=== PATIENT | male | born 1940 | race Asian ===

== ENCOUNTER 2023-08-04 10:46 | Outpatient (RCR) | payer MEDICARE, SELFPAY | END 2023-08-04 23:59 | disposition home or self-care (01) | LOC: CRHB 10:46 | PROVIDERS: ATTENDING PHYSICIAN Internal Medicine Interventional Cardiology | DX: I25.10 Atherosclerotic heart disease of native coronary artery without angina pectoris (principal); Z95.1 Presence of aortocoronary bypass graft | CPT/HCPCS: G0422 ==

== ENCOUNTER 2023-09-12 23:06 | Inpatient (IN) | payer MEDICARE, SELFPAY ==
[2023-09-12] VITALS (12 sets, daily range): BP systolic 77–158; BP diastolic 37–126; BMI 27.8
[2023-09-12 20:33] LABS: % Basophils 0.1 % (0-2); % Immature Granulocytes 0.5 % (0-0.5); % Lymphocytes 7.9 % (20.5-51.1); % Monocytes 7.9 % (1.7-9.3); % Neutrophils 83.6 % (42.2-75.2); Absolute Immature Granulocytes 0.1 10^3/uL (0-0.05); Absolute Neutrophils 10.4 10^3/uL (1.4-6.5); Hematocrit 21.3 % (39.0-52.0); Hemoglobin 7.3 g/dL (13.0-18.0); Mean Corp Hgb Conc. 34.3 g/dL (33.0-37.0); Mean Corpuscular Hgb 28.6 pg (27.0-31.0); Mean Corpuscular Volume 83.5 fL (80.0-94.0); Nucleated Red Blood Cells % 0.2 % (-); Platelet Count 244 10^3/uL (130-400); Red Blood Cell Count 2.55 10^6/uL (4.70-6.10); White Blood Cell Count 12.4 10^3/uL (4.8-10.8)
[2023-09-12 20:47] LABS: APTT 38.9 Sec (23.4-35.0)
[2023-09-12 20:50] LABS: ALT (SGPT) 27 U/L (0-50); AST (SGOT) 36 U/L (17-59); Alkaline Phosphatase 85 U/L (38-126); Blood Urea Nitrogen 29 mg/dl (9-20); Calcium 8.4 mg/dl (8.4-10.2); Carbon Dioxide 23 mmol/L (22-30); Chloride 95 mmol/L (98-107); Estimated Creatinine Clearance 15 ml/min; Glucose 251 mg/dl (70-99); Potassium 3.8 mmol/L (3.5-5.1); Sodium 127 mmol/L (135-145); Total Bilirubin 0.7 mg/dl (0.2-1.3); Total Protein 5.6 g/dl (6.3-8.2); eGFR 17.09
[2023-09-12 21:00] LABS: NT-proBNP > 27000 pg/ml
--- NOTE | 2023-09-12 21:06 | ED.GENMED ---
History of Present Illness
General
Chief Complaint: Breathing Problem
Source: patient and records (From [facility] also been requested from [facility])
Exam Limitations: altered mental status
Time Seen by Provider: 09/12/23 20:28
Nursing documentation reviewed up to this point in time: agreed with
Travel History
Have you had any contact with someone who has COVID-19?: No
Do you have any symptoms of coronavirus? Fever > 100 degrees, chills, cough, shortness of breath, sore throat, loss of taste or smell, muscle aches, or headache?: No
History of Present Illness
History of Present Illness:
83-year-old male complex past medical history CAD apparently multivessel disease diabetic not thought to be a bypass candidate ESRD Tuesday, recurrent bladder tumors, was admitted to [facility] last week apparently had an W[place] when he
was there, he tells me he had a cardiac cath but told he could not have any stents because he is on a blood thinner? His program technician are at [facility], sees other physicians outside of [facility], went to dialysis today as scheduled, was feeling
okay no symptoms during dialysis, afterward developed shortness of breath and chest pressure, at this point he tells me he has no chest pain or shortness of breath pulse ox is okay he is hypotensive, his lower extremity edema, apparently he had no
drop in his hemoglobin during his admission to [facility] details of which are unclear at this time
No blood in his stool by report apparently has been losing blood in his tract, being followed at [facility], patient tells me he did not receive a blood transfusion at [facility] but they were talking about it
Past History
Past History
ED Past Medical History: CAD, Cancer, HTN, Hypercholesterolemia, NIDDM, Renal failure and Other (Bladder CA)
ED Past Surgical History: Urological (Bladder tumor removed with anticarcinogenic agent instillation)
Social History
Tobacco: Non-smoker
Alcohol: None
Drug: None
Personal:
Living: with family
Review of Systems
Review of Systems
All Other Systems: Not applicable
Constitutional: Reports fatigue; Denies fever
Respiratory: Reports trouble breathing
Cardiac: Reports chest pain
ABD/GI: Reports no symptoms
: Reports no symptoms
Musculoskeletal: Reports edema
Neurological: Reports weakness
Hematologic/Lymphatic: Reports no symptoms
Psychiatric: Reports no symptoms
Phy Exam
Physical Exam
Physical Exam:
Physical Exam
General: Chronically ill-appearing male looks uncomfortable but nontoxic hypotensive
Neck: Neck veins slightly just
Heart: Irregular
Lungs: Bibasilar
Abdomen: Nontender
Neuro: Globally weak
Skin: no rash
Psychiatric: Cooperative
Extremities: Edema is present
Scores
Heart Failure Risk
Heart Failure Risk Score: Yes
History of Stroke or TIA: No
History of intubation for respiratory distress: Yes
Heart rate on ED arrival >/= 110: No
SaO2 <90% on arrival on room air: No
HR >/=110 during 3min walk test (or too ill to perform test): Yes
ECG has acute ischemic changes: No
Urea >/=12mmol/L (BUN 33.6mg/dL): No
Serum CO2>/=35mmol/L: No
Troponin I or T elevated to [place] Level (0.4mg/dL): Yes
NT-proBNP >/=5,000ng/L (5,000pg/ml): Yes
HF Risk Score: 7
Admission Status: VERY HIGH RISK 69.8% Consider admission to hospital
Course
Orders/Labs/Results
Orders:
Orders
09/12/23 20:12
Electrocardiogram (*1) Urgent
Reason for Study: Shortness of Breath
09/12/23 20:14
EKG- Treatment ONCE
09/12/23 20:27
Type+Screen Urgent
Complete Blood Count/With Diff Urgent
Comprehensive Metabolic Panel Urgent
NT-proBNP Urgent
PTT Urgent
Troponin I Urgent
09/12/23 20:41
CR Chest Portable - 1 View Urgent
Comment:
Reason For Exam: sob low bp
Reason Study Needs to be Portable: Patient Unstable
09/12/23 21:01
0.9% Sodium Chloride 500 ml [Nss] 500 ml IV BOLUS
09/12/23 21:40
Blood Bank Products [* Blood Bank Products] Urgent
's Orders: raul
Blood Bank Products: *Packed RBC Leuko(PRBC's)
Quantity: 1
Transfuse Today: Yes
Reason: Anemia
Abnormal Lab Results
09/12/23
20:27
WBC 12.4 H 10^3/uL
(4.8-10.8)
RBC 2.55 L 10^6/uL
(4.70-6.10)
Hgb 7.3 L g/dL
(13.0-18.0)
Hct 21.3 L %
(39.0-52.0)
RDW 15.0 H %
(11.5-14.5)
Abs Immat Gran (auto) 0.1 H 10^3/uL
(0-0.05)
Absolute Neuts (auto) 10.4 H 10^3/uL
(1.4-6.5)
Absolute Lymphs (auto) 1.0 L 10^3/uL
(1.2-3.4)
Absolute Monos (auto) 1.0 H 10^3/uL
(0.1-0.6)
Neutrophils % 83.6 H %
(42.2-75.2)
Lymphocytes % 7.9 L %
(20.5-51.1)
APTT 38.9 H Sec
(23.4-35.0)
Sodium 127 L mmol/L
(135-145)
Chloride 95 L mmol/L
(98-107)
BUN 29 H mg/dl
(9-20)
Creatinine 3.4 H mg/dL
(0.7-1.3)
Glucose 251 H mg/dl
(70-99)
Troponin I 2.800 H* ng/ml
Total Protein 5.6 L g/dl
(6.3-8.2)
Albumin 3.0 L g/dl
(3.5-5.0)
09/12/23 20:27
09/12/23 20:27
Vital Signs
Initial and Last Documented VS:
Initial Vital Signs
Temp Pulse Resp BP Pulse Ox
98.6 F 78 22 158/126 99
09/12/23 20:08 09/12/23 20:08 09/12/23 20:08 09/12/23 20:08 09/12/23 20:08
Last Documented Vital Signs
Temp Pulse Resp BP Pulse Ox
98.6 F 73 26 78/38 98
09/12/23 20:08 09/12/23 21:30 09/12/23 21:30 09/12/23 21:00 09/12/23 21:30
MDM/Problems Addressed
Differential Diagnosis Includes:
Post [place] cardiomyopathy heart failure pericardial effusion sepsis tamponade PE less likely as he is anticoagulated
MDM/Problems Addressed:
Shortness of breath fatigue chest pain low blood pressure anemia
Chronic conditions affecting care: DM, HTN, CAD, Cardiomyopathy and Cancer
Acute Exacerbation and/or Progression of Chronic Illness: DM, HTN, CAD, Cardiomyopathy and Cancer
*EKG
Interpreted by ED Provider?: NA
Interpretation: abnormal
Heart Rate: 78
Rate: normal
Rhythm: sinus
Ischemia: ST depression
*Extension Agent Interpretation
Rate: normal
Interpretation: normal
Heart Rate: 78
Rhythm: sinus
*Critical Care Note
Total Time (30-74mins, 75-104mins- exclusive of procedures): 30
Data Reviewed
Review of Other/Old Records Reveals: Labs and Records
Source: patient
Prescriptions/Medications Considered But Not Given:
Unfractionated
Further Testing Considered But Not Given:
CT of the chest
Patient Management
Social determinants of health affecting care: Living situation
Update Note
Update Note:
Update, medically complex male presents with fatigue shortness of breath chest pain is hypotensive troponin is elevated history of malignancy recently at [facility] with an W[place] underwent a cath unclear if he was stented or not looks like he is volume
overloaded he is hypotensive try to get some records from [facility] in the meantime started on volume resuscitation sideration for pressors consideration for transfusion of packed cells
Overall prognosis appears guarded
940, H&H noted patient gave verbal consent for blood, apparently there is a family members here as well in the healthcare field harassing about a transfusion will give just 1 unit slowly at this point and have ordered records from [facility] to see
where he was at his prior visit Tom is hypotensive now he is just getting 500 cc bolus of saline as I do not want to push him into congestive heart failure
Currently medical records is closed this evening at [facility] medical records until the morning
ED Attending Note
-
Portions of this chart may have been created with voice recognition software.� Occasional wrong word or��sound alike� substitutions may have occurred due to the inherent limitations of voice recognition software.
Discharge Plan
Departure
Patient Disposition: Admit
Date of Disposition: 09/12/23
Time of Disposition: 21:39
Admit to: IMU
Presentation/result/management discussed w/ accepting MD/DO: Hospitalist
Patient with high blood pressure during this ER visit?: No
Condition: Serious
Covid-19: Not Applicable
Discharge Problem:
Myocardial infarction type 2, History of bladder cancer, Pulmonary edema, Chronic kidney disease, stage 5, Anemia
Prescriptions:
No Action
latanoprost [Xalatan] 2.5 ML drops
1 drp BOTH EYES HS
tamsulosin 0.4 MG capsule
0.4 mg PO QPM
Hold Instructions: Resume on 10/20/22. Discuss with your outpatient physician, urologist before resuming
ezetimibe 10 MG tablet
10 mg PO DAILY
aspirin 81 mg Tablet,Delayed Release (Dr/Ec)
81 mg PO DAILY Qty: 30 1RF
glipizide 5 mg tablet extended release 24hr
5 mg PO SUTUTHSA
pantoprazole 40 mg Tablet,Delayed Release (Dr/Ec)
40 mg PO DAILY
carvedilol [Coreg] 6.25 mg Tablet
3.125 mg PO BID
isosorbide mononitrate 30 mg Tablet Extended Release 24 Hr
90 mg PO DAILY
rosuvastatin 10 MG tablet
10 mg PO QPM
saxagliptin [Onglyza] 5 mg tablet
5 mg PO DAILY
Interventions
Interventions:
*Risk Screen - Suicide Last Done: 09/12/23 20:08
*General Assessment Last Done: 09/12/23 20:08
ED- Cardiac Assessment Last Done: 09/12/23 20:41
ED- Pulmonary Assessment Last Done: 09/12/23 20:41
[2023-09-12] MEDS: NSS 500 IV (21:22)
--- NOTE | 2023-09-12 21:42 | HPS.HSE ---
Addendum entered and electronically signed by Royce Trujillo MD 09/12/23 23:23:
Patient seen and examined independently with [facility] [employer] [facility].� 83-year-old male past medical history of CAD status post CABG, postoperative A-fib previously on Eliquis, ischemic cardiomyopathy normal ejection fraction, ESRD on hemodialysis Tuesday, tuesday
through right upper chest wall catheter although he has mature left upper extremity fistula, malignant neoplasm of urinary bladder status post frequent elective surgeries complicated by gross hematuria, diabetes, anemia of chronic disease,
hypertension, presenting for chest pressure and fatigue after dialysis today.� History obtained from patient's nephew who is cardiac PA at [facility].�
Patient recently had a long hospitalization at [facility] for bladder cancer status post resection of 50 lesions on 09/01.� He then developed gross hematuria and temporary placement of renal stent followed by [facility].� On 09/05 he developed chest pain with
hypertensive urgency with flash pulm edema and had diagnostic catheterization at [facility].� Stent was decided to not be placed due to history of significant bleeding in the past aspirin and Plavix.� Aspirin and Plavix was nevertheless
attempted during which time hemoglobin dropped from 11 to 7.7 and he did not receive blood transfusion.� There was plan to resume Eliquis however this was held off by nephew due to concern for recurrent bleeding.� He is only on aspirin at this time.
Today patient was noted to be hypotensive with hemoglobin of 70s over 30s in the emergency room.� Patient does make a little bit of urine however no bleeding at this time.� Labs show leukocytosis.� Hemoglobin 7.3.� Troponin 2.8 which appears at
baseline.� Chest x-ray shows mild pulmonary edema.� Patient given 1 L IV fluids in emergency room.� Clinical presentation is consistent with hypovolemic shock secondary to significant recent hematuria and blood loss anemia.� 1 unit of blood
ordered.� Hold isosorbide mononitrate, and Coreg. Goal hemoglobin greater than 8.� Maintain fluid restriction of 40 ounces.� Cardiology consulted.� Nephrology consulted.
Original Note:
Family Physician
-
Family Physician:
Chief Complaint
-
cp, sob fatigue post dialysis
History of Present Illness
83-year-old male who developed shortness of breath, chest pressure and fatigue after dialysis today that has been persistent. He is also complaining of some constipation .He has history of end-stage renal disease is on dialysis Dx 1.5 years ago
which she had this a.m. He had dialysis through his right upper chest wall cath as they have not used his left upper AC graft ,which is currently ready per his nephew. He has had bladder cancer for over 20 years but put off bladder tumor removal
greater than 1-1/2 years. He was on prior Eliquis due to postop A-fib during CABG November 2022 which was held before surgery.
He had a recent admission to [facility] for bladder cancer with removal of over 50 lesions. He then developed gross hematuria had renal stents placed for 2 days then removed along with three-way Echeverria catheter on 09/01/2023. On
09/05/2023 postdialysis he developed crushing chest pain with hypertensive urgency systolics in the 200s with troponin elevation of 10. He had a diagnostic cardiac cath at [facility] that was essentially normal except for a 70% OM lesion in
the distal aspect. He was deemed he had a type II and STEMI with lateral lead ST depression. No stent was placed as he had bleeding in the Plast on aspirin and Plavix. His nephew states while in the hospital his hemoglobin dropped from 11 to 8
and was 7.7 on discharge 2 days ago 09/10/23 and never had a blood transfusion. During his admission he had normal echo with an EF of 65%. His nephew states due to his hypertensive urgency his Coreg and Imdur were increased. The patient currently
complains of fatigue. He denies current chest pain, fever, chills, headache, dizziness, abdominal pain, nausea, vomiting, diarrhea, urinary symptoms. He still does make some urine per nephew he denies any recent hematuria.
He was noted to be hypotensive 70s/ 30s in the ER with lower extremity edema and a hemoglobin of 7.3 which has dropped from 11.9 in July.
PMH CAD/MT, type II NSTEMI September 05, 2023, CABG November 2022 with postop A-fib placed on Eliquis, HTN, HLD, CHF, GERD, ESRD on dialysis, bladder CA, BPH, DM2, glaucoma, anemia, LIME, vertigo
Medical History
Past Medical History
Past Medical History: Reports Other
Additional Past Medical History:
CAD/MT, type II NSTEMI September 05, 2023, CABG November 2022 with postop A-fib placed on Eliquis, HTN, HLD, CHF, GERD, ESRD on dialysis, bladder CA, BPH, DM2, glaucoma, anemia, LIME, vertigo
Past Surgical History: Reports Other
Additional Past Surgical History:
Diagnostic cardiac cath [facility] September 05, 2023 no intervention
Bladder tumor removal 2002 yearly bladder tumor removals recent greater than 5215 2023
Lateral cataract extraction
Dialysis catheter
CABG x 3 vessel November 2022
Left arm fistula 05/06/2023
Right chest wall HD cath
Social History
Tobacco: Non-smoker
Alcohol: None
Drug: None
Living: With Family
Employment: Retired
Family History
Family History: CAD (Siblings late 70s) and Diabetes (Siblings in their 70s)
Allergies / Home Medications
Allergies reflects when Allergies were last updated in [employer].
Home Medications with original date entered in [employer]
Allergy/Medication List:
Allergies
Allergy/AdvReac Type Severity Reaction Status Date / Time
ephedrine Allergy Unknown - Verified 09/12/23 20:08
years ago
Home Medications
latanoprost 0.005 % eye drops (Xalatan) 1 drp BOTH EYES HS Eye condition 12/07/13
tamsulosin 0.4 mg capsule 0.4 mg PO QPM Urinary issue 12/07/13
ezetimibe 10 mg tablet 10 mg PO DAILY High cholesterol 03/13/21
aspirin 81 mg tablet,delayed release 81 mg PO DAILY #30 tabs 10/13/22
glipizide 5 mg tablet, extended release 24 hr 5 mg PO SUTUTHSA Diabetes 04/29/23
pantoprazole 40 mg tablet,delayed release 40 mg PO DAILY 04/29/23
carvedilol 6.25 mg tablet (Coreg) 3.125 mg PO BID 07/20/23
isosorbide mononitrate 30 mg tablet,extended release 24 hr 90 mg PO DAILY 07/20/23
rosuvastatin 10 mg tablet 10 mg PO QPM High cholesterol 07/20/23
saxagliptin 5 mg tablet (Onglyza) 5 mg PO DAILY Diabetes 09/12/23
Review of Systems
-
History Source: Patient and Family (Nephew cardiac PA at bedside)
A 12 point ROS was completed and negative except as noted: Yes
Constitutional: Reports Fatigue; Denies Fever or Chills
EENT: Denies Sore Throat or Mouth Swelling
Respiratory: Reports Trouble Breathing; Denies Cough
Cardiac: Reports Chest Pain; Denies Diaphoresis, Palpitations or Syncope
Abdomen/GI: Denies Abdominal Pain, Nausea, Vomiting, Diarrhea, Constipated, Bloody Stools or Black Stools
: Denies Dysuria, Frequency, Flank Pain, Incontinence, Difficulty Voiding, Urgency or Bleeding
Musculoskeletal: Reports Edema (+1); Denies Joint Pain
Skin: Denies Itching or Rash
Neurological: Denies Dizzy, Headache or Weakness
Endocrine: Reports No Symptoms
Hematologic/Lymphatic: Reports No Symptoms
Psych: Reports Calm
Physical Exam
Vital Signs
Vital Signs
Temp Pulse Resp BP Pulse Ox
98.6 F 74 25 79/37 96
09/12/23 20:08 09/12/23 20:45 09/12/23 20:45 09/12/23 20:36 09/12/23 20:45
Physical Exam
General: Other (Pale in color)
HEENT: NormoCephalic, Anicteric, Moist mucous membranes, PERRLA and No Ptosis
Respiratory: Clear; No Wheezes, Rales or Rhonchi
Cardiac: S1/S2, Regular Rhythm and Peripheral Edema (Trace); No Murmur, Rub or Gallop
Breast: Deferred by me
GI: Soft, Non Tender, Non Distended, Normal Bowel Sounds and No Hepatosplenomegaly
Rectal: Deferred by Provider
Genito-urinary: Deferred by me
Musculoskeletal: No Clubbing, No Cyanosis, Edema, Left Lower Extremity (Trace) and Edema, Right Lower Extremity (Trace); No Edema, Right Upper Extremity
Skin: Warm, Dry and IV/Catheter Site (Left upper extremity AV graft positive thrill, right upper chest wall dialysis catheter); No Rash
Neuro: AO x 3, No Motor Deficits, Nonfocal/grossly intact and No Sensory Deficits; No Slurred Speech, Facial Droop, Tremors or Sedated
Psych: Calm
Laboratory Results
-
09/12/23 20:27
09/12/23 20:27
Laboratory Results
APTT 38.9 Sec (23.4-35.0) H 09/12/23 20:27
Total Bilirubin 0.7 mg/dl (0.2-1.3) 09/12/23 20:27
AST 36 U/L (17-59) 09/12/23 20:27
ALT 27 U/L (0-50) 09/12/23 20:27
Alkaline Phosphatase 85 U/L (38-126) 09/12/23 20:27
Troponin I 2.800 ng/ml H* 09/12/23 20:27
Data Reviewed
-
Lab Data: Labs Reviewed by me
Impression/Plan
-
Impression/plan:
Admit to IMU
# Hypovolemic shock 2/2 blood loss anemia from recent hematuria/bladder tumor resection 09/01/23
79/37, HR 74
WBC 12.4
Hgb 7.3 <11.9 on 07/26/2023
-Check lactic acid, blood cultures x 2
-Hold Imdur 90 mg daily, Coreg 3.125 mg twice daily
--Type and screen obtain blood consent
-Transfuse 1 unit PRBC
-Heme check stools
-Check iron panel, B12, folate
#Recent type II September 05, 2023
#Non-MT troponin elevation
#CAD/MT/CABG November 2022
Was treated at [facility] deemed not candidate for CABG or stent due to history of bleeding on aspirin and Plavix
Had diagnostic cath on 09/05/2023 at that time troponin of 10
Troponin 2.8 will trend was 2-3 in September 2022
-Hold Imdur and Coreg
-Continue aspirin 81 mg daily, Crestor 10 mg every afternoon, Zetia 10 mg daily
--Obtain records from [facility]
-Consult [facility] cardiology
EKG: NSR 76 bpm, QTc 468 MS
#ESRD on dialysis Tuesday
#Right upper chest wall cath uses for dialysis
#Left upper arm AV fistula graft patent but not currently using yet was deemed okay to use by vascular surgery per nephew
-Consult nephrology
#Bladder cancer x 20 years
#BPH
-Recent 50 tumors removed 09/01/2023 with postop gross hematuria 2 renal stents placed then removed
- HOLD flomax
#Constipation reported
-Will add MiraLAX
-Monitor bowel movements
#DM 2
Accu-Cheks with SSI
-Continue glipizide, Onglyza
#Glaucoma
-Continue Xalatan
#Vertigo hx
#LIME
DVT prophylaxis
SCDs
Full code
[2023-09-12 23:13] LABS: Iron 44 ug/dl (49-181)
[2023-09-12 23:22] LABS: Percent Saturation 26 % (20-50); Total Iron Binding Capacity 164 ug/dl (261-462)
[2023-09-13] VITALS (19 sets, daily range): BP systolic 86–116; BP diastolic 42–58; BMI 27.0; BMI 27.2
[2023-09-13 00:32] LABS: Folate 6.9 ng/ml (2.76-20); Vitamin B12 248 pg/ml (239-931)
--- NOTE | 2023-09-13 01:13 | PTCARENOTE ---
Pt admitted to floor. aaox3, pleasant. Denies pain/SOB. Remains on RA, crackles R base, SUÁREZ. NSR. BLE edema. C/o constipation for the past 3/4 days since leaving [facility]. R femoral cath site intact, dressing removed. LAVF +thrill & bruit. R chest
HD cath. Blood was running when pt arrived to floor, blood was completed. Slight drop is BP. will continue bolus the ED had started but had to be cut short d/t blood administration. Will monitor VS. Pt currently sleeping comfortably. Bed alarm on,
call brown in reach. Will monitor.
[2023-09-13 05:41] LABS: % Basophils 0.1 % (0-2); % Eosinophils 0.3 % (0-6); % Immature Granulocytes 0.7 % (0-0.5); % Lymphocytes 11.4 % (20.5-51.1); % Monocytes 11.5 % (1.7-9.3); Absolute Immature Granulocytes 0.1 10^3/uL (0-0.05); Absolute Lymphocytes 1.2 10^3/uL (1.2-3.4); Absolute Monocytes 1.2 10^3/uL (0.1-0.6); Hematocrit 25.3 % (39.0-52.0); Hemoglobin 8.6 g/dL (13.0-18.0); Mean Corpuscular Hgb 28.6 pg (27.0-31.0); Mean Corpuscular Volume 84.1 fL (80.0-94.0); Mean Platelet Volume 10.5 fL (7.4-10.4); Nucleated Red Blood Cells % 0 % (-); Platelet Count 241 10^3/uL (130-400); Red Blood Cell Count 3.01 10^6/uL (4.70-6.10); White Blood Cell Count 10.6 10^3/uL (4.8-10.8)
[2023-09-13 06:15] LABS: Blood Urea Nitrogen 37 mg/dl (9-20); Calcium 8.8 mg/dl (8.4-10.2); Carbon Dioxide 25 mmol/L (22-30); Chloride 94 mmol/L (98-107); Estimated Creatinine Clearance 13 ml/min; Glucose 125 mg/dl (70-99); HDL Cholesterol 22 mg/dl; LDL Cholesterol, Calculated 56 mg/dl; Potassium 3.8 mmol/L (3.5-5.1); Sodium 131 mmol/L (135-145); Total Cholesterol 97 mg/dl (50-199); Triglyceride 97 mg/dl (10-149); Very Low Density Lipoprotein 19 mg/dl (0-30); eGFR 14.49
[2023-09-13] MEDS: NOVOLOG FLEXPEN-LOW RESISTANCE SC ×3 (07:57→17:47)
[2023-09-13 07:58] LABS: Glucose - Point of Care 109 mg/dl (70-99)
[2023-09-13 08:24] LABS: Glycohemoglobin (HgbA1c) 6.8 % (4.0-5.6)
[2023-09-13] MEDS: MIRALAX 17 GRAMS PO (08:48)
[2023-09-13] MEDS: ZETIA 10 MG PO (08:50)
[2023-09-13] MEDS: ASPIR LOW (ENTERIC COATED) 81 MG PO (08:50)
[2023-09-13] MEDS: PROTONIX 40 MG PO (08:51)
[2023-09-13] MEDS: GLUCOTROL XL (EXTENDED RELEASE) 5 MG PO (08:54)
--- NOTE | 2023-09-13 10:17 | CON.CAR ---
Addendum entered and electronically signed by Danny Moore MD 09/13/23 12:43:
I saw and examined the patient.
The Hvac Service Technician's note was reviewed and I agree with the note.
Comment: 83-year-old male past medical history of multivessel CAD with prior CABG at [facility] in 2022, post-op AFib, end-stage renal disease on dialysis and recurrent bladder CA
Recent admission to [facility] for resection of bladder CA with resultant hematuria. Subsequently required CBI.
During this he developed chest pain in the setting of HTN urgency and underwent LHC which revealed patent bypass grafts
Due to hematuria he was discharged on [id number] only
Currently chest pain free
Would continue ASA and statin/Zetia
Coreg and Imdur on hold for hypotension
Volume overloaded on exam, appreciate neprhology input regarding management
He will follow up with his primary radiology physician Dr. Almanza regarding resumption of additional anti-platelet or OAC
Original Note:
Consultation
Consultation Request
Date/Time Consultation Performed: 09/13/23
Requesting Provider: Dr. Trujillo
Performing Provider: Elizabeth Devlin PA-C for Dr. Moore
Reason for Consultation: elevated troponin, hypotension
Medical History
-
Chief Complaint: SOB/CP post HD
History of Present Illness:
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
type 2 diabetes, chronic anemia. He underwent TURBT with reportedly 50 tumors removed 09/01/2023 at [facility]. During this admission he had hypertensive urgency and ruled in for FL with troponin reportedly of 10. He had been having
hematuria postprocedure, and his outpatient Eliquis remained on hold however he was continued on aspirin. Plavix was then added for trial of DAPT (he had previously had hematuria on plavix). He was transferred to [facility] to have diagnostic
cardiac catheterization which reportedly showed patent bypass grafts and a 70% OM stenosis. This was medically managed. Plavix was stopped as he continued with hematuria and downtrending hemoglobin. Reportedly hemoglobin was 7.7 on day of
discharge 09/10/2023, and he did not receive transfusion during his admission. He had dialysis yesterday and afterwards developed shortness of breath and chest discomfort and was brought to [facility]. On arrival he was noted to be
hypotensive with blood pressure in the 70s over 30s. Hemoglobin was 7.3. He was given a unit of blood in ER 09/12/23. Troponin 2.8. Initial EKG with ST segment more depressed in leads I and aVL, improved by repeat EKG today. proBNP also elevated
at greater than 27,000. During prior admission there was discussion about changing medication doses however decided against, remained on coreg 3.125mg BID and imdur 90mg daily. He was told to continue asa alone for one week then could resume eliquis
2.5mg BID.
PMH:
Transitional cell carcinoma of the bladder treated with multiple transurethral resection of bladder tumor, most recently 50 tumors removed 09/01/2023 at [facility]
Acute on chronic blood loss anemia secondary to hematuria from above procedure
CAD
s/p CABG - CABRAL to LAD, SVG to OM, SVG to PDA 12/09/22 at [facility]
s/p diagnostic cath 08/[address] [facility] with patent bypass grafts, 70% OM stenosis, medically managed
ESRD on HD MWF
mild
Hypertension
Hyperlipidemia
Type 2 diabetes
Glaucoma
Past Medical History
Past Medical History: Other (in HPI)
Social History
Tobacco: Non-Smoker
Alcohol: None
Employment: Retired
Family History
Family History: CAD
Allergies / Home Medications
Allergy/AdvReac Type Severity Reaction Status Date / Time
ephedrine Allergy Unknown - Verified 09/12/23 20:08
years ago
Medication Instructions Recorded Confirmed Type
latanoprost 0.005 % eye drops 1 drp BOTH EYES HS Eye condition 12/07/13 09/12/23 History
(Xalatan)
tamsulosin 0.4 mg capsule 0.4 mg PO QPM Urinary issue 12/07/13 09/12/23 History
ezetimibe 10 mg tablet 10 mg PO DAILY High cholesterol 03/13/21 09/12/23 History
aspirin 81 mg tablet,delayed 81 mg PO DAILY #30 tabs 10/13/22 09/12/23 Rx
release
glipizide 5 mg tablet, extended 5 mg PO SUTUTHSA Diabetes 04/29/23 09/12/23 History
release 24 hr
pantoprazole 40 mg tablet,delayed 40 mg PO DAILY 04/29/23 09/12/23 History
release
carvedilol 6.25 mg tablet (Coreg) 3.125 mg PO BID 07/20/23 09/12/23 History
isosorbide mononitrate 30 mg 90 mg PO DAILY 07/20/23 09/12/23 History
tablet,extended release 24 hr
rosuvastatin 10 mg tablet 10 mg PO QPM High cholesterol 07/20/23 09/12/23 History
saxagliptin 5 mg tablet (Onglyza) 5 mg PO DAILY Diabetes 09/12/23 09/12/23 History
Review of Systems
-
History Source: Patient
All other systems: Negative unless noted
Physical Exam
Vital Signs
Temp Pulse Resp BP Pulse Ox
98 F 72 18 104/49 97
09/13/23 08:00 09/13/23 10:00 09/13/23 10:00 09/13/23 10:00 09/13/23 10:00
Lab Results
09/13/23 05:22
09/13/23 05:22
Troponin I 5.050 ng/ml H* 09/13/23 09:37
Yqx-K-Ltmsssmndly Pept > 56467 pg/ml 09/12/23 20:27
Physical Exam
General: No Apparent Distress, Comfortable and Other (sitting in chair. appears to have some conversational dyspnea)
HEENT: Normocephalic, Anicteric and Moist Mucous Membranes
Respiratory: Crackles (few crackles B/L bases) and Non Labored Respirations
Cardiac: S1/S2 and Regular Rhythm
GI: Soft, Non Tender, Non Distended and Normal Bowel Sounds
Musculoskeletal: No Clubbing, No Cyanosis and Edema (trace of B/L LE)
Skin: Warm, Dry and Other (sternotomy scar)
Neuro: AO x 3
Impression / Plan
-
Primary Rug Dyer Helper: Dr. Almanza
Assessment:
Hypotension
CP/SOB post OP HD 09/12/23
Elevated troponin, likely downtrending from type 2 FL last week at [facility]
Transitional cell carcinoma of the bladder treated with multiple transurethral resection of bladder tumor, most recently 50 tumors removed 09/01/2023 at [facility]
Acute on chronic blood loss anemia secondary to hematuria from above procedure
CAD
s/p CABG - CABRAL to LAD, SVG to OM, SVG to PDA 12/09/22 at [facility]
Type 2 NSTEMI s/p diagnostic cath 08/[address] [facility] with patent bypass grafts, 70% OM stenosis, medically managed
Post CABG afib on eliquis
ESRD on HD MWF
mild
Hypertension
Hyperlipidemia
Type 2 diabetes
Glaucoma
Hyponatremia
ECHO 08/2023 at [facility]: EF reportedly preserved
Plan:
-Patient presents to [facility] after recent admission to [facility] and [facility] 09/01 - 09/10/2023. He had undergone transurethral resection of bladder tumors 09/01. Postprocedure was noted to have hematuria and acute
on chronic anemia as well as hypertensive urgency with troponin up to 10, felt to be type II NSTEMI status post diagnostic cath at [facility] with patent bypass grafts and 70% OM1 stenosis which was medically managed. He was discharged on aspirin only.
He presents to [facility] as post HD yesterday he developed chest pain and shortness of breath. He was noted to be hypotensive with hemoglobin of 7.3, discharge hemoglobin on 09/10 was reportedly 7.7.
-difficult situation
-Patient currently without chest pain. troponins uptrending, trend to peak, suspect type 2 event related to hypotension/worsening anemia. Initial EKG with worsened ST depression in 1, aVL, however improved by 09/13 EKG, follow.
-Continue aspirin. Patient was unable to tolerate DAPT due to hematuria postprocedure. Plan is for medical management of known OM stenosis at this time
-Patient reports hematuria improving. Hemoglobin improved to 8.6 status post 1 unit packed red blood cells 09/12.
-Recent echo reportedly with EF preserved. Await records for review. reviewed CABG report from [facility] 12/09/22
-Blood pressures overall improving, however remain on the low side. Currently outpatient Coreg and Imdur on hold, resume as able
-For dialysis in a.m. Patient noted to have some degree of conversational dyspnea today. proBNP greater than 27,000 and chest x-ray with evidence of mild pulmonary edema. Fluid removal as able in setting of hypotension
-Once hematuria is improved/resolved, could be considered for return to the lab for OM intervention. Patient to be seen in office as scheduled 09/30/23 and can be discussed at that time
-OP eliquis remains on hold. in SR on tele. continue to hold for now. follow hematuria. was told by [facility] to hold until 09/17/23 (1 week post DC) per patient
-d/w nursing. d/w nephrology
-primary radiology physician notified of patient admission
Data Reviewed
-
EKG: Tracing Personally Visualized and interpreted
Radiology: Report Reviewed by me
Medical Tests (Nuc Med, Echo etc): Report Reviewed by me
Labs: Labs Reviewed by me
Old Records: Reviewed
--- NOTE | 2023-09-13 12:08 | W.CON.NEPH ---
Consultation
-
Date/Time Consultation Requested: September 13, 2023 9 AM
Date/Time Consultation Performed: September 13, 2023 12 PM
Requesting Provider: Dr. Trujillo
Performing Provider: Dr. Trivedi
Reason for Consultation: ESRD
Medical History
-
Chief Complaint: ESRD
History of Present Illness:
Patient is an 83-year-old male withtransitional cell carcinoma of the bladder treated with multiple TURBTs, CAD status post CABG x 3 11/2022 at [place], end-stage renal disease on hemodialysis MWF at [facility], hypertension, hyperlipidemia,
type 2 diabetes, chronic anemia.� He underwent TURBT with reportedly 50 tumors removed 09/01/2023 at [facility].� During this admission he had hypertensive urgency and ruled in for MT with troponin reportedly of 10.� He had been having
hematuria postprocedure, and his outpatient Eliquis remained on hold however he was continued on aspirin.� Plavix was then added for trial of DAPT (he had previously had hematuria on plavix).� He was transferred to [facility] to have diagnostic
cardiac catheterization which reportedly showed patent bypass grafts and a 70% OM stenosis.� This was medically managed.� Plavix was stopped as he continued with hematuria and downtrending hemoglobin.� Reportedly hemoglobin was 7.7 on day of
discharge 09/10/2023, and he did not receive transfusion during his admission.� He had dialysis yesterday and afterwards developed shortness of breath and chest discomfort and was brought to [facility].� On arrival he was noted to be
hypotensive with blood pressure in the 70/30s.� Hemoglobin was 7.3.� He was given a unit of blood in ER 09/12/23.� Troponin 2.8.� Initial EKG with ST segment more depressed in leads I and aVL, improved by repeat EKG today.� proBNP also elevated at
greater than 27,000. During prior admission there was discussion about changing medication doses however decided against, remained on coreg 3.125mg BID and imdur 90mg daily. He was told to continue ASA alone for one week then could resume eliquis
2.5mg BID.
Past Medical History
ESRD, transitional cell carcinoma bladder, coronary artery disease with bypass grafting, mild aortic stenosis, hypertension, hyperlipidemia, diabetes mellitus type 2, glaucoma, AV fistula creation left upper arm
Social History
Tobacco: Non-Smoker
Alcohol: None
Family History
Coronary artery disease
Allergies / Home Medications
Allergy/AdvReac Type Severity Reaction Status Date / Time
ephedrine Allergy Unknown - Verified 09/12/23 20:08
years ago
Medication Instructions Recorded Confirmed Type
latanoprost 0.005 % eye drops 1 drp BOTH EYES HS Eye condition 12/07/13 09/12/23 History
(Xalatan)
tamsulosin 0.4 mg capsule 0.4 mg PO QPM Urinary issue 12/07/13 09/12/23 History
ezetimibe 10 mg tablet 10 mg PO DAILY High cholesterol 03/13/21 09/12/23 History
aspirin 81 mg tablet,delayed 81 mg PO DAILY #30 tabs 10/13/22 09/12/23 Rx
release
glipizide 5 mg tablet, extended 5 mg PO SUTUTHSA Diabetes 04/29/23 09/12/23 History
release 24 hr
pantoprazole 40 mg tablet,delayed 40 mg PO DAILY 04/29/23 09/12/23 History
release
carvedilol 6.25 mg tablet (Coreg) 3.125 mg PO BID 07/20/23 09/12/23 History
isosorbide mononitrate 30 mg 90 mg PO DAILY 07/20/23 09/12/23 History
tablet,extended release 24 hr
rosuvastatin 10 mg tablet 10 mg PO QPM High cholesterol 07/20/23 09/12/23 History
saxagliptin 5 mg tablet (Onglyza) 5 mg PO DAILY Diabetes 09/12/23 09/12/23 History
Review of Systems
-
Currently no chest pain or shortness of breath. No fevers chills or sweats. The remainder of the complete review of systems was negative.
Physical Exam
Vital Signs
Vital Signs
Temp Pulse Resp BP Pulse Ox
98 F 72 18 104/49 96
09/13/23 08:00 09/13/23 10:00 09/13/23 10:00 09/13/23 10:00 09/13/23 10:22
Lab Results
WBC 10.6 10^3/uL (4.8-10.8) 09/13/23 05:22
RBC 3.01 10^6/uL (4.70-6.10) L 09/13/23 05:22
Hgb 8.6 g/dL (13.0-18.0) L 09/13/23 05:22
Hct 25.3 % (39.0-52.0) L 09/13/23 05:22
Plt Count 241 10^3/uL (130-400) 09/13/23 05:22
Sodium 131 mmol/L (135-145) L 09/13/23 05:22
Potassium 3.8 mmol/L (3.5-5.1) 09/13/23 05:22
Chloride 94 mmol/L (98-107) L 09/13/23 05:22
Carbon Dioxide 25 mmol/L (22-30) 09/13/23 05:22
BUN 37 mg/dl (9-20) H 09/13/23 05:22
Creatinine 3.9 mg/dL (0.7-1.3) H 09/13/23 05:22
eGFR 14.49 09/13/23 05:22
Glucose 125 mg/dl (70-99) H 09/13/23 05:22
Calcium 8.8 mg/dl (8.4-10.2) 09/13/23 05:22
Axh-P-Ezavtdzwwzg Pept > 64791 pg/ml 09/12/23 20:27
Albumin 3.0 g/dl (3.5-5.0) L 09/12/23 20:27
Physical Exam
General: AOx3
HEENT: PERRL, EOMI, Oropharynx Clear/Moist, Neck Supple, Trachea Midline and No Thyromegaly
Respiratory: Clear and Normal Excursion
Cardiac: Regular Rate/Rhythm and No Edema
Abdomen: Soft, Nontender and No Hepatosplenomegaly
Skin: No Rash and Normal Turgor
Psych: Mood/afflect pleasant and Insight/judgement good
Assessment/Plan
-
Assessment:
Hypotension
CP/SOB
Elevated troponin
Transitional cell carcinoma of the bladder
s/p CABG - CABRAL to LAD, SVG to OM, SVG to PDA 12/09/22 at [place]
Type 2 NSTEMI s/p diagnostic cath 08/[address] [facility] with patent bypass grafts, 70% OM stenosis, medically managed
Post CABG afib on eliquis
ESRD on HD MWF
mild
Hypertension
Hyperlipidemia
Type 2 diabetes
Glaucoma
Hyponatremia
Plan
-HD tomorrow
-follow troponin trend
-using tunnelled CVC for now, pt says they plan to access AVF upon return to OP unit
Data Reviewed
-
Radiology: Image Personally Visualized and interpreted (CXR with vascular prominence 09/12/23)
Medical Tests (Nuc Med, Echo etc): Image Personally Visualized and interpreted (ECG 09/13/23 with normal sinus rhythm, right bundle branch block, left anterior fascicular block, left ventricular hypertrophy)
[2023-09-13 12:19] LABS: Glucose - Point of Care 171 mg/dl (70-99)
--- NOTE | 2023-09-13 13:09 | PTCARENOTE ---
Pt presents as assessed. Aox3. NSR on tele monitor. OOB to chair with PT. Sating high 90's on RA. Pt able to make needs known. Call brown within reach.
--- NOTE | 2023-09-13 14:06 | W.PN.HOSP.TC ---
Today's Communication/Plan
-
Monitor hemoglobin
Transfuse to keep above 8
Hold Coreg and Imdur as well as Flomax for hypotension reintroduce if blood pressure allows
HD in a.m.
Assessment / Plan
Assessment / Plan
Impression:
Shortness of breath and chest pressure upon presentation
Hypertension likely multifactorial see below.
Acute on chronic anemia.
Non-PR/chronic troponin elevation
Conditions prior to admission
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
Recent episode of gross hematuria with worsening anemia. At that time patient was admitted to [facility].
Type II non-STEMI status post diagnostic cath 09/10 at [facility] with patent bypass grafts, 70% OM stenosis medically managed
Post CABG A-fib on Eliquis previously discontinued due to gross hematuria.
End-stage renal disease on hemodialysis Tuesday
Mild AAS.
Hypertension
Type 2 diabetes.
Dyslipidemia
Hypervolemic hyponatremia.
Plan:
Presentation for shortness of breath, chest pain, hypotension all due to symptomatic anemia.
Noted chronic troponin elevation likely in non-PR range in patient with end-stage renal disease.
Improved with blood transfusion status post 1 unit of PRBC with hemoglobin up from 7.3-8.6
CAD, status post CABG
Recent diagnostic cath as above.
Treat volume status and anemia.
Continue aspirin.
If blood pressure allows, reintroduce preadmission regimen including Coreg and Imdur.
Continue statin
Paroxysmal/postop A-fib
Monitor rate and rhythm.
Continue Coreg if blood pressure allows.
Currently off anticoagulation/Eliquis given gross hematuria and severe anemia.
Acute on chronic anemia and blood loss secondary to hematuria.
Monitor hemoglobin and keep above 8.
End-stage renal disease on hemodialysis Tuesday.
Right chest HD catheter.
AV fistula in place
Diabetes type 2
Continue carbohydrate low diet
Continue glipizide and Onglyza
Physical therapy assessment
Anticipated Discharge: 24 - 48 hours
Subjective/Interval History
-
Date of Service: September 13, 2023
Objective Data
-
Labs:
Laboratory Results
09/13/23
05:22
WBC 10.6
Hgb 8.6 L
Hct 25.3 L
Plt Count 241
Sodium 131 L
Potassium 3.8
Chloride 94 L
Carbon Dioxide 25
BUN 37 H
Creatinine 3.9 H
Glucose 125 H
Calcium 8.8
Vital Signs:
Vital Signs
Temp Pulse Resp BP Pulse Ox
97.9 F 72 18 104/49 96
09/13/23 12:00 09/13/23 10:00 09/13/23 10:00 09/13/23 10:00 09/13/23 10:22
I&O
09/12/23 09/13/23 09/14/23
06:59 06:59 06:59
Intake Total 250 / 250 120 / 120
Balance 250 / 250 120 / 120
Physical Exam
-
General: Well Developed and No Apparent Distress
HEENT: Normocephalic, Atraumatic and Moist Mucous Membranes
Respiratory: Clear to Auscultation
Cardiac: Regular Rhythm and S1/S2; Negative Murmur, Rub or Gallop
GI: Soft, Nontender, Nondistended and Normal Bowel Sounds; Negative Organomegaly
Rectal: Deferred by Provider
Musculoskeletal: No Clubbing, No Cyanosis and No Edema
Skin: Negative Rash
Neuro: Awake, Alert, Oriented, AO x 3 and Nonfocal/Grossly Intact
[2023-09-13 16:51] LABS: Glucose - Point of Care 168 mg/dl (70-99)
--- NOTE | 2023-09-13 17:04 | CM ---
Patient with Hx bladder CA, ESRD on HD with Dx symptomatic anemia. Room air. PT & OT recommend HH.
Met with patient who resides alone in a 2 story house with 2 PARMJIT and 6 +7 steps to bedroom/bath.
The patient was Independent in ADLs/ambulation. Occasionally uses RW when out. Uses treadmill at home.
DME - [facility], [facility]
VN - prior [facility]
SNF - [facility]
Recent cardiac rehab.
PCP - Charlie Marley
Pharmacy - [facility]
The patient has a son Devante in [place], and nephew Jhonny in [place].
The patient goes to [facility] MWF 10am and drives himself.
Patient interested in VN with [facility].
He is interested in hiring a caregiver to assist with personal care needs.
Plan provide Caregiver list and make referral to [facility].
Plan home with [facility] VN and Caregiver list.
[2023-09-13] MEDS: CRESTOR PO (18:47)
[2023-09-13] MEDS: XALATAN OPHTHALMIC SOLUTION 1 DROP BOTH EYES (19:59)
[2023-09-13 21:41] LABS: Glucose - Point of Care 162 mg/dl (70-99)
[2023-09-14] VITALS (26 sets, daily range): BP systolic 96–122; BP diastolic 40–58; BMI 27.5
[2023-09-14] MEDS: DULCOLAX 10 MG PO ×2 (00:36→21:39)
--- NOTE | 2023-09-14 00:48 | PTCARENOTE ---
pt c/o constipation. states he is going to the [facility] but its only small amount of liquid and he feels pressure & it wont come out. states the miralax does not work for him and he needs dulcolax. contacted [facility], Dulcolax was orderd and given. Pt awake in
chair.
--- NOTE | 2023-09-14 03:59 | PTCARENOTE ---
Cared for pt overnight. aaox3, denies pain. NSR, remains on RA. BP's stable, starting to rise. Still tachypneic & SUÁREZ. No BM yet. Pt OOB to chair a couple times tonight. No other issues at this time. Bed & chair alarm on. Call brown in reach.
[2023-09-14 08:11] LABS: Glucose - Point of Care 72 mg/dl (70-99)
[2023-09-14] MEDS: HEPARIN 500 UNITS IV ×2 (08:25→09:25)
--- NOTE | 2023-09-14 08:26 | W.PN.CARDCBS ---
Today's Communication / Plan
-
Remains difficult situation
Troponin still rising slowly to 6.290. He is without chest pain. Cont to trend troponin until they peak. Monitor EKG. He had recent cath with stable coronary anatomy including patent grafts and 70% OM1 treated medically. Possible type II in setting
of severe anemia and hypotension.
Patient to be seen in office as scheduled 09/30/23 and can reeval at that time
Recent echo at [facility] with preserved EF. Consider limited echo to reeval EF.
Cont HD for volume control. pBNP >27,000 with mild HF on chest xray. He has had no chest pain on HD.
Remains in sinus rhythm off Eliquis. If Eliquis was only post op in 2022 and no recurrence may consider outpt monitor before considering resuming anticoagulation which is currently on hold. Apparently at [facility] was told to hold anticoagulation until
at least September 17 2023 (1 week post D/C)
Cont ASA.
HR and bp stable.
[facility] records requested.
Primary capacitor inspector notified of patient admission at patient request
Impression / Plan
-
Primary Book Illustrator: Dr. Almanza
Assessment:
Hypotension
CP/SOB post OP HD 09/12/23
Elevated troponin, likely downtrending from type 2 IN last week at [facility]
Transitional cell carcinoma of the bladder treated with multiple transurethral resection of bladder tumor, most recently 50 tumors removed 09/01/2023 at [facility]
Acute on chronic blood loss anemia secondary to hematuria from above procedure
CAD
s/p CABG - CABRAL to LAD, SVG to OM, SVG to PDA 12/09/22 at [place]
Type 2 NSTEMI s/p diagnostic cath 08/2023 at [facility] with patent bypass grafts, 70% OM stenosis, medically managed
Post CABG afib on eliquis
ESRD on HD MWF
mild
Hypertension
Hyperlipidemia
Type 2 diabetes
Glaucoma
Hyponatremia
ECHO 08/2023 at [facility]: EF reportedly preserved
Plan:
HPI: Patient presents to [facility] after recent admission to [facility] 09/01 - 09/10/2023. He had undergone transurethral resection of bladder tumors 09/01. Postprocedure was noted to have hematuria and
acute on chronic anemia as well as hypertensive urgency with troponin up to 10, felt to be type II NSTEMI status post diagnostic cath at [facility] with patent bypass grafts and 70% OM1 stenosis which was medically managed. He was discharged on aspirin
only. He presents to [facility] as post HD yesterday he developed chest pain and shortness of breath. He was noted to be hypotensive with hemoglobin of 7.3, discharge hemoglobin on 09/10 was reportedly 7.7.
Remains difficult situation
Troponin still rising slowly to 6.290. He is without chest pain. Cont to trend troponin until they peak. Monitor EKG. He had recent cath with stable coronary anatomy including patent grafts and 70% OM1 treated medically. Possible type II in setting
of severe anemia and hypotension.
Patient to be seen in office as scheduled 09/30/23 and can re-eval and review cath findings at that time
Recent echo at [facility] with preserved EF. Consider limited echo to reeval EF.
Cont HD for volume control. pBNP >27,000 with mild HF on chest xray. He has had no chest pain on HD.
Remains in sinus rhythm off ASA and Eliquis. If Eliquis was only post op in 2022 and no recurrence may consider outpt monitor before considering resuming anticoagulation which is currently on hold. Apparently at [facility] was told to hold anticoagulation
until at least September 17 2023 (1 week post D/C)
HR and bp stable.
[facility] records requested.
Primary capacitor inspector notified of patient admission at patient request
Progress Note - Book Illustrator
Subjective
Date of Service: September 14, 2023
Pt seen and examined. No cp or dyspnea. Complains of constipation.
Objective
Labs:
Labs
Hgb 8.6 g/dL (13.0-18.0) L 09/13/23 05:22
Hct 25.3 % (39.0-52.0) L 09/13/23 05:22
Plt Count 241 10^3/uL (130-400) 09/13/23 05:22
APTT 38.9 Sec (23.4-35.0) H 09/12/23 20:27
Sodium 131 mmol/L (135-145) L 09/13/23 05:22
Potassium 3.8 mmol/L (3.5-5.1) 09/13/23 05:22
BUN 37 mg/dl (9-20) H 09/13/23 05:22
Creatinine 3.9 mg/dL (0.7-1.3) H 09/13/23 05:22
Glucose 125 mg/dl (70-99) H 09/13/23 05:22
Troponins
09/12/23 09/13/23 09/13/23
20:27 09:37 16:05
Troponin I 2.800 H* 5.050 H* 5.970 H*
Vital Signs and I&O:
Vital Signs
Temp Pulse Resp BP Pulse Ox
98.1 F 70 28 117/52 92
09/14/23 03:00 09/14/23 06:00 09/14/23 06:00 09/14/23 06:00 09/13/23 20:30
Vital Signs
Temp Pulse Resp BP Pulse Ox
98.1 F 70 28 117/52 92
09/14/23 03:00 09/14/23 06:00 09/14/23 06:00 09/14/23 06:00 09/13/23 20:30
Intake & Output
09/12/23 09/13/23 09/14/23 09/15/23
06:59 06:59 06:59 06:59
Intake Total 250 / 250 120 / 120
Balance 250 / 250 120 / 120
Physical Exam
Physical Exam
General: No acute distress, AAOX3
Neck: Negative JVD
Heart: Regular, Negative S3 positive S1/S2, Negative S4, No murmur
Lungs: CTA b/l, negative wheezes/rales/rhonchi
Abd: Positive BS, NT/ND, neg rebound/rigidity/guarding
Ext: Negative cyanosis/clubbing/edema
Neuro: nonfocal
[2023-09-14 08:33] LABS: % Basophils 0.2 % (0-2); % Eosinophils 0.3 % (0-6); % Immature Granulocytes 0.7 % (0-0.5); % Lymphocytes 11.7 % (20.5-51.1); % Monocytes 9.2 % (1.7-9.3); % Neutrophils 77.9 % (42.2-75.2); Absolute Immature Granulocytes 0.1 10^3/uL (0-0.05); Absolute Lymphocytes 1.4 10^3/uL (1.2-3.4); Absolute Monocytes 1.1 10^3/uL (0.1-0.6); Absolute Neutrophils 9.3 10^3/uL (1.4-6.5); Hematocrit 25.3 % (39.0-52.0); Hemoglobin 8.5 g/dL (13.0-18.0); Mean Corp Hgb Conc. 33.6 g/dL (33.0-37.0); Mean Corpuscular Hgb 28.1 pg (27.0-31.0); Mean Corpuscular Volume 83.8 fL (80.0-94.0); Mean Platelet Volume 10.3 fL (7.4-10.4); Nucleated Red Blood Cells % 0.2 % (-); Platelet Count 258 10^3/uL (130-400); Red Blood Cell Count 3.02 10^6/uL (4.70-6.10); Red Cell Dist. Width 15.2 % (11.5-14.5); White Blood Cell Count 11.9 10^3/uL (4.8-10.8)
[2023-09-14] MEDS: MANNITOL 12.5 GRAMS IV ×2 (08:40→10:27)
[2023-09-14] MEDS: NOVOLOG FLEXPEN-LOW RESISTANCE SC ×3 (08:51→17:44)
[2023-09-14] MEDS: RETACRIT 4000 UNITS IV ×2 (09:13→09:33)
[2023-09-14 09:47] LABS: Blood Urea Nitrogen 51 mg/dl (9-20); Calcium 9.1 mg/dl (8.4-10.2); Carbon Dioxide 26 mmol/L (22-30); Chloride 93 mmol/L (98-107); Estimated Creatinine Clearance 9 ml/min; Glucose 61 mg/dl (70-99); Potassium 3.8 mmol/L (3.5-5.1); Sodium 129 mmol/L (135-145); eGFR 10.03
--- NOTE | 2023-09-14 10:47 | PTCARENOTE ---
Pt presents as assessed. Aox3. NSR on tele monitor. AM medications held while pt is on HD. Sating high 90's on RA. Pt able to make needs known. Call brown within reach.
--- NOTE | 2023-09-14 10:58 | PTCARENOTE ---
Pt's troponins trending up- M Claus SINGER notified via TT.
--- NOTE | 2023-09-14 11:36 | W.PN.NEPH.HD ---
Assessment
-
pt seen during HD
vitals stable
UF as possible
pt aware of renal diet and FR
CVC functions well
d/w pt
Progress Note - Hemodialysis
-
Date of Service: September 14, 2023
Duration: 30 minutes and 3 hours
Potassium Bath: 3
Calcium Bath: 2.5
Opti-Dialyzer: 160
Ultrafiltration: Other (1-1.5kg)
Blood Flow: 400
Dialysate Flow: 600
Heparin: yesx2
EPO: 8000
[2023-09-14] MEDS: HEPARIN 3700 UNITS INTRACATH (11:46)
[2023-09-14] MEDS: ZETIA 10 MG PO (12:06)
[2023-09-14] MEDS: MIRALAX 17 GRAMS PO (12:06)
[2023-09-14] MEDS: ASPIR LOW (ENTERIC COATED) 81 MG PO (12:06)
[2023-09-14] MEDS: PROTONIX 40 MG PO (12:06)
[2023-09-14 12:47] LABS: Glucose - Point of Care 103 mg/dl (70-99)
--- NOTE | 2023-09-14 15:27 | W.PN.HOSP.TC ---
Today's Communication/Plan
-
Chest pain-free.
Noted trending up troponin.
Recent cath as well as echocardiogram with no evidence of ischemia and preserved biventricular function.
Remains in sinus rhythm
Has been off anticoagulation due to recent gross hematuria.
HD today.
Troponin in AM.
Assessment / Plan
Assessment / Plan
Impression:
Shortness of breath and chest pressure upon presentation
Hypertension likely multifactorial see below.
Acute on chronic anemia.
Non-DE/chronic troponin elevation
Conditions prior to admission
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
Recent episode of gross hematuria with worsening anemia. At that time patient was admitted to [facility].
Type II non-STEMI status post diagnostic cath 09/10 at [facility] with patent bypass grafts, 70% OM stenosis medically managed
Post CABG A-fib on Eliquis previously discontinued due to gross hematuria.
End-stage renal disease on hemodialysis Tuesday
Mild AAS.
Hypertension
Type 2 diabetes.
Dyslipidemia
Hypervolemic hyponatremia.
Plan:
Presentation for shortness of breath, chest pain, hypotension all due to symptomatic anemia.
Noted chronic troponin elevation likely in non-DE range in patient with end-stage renal disease.
Improved with blood transfusion status post 1 unit of PRBC with hemoglobin up from 7.3-8.6
CAD, status post CABG
Noted uptrending troponin 2.8�6.2.
Remains chest pain-free
Recent diagnostic cath as above.
Treat volume status and anemia.
Continue aspirin.
If blood pressure allows, reintroduce preadmission regimen including Coreg and Imdur.
Continue statin
Paroxysmal/postop A-fib
Monitor rate and rhythm.
Continue Coreg if blood pressure allows.
Currently off anticoagulation/Eliquis given gross hematuria and severe anemia.
Acute on chronic anemia and blood loss secondary to hematuria.
Monitor hemoglobin and keep above 8.
End-stage renal disease on hemodialysis Tuesday.
Right chest HD catheter.
AV fistula in place
Diabetes type 2
Continue carbohydrate low diet
Continue glipizide and Onglyza
Physical therapy assessment
Anticipated Discharge: 24 - 48 hours
Subjective/Interval History
-
Date of Service: September 14, 2023
Objective Data
-
Labs:
Laboratory Results
09/14/23
08:05
WBC 11.9 H
Hgb 8.5 L
Hct 25.3 L
Plt Count 258
Sodium 129 L
Potassium 3.8
Chloride 93 L
Carbon Dioxide 26
BUN 51 H
Creatinine 5.3 H*
Glucose 61 L
Calcium 9.1
Vital Signs:
Vital Signs
Temp Pulse Resp BP Pulse Ox
97.5 F 89 30 109/53 96
09/14/23 11:40 09/14/23 14:00 09/14/23 14:00 09/14/23 14:00 09/14/23 09:19
I&O
09/13/23 09/14/23 09/15/23
06:59 06:59 06:59
Intake Total 250 / 250 120 / 120
Balance 250 / 250 120 / 120
Physical Exam
-
General: Well Developed and No Apparent Distress
HEENT: Normocephalic, Atraumatic and Moist Mucous Membranes
Respiratory: Clear to Auscultation
Cardiac: Regular Rhythm and S1/S2; Negative Murmur, Rub or Gallop
GI: Soft, Nontender, Nondistended and Normal Bowel Sounds; Negative Organomegaly
Rectal: Deferred by Provider
Musculoskeletal: No Clubbing, No Cyanosis and No Edema
Skin: Negative Rash
Neuro: Nonfocal/Grossly Intact
--- NOTE | 2023-09-14 16:24 | CM ---
Patient with Hx bladder CA, ESRD on HD with Dx symptomatic anemia. Room air. PT & OT recommend HH.
Spoke with Faye Santana; patient is accepted. Discussed that patient may need SW for skilled nursing planning.
Met with patient and provided Caregiver list. Patient seemed a bit overwhelmed with the prospect of hiring a caregiver- repeated the information and patient still seems daunted as to how to arrange. Patient agreed for to contact his nephew
for d/c planning. Informed patient he was accepted by [facility]- he had difficulty understanding the difference between skilled VN services and caregiver services and the coverage/cost for each.
Plan contact patient;'s nephew re; caregiver and d/c plans.
Plan home with [facility] and Caregiver list.
--- NOTE | 2023-09-14 17:16 | PTCARENOTE ---
Pt with critical troponin of 3.860. Dr. Stevens notified via TT.
[2023-09-14] MEDS: CRESTOR PO (17:45)
[2023-09-14 18:40] LABS: Glucose - Point of Care 134 mg/dl (70-99)
[2023-09-14] MEDS: XALATAN OPHTHALMIC SOLUTION 1 DROP BOTH EYES (21:39)
[2023-09-14 22:20] LABS: Glucose - Point of Care 288 mg/dl (70-99)
[2023-09-15] VITALS (8 sets, daily range): BP systolic 97–131; BP diastolic 49–72; BMI 26.7; BMI 26.4
[2023-09-15 04:18] LABS: % Basophils 0.1 % (0-2); % Eosinophils 0.4 % (0-6); % Immature Granulocytes 0.8 % (0-0.5); % Lymphocytes 12.1 % (20.5-51.1); % Monocytes 11.2 % (1.7-9.3); % Neutrophils 75.4 % (42.2-75.2); Absolute Immature Granulocytes 0.1 10^3/uL (0-0.05); Absolute Lymphocytes 1.2 10^3/uL (1.2-3.4); Absolute Monocytes 1.1 10^3/uL (0.1-0.6); Absolute Neutrophils 7.5 10^3/uL (1.4-6.5); Hematocrit 26.2 % (39.0-52.0); Mean Corp Hgb Conc. 34.4 g/dL (33.0-37.0); Mean Corpuscular Hgb 29.1 pg (27.0-31.0); Mean Corpuscular Volume 84.8 fL (80.0-94.0); Mean Platelet Volume 10.3 fL (7.4-10.4); Nucleated Red Blood Cells % 0.2 % (-); Platelet Count 259 10^3/uL (130-400); Red Blood Cell Count 3.09 10^6/uL (4.70-6.10); Red Cell Dist. Width 15.5 % (11.5-14.5)
--- NOTE | 2023-09-15 04:36 | PTCARENOTE ---
Addendum entered by Mellissa Zazueta RN 09/15/23 04:40:
*manager architecture provider made aware and ordered one time dose*
Original Note:
No acute events overnight. Patient complained of constipation and requested 'two dulcolax.' manager architecture provider made aware and ordered one time dose ordered.
[2023-09-15 04:38] LABS: Blood Urea Nitrogen 31 mg/dl (9-20); Calcium 8.6 mg/dl (8.4-10.2); Carbon Dioxide 27 mmol/L (22-30); Chloride 95 mmol/L (98-107); Estimated Creatinine Clearance 14 ml/min; Glucose 243 mg/dl (70-99); Sodium 131 mmol/L (135-145); eGFR 15.96
[2023-09-15] MEDS: MIRALAX PO (07:39)
[2023-09-15] MEDS: ZETIA 10 MG PO (07:39)
[2023-09-15] MEDS: SENOKOT-S PO ×2 (07:40→19:54)
[2023-09-15] MEDS: PROTONIX 40 MG PO (07:40)
[2023-09-15] MEDS: ASPIR LOW (ENTERIC COATED) 81 MG PO (07:41)
[2023-09-15] MEDS: GLUCOTROL XL (EXTENDED RELEASE) 5 MG PO (07:44)
[2023-09-15] MEDS: DULCOLAX 10 MG PO ×2 (07:45→20:07)
[2023-09-15 08:01] LABS: Glucose - Point of Care 179 mg/dl (70-99)
[2023-09-15] MEDS: NOVOLOG FLEXPEN-LOW RESISTANCE 1 UNITS SC (08:02)
--- NOTE | 2023-09-15 10:55 | W.PN.NEPH.PH ---
Today's Communication / Plan
-
HD tomorrow
Assessment/Plan
-
Assessment:
Hypotension
CP/SOB
Elevated troponin
Transitional cell carcinoma of the bladder
s/p CABG - CABRAL to LAD, SVG to OM, SVG to PDA 12/09/22 at [place]
Type 2 NSTEMI s/p diagnostic cath 08/2023 at [facility] with patent bypass grafts, 70% OM stenosis, medically managed
Post CABG afib on eliquis
ESRD on HD MWF
mild
Hypertension
Hyperlipidemia
Type 2 diabetes
Glaucoma
Hyponatremia
Plan
trop trending down , cards follows
reports mild CP post HD, no active CP
-HD tomorrow if still here
-using tunnelled CVC for now, pt says they plan to access AVF upon return to OP unit
-
-
Date of Service: September 15, 2023
CC / HPI / ROS
-
Chief Complaint:
ESRD
History of Present Illness:
tolerated HD yesterday
BP stable
wt decreased
Review of Systems:
no active CP, had post HD for 45min
no sob
constipation improving
minimal hematuria once in a while
Labs
-
Labs:
WBC 10.0 10^3/uL (4.8-10.8) 09/15/23 03:45
RBC 3.09 10^6/uL (4.70-6.10) L 09/15/23 03:45
Hgb 9.0 g/dL (13.0-18.0) L 09/15/23 03:45
Hct 26.2 % (39.0-52.0) L 09/15/23 03:45
Plt Count 259 10^3/uL (130-400) 09/15/23 03:45
Sodium 131 mmol/L (135-145) L 09/15/23 03:45
Potassium 4.0 mmol/L (3.5-5.1) 09/15/23 03:45
Chloride 95 mmol/L (98-107) L 09/15/23 03:45
Carbon Dioxide 27 mmol/L (22-30) 09/15/23 03:45
BUN 31 mg/dl (9-20) H 09/15/23 03:45
Creatinine 3.6 mg/dL (0.7-1.3) H 09/15/23 03:45
eGFR 15.96 09/15/23 03:45
Glucose 243 mg/dl (70-99) H 09/15/23 03:45
Calcium 8.6 mg/dl (8.4-10.2) 09/15/23 03:45
Gzf-U-Wklflrqpnau Pept > 60781 pg/ml 09/12/23 20:27
Albumin 3.0 g/dl (3.5-5.0) L 09/12/23 20:27
Physical Exam
-
Vital Signs:
Vital Signs
Temp Pulse Resp BP Pulse Ox
99.2 F 72 17 103/49 96
09/15/23 07:40 09/15/23 06:11 09/15/23 06:11 09/15/23 06:11 09/15/23 08:00
Cardiovascular:: Regular rate and rhythm
Respiratory:: Bilateral: CTA (decreased)
Lung Excursion:: Normal
Abdomen:: Nontender and Soft
Extremity Edema:: None: Bilateral:
Echeverria Catheter: No
--- NOTE | 2023-09-15 11:22 | PTCARENOTE ---
Pt for tx to 2125. Re[port called
--- NOTE | 2023-09-15 11:50 | CM ---
Patient with Hx bladder CA, ESRD on HD with Dx symptomatic anemia, elevated troponin. Room air. PT & OT recommend HH.
Phone call to patient's nephew Jhonny; left message requesting callback for d/c planning. May be helpful to engage the nephew to assist patient setting up a caregiver.
Plan home with [facility] and Caregiver list.
[2023-09-15 12:42] LABS: Glucose - Point of Care 192 mg/dl (70-99)
[2023-09-15] MEDS: NOVOLOG FLEXPEN-LOW RESISTANCE SC ×2 (12:46→17:35)
--- NOTE | 2023-09-15 15:43 | W.PN.CARDCBS ---
Today's Communication / Plan
-
1. Per nephrology had some chest discomfort while at dialysis yesterday however continues to remain chest pain-free since then. Troponin peaked at 6.29 and is now downtrending. No significant findings on telemetry.
2. He had recent cath at [facility] with stable coronary anatomy including patent grafts and 70% OM1 treated medically. Given this in the setting of hypertension and acute on chronic anemia secondary to gross hematuria, thought was that this is
likely type II NSTEMI.
3. Reportedly recent echo at [place] with preserved LVEF. Plan is to repeat a limited echo today to reassess LVEF.
4. Defer hemodialysis to nephrology.
5. Given borderline blood pressures, all of his antianginal medications are currently on hold. Continue close monitoring with hopes to resume at least some beta-blockade before discharge. Ambulate and assess recurrence of any symptoms. PT/OT
evaluation for potential short-term rehab
6. Also with his recent hematuria and acute blood loss anemia, his Eliquis is currently on hold. Given postop atrial fibrillation was noted just after CABG with exacerbation of bleeding post TURBT, plan for now is to discharge home on 2-week
monitor to assess recurrence for A-fib and potential long-term monitoring while he stays off of Eliquis given underlying [id number] score is high.
7. [facility] records requested.
Discussed with nursing, patient and primary team
Casi Almanza MD, [facility]
Impression / Plan
-
Primary Furnace Stock Inspector: Dr. Almanza
Assessment:
Hypotension
CP/SOB post OP HD 09/12/23
Elevated troponin, likely downtrending from type 2 OK last week at [facility]/[place]
Transitional cell carcinoma of the bladder treated with multiple transurethral resection of bladder tumor, most recently 50 tumors removed 09/01/2023 at [facility]
Acute on chronic blood loss anemia secondary to hematuria from above procedure
CAD
s/p CABG - CABRAL to LAD, SVG to OM, SVG to PDA 12/09/22 at [place]
Type 2 NSTEMI s/p diagnostic cath 08/2023 at [facility] with patent bypass grafts, 70% OM stenosis, medically managed
Post CABG afib on eliquis
ESRD on HD MWF
mild
Hypertension
Hyperlipidemia
Type 2 diabetes
Glaucoma
Hyponatremia
ECHO 08/2023 at [facility]: EF reportedly preserved
Plan:
HPI: Patient presents to [facility] after recent admission to [facility] and [facility] 09/01 - 09/10/2023. He had undergone transurethral resection of bladder tumors 09/01. Postprocedure was noted to have hematuria and
acute on chronic anemia as well as hypertensive urgency with troponin up to 10, felt to be type II NSTEMI status post diagnostic cath at [facility] with patent bypass grafts and 70% OM1 stenosis which was medically managed. He was discharged on aspirin
only. He presents to [facility] as post HD yesterday he developed chest pain and shortness of breath. He was noted to be hypotensive with hemoglobin of 7.3, discharge hemoglobin on 09/10 was reportedly 7.7.
1. Per nephrology had some chest discomfort while at dialysis yesterday however continues to remain chest pain-free since then. Troponin peaked at 6.29 and is now downtrending. No significant findings on telemetry.
2. He had recent cath at [facility] with stable coronary anatomy including patent grafts and 70% OM1 treated medically. Given this in the setting of hypertension and acute on chronic anemia secondary to gross hematuria, thought was that this is
likely type II NSTEMI.
3. Reportedly recent echo at [place] with preserved LVEF. Plan is to repeat a limited echo today to reassess LVEF.
4. Defer hemodialysis to nephrology.
5. Given borderline blood pressures, all of his antianginal medications are currently on hold. Continue close monitoring with hopes to resume at least some beta-blockade before discharge. Ambulate and assess recurrence of any symptoms. PT/OT
evaluation for potential short-term rehab
6. Also with his recent hematuria and acute blood loss anemia, his Eliquis is currently on hold. Given postop atrial fibrillation was noted just after CABG with exacerbation of bleeding post TURBT, plan for now is to discharge home on 2-week
monitor to assess recurrence for A-fib and potential long-term monitoring while he stays off of Eliquis given underlying [id number] score is high.
7. [facility] records requested.
Discussed with nursing, patient and primary team
Casi Almanza MD, [facility], [facility]
Progress Note - Furnace Stock Inspector
Subjective
Date of Service: September 15, 2023
No significant complaints today.
Objective
Labs:
09/15/23 03:45
09/15/23 03:45
Labs
Hgb 9.0 g/dL (13.0-18.0) L 09/15/23 03:45
Hct 26.2 % (39.0-52.0) L 09/15/23 03:45
Plt Count 259 10^3/uL (130-400) 09/15/23 03:45
APTT 38.9 Sec (23.4-35.0) H 09/12/23 20:27
Sodium 131 mmol/L (135-145) L 09/15/23 03:45
Potassium 4.0 mmol/L (3.5-5.1) 09/15/23 03:45
BUN 31 mg/dl (9-20) H 09/15/23 03:45
Creatinine 3.6 mg/dL (0.7-1.3) H 09/15/23 03:45
Glucose 243 mg/dl (70-99) H 09/15/23 03:45
Troponins
09/12/23 09/13/23 09/13/23
20:27 09:37 16:05
Troponin I 2.800 H* 5.050 H* 5.970 H*
09/14/23 09/14/23 09/15/23
08:05 15:43 03:45
Troponin I 6.290 H* 3.860 H* D 3.430 H*
Vital Signs and I&O:
Vital Signs
Temp Pulse Resp BP Pulse Ox
97.6 F 79 18 131/57 99
09/15/23 12:17 09/15/23 12:17 09/15/23 12:17 09/15/23 12:17 09/15/23 12:45
Vital Signs
Temp Pulse Resp BP Pulse Ox
97.6 F 79 18 131/57 99
09/15/23 12:17 09/15/23 12:17 09/15/23 12:17 09/15/23 12:17 09/15/23 12:45
Intake & Output
09/13/23 09/14/23 09/15/23 09/16/23
06:59 06:59 06:59 06:59
Intake Total 250 / 250 120 / 120 660 / 660
Balance 250 / 250 120 / 120 660 / 660
Physical Exam
Physical Exam
General: No acute distress, AAOX3
Neck: Negative JVD
Heart: Regular, Negative S3 positive S1/S2, Negative S4, No murmur
Lungs: CTA b/l, negative wheezes/rales/rhonchi
Abd: Positive BS, NT/ND, neg rebound/rigidity/guarding
Ext: Negative cyanosis/clubbing/edema
Neuro: nonfocal
--- NOTE | 2023-09-15 15:53 | W.PN.HOSP.TC ---
Today's Communication/Plan
-
Discussed with cardiology
Remains chest pain-free.
Troponin trending down.
Plan is to repeat limited echo.
Reintroduce low-dose of beta-mary over the next 24 hours if blood pressure allows.
Physical therapy assessment
Discharge planning Home versus new long term rehab.
Assessment / Plan
Assessment / Plan
Impression:
Shortness of breath and chest pressure upon presentation
Hypertension likely multifactorial see below.
Acute on chronic anemia.
Non-RI/chronic troponin elevation
Conditions prior to admission
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
Recent episode of gross hematuria with worsening anemia. At that time patient was admitted to [facility].
Type II non-STEMI status post diagnostic cath 09/10 at [facility] with patent bypass grafts, 70% OM stenosis medically managed
Post CABG A-fib on Eliquis previously discontinued due to gross hematuria.
End-stage renal disease on hemodialysis Tuesday
Mild AAS.
Hypertension
Type 2 diabetes.
Dyslipidemia
Hypervolemic hyponatremia.
Plan:
Presentation for shortness of breath, chest pain, hypotension all due to symptomatic anemia.
Noted chronic troponin elevation likely in non-RI range in patient with end-stage renal disease.
Improved with blood transfusion status post 1 unit of PRBC with hemoglobin up from 7.3-8.6
CAD, status post CABG
Noted uptrending troponin 2.8�6.2-3s
Remains chest pain-free while had short episode of chest pain after EGD on 09/14
Recent diagnostic cath as above.
Treat volume status and anemia.
Continue aspirin.
If blood pressure allows, reintroduce preadmission regimen including Coreg and Imdur.
Continue statin
Paroxysmal/postop A-fib
Monitor rate and rhythm.
Continue Coreg if blood pressure allows.
Currently off anticoagulation/Eliquis given gross hematuria and severe anemia.
Acute on chronic anemia and blood loss secondary to hematuria.
Monitor hemoglobin and keep above 8.
End-stage renal disease on hemodialysis Tuesday.
Right chest HD catheter.
AV fistula in place
Diabetes type 2
Continue carbohydrate low diet
Continue glipizide and Onglyza
Physical therapy assessment
Anticipated Discharge: 24 - 48 hours
Subjective/Interval History
-
Date of Service: September 15, 2023
Objective Data
-
Labs:
Laboratory Results
09/15/23
03:45
WBC 10.0
Hgb 9.0 L
Hct 26.2 L
Plt Count 259
Sodium 131 L
Potassium 4.0
Chloride 95 L
Carbon Dioxide 27
BUN 31 H
Creatinine 3.6 H
Glucose 243 H
Calcium 8.6
Vital Signs:
Vital Signs
Temp Pulse Resp BP Pulse Ox
97.6 F 79 18 131/57 99
09/15/23 12:17 09/15/23 12:17 09/15/23 12:17 09/15/23 12:17 09/15/23 12:45
I&O
09/14/23 09/15/23 09/16/23
06:59 06:59 06:59
Intake Total 120 / 120 660 / 660
Balance 120 / 120 660 / 660
Physical Exam
-
General: Well Developed and No Apparent Distress
HEENT: Normocephalic, Atraumatic and Moist Mucous Membranes
Respiratory: Clear to Auscultation
Cardiac: Regular Rhythm and S1/S2; Negative Murmur, Rub or Gallop
GI: Soft, Nontender, Nondistended and Normal Bowel Sounds; Negative Organomegaly
Rectal: Deferred by Provider
Musculoskeletal: No Clubbing, No Cyanosis and No Edema
Skin: Negative Rash
Neuro: Awake, Alert, Oriented and Nonfocal/Grossly Intact
[2023-09-15 17:28] LABS: Glucose - Point of Care 165 mg/dl (70-99)
[2023-09-15] MEDS: CRESTOR PO (17:44)
[2023-09-15 22:04] LABS: Glucose - Point of Care 177 mg/dl (70-99)
[2023-09-15] MEDS: XALATAN OPHTHALMIC SOLUTION 1 DROP BOTH EYES (23:00)
[2023-09-16] VITALS (7 sets, daily range): BP systolic 103–142; BP diastolic 43–80; BMI 27.6
[2023-09-16 04:58] LABS: % Basophils 0.1 % (0-2); % Eosinophils 1.8 % (0-6); % Immature Granulocytes 0.7 % (0-0.5); % Lymphocytes 13.6 % (20.5-51.1); % Monocytes 11.6 % (1.7-9.3); % Neutrophils 72.2 % (42.2-75.2); Absolute Eosinophils 0.2 10^3/uL (0-0.7); Absolute Immature Granulocytes 0.1 10^3/uL (0-0.05); Absolute Lymphocytes 1.4 10^3/uL (1.2-3.4); Absolute Monocytes 1.2 10^3/uL (0.1-0.6); Absolute Neutrophils 7.4 10^3/uL (1.4-6.5); Hematocrit 25.7 % (39.0-52.0); Hemoglobin 8.6 g/dL (13.0-18.0); Mean Corp Hgb Conc. 33.5 g/dL (33.0-37.0); Mean Corpuscular Hgb 28.5 pg (27.0-31.0); Mean Corpuscular Volume 85.1 fL (80.0-94.0); Mean Platelet Volume 10.2 fL (7.4-10.4); Nucleated Red Blood Cells % 0 % (-); Platelet Count 272 10^3/uL (130-400); Red Blood Cell Count 3.02 10^6/uL (4.70-6.10); Red Cell Dist. Width 15.2 % (11.5-14.5); White Blood Cell Count 10.2 10^3/uL (4.8-10.8)
[2023-09-16 05:38] LABS: Blood Urea Nitrogen 43 mg/dl (9-20); Calcium 8.9 mg/dl (8.4-10.2); Carbon Dioxide 28 mmol/L (22-30); Chloride 95 mmol/L (98-107); Estimated Creatinine Clearance 10 ml/min; Glucose 118 mg/dl (70-99); Potassium 3.8 mmol/L (3.5-5.1); Sodium 132 mmol/L (135-145)
[2023-09-16 07:08] LABS: Glucose - Point of Care 193 mg/dl (70-99)
[2023-09-16] MEDS: SENOKOT-S 1 TABLET PO (08:29)
[2023-09-16] MEDS: ASPIR LOW (ENTERIC COATED) 81 MG PO (08:29)
[2023-09-16] MEDS: PROTONIX 40 MG PO (08:29)
[2023-09-16] MEDS: ZETIA 10 MG PO (08:29)
[2023-09-16] MEDS: MIRALAX PO (08:32)
[2023-09-16] MEDS: NOVOLOG FLEXPEN-LOW RESISTANCE 1 UNITS SC (08:44)
[2023-09-16 12:03] LABS: Glucose - Point of Care 264 mg/dl (70-99)
[2023-09-16] MEDS: NOVOLOG FLEXPEN-LOW RESISTANCE 3 UNITS SC (12:04)
[2023-09-16] MEDS: HEPARIN 500 UNITS IV ×2 (14:13→14:14)
[2023-09-16] MEDS: RETACRIT 4000 UNITS IV (14:13)
--- NOTE | 2023-09-16 15:26 | W.PN.CARDCBS ---
Today's Communication / Plan
-
1. No chest pain at rest with very minimal chest discomfort upon exertion walking to the bathroom. Troponin peaked at 6.29 and is now downtrending. No significant findings on telemetry.
2. He apparently had recent cath at [facility] with stable coronary anatomy including patent grafts and 70% OM1 treated medically.
3. Reportedly recent echo at [place] with preserved LVEF. However repeat echocardiogram here yesterday showed mild LV dysfunction with LVEF of 40 to 45% with akinesis of inferior wall, hypokinesis of inferoseptal and inferolateral francisco and
stage II diastolic dysfunction.
4. Defer hemodialysis to nephrology.
5. Blood pressures are better today. Carvedilol was resumed given presumed ischemic cardiomyopathy. We will add low-dose nitrate back to help with the stable angina. We will work on adding hydralazine for underlying cardiomyopathy as an
outpatient. Given he is end-stage renal, not a candidate for SGLT2 inhibitor, ARB, RAJIV inhibitor or ARNI.
6. Also with his recent hematuria and acute blood loss anemia, his Eliquis is currently on hold. Given postop atrial fibrillation was noted just after CABG with exacerbation of bleeding post TURBT, plan for now is to discharge home on 2-week
monitor to assess recurrence for A-fib and potential long-term monitoring while he stays off of Eliquis given underlying [id number] score is high.
7. [facility] records requested clemente recent cath and echo reports.
Discussed with patient and primary team
Casi Almanza MD, [facility], [facility]
Impression / Plan
-
Primary Sider: Dr. Almanza
Assessment:
Hypotension
CP/SOB post OP HD 09/12/23
Elevated troponin, likely downtrending from type 2 [place] [address] [facility]/[place]
Transitional cell carcinoma of the bladder treated with multiple transurethral resection of bladder tumor, most recently 50 tumors removed 09/01/[address] [facility]
Acute on chronic blood loss anemia secondary to hematuria from above procedure
CAD
s/p CABG - CABRAL to LAD, SVG to OM, SVG to PDA 12/09/22 at [place]
Type 2 NSTEMI s/p diagnostic cath 08/[address] [facility] with patent bypass grafts, 70% OM stenosis, medically managed
Post CABG afib on eliquis
ESRD on HD MWF
mild
Hypertension
Hyperlipidemia
Type 2 diabetes
Glaucoma
Hyponatremia
ECHO 08/[address] [facility]: EF reportedly preserved
Limited Echo 09/15/23: Normal left ventricular chamber size. LV ejection fraction is 40-45% by De Leon's method of discs. Inferior wall is akinetic. Inferoseptal wall and base to mid inferolateral francisco are hypokinetic. Stage II diastolic dysfunction
suggestive of abnormal relaxation and increased filling pressures. Moderate mitral regurgitation. Mild aortic stenosis. Peak/mean gradients across the aortic valve are 20/11. Mild to moderate aortic regurgitation. Moderate tricuspid regurgitation.
Estimated pulmonary artery pressure of 40-45 mmHg. Assuming a right atrial pressure of 3 mmHg. Compared to echocardiogram October 05, 2022 there is new wall motion abnormality and new moderate LV dysfunction as described above.� Previously there is no
wall motion abnormality and LVEF was 55 to 60%.
Plan:
HPI: Patient presents to [facility] after recent admission to [facility] 09/01 - 09/10/2023. He had undergone transurethral resection of bladder tumors 09/01. Postprocedure was noted to have hematuria and
acute on chronic anemia as well as hypertensive urgency with troponin up to 10, felt to be type II NSTEMI status post diagnostic cath at [facility] with patent bypass grafts and 70% OM1 stenosis which was medically managed. He was discharged on aspirin
only. He presents to [facility] as post HD yesterday he developed chest pain and shortness of breath. He was noted to be hypotensive with hemoglobin of 7.3, discharge hemoglobin on 09/10 was reportedly 7.7.
1. No chest pain at rest with very minimal chest discomfort upon exertion walking to the bathroom. Troponin peaked at 6.29 and is now downtrending. No significant findings on telemetry.
2. He apparently had recent cath at [facility] with stable coronary anatomy including patent grafts and 70% OM1 treated medically.
3. Reportedly recent echo at [place] with preserved LVEF. However repeat echocardiogram here yesterday showed mild LV dysfunction with LVEF of 40 to 45% with akinesis of inferior wall, hypokinesis of inferoseptal and inferolateral francisco and
stage II diastolic dysfunction.
4. Defer hemodialysis to nephrology.
5. Blood pressures are better today. Carvedilol was resumed given presumed ischemic cardiomyopathy. We will add low-dose nitrate back to help with the stable angina. We will work on adding hydralazine for underlying cardiomyopathy as an
outpatient. Given he is end-stage renal, not a candidate for SGLT2 inhibitor, ARB, RAJIV inhibitor or ARNI.
6. Also with his recent hematuria and acute blood loss anemia, his Eliquis is currently on hold. Given postop atrial fibrillation was noted just after CABG with exacerbation of bleeding post TURBT, plan for now is to discharge home on 2-week
monitor to assess recurrence for A-fib and potential long-term monitoring while he stays off of Eliquis given underlying [id number] score is high.
7. [facility] records requested clemente recent cath and echo reports.
Discussed with patient and primary team
Casi Almanza MD, [facility], [facility]
Progress Note - Sider
Subjective
Date of Service: September 16, 2023
Overall doing well. Minimal CP with walking to bathroom
Objective
Labs:
09/16/23 04:21
09/16/23 04:21
Labs
Hgb 8.6 g/dL (13.0-18.0) L 09/16/23 04:21
Hct 25.7 % (39.0-52.0) L 09/16/23 04:21
Plt Count 272 10^3/uL (130-400) 09/16/23 04:21
APTT 38.9 Sec (23.4-35.0) H 09/12/23 20:27
Sodium 132 mmol/L (135-145) L 09/16/23 04:21
Potassium 3.8 mmol/L (3.5-5.1) 09/16/23 04:21
BUN 43 mg/dl (9-20) H 09/16/23 04:21
Creatinine 4.8 mg/dL (0.7-1.3) H* 09/16/23 04:21
Glucose 118 mg/dl (70-99) H 09/16/23 04:21
Troponins
09/13/23 09/14/23 09/14/23
16:05 08:05 15:43
Troponin I 5.970 H* 6.290 H* 3.860 H* D
09/15/23
03:45
Troponin I 3.430 H*
Vital Signs and I&O:
Vital Signs
Temp Pulse Resp BP Pulse Ox
97.8 F 70 17 130/80 95
09/16/23 12:09 09/16/23 12:09 09/16/23 12:09 09/16/23 12:09 09/16/23 12:09
Vital Signs
Temp Pulse Resp BP Pulse Ox
97.8 F 70 17 130/80 95
09/16/23 12:09 09/16/23 12:09 09/16/23 12:09 09/16/23 12:09 09/16/23 12:09
Intake & Output
09/14/23 09/15/23 09/16/23 09/17/23
06:59 06:59 06:59 06:59
Intake Total 120 / 120 660 / 660 1140 / 1140
Balance 120 / 120 660 / 660 1140 / 1140
Physical Exam
Physical Exam
General: No acute distress, AAOX3
Neck: Negative JVD
Heart: Regular, Negative S3 positive S1/S2, Negative S4, No murmur
Lungs: CTA b/l, negative wheezes/rales/rhonchi
Abd: Positive BS, NT/ND, neg rebound/rigidity/guarding
Ext: Negative cyanosis/clubbing/edema
Neuro: nonfocal
[2023-09-16] MEDS: HEPARIN 4200 UNITS INTRACATH (15:37)
--- NOTE | 2023-09-16 16:03 | W.PN.HOSP.TC ---
Today's Communication/Plan
-
Hemoglobin has been stable after transfusion.
Chest pain-free
Tolerates hemodialysis.
Blood pressure improved.
Reintroduce Coreg and Imdur monitoring for recurrent hypotension baseline bowel regimen.
Discharge planing.
Assessment / Plan
Assessment / Plan
Impression:
Shortness of breath and chest pressure upon presentation
Hypertension likely multifactorial see below.
Acute on chronic anemia.
Non-CA/chronic troponin elevation
Conditions prior to admission
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
Recent episode of gross hematuria with worsening anemia. At that time patient was admitted to [facility].
Type II non-STEMI status post diagnostic cath 09/[address] [facility] with patent bypass grafts, 70% OM stenosis medically managed
Post CABG A-fib on Eliquis previously discontinued due to gross hematuria.
End-stage renal disease on hemodialysis Tuesday
Mild AAS.
Hypertension
Type 2 diabetes.
Dyslipidemia
Hypervolemic hyponatremia.
Plan:
Presentation for shortness of breath, chest pain, hypotension all due to symptomatic anemia.
Noted chronic troponin elevation likely in non-CA range in patient with end-stage renal disease.
Improved with blood transfusion status post 1 unit of PRBC with hemoglobin up from 7.3-8.6
CAD, status post CABG
Noted uptrending troponin 2.8�6.2-3s
Remains chest pain-free while had short episode of chest pain after EGD on 09/14
Recent diagnostic cath as above.
Repeat echocardiogram : LVEF 40-45%. Inferoseptal wall and basal to mid inferolateral wall hypokinesis.
Treat volume status and anemia.
Continue aspirin.
Reintroduce Coreg and Imdur monitoring hemodynamics avoiding hypotension
Continue statin
Discussed with cardiology multiple occasions. Limited option for PCI given recent hematuria with severe anemia requiring transfusion while on antiplatelet agent.
Paroxysmal/postop A-fib
Monitor rate and rhythm.
Continue Coreg if blood pressure allows.
Currently off anticoagulation/Eliquis given gross hematuria and severe anemia.
Acute on chronic anemia and blood loss secondary to hematuria.
Monitor hemoglobin and keep above 8.
End-stage renal disease on hemodialysis Tuesday.
Right chest HD catheter.
AV fistula in place
Diabetes type 2
Continue carbohydrate low diet
Continue glipizide and Onglyza
Physical therapy assessment recommends home PT.
Discharge planning likely home pending family arrangements on 09/17.
Anticipated Discharge: 24 - 48 hours
Subjective/Interval History
-
Date of Service: September 16, 2023
Objective Data
-
Labs:
Laboratory Results
09/16/23
04:21
WBC 10.2
Hgb 8.6 L
Hct 25.7 L
Plt Count 272
Sodium 132 L
Potassium 3.8
Chloride 95 L
Carbon Dioxide 28
BUN 43 H
Creatinine 4.8 H*
Glucose 118 H
Calcium 8.9
Vital Signs:
Vital Signs
Temp Pulse Resp BP Pulse Ox
97.8 F 70 17 130/80 95
09/16/23 12:09 09/16/23 12:09 09/16/23 12:09 09/16/23 12:09 09/16/23 12:09
I&O
09/15/23 09/16/23 09/17/23
06:59 06:59 06:59
Intake Total 660 / 660 1140 / 1140
Balance 660 / 660 1140 / 1140
Physical Exam
-
General: Well Developed and No Apparent Distress
HEENT: Normocephalic, Atraumatic and Moist Mucous Membranes
Respiratory: Clear to Auscultation
Cardiac: Regular Rhythm and S1/S2; Negative Murmur, Rub or Gallop
GI: Soft, Nontender, Nondistended and Normal Bowel Sounds; Negative Organomegaly
Rectal: Deferred by Provider
Musculoskeletal: No Clubbing, No Cyanosis and No Edema
Skin: Negative Rash
Neuro: Nonfocal/Grossly Intact
[2023-09-16] MEDS: IMDUR (EXTENDED RELEASE) 30 MG PO (16:21)
[2023-09-16] MEDS: COREG 3.125 MG PO ×2 (16:21→20:08)
--- NOTE | 2023-09-16 16:25 | CM ---
Adjusting B/P medications. Notified [facility] that patient will not be discharged today. Possibly on weekend.
--- NOTE | 2023-09-16 16:28 | W.PN.NEPH.HD ---
Assessment
-
Seen on HD. no complaints. VSS, access ok.
cardiology plan given new echo findings
Progress Note - Hemodialysis
-
Date of Service: September 16, 2023
Duration: 30 minutes and 3 hours
Potassium Bath: 3
Calcium Bath: 2.5
Opti-Dialyzer: 160
Ultrafiltration: Other (2kg)
Blood Flow: 400
Dialysate Flow: 600
Heparin: 500x2
EPO: 4000
[2023-09-16 17:25] LABS: Glucose - Point of Care 91 mg/dl (70-99)
[2023-09-16] MEDS: CRESTOR PO ×2 (17:26→17:29)
[2023-09-16] MEDS: NOVOLOG FLEXPEN-LOW RESISTANCE SC (17:26)
[2023-09-16] MEDS: SENOKOT-S PO (20:08)
[2023-09-16] MEDS: XALATAN OPHTHALMIC SOLUTION 1 DROP BOTH EYES (21:20)
[2023-09-16 21:28] LABS: Glucose - Point of Care 275 mg/dl (70-99)
[2023-09-17 03:14] VITALS: BMI 27.0
[2023-09-17 03:15] VITALS: BP 116/50
[2023-09-17 05:55] VITALS: BMI 27.0
[2023-09-17 06:00] VITALS: BMI 27.0
[2023-09-17 07:00] VITALS: BP 100/41
[2023-09-17 07:05] LABS: Glucose - Point of Care 224 mg/dl (70-99)
[2023-09-17] MEDS: ZETIA 10 MG PO (08:48)
[2023-09-17] MEDS: IMDUR (EXTENDED RELEASE) 30 MG PO (08:48)
[2023-09-17] MEDS: ASPIR LOW (ENTERIC COATED) 81 MG PO (08:48)
[2023-09-17] MEDS: MIRALAX PO (08:49)
[2023-09-17] MEDS: PROTONIX 40 MG PO (08:49)
[2023-09-17] MEDS: SENOKOT-S PO (08:49)
[2023-09-17] MEDS: DULCOLAX 10 MG PO (08:50)
[2023-09-17] MEDS: COREG PO (08:56)
[2023-09-17] MEDS: GLUCOTROL XL (EXTENDED RELEASE) 5 MG PO (09:00)
[2023-09-17] MEDS: NOVOLOG FLEXPEN-LOW RESISTANCE 2 UNITS SC ×2 (09:00→13:45)
--- NOTE | 2023-09-17 09:15 | W.PN.HOSP.TC ---
Today's Communication/Plan
-
CXR
RAJIV bandage to LE
Coreg
Assessment / Plan
Assessment / Plan
CVS: S1-S2 normal
Chest: few rales
Abdomen: Soft, NT / Bowel sounds present
Extremities:B/L Pitting edema
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
#Shortness of breath and chest pressure upon presentation
Presentation for shortness of breath, chest pain, hypotension all due to symptomatic anemia.
Noted chronic troponin elevation likely in non-NC range in patient with end-stage renal disease.
Improved with blood transfusion status post 1 unit of PRBC with hemoglobin up from 7.3-8.6
#Non-NC/chronic troponin elevation
Type II non-STEMI status post diagnostic cath 09/10 at [facility] with patent bypass grafts, 70% OM stenosis medically managed
CAD with CABG A-fib on Eliquis previously discontinued due to gross hematuria.
Troponin peaked at 6.29 and is now downtrending.
Echo-mild LV dysfunction. Ejection fraction 40 to 45% with akinesis of inferior wall, hypokinesis of inferoseptal and inferolateral francisco. Stage II diastolic dysfunction.
Cath not planned given that he cannot take Plavix with bladder cancer and bleeding history,
Ischemic cardiomyopathy
Coreg and Imdur restarted however blood pressure borderline
Continue aspirin, statin
Already on Onglyza
Not a candidate for ARB/ARNI/RAJIV Inhibitor
# Paroxysmal atrial fibrillation
Eliquis is on hold secondary to hematuria and severe anemia
Coreg
2-week monitor to assess recurrence for A-fib
#Acute on chronic anemia.
Eliquis is on hold
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
Patient was treated at [facility] for TURBT 50 lesions were reportedly worked on on 09/01/2023.
Then developed hematuria and a temporary placement of renal stent followed by [facility].
#End-stage renal disease on hemodialysis Tuesday
Right chest wall HD catheter
#Hypertension-Coreg
#Type 2 diabetes.
Hemoglobin A1c 6.8 however not reliable
On Onglyza and glipizide as outpatient
#Dyslipidemia-rosuvastatin, Zetia
#Hypervolemic hyponatremia.
# B12 deficiency-replace
# Chronic vertigo
# DVT prophylaxis
# Full code
D/w Renal
Compression therapy for LE
Anticipated Discharge: Within 24 hours
Subjective/Interval History
-
Date of Service: September 17, 2023
Objective Data
-
Vital Signs:
Vital Signs
Temp Pulse Resp BP Pulse Ox
97.8 F 70 18 105/39 100
09/17/23 07:00 09/17/23 08:56 09/17/23 07:00 09/17/23 08:56 09/17/23 07:00
I&O
09/16/23 09/17/23 09/18/23
06:59 06:59 06:59
Intake Total 1140 / 1140
Balance 1140 / 1140
--- NOTE | 2023-09-17 10:13 | W.PN.NEPH.PH ---
Today's Communication / Plan
-
next HD tuesday
Assessment/Plan
-
Assessment:
Hypotension
CP/SOB
Elevated troponin
Transitional cell carcinoma of the bladder
s/p CABG - CABRAL to LAD, SVG to OM, SVG to PDA 12/09/22 at [place]
Type 2 NSTEMI s/p diagnostic cath 08/2023 at [facility] with patent bypass grafts, 70% OM stenosis, medically managed
Post CABG afib on eliquis
ESRD on HD MWF
mild
Hypertension
Hyperlipidemia
Type 2 diabetes
Glaucoma
Hyponatremia
Plan
-coronary intervention impractical given that he cannot take anticoagulation with bladder cancer and bleeding history, so cath is of low utility
-HD tuesday if still here
-using tunnelled CVC for now, pt says they plan to access AVF upon return to OP unit
-
-
Date of Service: September 17, 2023
CC / HPI / ROS
-
Chief Complaint:
ESRD
History of Present Illness:
tolerated HD yesterday
BP stable
no CP
Review of Systems:
no active CP
no sob
constipation improving
minimal hematuria once in a while
Labs
-
Labs:
WBC 10.2 10^3/uL (4.8-10.8) 09/16/23 04:21
RBC 3.02 10^6/uL (4.70-6.10) L 09/16/23 04:21
Hgb 8.6 g/dL (13.0-18.0) L 09/16/23 04:21
Hct 25.7 % (39.0-52.0) L 09/16/23 04:21
Plt Count 272 10^3/uL (130-400) 09/16/23 04:21
Sodium 132 mmol/L (135-145) L 09/16/23 04:21
Potassium 3.8 mmol/L (3.5-5.1) 09/16/23 04:21
Chloride 95 mmol/L (98-107) L 09/16/23 04:21
Carbon Dioxide 28 mmol/L (22-30) 09/16/23 04:21
BUN 43 mg/dl (9-20) H 09/16/23 04:21
Creatinine 4.8 mg/dL (0.7-1.3) H* 09/16/23 04:21
eGFR 11.30 09/16/23 04:21
Glucose 118 mg/dl (70-99) H 09/16/23 04:21
Calcium 8.9 mg/dl (8.4-10.2) 09/16/23 04:21
Spx-Q-Tcoiiaojnmb Pept > 92941 pg/ml 09/12/23 20:27
Albumin 3.0 g/dl (3.5-5.0) L 09/12/23 20:27
Physical Exam
-
Vital Signs:
Vital Signs
Temp Pulse Resp BP Pulse Ox
97.8 F 70 18 105/39 100
09/17/23 07:00 09/17/23 08:56 09/17/23 07:00 09/17/23 08:56 09/17/23 07:00
Cardiovascular:: Regular rate and rhythm
Respiratory:: Bilateral: Coarse
Lung Excursion:: Normal
Abdomen:: Nontender and Soft
Bowel Sounds:: Normal
Extremity Edema:: +3: Bilateral:
[2023-09-17 11:00] VITALS: BP 102/54
[2023-09-17 11:24] LABS: Glucose - Point of Care 223 mg/dl (70-99)
[2023-09-17] MEDS: COREG 3.125 MG PO (12:29)
[2023-09-17 12:50] LABS: Hematocrit 26.3 % (39.0-52.0); Hemoglobin 8.8 g/dL (13.0-18.0); Mean Corp Hgb Conc. 33.5 g/dL (33.0-37.0); Mean Corpuscular Hgb 28.8 pg (27.0-31.0); Mean Corpuscular Volume 85.9 fL (80.0-94.0); Mean Platelet Volume 9.8 fL (7.4-10.4); Platelet Count 312 10^3/uL (130-400); Red Blood Cell Count 3.06 10^6/uL (4.70-6.10); Red Cell Dist. Width 15.1 % (11.5-14.5); White Blood Cell Count 9.6 10^3/uL (4.8-10.8)
--- NOTE | 2023-09-17 13:00 | PTCARENOTE ---
Pt refusing multiple medications this morning MD notified see MAR. Pt also refusing compression therapy as ordered, despite education at this time. MD notified of refusal. Call brown within reach.
[2023-09-17 15:00] VITALS: BP 117/48
[2023-09-17 16:25] VITALS: BP 102/43
--- NOTE | 2023-09-17 16:26 | W.DS.TRANS ---
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
-
Discharge Instructions:
Sleep Apnea Risk Intermediate
Discharge Diagnosis/Procedures Shortness of breath, coronary artery disease,
history of CABG, atrial fibrillation, anemia,
transitional cell carcinoma of the bladder, end-
stage renal disease, hypertension, diabetes,
high cholesterol, B12 deficiency, chronic
vertigo
Diet Restrict fluids to 48 oz,2 Gram Sodium
Activity As tolerated
Driving Restrictions As prior to admission
Blood Work CBC and BMP according to dialysis
Others Tests 14 day director of cardiac rehabilitation to assess for continued
atrial fibrillation
Other Services VN
Instructions: Low Salt Diet
Low-potassium diet
Stand-Alone Forms:
Changes to Home Medications: Yes
Discharge Medications:
DC Medications w/original date entered in [employer]
latanoprost 0.005 % eye drops (Xalatan) 1 drp BOTH EYES HS Eye condition 12/07/13
tamsulosin 0.4 mg capsule 0.4 mg PO QPM Urinary issue 12/07/13
ezetimibe 10 mg tablet 10 mg PO DAILY High cholesterol 03/13/21
glipizide 5 mg tablet, extended release 24 hr 5 mg PO SUTUTHSA Diabetes 04/29/23
pantoprazole 40 mg tablet,delayed release 40 mg PO DAILY Gastrointestinal Issue 04/29/23
rosuvastatin 10 mg tablet 10 mg PO QPM High cholesterol 07/20/23
saxagliptin 5 mg tablet (Onglyza) 5 mg PO DAILY Diabetes 09/12/23
aspirin 81 mg tablet,delayed release 81 mg PO DAILY Blood clot prevention/tx #30 tabs 09/17/23
carvedilol 3.125 mg tablet (Coreg) 1.56 mg PO BID Heart disease/condition #60 tabs 09/17/23
cyanocobalamin (vitamin B-12) 1,000 mcg tablet 1,000 mcg PO DAILY low B12 #60 tabs 09/17/23
isosorbide mononitrate 30 mg tablet,extended release 24 hr 30 mg PO DAILY Heart disease/condition #30 tabs 09/17/23
polyethylene glycol 3350 17 gram oral powder packet (HealthyLax) 17 g PO DAILY Constipation #0 ea 09/17/23
Home Medication Changes
changed dose of Imdur and Coreg
Vitamin B12 and MiraLAX-new
Pending Results: No
--- NOTE | 2023-09-17 16:26 | W.PN.UPDATE ---
Update Note
Progress Note Update
Cardiology contacted me. They spoke to patient's son at bedside. Family and patient wished to go home today. Chest x-ray done reviewed by me no acute changes
Imdur dose and Coreg dose has been reduced.
As outpatient chest x-ray reviewed as unremarkable we can discharge him today. New prescriptions already sent to the pharmacy.
Total time spent today 33 minutes for discharge planing , discussion
--- NOTE | 2023-09-17 16:28 | W.PN.CARDCBS ---
Today's Communication / Plan
-
Chest x-ray today
If unremarkable, will consider discharge home with family with outpatient cardiac follow-up
Dialysis as usual on Tuesday
Continue antianginal therapy as able
Impression / Plan
-
Primary Bar Attendant: Dr. Almanza
Assessment:
Hypotension
CP/SOB post OP HD 09/12/23
Elevated troponin, likely downtrending from type 2 [place] last week at [facility]
Transitional cell carcinoma of the bladder treated with multiple transurethral resection of bladder tumor, most recently 50 tumors removed 09/01/2023 at [facility]
Acute on chronic blood loss anemia secondary to hematuria from above procedure
CAD
s/p CABG - CABRAL to LAD, SVG to OM, SVG to PDA 12/09/22 at [place]
Type 2 NSTEMI s/p diagnostic cath 08/2023 at [facility] with patent bypass grafts, 70% OM stenosis, medically managed
Post CABG afib on eliquis
ESRD on HD MWF
mild
Hypertension
Hyperlipidemia
Type 2 diabetes
Glaucoma
Hyponatremia
ECHO 08/2023 at [facility]: EF reportedly preserved
Limited Echo 09/15/23: Normal left ventricular chamber size. LV ejection fraction is 40-45% by De Leon's method of discs. Inferior wall is akinetic. Inferoseptal wall and base to mid inferolateral francisco are hypokinetic. Stage II diastolic dysfunction
suggestive of abnormal relaxation and increased filling pressures. Moderate mitral regurgitation. Mild aortic stenosis. Peak/mean gradients across the aortic valve are 20/11. Mild to moderate aortic regurgitation. Moderate tricuspid regurgitation.
Estimated pulmonary artery pressure of 40-45 mmHg. Assuming a right atrial pressure of 3 mmHg. Compared to echocardiogram October 05, 2022 there is new wall motion abnormality and new moderate LV dysfunction as described above.� Previously there is no
wall motion abnormality and LVEF was 55 to 60%.
Plan:
HPI: Patient presents to [facility] after recent admission to [facility] 09/01 - 09/10/2023. He had undergone transurethral resection of bladder tumors 09/01. Postprocedure was noted to have hematuria and
acute on chronic anemia as well as hypertensive urgency with troponin up to 10, felt to be type II NSTEMI status post diagnostic cath at [facility] with patent bypass grafts and 70% OM1 stenosis which was medically managed. He was discharged on aspirin
only. He presents to [facility] as post HD yesterday he developed chest pain and shortness of breath. He was noted to be hypotensive with hemoglobin of 7.3, discharge hemoglobin on 09/10 was reportedly 7.7.
Patient is doing reasonably well ambulating with a walker and not requiring supplemental O2
Overall he and his family members feel that he has improved although still has dyspnea on exertion. No chest pain
Chest x-ray ordered this morning still pending
Discussed current medical therapy with plan for carvedilol 1.65 mg twice daily and Imdur 30 mg daily around noon
Close monitoring of blood pressures
Volume management per dialysis, next session Tuesday
Close monitoring of hemoglobin
If chest x-ray without acute findings, reasonable to discharge home today
Outpatient cardiac follow-up arranged
Progress Note - Bar Attendant
Subjective
Date of Service: September 17, 2023
Seen and examined with family at bedside. Patient ambulating from bathroom with walker with minimal dyspnea on exertion but no overt chest pain. No dizziness or lightheadedness.
Objective
Labs:
09/17/23 12:21
09/16/23 04:21
Labs
Hgb 8.8 g/dL (13.0-18.0) L 09/17/23 12:21
Hct 26.3 % (39.0-52.0) L 09/17/23 12:21
Plt Count 312 10^3/uL (130-400) 09/17/23 12:21
APTT 38.9 Sec (23.4-35.0) H 09/12/23 20:27
Sodium 132 mmol/L (135-145) L 09/16/23 04:21
Potassium 3.8 mmol/L (3.5-5.1) 09/16/23 04:21
BUN 43 mg/dl (9-20) H 09/16/23 04:21
Creatinine 4.8 mg/dL (0.7-1.3) H* 09/16/23 04:21
Glucose 118 mg/dl (70-99) H 09/16/23 04:21
Troponins
09/15/23
03:45
Troponin I 3.430 H*
Vital Signs and I&O:
Vital Signs
Temp Pulse Resp BP Pulse Ox
97.7 F 78 16 117/48 98
09/17/23 15:00 09/17/23 15:00 09/17/23 15:00 09/17/23 15:00 09/17/23 15:00
Vital Signs
Temp Pulse Resp BP Pulse Ox
97.7 F 78 16 117/48 98
09/17/23 15:00 09/17/23 15:00 09/17/23 15:00 09/17/23 15:00 09/17/23 15:00
Intake & Output
09/15/23 09/16/23 09/17/23 09/18/23
06:59 06:59 06:59 06:59
Intake Total 660 / 660 1140 / 1140
Balance 660 / 660 1140 / 1140
Physical Exam
Physical Exam
General: No acute distress, AAOX3
Heart: Regular, positive S1-S2. 2 out of 6 systolic murmur.
Lungs: Bronchovesicular breath sounds overall clear, decreased at bases. Anterior chest wall dialysis catheter
Abd: Positive BS, NT/ND, neg rebound/rigidity/guarding
Ext: +edema
[2023-09-17] MEDS: CRESTOR 10 MG PO (17:44)
[2023-09-17 17:50] LABS: Glucose - Point of Care 108 mg/dl (70-99)
[2023-09-17] MEDS: NOVOLOG FLEXPEN-LOW RESISTANCE SC (17:50)
--- NOTE | 2023-09-17 17:55 | W.PN.UPDATE ---
Update Note
Progress Note Update
CXR noted
Sats ok on room air
Will add lasix 80 non HD days per D/W renal and cards.
He is not very compliant with medical instructions.
Pt eager for dischargeWill discharge
--- NOTE | 2023-09-17 17:58 | W.DS.TRANS ---
Addendum entered and electronically signed by Aravind Horn MD 09/18/23 08:10:
Dictation- [id number]
Original Note:
DC Summary - [employer]
-
Discharge Instructions:
Sleep Apnea Risk Intermediate
Discharge Diagnosis/Procedures Shortness of breath, coronary artery disease,
history of CABG, atrial fibrillation, anemia,
transitional cell carcinoma of the bladder, end-
stage renal disease, hypertension, diabetes,
high cholesterol, B12 deficiency, chronic
vertigo
Diet Restrict fluids to 48 oz,2 Gram Sodium
Activity As tolerated
Driving Restrictions As prior to admission
Blood Work CBC and BMP according to dialysis
Others Tests 14 day color television console monitor to assess for continued
atrial fibrillation
Other Services VN
Instructions: Low Salt Diet
Low-potassium diet
Stand-Alone Forms:
Changes to Home Medications: Yes
Discharge Medications:
DC Medications w/original date entered in [employer]
latanoprost 0.005 % eye drops (Xalatan) 1 drp BOTH EYES HS Eye condition 12/07/13
tamsulosin 0.4 mg capsule 0.4 mg PO QPM Urinary issue 12/07/13
ezetimibe 10 mg tablet 10 mg PO DAILY High cholesterol 03/13/21
glipizide 5 mg tablet, extended release 24 hr 5 mg PO SUTUTHSA Diabetes 04/29/23
pantoprazole 40 mg tablet,delayed release 40 mg PO DAILY Gastrointestinal Issue 04/29/23
rosuvastatin 10 mg tablet 10 mg PO QPM High cholesterol 07/20/23
saxagliptin 5 mg tablet (Onglyza) 5 mg PO DAILY Diabetes 09/12/23
aspirin 81 mg tablet,delayed release 81 mg PO DAILY Blood clot prevention/tx #30 tabs 09/17/23
carvedilol 3.125 mg tablet (Coreg) 1.56 mg PO BID Heart disease/condition #60 tabs 09/17/23
cyanocobalamin (vitamin B-12) 1,000 mcg tablet 1,000 mcg PO DAILY low B12 #60 tabs 09/17/23
furosemide 80 mg tablet (Lasix) 80 mg PO .tuethusatsun Fluid retention/Swelling #30 tabs 09/17/23
isosorbide mononitrate 30 mg tablet,extended release 24 hr 30 mg PO DAILY Heart disease/condition #30 tabs 09/17/23
polyethylene glycol 3350 17 gram oral powder packet (HealthyLax) 17 g PO DAILY Constipation #0 ea 09/17/23
Home Medication Changes
lasix new
Imdur and coreg dose reduced
Miralax new
Pending Results: No
--- NOTE | 2023-09-18 10:27 | CM ---
CM reviewed chart post discharge and pt discharged day prior after hours
Update to [employer] [facility] and dc instructions faxed to [phone]
== END 2023-09-17 18:37 | disposition home health service (06) | DRG 871 ==
LOC: 2 NORTH 23:06
PROVIDERS: Clinical Nurse Specialist Family Health; Emergency Medicine; Internal Medicine; Physician Assistant; ADMITTING PHYSICIAN Hospitalist; ATTENDING PHYSICIAN Hospitalist; CONSULT PHYSICIAN Specialist; EMERGENCY PHYSICIAN Emergency Medicine; FAMILY PHYSICIAN Family Medicine; OTHER PHYSICIAN Internal Medicine Cardiovascular Disease
PROC: 30233N1 Transfusion of Nonautologous Red Blood Cells into Peripheral Vein, Percutaneous Approach (ICD-10-PCS; 2023-09-12)
PROC: 5A1D70Z Performance of Urinary Filtration, Intermittent, Less than 6 Hours Per Day (ICD-10-PCS; 2023-09-14)
DX: R57.1 Hypovolemic shock (principal); I21.A1 Myocardial infarction type 2; N18.6 End stage renal disease; I13.2 Hypertensive heart and chronic kidney disease with heart failure and with stage 5 chronic kidney disease, or end stage renal disease; D62 Acute posthemorrhagic anemia; E87.1 Hypo-osmolality and hyponatremia; R06.02 Shortness of breath; I25.10 Atherosclerotic heart disease of native coronary artery without angina pectoris; E11.22 Type 2 diabetes mellitus with diabetic chronic kidney disease; E78.00 Pure hypercholesterolemia, unspecified; I48.0 Paroxysmal atrial fibrillation; I25.5 Ischemic cardiomyopathy; K59.00 Constipation, unspecified; R31.0 Gross hematuria; C67.9 Malignant neoplasm of bladder, unspecified; E53.8 Deficiency of other specified B group vitamins; I08.3 Combined rheumatic disorders of mitral, aortic and tricuspid valves; N40.0 Benign prostatic hyperplasia without lower urinary tract symptoms; I50.9 Heart failure, unspecified; H40.9 Unspecified glaucoma; Z79.82 Long term (current) use of aspirin; Z79.84 Long term (current) use of oral hypoglycemic drugs; Z95.1 Presence of aortocoronary bypass graft
CPT/HCPCS: 93308; 36430; 71045; 71046; 80048; 80053; 80061; 82607; 82728; 82746; 82962; 83036; 83540; 83550; 83880; 84484; 85025; 85027; 85730; 86850; 86900; 86901; 86920; 87070; 93005; 93321; 93325; 97163; 97167; 97530; 99291; G0257; P9016; P9047; Q5106

== ENCOUNTER → 2024-03-01 09:03 | Outpatient (REF) | payer MEDICARE, SELFPAY | LOC: RAD 09:03 | PROVIDERS: ATTENDING PHYSICIAN Surgery; FAMILY PHYSICIAN Family Medicine | DX: C67.0 Malignant neoplasm of trigone of bladder (principal) | CPT/HCPCS: 74178; Q9967 ==

== ENCOUNTER 2024-05-16 14:09 | Inpatient (IN) | payer MEDICARE, SELFPAY ==
[2024-05-16] VITALS (29 sets, daily range): BP systolic 89–109; BP diastolic 52–69; BMI 26.7
--- NOTE | 2024-05-16 11:32 | ED.GENMED ---
History of Present Illness
General
Chief Complaint: Chest Pain
Time Seen by Provider: 05/16/24 11:32
History of Present Illness
History of Present Illness:
TIME OF INITIAL ENCOUNTER: 11:40 AM
HPI: The patient presents due to chest pain. He also reports a significant amount of diarrhea over the past week. He intermittently was taking Imodium. Today at about 9:15 AM, he developed chest and the setter and toward the left side of the
chest. Usually his chest pain resolves quickly however this is persisting despite 3 nitroglycerin. He had CABG last year and earlier this year he had a heart attack during a procedure at [facility] (has bladder cancer). He is no longer on Eliquis
(history of paroxysmal A-fib).
EXAM:
GENERAL: Well appearing in no distress
HEENT: Moist oral mucosa
CARDIOVASCULAR: No murmurs, normal heart rate, regular rhythm, No chest wall tenderness
PULMONARY: No respiratory distress, breath sounds are clear and equal
ABDOMEN: Soft with no peritoneal signs, no tenderness
NEUROLOGIC: Excellent strength all extremities, no coordination deficits
PSYCHIATRIC: Appropriate mental status, normal insight and judgement
EXTREMITIES: Nontender, no edema, moves all extremities equally
SKIN: No rash, no lesions
NUMBER AND COMPLEXITY OF PROBLEMS ADDRESSED AT THE ENCOUNTER
� Chronic conditions affecting care: CHF, CAD, hypertension, hyperlipidemia, diabetes, bladder cancer, CKD on HD
� Acute Exacerbation and/or Progression of Chronic Illness: This is an acute problem
� Differential Diagnosis includes: ACS, chest wall pain, electrolyte normality, MAURA
AMOUNT AND/OR COMPLEXITY OF DATA TO BE REVIEWED AND ANALYZED
� I performed an independent evaluation of and my interpretation is:
EKG: Sinus 104, PVCs, IVCD with deep TWI
CT:
X-rays: Chest x-ray shows increased interstitial edema as well as pleural effusion
Laboratory Studies: White count 6.2, hemoglobin 12.8 which is much higher than this past September, BNP greater than 27,000, troponin 0.054 which is lower than prior
Other:
� Review of other/old records: I reviewed echo from August 2023 that showed new LV dysfunction with a EF of 40 to 45% and stage II diastolic dysfunction. I reviewed discharge summary from 10-08 which showed that the patient had
a diagnostic cath at [facility] 09/10/2023 that showed patent bypass grafts and 70% obtuse marginal stenosis and at that time medical management was recommended.. At that time his Coreg was decreased
� Clinical information was obtained by an independent historian: I spoke to the son at bedside
� Prescriptions/Medications Considered but not given: Held off on nitroglycerin as blood pressure is slightly low. Held off on IV fluids as the patient missed dialysis and based on chest x-ray likely is somewhat overloaded.
� Further testing considered but not performed:
RISK OF COMPLICATIONS AND/OR MORBIDITY OR MORTALITY OF PATIENT MANAGEMENT
� Social determinants of health affecting care: Lives at home, HD Tuesday
� Discussion with other providers: I notified Dr. Guerrero of patient's presentation as the patient is known to Dr. Almanza. I also informed Dr. Sims as he missed dialysis today. I have asked Dr. Hatfield for admission at 12:49 PM
� Escalation of care including admission/observation vs risk of discharge considered: The patient has ongoing chest discomfort however he may already be optimally medically managed. His blood pressure has been low therefore did
not give any additional nitroglycerin�he had 3 at home. I did notify Dr. Guerrero. Initial troponin 0.054 which is much less than when it peaked at 6 earlier this year. Regardless, blood pressure slightly low. He did have diarrhea a lot this past
week. He appears to be too medically complex to be discharged at this time. Dr. Hatfield accepts for further evaluation.
ANY OTHER UPDATES:
Past History
Past History
ED Past Medical History: CAD, Cancer, HTN, Hypercholesterolemia, NIDDM, Renal failure and Other (Bladder CA)
ED Past Surgical History: Urological (Bladder tumor removed with anticarcinogenic agent instillation)
Social History
Tobacco: Non-smoker
Alcohol: None
Drug: None
Personal:
Living: with family
Phy Exam
Physical Exam
Physical Exam:
See HPI
Scores
Heart Score for Chest Pain Patients
STEMI patient?: Not applicable
Course
Orders/Labs/Results
Orders:
Orders
05/16/24 11:09
Electrocardiogram (*1) Urgent
Reason for Study: Chest Pain
EKG- Treatment ONCE
05/16/24 11:49
CR Chest Portable - 1 View Urgent
Comment:
Reason For Exam: cp
Reason Study Needs to be Portable: Patient Unstable
05/16/24 11:51
Complete Blood Count/With Diff Urgent
Comprehensive Metabolic Panel Urgent
Magnesium Urgent
NT-proBNP Urgent
Troponin I Urgent
Abnormal Lab Results
05/16/24
11:51
Hgb 12.8 L g/dL
(13.0-18.0)
MCV 79.6 L fL
(80.0-94.0)
MCH 26.1 L pg
(27.0-31.0)
MCHC 32.8 L g/dL
(33.0-37.0)
RDW 20.8 H %
(11.5-14.5)
Plt Count 98 L 10^3/uL
(130-400)
Absolute Lymphs (auto) 0.6 L 10^3/uL
(1.2-3.4)
Neutrophils % 81.3 H %
(42.2-75.2)
Lymphocytes % 10.0 L %
(20.5-51.1)
Sodium 133 L mmol/L
(135-145)
Chloride 92 L mmol/L
(98-107)
BUN 42 H mg/dl
(9-20)
Creatinine 6.4 H* mg/dL
(0.7-1.3)
Glucose 160 H mg/dl
(70-99)
Magnesium 1.5 L mg/dl
(1.6-2.3)
Total Bilirubin 1.4 H mg/dl
(0.2-1.3)
Troponin I 0.054 H* ng/ml
05/16/24 11:51
05/16/24 11:51
Vital Signs
Initial and Last Documented VS:
Initial Vital Signs
Pulse Resp BP Pulse Ox
104 20 100/59 100
05/16/24 11:13 05/16/24 11:13 05/16/24 11:13 05/16/24 11:13
Last Documented Vital Signs
Pulse Resp BP Pulse Ox
99 26 96/58 100
05/16/24 12:00 05/16/24 12:00 05/16/24 12:00 05/16/24 12:00
*Critical Care Note
Total Time (30-74mins, 75-104mins- exclusive of procedures): Not Applicable
ED Attending Note
-
Portions of this chart may have been created with voice recognition software.� Occasional wrong word or��sound alike� substitutions may have occurred due to the inherent limitations of voice recognition software.
Discharge Plan
Departure
Prescriptions:
No Action
latanoprost [Xalatan] 2.5 ML drops
1 drp BOTH EYES HS
tamsulosin 0.4 MG capsule
0.4 mg PO QPM
ezetimibe 10 MG tablet
10 mg PO DAILY
glipizide 5 mg tablet extended release 24hr
5 mg PO SUTUTHSA
pantoprazole 40 mg Tablet,Delayed Release (Dr/Ec)
40 mg PO DAILY
rosuvastatin 10 MG tablet
10 mg PO QPM
saxagliptin [Onglyza] 5 mg tablet
5 mg PO DAILY
polyethylene glycol 3350 [HealthyLax] 17 gram Powder In Packet
17 g PO DAILY Qty: 0 0RF
isosorbide mononitrate 30 mg Tablet Extended Release 24 Hr
30 mg PO DAILY Qty: 30 0RF
cyanocobalamin (vitamin B-12) 1,000 mcg Tablet
1,000 mcg PO DAILY Qty: 60 0RF
carvedilol [Coreg] 3.125 mg tablet
1.56 mg PO BID Qty: 60 0RF
aspirin 81 mg Tablet,Delayed Release (Dr/Ec)
81 mg PO DAILY Qty: 30 1RF
furosemide [Lasix] 80 mg tablet
80 mg PO .tuethusatsun Qty: 30 0RF
Referrals:
Casi Almanza MD [Family Provider] -
Interventions
Interventions:
*Risk Screen - Suicide Last Done: 05/16/24 12:09
*General Assessment Last Done: 05/16/24 12:09
*Neglect/Abuse Screening Last Done: 05/16/24 12:09
ED- Fall Risk Assessment Last Done: 05/16/24 12:10
*ED COVID-19 Vaccine History Last Done: 05/16/24 12:09
ED- Cardiac Assessment Last Done: 05/16/24 12:11
Discharge Date and Time
Print Language: RWANDAN
[2024-05-16 12:04] LABS: % Basophils 0.2 % (0-2); % Immature Granulocytes 0.3 % (0-0.5); % Monocytes 8.2 % (1.7-9.3); % Neutrophils 81.3 % (42.2-75.2); Absolute Lymphocytes 0.6 10^3/uL (1.2-3.4); Absolute Monocytes 0.5 10^3/uL (0.1-0.6); Absolute Neutrophils 5.1 10^3/uL (1.4-6.5); Hemoglobin 12.8 g/dL (13.0-18.0); Mean Corp Hgb Conc. 32.8 g/dL (33.0-37.0); Mean Corpuscular Hgb 26.1 pg (27.0-31.0); Mean Corpuscular Volume 79.6 fL (80.0-94.0); Nucleated Red Blood Cells % 0 % (-); Platelet Count 98 10^3/uL (130-400); Red Cell Dist. Width 20.8 % (11.5-14.5); White Blood Cell Count 6.2 10^3/uL (4.8-10.8)
[2024-05-16 12:24] LABS: ALT (SGPT) 13 U/L (0-50); AST (SGOT) 19 U/L (17-59); Albumin 3.7 g/dl (3.5-5.0); Alkaline Phosphatase 71 U/L (38-126); Blood Urea Nitrogen 42 mg/dl (9-20); Calcium 8.5 mg/dl (8.4-10.2); Carbon Dioxide 25 mmol/L (22-30); Chloride 92 mmol/L (98-107); Estimated Creatinine Clearance 8 ml/min; Glucose 160 mg/dl (70-99); Magnesium 1.5 mg/dl (1.6-2.3); Potassium 4.4 mmol/L (3.5-5.1); Sodium 133 mmol/L (135-145); Total Bilirubin 1.4 mg/dl (0.2-1.3); Total Protein 6.8 g/dl (6.3-8.2)
[2024-05-16 12:32] LABS: NT-proBNP > 27000 pg/ml; Troponin I 0.054 ng/ml
--- NOTE | 2024-05-16 13:10 | HPS.HSE ---
Family Physician
-
Family Physician: Casi Almanza MD
Chief Complaint
-
CP
History of Present Illness
HPI
83M HX CKD now on HD, CAD, CABG( 2022)NSTENI ( 2023) related to a procedure at [facility] (Has bladder cancer) - cath here showed 70% obtuse marginal stenosis - medical management seen at ER:
- He missed dialysis today
- Today, ongoing CP since 9am despite taking 3 NTG.
- cannot give NTG anymore as BP 90s.
EKG shows RBBB w/ much deeper TWI in precordial leads than past.
Trop 0.054 (peaked at 6 this past Aug).
CXR: Interstitial edema and pleural effusion on CXR.
Medical History
Past Medical History
Past Medical History: Reports Other
Additional Past Medical History:
CAD/[place], type II NSTEMI September 05, 2023, CABG November 2022 with postop A-fib placed on Eliquis, HTN, HLD, CHF, GERD, ESRD on dialysis, bladder CA, BPH, DM2, glaucoma, anemia, AKIACHAK, vertigo
Past Surgical History: Reports Other
Additional Past Surgical History:
Diagnostic cardiac cath [facility] September 05, 2023 no intervention
Bladder tumor removal 2003 yearly bladder tumor removals recent greater than 5215 2023
Lateral cataract extraction
Dialysis catheter
CABG x 3 vessel November 2022
Left arm fistula 05/06/2023
Right chest wall HD cath
Social History
Tobacco: Non-smoker
Alcohol: None
Drug: None
Living: With Family
Employment: Retired
Family History
Family History: CAD (Siblings late 70s) and Diabetes (Siblings in their 70s)
Allergies / Home Medications
Allergies reflects when Allergies were last updated in [employer].
Home Medications with original date entered in [employer]
Allergy/Medication List:
Allergies
Allergy/AdvReac Type Severity Reaction Status Date / Time
ephedrine Allergy Unknown - Verified 09/12/23 20:08
years ago
Home Medications
latanoprost 0.005 % eye drops (Xalatan) 1 drp BOTH EYES HS Eye condition 12/07/13
tamsulosin 0.4 mg capsule 0.4 mg PO QPM Urinary issue 12/07/13
ezetimibe 10 mg tablet 10 mg PO DAILY High cholesterol 03/13/21
aspirin 81 mg tablet,delayed release 81 mg PO DAILY #30 tabs 10/13/22
glipizide 5 mg tablet, extended release 24 hr 5 mg PO SUTUTHSA Diabetes 04/29/23
pantoprazole 40 mg tablet,delayed release 40 mg PO DAILY 04/29/23
carvedilol 6.25 mg tablet (Coreg) 3.125 mg PO BID 07/20/23
isosorbide mononitrate 30 mg tablet,extended release 24 hr 90 mg PO DAILY 07/20/23
rosuvastatin 10 mg tablet 10 mg PO QPM High cholesterol 07/20/23
saxagliptin 5 mg tablet (Onglyza) 5 mg PO DAILY Diabetes 09/12/23
Review of Systems
-
Constitutional: Reports No Symptoms
EENT: Reports No Symptoms
Respiratory: Reports No Symptoms
Cardiac: Reports Chest Pain
Abdomen/GI: Reports No Symptoms
: Reports No Symptoms
Musculoskeletal: Reports No Symptoms
Skin: Reports No Symptoms
Neurological: Reports No Symptoms
Endocrine: Reports No Symptoms
Hematologic/Lymphatic: Reports No Symptoms
Psych: Reports No Symptoms
Physical Exam
Vital Signs
Vital Signs
Pulse Resp BP Pulse Ox
99 26 96/58 100
05/16/24 12:00 05/16/24 12:00 05/16/24 12:00 05/16/24 12:00
Physical Exam
General: Well Developed, Well Nourished and No Apparent Distress
HEENT: NormoCephalic, Moist mucous membranes and Atraumatic
Respiratory: Clear
Cardiac: S1/S2 and Regular Rhythm; No Murmur or Rub
GI: Soft, Non Tender, Non Distended and Normal Bowel Sounds; No Organomegaly
Rectal: Deferred by Provider
Musculoskeletal: No Clubbing, No Cyanosis and No Edema
Skin: No Rash
Neuro: Nonfocal/grossly intact
Laboratory Results
-
05/16/24 11:51
05/16/24 11:51
Laboratory Results
Total Bilirubin 1.4 mg/dl (0.2-1.3) H 05/16/24 11:51
AST 19 U/L (17-59) 05/16/24 11:51
ALT 13 U/L (0-50) 05/16/24 11:51
Alkaline Phosphatase 71 U/L (38-126) 05/16/24 11:51
Troponin I 0.054 ng/ml H* 05/16/24 11:51
Data Reviewed
-
CT Scan: Report Reviewed by me
Medical Tests (Nuc Med, Echo, EKG etc): Report Reviewed by me
Lab Data: Discussed with Physician
Old Records: Reviewed
Impression/Plan
-
Reviewed VS: RR 26 BP 89/59 --> 96/58 HR 100
Laboratory Tests
09/17/23 05/16/24
12:21 11:51
WBC 6.2
Hgb 8.8 L 12.8 L
MCV 79.6 L
Plt Count 98 L
Sodium 133 L
Potassium 4.4
Chloride 92 L
Carbon Dioxide 25
BUN 42 H
Creatinine 6.4 H*
Troponin I 0.054 H*
[id number] Pept > [id number]
CXR:
Mild interstitial edema with a moderate right-sided pleural effusion and adjacent atelectasis. There is a question trace left pleural effusion.
EKG:
SINUS TACHYCARDIA WITH OCCASIONAL PREMATURE VENTRICULAR COMPLEXES
LEFT AXIS DEVIATION
NON-SPECIFIC INTRA-VENTRICULAR CONDUCTION BLOCK
CANNOT RULE OUT SEPTAL INFARCT (CITED ON OR BEFORE 06-OCT-2022)
POSSIBLE LATERAL INFARCT (CITED ON OR BEFORE 04-OCT-2022)
MARKED T WAVE ABNORMALITY, CONSIDER ANTERIOR ISCHEMIA
ABNORMAL ECG
WHEN COMPARED WITH ECG OF 13-SEP-2023 16:14, SIGNIFICANT CHANGES HAVE OCCURRED
ECHO
- mild LV dysfunction.
- Ejection fraction 40 to 45% with akinesis of inferior wall, hypokinesis of inferoseptal and inferolateral francisco.
- Stage II diastolic dysfunction.
Last hospitalist admission:
DATE OF ADMISSION: 09/12/2023 - DATE OF DISCHARGE: 09/17/2023
DISCHARGE DIAGNOSES:
1. Shortness of breath.
2. Coronary artery disease.
3. History of coronary artery bypass graft.
4. Atrial fibrillation.
5. Anemia.
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
7. End-stage renal disease.
8. Hypertension.
9. Diabetes.
10. High cholesterol.
11. B12 deficiency.
ASSESSMENT & PLAN
Pending Rx reconciliation
CP, abn TPNI with abnormal significant interval change concern for ACS or NMITE vs Type II non-STEMI
RBBB w/ much deeper TWI in precordial leads than past.
Trop 0.054 (peaked at 6 this past Aug).
HX cath 09/10 at [facility] with patent bypass grafts, 70% OM stenosis & medically managed
HX CAD with CABG A-fib on Eliquis previously discontinued due to gross hematuria.
- In the past Cath was not planned given that he cannot take Plavix with bladder cancer and bleeding HX
- Hypotensive and would not tolerate Nitro
- Trend TPNI
- NPO in case
- Gentle IV morphine PRN with hold index for excessive sedation
- DCA card consulted
Missed HD today
End-stage renal disease on hemodialysis Tuesday
Know ACDZ - current Hgb is highertahn before ? facticious
Right chest wall HD catheter
- Renal consulted for volume managementst
Ischemic cardiomyopathy
- c/w Coreg with hold index for SBP < 100
- Hold Imdur due to low BP
- c/w aspirin, statin
- Already on Onglyza
- Not a candidate for ARB/ARNI/RAJIV Inhibitor
Paroxysmal atrial fibrillation
- Not on Eliquis secondary to HX hematuria and severe anemia
- on Coreg as above
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
- Patient was treated at [facility] for TURBT 50 lesions were reportedly worked on on 09/01/2023.
- Then developed hematuria and a temporary placement of renal stent followed by [facility].
Currently hypotensive
Benign Hypertension
T2DM
last Hemoglobin A1c 6.8 however not reliable
- On Onglyza and glipizide as outpatient
- add ISS low
Dyslipidemia
- on Rosuvastatin, Zetia
B12 deficiency-replace
Chronic vertigo
DVT Px: SQH
Full code
IMU
--- NOTE | 2024-05-16 15:20 | CON.CAR ---
Addendum entered and electronically signed by Danny Moore MD 05/16/24 17:37:
I saw and examined the patient.
The [place] Aide's note was reviewed and I agree with the note.
Comment: Briefly, 83-year-old man past medical history of ischemic cardiomyopathy and end-stage renal disease on dialysis who presents with chest discomfort
By history it sounds like there was difficulty removing fluid with dialysis over the past week or two due to hypotension
Appears mildly volume overloaded on exam, chest x-ray with pulmonary edema and proBNP greater than 27,000 all in keeping with CHF
Appreciate nephrology input and volume management via hemodialysis
Suspect that his symptoms will improve when he is more euvolemic
Midodrine has been added to help facilitate volume removal
Troponin elevation is noted, trend troponin to peak
Likely nonischemic myocardial injury troponin elevation due to acute heart failure
Unfortunately medical therapy is limited by hypotension
For now continue aspirin, high intensity statin and Imdur as antianginal
Rest per Saira Broussard
Original Note:
Consultation
Consultation Request
Date/Time Consultation Requested: 05/16/24
Date/Time Consultation Performed: 05/16/24
Requesting Provider: Dr. Hatfield
Performing Provider: Dr. Moore
Reason for Consultation: Chest pain, CAD
Medical History
-
History of Present Illness:
Patient came to [facility] today with hours of chest pain and cardiology has been consulted. Patient says that he missed HD sessions last week and other times sessions were only 1 hour due to hypotension. Patient denies weight gain, but edema is worse.
Chest pain was constant for hours at home and no improvement with NTG SL x3. He says he has ongoing pain now. He is also SOB, but denies orthopnea. Patient with h/o CAD s/p CABG 12/09/22. His last cath was at [facility] 08/2023 in the setting of a NSTEMI,
cath showed 70% OM stenosis and overall this was felt to be small to medium caliber vessel with very minimal artery beyond the lesion so it was managed medically. Hypotension has precluded attempts at adding BB, but he is taking Imdur ER 60 mg BID.
He also says that he stopped taking aspirin last week because his dialysis fistula was bleeding.
PMH:
ESRD on HD
CM EF 40% by echo 09/15/23
CAD
s/p CABG with CABRAL to LAD, SVG to OM, SVG to PDA at [place] 12/09/22
s/p NSTEMI with patent bypass grafts, 70% OM stenosis being medically managed after cath at [facility] 08/2023
Transitional cell carcinoma of the bladder treated with multiple transurethral resection of bladder tumor, most recently 50 tumors removed at [facility] 09/01/2023
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
Paroxysmal Afib
Not chronically anticoagulated due to anemia, not a candidate for watchman due to inability to tolerate even short-course OAC
mild
Hypertension
Hyperlipidemia
Type 2 diabetes
Glaucoma
Hyponatremia
Past Medical History
Past Medical History: Other (in HPI)
Social History
Tobacco: Non-Smoker
Alcohol: None
Drug: None
Living: With Family
Employment: Retired
Family History
Family History: CAD
Allergies / Home Medications
Allergy/AdvReac Type Severity Reaction Status Date / Time
ephedrine Allergy Unknown - Verified 05/16/24 11:14
years ago
�Medication �Instructions �Recorded �Confirmed �Type
latanoprost 0.005 % eye drops 1 drp BOTH EYES HS Eye condition 12/07/13 05/16/24 History
(Xalatan)
tamsulosin 0.4 mg capsule 0.4 mg PO QPM Urinary issue 12/07/13 05/16/24 History
ezetimibe 10 mg tablet 10 mg PO DAILY High cholesterol 03/13/21 05/16/24 History
pantoprazole 40 mg tablet,delayed 40 mg PO DAILY Gastrointestinal 04/29/23 05/16/24 History
release Issue
rosuvastatin 10 mg tablet 10 mg PO QPM High cholesterol 07/20/23 05/16/24 History
saxagliptin 5 mg tablet (Onglyza) 5 mg PO DAILY Diabetes 09/12/23 05/16/24 History
aspirin 81 mg tablet,delayed 81 mg PO DAILY Blood clot 09/17/23 05/16/24 Rx
release prevention/tx #30 tabs
acetaminophen 500 mg tablet 1,000 mg PO QIDPRN PRN mild pain 05/16/24 05/16/24 History
(Tylenol Extra Strength)
isosorbide mononitrate 60 mg 120 mg PO DAILY 05/16/24 05/16/24 History
tablet,extended release 24 hr
nitroglycerin 0.4 mg sublingual 0.4 mg sublingual [id number] PRN 05/16/24 05/16/24 History
tablet (Nitrostat) chest pains
polyethylene glycol 3350 17 gram 17 g PO DAILYPRN PRN constipation 05/16/24 05/16/24 History
oral powder packet (HealthyLax)
sevelamer carbonate 800 mg tablet 800 mg PO TID 05/16/24 05/16/24 History
Review of Systems
-
History Source: Patient
All other systems: Negative unless noted
Physical Exam
Vital Signs
Pulse Resp BP Pulse Ox
98 17 100/62 97
05/16/24 14:45 05/16/24 14:45 05/16/24 14:00 05/16/24 14:45
General: NAD, AAOX3
HEENT: EOMI, MMM
Skin; Warm, dry, no rash
Heart: SR on tele. Regular, positive S1-S2, 2/6 systolic murmur.
Lungs: B/L rales without wheeze
Abd: +BS, NT, distended
Ext: +2 hard edema. No clubbing, cyanosis or lesions B/L
Lab Results
05/16/24 11:51
05/16/24 11:51
Troponin I 0.054 ng/ml H* 05/16/24 11:51
Lwg-C-Uuoekirejdf Pept > 69086 pg/ml 05/16/24 11:51
Impression / Plan
-
PCP: Dr. Charlie Marley
Primary Car Sealer: Dr. Almanza
Assessment:
Chest pain 05/16/24
Elevated Troponin
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
ESRD on HD
CM EF 40% by echo 09/15/23
CAD
s/p CABG with CABRAL to LAD, SVG to OM, SVG to PDA at [place] 12/09/22
s/p NSTEMI with patent bypass grafts, 70% OM stenosis being medically managed after cath at [facility] 08/2023
Transitional cell carcinoma of the bladder treated with multiple transurethral resection of bladder tumor, most recently 50 tumors removed at [facility] 09/01/2023
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
Paroxysmal Afib
Not chronically anticoagulated due to anemia, not a candidate for watchman due to inability to tolerate even short-course OAC
mild
Hypertension
Hyperlipidemia
Type 2 diabetes
Glaucoma
Hyponatremia
ECHO 08/2023 at [facility]: EF reportedly preserved
Echo 09/15/23: EF 40-45%, inferior wall akinesis, inferoseptal wall and base to mid inferolateral francisco hypokinetic, stage II diastolic dysfunction, moderate MR, mild with peak/mean 20/11. mild to mod aortic regurg
Echo 05/16/24: Study pending
Plan:
-Patient came to [facility] today with hours of chest pain and cardiology has been consulted. Patient says that he missed HD sessions last week and other times sessions were only 1 hour due to hypotension. Patient denies weight gain, but edema is worse.
Chest pain was constant for hours at home and no improvement with NTG SL x3. He says he has ongoing pain now. He is also SOB, but denies orthopnea. Patient with h/o CAD s/p CABG 12/09/22. His last cath was at [facility] 08/2023 in the setting of a NSTEMI,
cath showed 70% OM stenosis and overall this was felt to be small to medium caliber vessel with very minimal artery beyond the lesion so it was managed medically. Hypotension has precluded attempts at adding BB, but he is taking Imdur ER 60 mg BID.
He also says that he stopped taking aspirin last week because his dialysis fistula was bleeding.
-Chest pain has been constant and no relief with NTG SL. ECG is stable compared to office ECG from 04/30/24 as reviewed by me. Suspect Troponin elevation is due to acute HF.
-Trend Troponin
-Check echo
-Cont Imdur ER 60 mg BID
-Considered adding low dose Toprol XL 12.5 mg HS, but instead will add midodrine for BP support with HD so that more fluid can be pulled off.
-Restart aspirin 81 mg daily.
-Will follow dialysis fistula, patient reports excessive bleeding after HD and this is why he stopped his aspirin a week ago.
--- NOTE | 2024-05-16 15:49 | W.CON.NEPH ---
Consultation
-
Date/Time Consultation Requested: 05/16/24 1230
Date/Time Consultation Performed: 05/16/24 1430
Requesting Provider: Moe Lopez
Performing Provider: Nathalie Jack
Reason for Consultation: ESRD
Medical History
-
Chief Complaint: CP
History of Present Illness:
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
type 2 diabetes on Onglyza, chronic anemia.� Who presents to the hospital with the complaints about chest pain started this morning which did not relieve with 3 nitroglycerin hence presented to the ER. Patient reports about a week ago was started
on the phosphate binders which resulted in diarrhea for this reason he missed dialysis last week Tuesday and only had 1 hour of dialysis last Tuesday. He still continued to have intermittent diarrhea, he completed dialysis session on Tuesday
without difficulty where had 1 KG of UF since he was close to his dry weight. This morning patient had his breakfast and started having the diarrhea again and subsequently noticed midsternal chest pain with radiating to the left side. Took 3
nitros to 10 minutes apart with no relief. Chest x-ray in the ER shows CHF mild.. Reports having sometimes low blood pressure which limits his UF on dialysis. Patient makes a note that he stopped taking aspirin about a week ago since his fistula
was bleeding postdialysis. For which she had seen the access center and found no issues with the fistula. He offers no fever or coughing or chills. No abdominal pain or nausea or vomiting.
Past Medical History
ESRD, transitional cell carcinoma bladder, coronary artery disease with bypass grafting, mild aortic stenosis, hypertension, hyperlipidemia, diabetes mellitus type 2, glaucoma, AV fistula creation left upper arm
Past Surgical History: Other (CABG, AVF, multiple TURBT)
Social History
Tobacco: Non-Smoker
Alcohol: None
Personal: Single
Living: Alone
Employment: Retired
Family History
Coronary artery disease
Allergies / Home Medications
Allergy/AdvReac Type Severity Reaction Status Date / Time
ephedrine Allergy Unknown - Verified 05/16/24 11:14
years ago
�Medication �Instructions �Recorded �Confirmed �Type
latanoprost 0.005 % eye drops 1 drp BOTH EYES HS Eye condition 12/07/13 05/16/24 History
(Xalatan)
tamsulosin 0.4 mg capsule 0.4 mg PO QPM Urinary issue 12/07/13 05/16/24 History
ezetimibe 10 mg tablet 10 mg PO DAILY High cholesterol 03/13/21 05/16/24 History
pantoprazole 40 mg tablet,delayed 40 mg PO DAILY Gastrointestinal 04/29/23 05/16/24 History
release Issue
rosuvastatin 10 mg tablet 10 mg PO QPM High cholesterol 07/20/23 05/16/24 History
saxagliptin 5 mg tablet (Onglyza) 5 mg PO DAILY Diabetes 09/12/23 05/16/24 History
aspirin 81 mg tablet,delayed 81 mg PO DAILY Blood clot 09/17/23 05/16/24 Rx
release prevention/tx #30 tabs
acetaminophen 500 mg tablet 1,000 mg PO QIDPRN PRN mild pain 05/16/24 05/16/24 History
(Tylenol Extra Strength)
isosorbide mononitrate 60 mg 120 mg PO DAILY 05/16/24 05/16/24 History
tablet,extended release 24 hr
nitroglycerin 0.4 mg sublingual 0.4 mg sublingual [id number] PRN 05/16/24 05/16/24 History
tablet (Nitrostat) chest pains
polyethylene glycol 3350 17 gram 17 g PO DAILYPRN PRN constipation 05/16/24 05/16/24 History
oral powder packet (HealthyLax)
sevelamer carbonate 800 mg tablet 800 mg PO TID 05/16/24 05/16/24 History
Review of Systems
-
all complete 12 point review of system have been inquired and found negative other than stated in HPI
Physical Exam
Vital Signs
Vital Signs
Pulse Resp BP Pulse Ox
98 17 100/62 97
05/16/24 14:45 05/16/24 14:45 05/16/24 14:00 05/16/24 14:45
Lab Results
WBC 6.2 10^3/uL (4.8-10.8) 05/16/24 11:51
RBC 4.90 10^6/uL (4.70-6.10) 05/16/24 11:51
Hgb 12.8 g/dL (13.0-18.0) L 05/16/24 11:51
Hct 39.0 % (39.0-52.0) 05/16/24 11:51
Plt Count 98 10^3/uL (130-400) L 05/16/24 11:51
Sodium 133 mmol/L (135-145) L 05/16/24 11:51
Potassium 4.4 mmol/L (3.5-5.1) 05/16/24 11:51
Chloride 92 mmol/L (98-107) L 05/16/24 11:51
Carbon Dioxide 25 mmol/L (22-30) 05/16/24 11:51
BUN 42 mg/dl (9-20) H 05/16/24 11:51
Creatinine 6.4 mg/dL (0.7-1.3) H* 05/16/24 11:51
eGFR 8.00 05/16/24 11:51
Glucose 160 mg/dl (70-99) H 05/16/24 11:51
Calcium 8.5 mg/dl (8.4-10.2) 05/16/24 11:51
Aiu-K-Yoglrxmcioa Pept > 29950 pg/ml 05/16/24 11:51
Albumin 3.7 g/dl (3.5-5.0) 05/16/24 11:51
CXR:IMPRESSION:
Mild interstitial edema with a moderate right-sided pleural effusion and adjacent atelectasis. There is a question trace left pleural effusion.
Physical Exam
General: Awake, Alert, Oriented, AOx3 and No Distress
HEENT: EOMI, Anicteric and Conjunctivae Clear
Respiratory: Clear and Other (decreasedBS)
Cardiac: S1/S2 and Regular Rate/Rhythm
Breast: Deferred by me
Abdomen: Soft, Nontender and Nondistended
Musculoskeletal: No Cyanosis and Edema (2+ right >left)
Skin: No Rash
Neuro: Nonfocal/Grossly Intact
Psych: Mood/afflect pleasant, Insight/judgement good and Appropriate
Data Reviewed
-
Radiology: Report Reviewed by me and Discussed with Patient
Labs: Labs Reviewed by me, Discussed with Physician and Discussed with Patient
Assessment/Plan
-
Assessment:
CP
Elevated troponin
Transitional cell carcinoma of the bladder
s/p CABG - CABRAL to LAD, SVG to OM, SVG to PDA 12/09/22 at [place]
Type 2 NSTEMI s/p diagnostic cath 08/2023 at [facility] with patent bypass grafts, 70% OM stenosis, medically managed
Post CABG afib
ESRD on HD MWF
mild
Hypertension
Hyperlipidemia
Type 2 diabetes
Glaucoma
Hyponatremia
Plan
A/w CP, off ASA for 1week
CHF On CXR
will plan HD today and UF as much possible
BP soft, midodrine ok per cards
likely medical management per cards
hold Renvela seem to cause diarrhea
d/w pt and cards
[2024-05-16] MEDS: ProAmatine PO (16:14)
[2024-05-16] MEDS: ProAmatine 2.5 MG PO (16:19)
[2024-05-16] MEDS: FLOMAX PO (16:20)
[2024-05-16] MEDS: LOW STRENGTH ASPIRIN 81 MG PO (16:26)
--- NOTE | 2024-05-16 16:55 | W.PN.NEPH.HD ---
Assessment
-
pt seen during HD
vitals stable, s/p midodrine
UF as much tolerates
likely lost dry wt from diarrhea
monitor bleeding from AVF post HD
back on ASA
AVF function fine currently
Progress Note - Hemodialysis
-
Date of Service: May 16, 2024
Duration: 30 minutes and 3 hours
Potassium Bath: 3
Calcium Bath: 2.5
Opti-Dialyzer: 160
Ultrafiltration: Other (1.5-2.5kg)
Blood Flow: 400
Dialysate Flow: 600
Heparin: yesx2
EPO: no
[2024-05-16 17:57] LABS: Glucose - Point of Care 83 mg/dl (70-99)
--- NOTE | 2024-05-16 18:34 | PTCARENOTE ---
recieved pt from ED. pt in sinus rythym with bb config. pt placed on hemodialysis on arrival to floor. pt reports lessening chest pain. morphine not given x 1 as pt dozinf off and dialysis nurse presffered no morphine d/t not wanting bp to drop
with HD. most recent troponin increased to 1.350, unit nurse notified.
[2024-05-16] MEDS: CRESTOR 10 MG PO (20:13)
[2024-05-16] MEDS: XALATAN OPHTHALMIC SOLUTION 1 DROP BOTH EYES (21:40)
[2024-05-16] MEDS: HEPARIN 5000 UNITS SC (21:41)
--- NOTE | 2024-05-16 22:14 | PTCARENOTE ---
Rec'd pt as HD was completing. Pt AAOx3, reports cp is much better than before, but does persist mildly. Most recent trop jumped to 9.54, NIRALI Shi notfied via TT. This RN will continue to trend trops. Pt able to use BSC to void very small amount.
Cp remained unchanged during ambulation, but pt did report dizziness on standing. Call brown within reach.
[2024-05-16 22:18] LABS: Glucose - Point of Care 77 mg/dl (70-99)
[2024-05-17] VITALS (29 sets, daily range): BP systolic 83–105; BP diastolic 47–72; BMI 25.8
--- NOTE | 2024-05-17 01:43 | PTCARENOTE ---
SaO2 dropped to 80 while sleeping, 2L O2 placed with improvement. Pt with 17 beat VT on monitor. Denies symptoms. This RN was at bedside during episode. NIRALI Shi notified via TT. Orders for STAT magnesium sulfate received.
[2024-05-17] MEDS: MAGNESIUM SULFATE 50 IV (01:53)
--- NOTE | 2024-05-17 02:13 | PTCARENOTE ---
Repeat trop 15.400. TAPE RECORDING MACHINE OPERATOR and on-call senior geologist made aware via TT. Pt denies any change in symptoms
[2024-05-17 05:31] LABS: Hematocrit 37.3 % (39.0-52.0); Hemoglobin 12.2 g/dL (13.0-18.0); Mean Corp Hgb Conc. 32.7 g/dL (33.0-37.0); Mean Corpuscular Hgb 25.8 pg (27.0-31.0); Mean Corpuscular Volume 78.9 fL (80.0-94.0); Mean Platelet Volume 9.6 fL (7.4-10.4); Platelet Count 94 10^3/uL (130-400); Red Blood Cell Count 4.73 10^6/uL (4.70-6.10); Red Cell Dist. Width 20.5 % (11.5-14.5); White Blood Cell Count 4.9 10^3/uL (4.8-10.8)
[2024-05-17 05:44] LABS: ALT (SGPT) 16 U/L (0-50); AST (SGOT) 105 U/L (17-59); Albumin 3.4 g/dl (3.5-5.0); Alkaline Phosphatase 67 U/L (38-126); Blood Urea Nitrogen 23 mg/dl (9-20); Calcium 8.5 mg/dl (8.4-10.2); Carbon Dioxide 26 mmol/L (22-30); Chloride 96 mmol/L (98-107); Estimated Creatinine Clearance 12 ml/min; Glucose 96 mg/dl (70-99); Magnesium 2.3 mg/dl (1.6-2.3); Potassium 3.8 mmol/L (3.5-5.1); Sodium 136 mmol/L (135-145); Total Bilirubin 1.3 mg/dl (0.2-1.3); Total Protein 6.3 g/dl (6.3-8.2); eGFR 13.65
[2024-05-17 07:15] LABS: Glucose - Point of Care 107 mg/dl (70-99)
[2024-05-17] MEDS: JANUVIA 25 MG PO (08:00)
[2024-05-17] MEDS: ASPIR LOW (ENTERIC COATED) 81 MG PO (08:00)
[2024-05-17] MEDS: IMDUR (EXTENDED RELEASE) 60 MG PO (08:00)
[2024-05-17] MEDS: ProAmatine 2.5 MG PO (08:01)
[2024-05-17] MEDS: HEPARIN 5000 UNITS SC (08:04)
--- NOTE | 2024-05-17 08:50 | W.PN.CARDCBS ---
Addendum entered and electronically signed by Josh Archer MD 05/17/24 16:06:
Recurrent chest discomfort, 4 out of 10, ECG reviewed, relatively hypotensive but does not appear to be in distress, discussed with patient, patient's son and Dr. Whatley, will proceed with cardiac cath.
Addendum entered and electronically signed by Josh Archer MD 05/17/24 10:36:
83-year-old man with history of CABG, ischemic cardiomyopathy, end-stage renal disease, last EF 40-45% admitted with pulmonary edema and chest pain, now with troponin of 17. He says that his discomfort is 2 out of 10 at present, though he looks
very comfortable. At worst discomfort was 7 or 8 out of 10.
PMH: End-stage renal disease, ischemic cardiomyopathy, transitional cell carcinoma of the bladder, blood loss anemia, PAF not anticoagulated, mild , hypertension, hyperlipidemia, diabetes, glaucoma
PSH: CABG, TURBT
FH/SH: Currently noncontributory
Allergies: Ephedrine, home meds reviewed
Current meds: Aspirin 81 mg a day, rosuvastatin 10 mg daily, Januvia 25 mg a day, tamsulosin, subcu heparin, midodrine 2.5 3 times daily, isosorbide mononitrate, insulin
ROS: As above
83/49, pulse 79, respiratory 21, afebrile, sats 95%, head neck exam unremarkable, lungs are clear, soft systolic murmur at base, JVD okay abdomen benign, extremities without clubbing cyanosis or edema, neuro nonfocal no edema, pulses still palpable
Sinus rhythm, right bundle branch block, left anterior fascicular block, consider anterolateral ischemia, possible lateral IN
Hemoglobin 12.2, platelets 94, BUN and creatinine 23 and 4.1, AST is 105, proBNP greater than 27,000, peak troponin thus far 17.1
Assessment:
Chest pain 05/16/24
Elevated Troponin
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
ESRD on HD
CM EF 40% by echo 09/15/23
CAD
s/p CABG with CABRAL to LAD, SVG to OM, SVG to PDA at [place] 12/09/22
s/p NSTEMI with patent bypass grafts, 70% OM stenosis being medically managed after cath at [facility] 08/2023Transitional cell carcinoma of the bladder treated with multiple transurethral resection of bladder tumor, most recently 50 tumors removed at
[facility] 09/01/2023
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
Paroxysmal Afib
Not chronically anticoagulated due to anemia, not a candidate for watchman due to inability to tolerate even short-course OAC
mild
Hypertension
Hyperlipidemia
Type 2 diabetes
Glaucoma
Hyponatremia
Plan:
He remains with mild discomfort that continues to bra[place]. Approaching 24 hours since onset. Review of his coronary anatomy shows that his distal vessels are very small and runoff for his bypasses is poor. His CABRAL to LAD looks good. However,
probably at high risk for loss of vein graft to OM or RCA. Suspect he may have lost OM vein graft
He had nonsustained VT last night.
Unclear whether he should go to the [facility]. We will recheck his troponin and echo now and if continues to rise, or if EF drops we should probably send to the lab. Will discuss with interventional cardiology. It seems unlikely that we would find
a good target for intervention after review of his films.
He has had problems with his fistula, and he had stopped aspirin. Currently back on aspirin. Given his situation I am not in favor of Plavix at this time and would not anticoagulate.
Nitrates may be contributing to hypotension,and lead to decreased coronary perfusion. Will hold nitrates. Increase midodrine to 5 mg 3 times a day, might prefer attempt at low-dose beta-blockade. Previously patient had been on carvedilol 1.5625
mg twice daily.
Original Note:
Today's Communication / Plan
-
Echo pending
Ongoing HD and UF to try and diurese as much as possible
Back on aspirin and follow fistula
51 minutes face to face, chart prep
Impression / Plan
-
PCP: Dr. Charlie Marley
Primary Stringed Instrument Repairer: Dr. Almanza
Assessment:
Chest pain 05/16/24
Elevated Troponin
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
ESRD on HD
CM EF 40% by echo 09/15/23
CAD
s/p CABG with CABRAL to LAD, SVG to OM, SVG to PDA at [place] 12/09/22
s/p NSTEMI with patent bypass grafts, 70% OM stenosis being medically managed after cath at [facility] 08/2023
Transitional cell carcinoma of the bladder treated with multiple transurethral resection of bladder tumor, most recently 50 tumors removed at [facility] 09/01/2023
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
Paroxysmal Afib
Not chronically anticoagulated due to anemia, not a candidate for watchman due to inability to tolerate even short-course OAC
mild
Hypertension
Hyperlipidemia
Type 2 diabetes
Glaucoma
Hyponatremia
ECHO 08/2023 at [facility]: EF reportedly preserved
Echo 09/15/23: EF 40-45%, inferior wall akinesis, inferoseptal wall and base to mid inferolateral francisco hypokinetic, stage II diastolic dysfunction, moderate MR, mild with peak/mean 20/11. mild to mod aortic regurg
Echo 05/17/24: Study pending
Plan:
-Troponin up to 17.1 on 05/17/24 and continues to trend. Patient reports resolution of chest pain with HD session 05/16/24. ECG stable with anterolateral T wave inversions.
-Echo ordered and pending
-Outpatient dose of Imdur ER 60 mg BID ordered.
-Primary assembler wire mesh gate has previously considered adding Toprol XL 12.5 mg HS, but will hold off for now given hypotension and recent addition of midodrine for BP support with HD so that more fluid can be pulled off.
-Patient had stopped his aspirin 81 mg daily for a week prior to admission due to dialysis fistula bleeding, it has been restarted.
-Check CVE. Outpatient dose of Crestor 10 mg daily has been continued.
-Will manage medically for now. Patient with h/o CAD s/p CABG 12/09/22. His last cath was at [facility] 08/2023 in the setting of a NSTEMI, cath showed 70% OM stenosis and overall this was felt to be small to medium caliber vessel with very minimal artery
beyond the lesion so it was managed medically.
-Will follow dialysis fistula, patient reports excessive bleeding after HD and this is why he stopped his aspirin a week ago. No reports of fistula bleeding after session on 05/16/24, will follow
-Tele reviewed by me and couplets and triplets and looks like a run of [place], all asymptomatic. Potassium 3.8 and magnesium was 2.3 on 05/17/24. Echo pending.
Progress Note - Stringed Instrument Repairer
Subjective
Date of Service: May 17, 2024
Chest pain better after HD
Objective
Labs:
05/17/24 04:58
05/17/24 04:58
Labs
Hgb 12.2 g/dL (13.0-18.0) L 05/17/24 04:58
Hct 37.3 % (39.0-52.0) L 05/17/24 04:58
Plt Count 94 10^3/uL (130-400) L 05/17/24 04:58
Sodium 136 mmol/L (135-145) 05/17/24 04:58
Potassium 3.8 mmol/L (3.5-5.1) 05/17/24 04:58
BUN 23 mg/dl (9-20) H 05/17/24 04:58
Creatinine 4.1 mg/dL (0.7-1.3) H* 05/17/24 04:58
Glucose 96 mg/dl (70-99) 05/17/24 04:58
Troponins
05/16/24 05/16/24 05/16/24
11:51 14:58 15:49
Troponin I 0.054 H* 1.350 H* D Cancelled
05/16/24 05/17/24 05/17/24
19:00 00:02 01:19
Troponin I 9.540 H* D Cancelled 15.400 H* D
05/17/24 05/17/24
04:58 10:00
Troponin I 17.100 H* Cancelled
Vital Signs and I&O:
Vital Signs
Temp Pulse Resp BP Pulse Ox
98.9 F 79 21 83/49 95
05/17/24 07:29 05/17/24 08:01 05/17/24 08:00 05/17/24 08:01 05/17/24 08:00
Vital Signs
Temp Pulse Resp BP Pulse Ox
98.9 F 79 21 83/49 95
05/17/24 07:29 05/17/24 08:01 05/17/24 08:00 05/17/24 08:01 05/17/24 08:00
Intake & Output
05/15/24 05/16/24 05/17/24 05/18/24
06:59 06:59 06:59 06:59
Intake Total 50 / 50
Output Total 50 / 50
Balance -50 / -50 50 / 50
Physical Exam
Physical Exam
General: NAD, AAOX3
HEENT: EOMI, MMM
Skin: No rash
Heart: SR on tele.
Lungs: No audible wheeze
Abd: Less distended
Ext: +1-2 hard edema. No clubbing, cyanosis or lesions B/L
[2024-05-17 08:53] LABS: Glycohemoglobin (HgbA1c) 7.1 % (4.0-5.6)
--- NOTE | 2024-05-17 10:14 | W.PN.HOSP.TC ---
Addendum entered and electronically signed by Cesar Ellis MD 05/17/24 21:27:
Attending Addendum-
I saw and evaluated the patient. I reviewed the resident�s note and agree with findings and plan as documented in the resident�s note. Sub: Mary states that dialysis has brought his CP from 02/24->07/27. Currently patient feels weak. 'I want to do
everything to live.' Denies SOB palps. Full 12 point ROS reviewed and negative except as documented Exam: Vitals reviewed in chart GEN-NAD heart RRR no M/R/G abd soft LE no edema LUE fistula present with bruit
# CP/NSTEMI
- history CABG x 3 2022 at [place]
- cath 09/10-patent bypass grafts, 70% OM stenosis & medically managed
- trop peaked at 20
- for cath today
- c/w asa (was held due to bleeding fistula)
- NPO
# Paroxysmal A-fib
- not on AC due to gross hematuria.
- cont coreg if BP tolerates
# HTN
- Hypotensive
- hold imdur
- add midodrine
# ESRD
- HD M/W/F
- anuric
- for HD tomorrow post cath
# T2DM
- on Onglyza and glipizide as outpatient
- change to januvia hold glipizide
- cont ISS
- monitor accuchecks closely
# Ischemic cardiomyopathy/ AE HFmrEF
- ef 45-50%
- due to missed HD
- HD 05/16
- c/w Coreg hold for SBP < 100
- c/w aspirin, statin
- cont Januvia
- Not a candidate for ARB/ARNI/RAJIV Inhibitor
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
- Patient was treated at [facility] for TURBT 50 lesions were reportedly worked on on 09/01/2023.
# BPH
- cont flomax
# GERD
- cont protonix
#Dyslipidemia
- cont Rosuvastatin, Zetia
DVT Px: SQH
Full code
ACP
Patient consented to discuss, was alone, time spent explanation of advance directives, changes in health status, patient�s health care wishes if the patient becomes unable to make health decisions, goals of care, code status, and prognosis 'I
survived it before and will survive a massage of my chest again' 16 minutes
Time spent coordinating care, review of plan of care with resident, personally reviewed previous records in EMR, med rec, labs, radiology, d/w nursing, cards total time documented is exclusive of any additional time listed that was spent in advance
care planning discussion - 59�minutes
Original Note:
Today's Communication/Plan
-
Continue midodrine
Hold medications that could make patient hypotensive
Cardiac cath planned
further treatment pending cath results and cardiology recommendations
Assessment / Plan
Assessment / Plan
#Chest pain/NSTEMI/acute HFrEF due to missed HD session
Chest x-ray mild interstitial edema
Troponin uptrending 0.054 on admission, 20.8 this morning
EKG RBBB, L ant, fascicular block, no acute ST changes
HX cath 09/10 at [facility] with patent bypass grafts, 70% OM stenosis & medically managed
Trend troponins
Echo 09/15/2023 EF 40 to 45%
Repeat Echo no significant changes from prior
LVEF 45-50% . There is hypokenisis of the
Inferoseptal wall and base to mid lateral wall.
Moderate mitral regurgitation.
Mild to moderate aortic stenosis.
Mild aortic regurgitation.
Mild pulmonic regurgitation.
cath pending
N.p.o. for cath
Gentle IV morphine as needed
ASA, statin
Isosorbide mononitrate, carvedilol, and nitroglycerin on hold for hypotension
Midodrine for blood pressure improvement per cards
#End-stage renal disease
Previously hemodialysis Tuesday
Hemodialysis yesterday, creatinine 6.4-4.1 today
Right chest wall HD cath
Nephrology following
# Hypotension
Management per cardiology
Continue Coreg with hold Entex for SBP less than 100
No nitroglycerin
Hold isosorbide dinitrate due to low BP upon cardiology discretion
# Ischemic cardiomyopathy
Coreg with hold index for SBP less than 100
Continue with aspirin statin
Already on Onglyza
Not a candidate for ARB/RAJIV inhibitor due to end-stage renal disease
#Elevated AST
likely 2/2 hypotension
Monitor
#Ambulatory dysfunction
PT/OT consult
#Paroxysmal A-fib
Not on Eliquis due to history of hematuria and severe anemia
ASA
On Coreg as above
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
Damion [place]. TURBT 50 lesions were reportedly worked on on 09/01/2023.
developed hematuria and a temporary placement of renal stent followed by continuous bladder irrigation
Eliquis discontinued
# Type 2 diabetes
Hemoglobin A1c 7.1
On Onglyza and glipizide
Sliding-scale insulin as needed
#Dyslipidemia
Continue statin, Zetia
#B12 deficiency�replace
#Chronic vertigo
Anticipated Discharge: > 48 hours
Subjective/Interval History
-
Date of Service: May 17, 2024
Objective Data
-
Labs:
Laboratory Results
05/17/24
04:58
WBC 4.9
Hgb 12.2 L
Hct 37.3 L
Plt Count 94 L
Sodium 136
Potassium 3.8
Chloride 96 L
Carbon Dioxide 26
BUN 23 H
Creatinine 4.1 H*
Glucose 96
Calcium 8.5
Total Bilirubin 1.3
AST 105 H
ALT 16
Alkaline Phosphatase 67
Vital Signs:
Vital Signs
Temp Pulse Resp BP Pulse Ox
98.9 F 87 28 88/47 97
05/17/24 07:29 05/17/24 10:00 05/17/24 10:00 05/17/24 09:00 05/17/24 09:00
I&O
05/16/24 05/17/24 05/18/24
06:59 06:59 06:59
Intake Total 50 / 50
Output Total 50 / 50
Balance -50 / -50 50 / 50
Review of Systems
-
History Source: Patient
EENT: Reports No Symptoms Reported
Respiratory: Reports No Symptoms
Cardiac: Reports Chest Pain
Abdomen/GI: Reports No Symptoms
Neuro: Reports No Symptoms
Physical Exam
-
Respiratory: Crackles
Cardiac: Regular Rhythm and S1/S2
GI: Soft and Nontender
Musculoskeletal: No Edema
Skin: Warm
Neuro: AO x 3
Psych: Calm
--- NOTE | 2024-05-17 11:32 | W.PN.NEPH.PH ---
Today's Communication / Plan
-
HD tomorrow
Assessment/Plan
-
Assessment:
CP
Elevated troponin
Transitional cell carcinoma of the bladder
s/p CABG - CABRAL to LAD, SVG to OM, SVG to PDA 12/09/22 at [facility]
CM EF 40% by echo 09/15/23
Type 2 NSTEMI s/p diagnostic cath 08/2023 at [facility] with patent bypass grafts, 70% OM stenosis, medically managed
Post CABG afib
ESRD on HD MWF
mild
Hypertension
Hyperlipidemia
Type 2 diabetes
Glaucoma
Hyponatremia
Plan
A/w CP, off ASA for 1week
back on ASA, echo pending. may need LHC per cards
HD tomorrow, he is on RA
follow daily wts likely he lost dry wt recently from dairrhea
BP soft, midodrine per cards, check cortisol
hold Renvela as it seem to cause diarrhea
d/w pt
-
-
Date of Service: May 17, 2024
CC / HPI / ROS
-
Chief Complaint:
ESRD
History of Present Illness:
Tolerated HD yesterday
BP are soft, on midodrine
no fever, NSVT overnight
trop increasing
Review of Systems:
on RA
CP improving-mild now
no sob
Labs
-
Labs:
WBC 4.9 10^3/uL (4.8-10.8) 05/17/24 04:58
RBC 4.73 10^6/uL (4.70-6.10) 05/17/24 04:58
Hgb 12.2 g/dL (13.0-18.0) L 05/17/24 04:58
Hct 37.3 % (39.0-52.0) L 05/17/24 04:58
Plt Count 94 10^3/uL (130-400) L 05/17/24 04:58
Sodium 136 mmol/L (135-145) 05/17/24 04:58
Potassium 3.8 mmol/L (3.5-5.1) 05/17/24 04:58
Chloride 96 mmol/L (98-107) L 05/17/24 04:58
Carbon Dioxide 26 mmol/L (22-30) 05/17/24 04:58
BUN 23 mg/dl (9-20) H 05/17/24 04:58
Creatinine 4.1 mg/dL (0.7-1.3) H* 05/17/24 04:58
eGFR 13.65 05/17/24 04:58
Glucose 96 mg/dl (70-99) 05/17/24 04:58
Calcium 8.5 mg/dl (8.4-10.2) 05/17/24 04:58
Xea-J-Mrnwgfkzmcg Pept > 39477 pg/ml 05/16/24 11:51
Albumin 3.4 g/dl (3.5-5.0) L 05/17/24 04:58
Physical Exam
-
Vital Signs:
Vital Signs
Temp Pulse Resp BP Pulse Ox
98.2 F 87 28 88/47 97
05/17/24 11:17 05/17/24 10:00 05/17/24 10:00 05/17/24 09:00 05/17/24 09:00
Cardiovascular:: Regular rate and rhythm
Respiratory:: Bilateral: CTA
Lung Excursion:: Normal
Abdomen:: Nontender and Soft
Extremity Edema:: +1: Bilateral:
Echeverria Catheter: No
[2024-05-17 12:13] LABS: Glucose - Point of Care 73 mg/dl (70-99)
[2024-05-17] MEDS: ProAmatine 5 MG PO ×2 (12:25→18:35)
--- NOTE | 2024-05-17 14:03 | PTCARENOTE ---
MD herrmann at bedside as pt reported an increase in cp described as pressure from a 1/10 to a 4/10 s/p trying to have a bm and eating. EKG obtained per request of MD herrmann reading NSR with incomplete RBBB and prolonged QT. MD herrmann on phone with pts
son with plan to go to clinical laboratory manager when it is available. no new orders at this time per MD herrmann. pts vitals stable with BP continuing to read sub 100 at 95/54 HR 98 at this time stamp. pt remains on cardiac monitors. reports pain is tolerable. pt
to remain NPO going forward. hospitalist and associate professor of english also notified by this RN of update in plan of care.
--- NOTE | 2024-05-17 15:03 | CM ---
Patient with Hx bladder CA, ESRD on HD with Dx NSTEMI, HF, hypotension, PAF. Room air. Plan possible cardiac cath today.
Met with patient who resides alone in a split level house with 2 PARMJIT and 7 steps to bedroom/bath.
The patient was Independent in ADLs/ambulation using RW.
Patient reports weakness with ambulation.
DME - RW, SPC, w/c
The patient had planned to have chair lift installed on day of admission which had to be cancelled.
VN - prior [facility]
SNF - [facility]
PCP - Charlie Marley
Pharmacy - [facility]
The patient has a son Devante in [place], and nephew Edward in [place], and niece's Jhonny in [place].
The patient goes to [facility] and drives himself.
Message to Resident Flavia Johnson requesting PT/OT Evals.
Plan follow up after seen by PT/OT.
--- NOTE | 2024-05-17 15:33 | PTCARENOTE ---
pt heading to canvas shop laborer at this time with canvas shop laborer staff x 2. Report provided via phone and in person upon arrival to canvas shop laborer staff. pt on garnett room worker, aaox3 with stable vitals upon leaving the department.
[2024-05-17 16:47] LABS: ACT-LR - POC 356 Seconds (116-155)
--- NOTE | 2024-05-17 17:16 | PTCARENOTE ---
verbal report provided to Yoon Ervin in person. pt arriving to IVU with orthodontic lab technician staff on monitor. family in family waiting area. all personal belongings including cell phone with pt in new room in IVU.
--- NOTE | 2024-05-17 17:20 | ITS.CL.CATH ---
Staking Technician - Catheterization
Cardiac Catheterization
Procedure Report:
LEFT HEART CATHETERIZATION AND CORONARY INTERVENTION
Date of Procedure: May 17, 2024
Referring: Dr. Josh Archer
PROCEDURES:
1. Coronary angiography
2. Selective saphenous vein graft and QUIANA angiography
3. Successful stenting of proximal SVG-PDA with a 2.5 x 15 mm Lanexa stent that was implanted at nominal pressures and postdilated to high pressures with a 2.5 mm noncompliant balloon
INDICATION: End-stage renal disease, history of bypass surgery, non-ST segment elevation myocardial infarction with ongoing chest discomfort
ACCESS: Right common femoral artery, 6 Chilean sheath
HEMODYNAMICS : (mmHg)
AO (s/d) : 88/49
CORONARY ANGIOGRAPHY
Dominance: Right
LEFT MAIN: Calcified with mild distal tapering
LEFT ANTERIOR DESCENDIN% occluded at its origin. The LAD fills via a widely patent QUIANA graft
CIRCUMFLEX: The circumflex is heavily calcified and arises normally from the left main. There is a smooth 50% proximal stenosis. The first obtuse marginal branch becomes 100% occluded in its midportion and the distal vessel is the recipient of
saphenous vein graft bypass. The saphenous vein graft to the distal portion of OM1 is patent but the recipient vessel is small and supplies a limited territory. On prior angiograms there was better retrograde filling of the diffusely diseased OM
RIGHT CORONARY ARTERY: The right coronary artery is a dominant vessel that becomes 100% occluded in its midportion. The SVG-PDA is patent with a 70% proximal stenosis
GRAFT ANGIOGRAPHY:
1. CABRAL-LAD: Widely patent with anterograde and retrograde filling of the LAD which appears free of high-grade obstructive stenosis
2. SVG-OM: The saphenous vein graft to the first obtuse marginal branch is patent but is anastomosed to the distal vessel which is small caliber and diffusely narrowed. On prior angiograms it was better retrograde filling proximal to the SVG
touchdown, however, the obtuse marginal branch has been diffusely diseased.
3. SVG-PDA: The saphenous vein graft to the PDA has a large funnel origin and 70% proximal stenosis. The distal anastomosis to a small PDA
LEFT VENTRICULOGRAPHY: Not done
ANGIOPLASTY PROCEDURE DETAIL: Upon review of the diagnostic catheterization films the decision was made to proceed with percutaneous revascularization of the SVG-PDA. Intravenous heparin was administered and a 600 mg loading dose of clopidogrel was
given. The origin of the SVG was cannulated with a 6 Chilean AR mod guide catheter and a BMW guidewire was advanced across the proximal stenosis and into the distal portion of the saphenous vein graft. Primary stenting was undertaken with placement
of a 2.5 x 15 mm Pablo stent which was positioned with angiographic and fluoroscopic guidance. The stent was implanted at nominal pressures and postdilated with a 2.5 mm noncompliant balloon.
RADIATION SUMMARY: Fluoro Time (min): 13.0, Dose (mGy): 638, DAP (Gy.cm2) : 54.2
Closure Device: 6 Chilean Angio-Seal RFA
CONCLUSION
1. Successful stenting of the proximal portion of the SVG-PDA with a 2.5 x 15 mm Xience stent that was implanted at nominal pressures and postdilated with a 2.5 mm noncompliant balloon
2. Patent SVG-OM with poor retrograde filling of the [place] vessel which is diffusely diseased on prior angiograms. The CABRAL-LAD is widely patent. The yerington coronary anatomy is otherwise stable.
RECOMMENDATIONS
1. Uninterrupted dual antiplatelet therapy for at least 6 months and preferably 12 months
2. Continued risk factor modification
Copy to: Dr. Casi Almanza
[2024-05-17 18:21] LABS: Glucose - Point of Care 112 mg/dl (70-99)
[2024-05-17] MEDS: CRESTOR 10 MG PO (18:35)
[2024-05-17] MEDS: FLOMAX 0.4 MG PO (18:35)
--- NOTE | 2024-05-17 18:53 | PTCARENOTE ---
Rec'd Pt [id number] from candlemaking laborer, A,A+Ox3, Denies pain presently. R femoral dsg D+I, palp DP pulse. Lungs clean ant. O2 sat 94% RA.
[2024-05-17] MEDS: HEPARIN SC (19:35)
[2024-05-17] MEDS: XALATAN OPHTHALMIC SOLUTION 1 DROP BOTH EYES (23:26)
[2024-05-17 23:32] LABS: Glucose - Point of Care 122 mg/dl (70-99)
[2024-05-18] VITALS (43 sets, daily range): BP systolic 70–109; BP diastolic 17–64; PULSE 92–94; O2SAT 93–97; BMI 26.1
[2024-05-18] MEDS: ProAmatine 5 MG PO ×4 (04:17→22:45)
--- NOTE | 2024-05-18 04:20 | PTCARENOTE ---
Assumed care of patient at change of shift. Right groin site dressing w/ small amount of serosanguineous drainage. Site marked. Skin soft upon palpation, no hematoma noted. Right pedal pulse positive w/ Doppler. Patient denies any chest pain or
discomfort.
Morning vitals obtained, bp laying 87/56. Patient denies any dizziness at this time. Attempted to grab patients morning weight. This RN assisted patient into sitting on the side of the bed. Patient reports the room is 'spinning', bp obtained w/ a
result of 80/59. patient assisted back to bed. RN unable to obtain standing scale weight at this time. Danny CAMPOVERDE made aware. Orders obtained for STAT dose of 5mg of Midodrine. Medication administered--see MAR for further details.
Patient instructed to remain bedrest till BP improves. Patient aware of POC, call brown within reach.
--- NOTE | 2024-05-18 08:47 | W.PN.NEPH.HD ---
Assessment
-
Seen on HD. concerned about post HD bleeding from AVF. AVFgram 1.5 months ago reportedly ok by patient. now requires dual antiplatelet therapy.
Using 16G needles (vs 15G) today. may also remove heparin from HD
now also hypotense and on midodrine. check cortisol level. has mod /MR/TR
Progress Note - Hemodialysis
-
Date of Service: May 18, 2024
Duration: 30 minutes and 3 hours
Potassium Bath: 3
Calcium Bath: 2.5
Opti-Dialyzer: 160
Ultrafiltration: Other (2kg)
Blood Flow: 400
Dialysate Flow: 600
Heparin: 500x2
EPO: 0
[2024-05-18 08:48] LABS: Hematocrit 37.4 % (39.0-52.0); Hemoglobin 12.2 g/dL (13.0-18.0); Mean Corp Hgb Conc. 32.6 g/dL (33.0-37.0); Mean Corpuscular Hgb 25.7 pg (27.0-31.0); Mean Corpuscular Volume 78.9 fL (80.0-94.0); Platelet Count 107 10^3/uL (130-400); Red Blood Cell Count 4.74 10^6/uL (4.70-6.10); Red Cell Dist. Width 20.8 % (11.5-14.5); White Blood Cell Count 6.1 10^3/uL (4.8-10.8)
[2024-05-18 08:58] LABS: Blood Urea Nitrogen 33 mg/dl (9-20); Calcium 8.9 mg/dl (8.4-10.2); Carbon Dioxide 25 mmol/L (22-30); Chloride 95 mmol/L (98-107); Estimated Creatinine Clearance 10 ml/min; Glucose 129 mg/dl (70-99); Potassium 4.1 mmol/L (3.5-5.1); Sodium 134 mmol/L (135-145); eGFR 10.26
[2024-05-18] MEDS: HEPARIN SC (09:33)
[2024-05-18 09:48] LABS: Cortisol, Random 29.5 ug/dl
--- NOTE | 2024-05-18 10:11 | W.PN.HOSP.TC ---
Addendum entered and electronically signed by Cesar Ellis MD 05/18/24 20:43:
Attending Addendum-
I saw and evaluated the patient. I reviewed the resident�s note and agree with findings and plan as documented in the resident�s note. Sub: Mary seen post HD. States he feels very weak and doesn't want to go home because he lives home alone.
Denies CP. Denies SOB palps. Having increased bleeding @ fistula site. Full 12 point ROS reviewed and negative except as documented Exam: Vitals reviewed in chart GEN-NAD heart RRR no M/R/G abd soft LE no edema LUE fistula present mild bleeding
present
# NSTEMI/CAD
- s/p CABG with CABRAL to LAD, SVG to OM, SVG to PDA at [place] 12/09/22
- s/p NSTEMI with patent bypass grafts, 70% OM stenosis being medically managed after cath at [facility] 08/2023
- cath 05/17- PCI DAKSHA SVG-PDA
- trop peaked at 20
- cont DAPT x 6-12 months
- watch for continued bleeding @ fistula
- cont Januvia and statin
# Paroxysmal A-fib
- not on AC due to high risk bleed
- restart coreg if BP tolerates
# HTN
- unstable
- hypotensive
- hold imdur
- increase midodrine
# ESRD
- HD M/W/F
- anuric
- HD 05/18 1.5 KG removed
# T2DM
- on Onglyza and glipizide as outpatient
- cont januvia while inpatient hold glipizide
- cont ISS
- monitor accuchecks closely
# Ischemic cardiomyopathy/ AE HFmrEF
- echo 05/17-Left ventricular ejection fraction 45-50%
hypokinesis of the Inferoseptal wall and base to mid lateral wall.
Moderate mitral regurgitation.
Mild to moderate aortic stenosis
- due to missed HD
- HD 05/18
- Coreg on hold for SBP < 100
- c/w aspirin, statin
- cont Januvia
- Not a candidate for ARB/ARNI/RAJIV Inhibitor
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
- Patient was treated at [facility] for TURBT 50 lesions were reportedly worked on on 09/01/2023.
# BPH
- DC flomax patient is anuric
# GERD
- cont protonix
#Dyslipidemia
- cont Rosuvastatin, Zetia
DVT Px: SQH
Full code
Dispo- patient lives at home alone DC to SNF when able
Time spent coordinating care, review of plan of care with resident, personally reviewed records in EMR, med rec, consults, notes, labs, radiology, d/w nursing, cards � 58 mins
Original Note:
Today's Communication/Plan
-
Midodrine 10 mg 3 times daily cardiology to keep good blood pressure for new stent
Dual antiplatelet therapy for next 6 to 12 months per cardiology
Hemodialysis today
Concerns for bleeding after hemodialysis from arteriovenous fistula after starting dual antiplatelet therapy post-cath. Monitor
Assessment / Plan
Assessment / Plan
#Chest pain/NSTEMI/acute HFrEF due to missed HD session
Chest x-ray mild interstitial edema
Troponin peak 20.8, now downtrending
EKG RBBB, L ant, fascicular block, no acute ST changes
HX cath 09/10 at [facility] with patent bypass grafts, 70% OM stenosis & medically managed
Trend troponins
Echo 09/15/2023 EF 40 to 45%
Repeat Echo no significant changes from prior
LVEF 45-50% . There is hypokenisis of the
Inferoseptal wall and base to mid lateral wall.
Moderate mitral regurgitation.
Mild to moderate aortic stenosis.
Mild aortic regurgitation.
Mild pulmonic regurgitation.
cath successful stenting of the proximal portion of the SVG-PDA
Today pt no chest pain
Restart diet low sodium, low K, fluid restriction
Gentle IV morphine as needed
ASA, statin
Isosorbide mononitrate, carvedilol, and nitroglycerin on hold for hypotension
Midodrine increase 10 TID for continued pressure to stand improvement per cards
Dual antiplatelet therapy for next 6 to 10 months
PT/OT think too hypotensive to send out today will re-evaluate in am
#End-stage renal disease
Cr. 5.2
Previously hemodialysis Tuesday
Hemodialysis today
Concerns for bleeding post HD from AVF after starting dual antiplatelet therapy
Right chest wall HD cath
Nephrology following
# Hypotension
Midodrine 10 mg 3 times daily per cards
Continue Coreg with hold Entex for SBP less than 100
No nitroglycerin
Hold isosorbide dinitrate due to low BP upon cardiology discretion
# Ischemic cardiomyopathy
Coreg with hold index for SBP less than 100
Continue with aspirin statin
Already on Onglyza
Not a candidate for ARB/RAJIV inhibitor due to end-stage renal disease
#Elevated AST
likely 2/2 hypotension
Monitor
#Ambulatory dysfunction
PT/OT consult
#Paroxysmal A-fib
Not on Eliquis due to history of hematuria and severe anemia
ASA
On Coreg as above
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
Damion [place]. TURBT 50 lesions were reportedly worked on on 09/01/2023.
developed hematuria and a temporary placement of renal stent followed by continuous bladder irrigation
Eliquis discontinued
# Type 2 diabetes
Hemoglobin A1c 7.1
On Onglyza and glipizide
Sliding-scale insulin as needed
#Dyslipidemia
Continue statin, Zetia
#B12 deficiency�replace
#Chronic vertigo
Anticipated Discharge: 24 - 48 hours
Subjective/Interval History
-
Date of Service: May 18, 2024
Feels much better. Reports no chest pain.
Objective Data
-
Labs:
Laboratory Results
05/18/24
08:18
WBC 6.1
Hgb 12.2 L
Hct 37.4 L
Plt Count 107 L
Sodium 134 L
Potassium 4.1
Chloride 95 L
Carbon Dioxide 25
BUN 33 H
Creatinine 5.2 H*
Glucose 129 H
Calcium 8.9
Vital Signs:
Vital Signs
Temp Pulse Resp BP Pulse Ox
97.4 F 90 18 88/53 94
05/18/24 09:07 05/18/24 08:00 05/18/24 03:34 05/18/24 08:14 05/18/24 03:34
I&O
05/17/24 05/18/24 05/19/24
06:59 06:59 06:59
Intake Total 590 / 590
Output Total 50 / 50
Balance -50 / -50 590 / 590
Review of Systems
-
History Source: Patient
EENT: Reports No Symptoms Reported
Cardiac: Reports No Symptoms; Denies Chest Pain
Abdomen/GI: Reports No Symptoms
Genitourinary: Reports No Symptoms
Neuro: Reports No Symptoms
Physical Exam
-
General: No Apparent Distress and Comfortable
Respiratory: Clear to Auscultation
Cardiac: Regular Rhythm, S1/S2 and Murmur
GI: Soft, Nontender and Normal Bowel Sounds
Musculoskeletal: No Edema
Skin: Warm
Neuro: AO x 3
Psych: Calm
--- NOTE | 2024-05-18 10:32 | W.PN.CARDCBS ---
Addendum entered and electronically signed by Josh Archer MD 05/18/24 11:25:
Patient underwent PCI to proximal portion of SVG to RCA, currently on dialysis. He offers no complaints.
PMH: End-stage renal disease on hemodialysis, ischemic cardiomyopathy, EF 40% August 2023, history of CABG, CABRAL to LAD saphenous vein graft to OM saphenous vein graft to PDA, hematuria related to transitional cell carcinoma of the bladder and
history of TURBT, PAF not anticoagulated, mild , hypertension, hyperlipidemia, diabetes, glaucoma
Allergies reviewed
Outpatient meds reviewed
Current meds: Aspirin 81 mg a day, rosuvastatin 10 mg every afternoon, Januvia, subcu heparin, midodrine 5 mg 3 times daily, insulin, clopidogrel
88/53, pulse 90, no distress, head neck exam unremarkable, lungs are clear, soft systolic murmur, abdomen benign, no edema, neuro nonfocal
Hemoglobin 12.2, creatinine 5.2, EKG today, sinus rhythm, right bundle branch block with left anterior fascicular block, anterolateral ST depression
Assessment:
Non-ST segment elevation SD related to stenosis of proximal SVG to PDA
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
ESRD on HD
CM EF 40% by echo 09/15/23
CAD
s/p CABG with CABRAL to LAD, SVG to OM, SVG to PDA at [facility] 12/09/22
s/p NSTEMI with patent bypass grafts, 70% OM stenosis being medically managed after cath at [facility] 08/2023
s/p NSTEMI with DAKSHA SVG-PDA 05/17/2024Transitional cell carcinoma of the bladder treated with multiple transurethral resection of bladder tumor, most recently 50 tumors removed at [facility] 09/01/2023
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
Paroxysmal Afib
Not chronically anticoagulated due to anemia, not a candidate for watchman due to inability to tolerate even short-course OAC
mild
Hypertension
Hyperlipidemia
Type 2 diabetes
Glaucoma
Hyponatremia
bleeding from HD fistula site
Plan:
He looks stable status post PCI to proximal vein graft to RCA. Currently on hemodialysis.
Hopefully, will not have refractory bleeding issues from fistula on aspirin and Plavix.
From a cardiac standpoint would like perfusion pressure a little higher, will discuss with nephrology and possibly increase midodrine to 10 mg 3 times daily.
Okay to begin discharge planning.
Original Note:
Today's Communication / Plan
-
increase Midodrine to 10 mg TID
DAPT s/p DAKSHA 05/17/24
Impression / Plan
-
PCP: Dr. Charlie Marley
Primary Frame Wirer: Dr. Almanza
Assessment:
Chest pain 05/16/24
Elevated Troponin
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
ESRD on HD
CM EF 40% by echo 09/15/23
CAD
s/p CABG with CABRAL to LAD, SVG to OM, SVG to PDA at [facility] 12/09/22
s/p NSTEMI with patent bypass grafts, 70% OM stenosis being medically managed after cath at [facility] 08/2023
s/p NSTEMI with DAKSHA SVG-PDA 05/17/2024
Transitional cell carcinoma of the bladder treated with multiple transurethral resection of bladder tumor, most recently 50 tumors removed at [facility] 09/01/2023
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
Paroxysmal Afib
Not chronically anticoagulated due to anemia, not a candidate for watchman due to inability to tolerate even short-course OAC
mild
Hypertension
Hyperlipidemia
Type 2 diabetes
Glaucoma
Hyponatremia
bleeding from HD fistula site
ECHO 08/2023 at [facility]: EF reportedly preserved
Echo 09/15/23: EF 40-45%, inferior wall akinesis, inferoseptal wall and base to mid inferolateral francisco hypokinetic, stage II diastolic dysfunction, moderate MR, mild with peak/mean 20/11. mild to mod aortic regurg
Echo 05/17/24: EF 45 to 50%, mild concentric LVH, hypokinesis of inferior septal wall and basal to mid lateral wall, mild MR, mild to moderate peak/mean 23/15, mild AI, mild pulmonic regurgitation.
cath 05/17/2024: successful stenting prox SVG-PDA with Pablo DAKSHA
Plan:
-Troponin peaked at 20 on 05/17/24, trending down 12.6 on 05/18/24 at 0818. Had CP 05/17/24 in setting of increased troponin, which prompted C.
-Echo yesterday 05/17/2024 stable compared to 09/15/2023
-cath 05/17/24 s/p DAKSHA prox SVG--PDA
-DAPT x 6-12 months s/p DAKSHA
-Outpatient dose of Imdur ER 60 mg BID ordered.
-BP remains low, increase midodrine to 10 mg 3 times daily
-Primary heating and blending supervisor has previously considered adding Toprol XL 12.5 mg HS, but will hold off for now given hypotension and recent addition of midodrine for BP support with HD so that more fluid can be pulled off.
-Patient had stopped his aspirin 81 mg daily for a week prior to admission due to dialysis fistula bleeding, it has been restarted,also now on Plavix s/p DAKSHA. He continues to have bleeding at fistula site, post HD. Using smaller needles and
removing heparin from HD. Nurse reports he has not had heparin with HD in the last 2 dialysis sessions
-Outpatient dose of Crestor 10 mg daily has been continued.
-Will follow dialysis fistula, patient reports excessive bleeding after HD and this is why he stopped his aspirin a week ago. No reports of fistula bleeding after session on 05/16/24, will follow
-Tele reviewed by me: Normal sinus rhythm 80s, rare burst AT, no VT noted. Did have NSVT on telem earlier in admission-asymptomatic. Potassium 4.1 05/18/24 and magnesium was 2.3 on 05/17/24. Echo with stable LV dysfxn.
Progress Note - Frame Wirer
Subjective
Date of Service: May 18, 2024
no recurrent CP
very concerned about bleeding at dialysis fistula site
Objective
Labs:
05/18/24 08:18
05/18/24 08:18
Labs
Hgb 12.2 g/dL (13.0-18.0) L 05/18/24 08:18
Hct 37.4 % (39.0-52.0) L 05/18/24 08:18
Plt Count 107 10^3/uL (130-400) L 05/18/24 08:18
Sodium 134 mmol/L (135-145) L 05/18/24 08:18
Potassium 4.1 mmol/L (3.5-5.1) 05/18/24 08:18
BUN 33 mg/dl (9-20) H 05/18/24 08:18
Creatinine 5.2 mg/dL (0.7-1.3) H* 05/18/24 08:18
Glucose 129 mg/dl (70-99) H 05/18/24 08:18
Troponins
05/16/24 05/16/24 05/16/24
11:51 14:58 15:49
Troponin I 0.054 H* 1.350 H* D Cancelled
05/16/24 05/17/24 05/17/24
19:00 00:02 01:19
Troponin I 9.540 H* D Cancelled 15.400 H* D
05/17/24 05/17/24 05/17/24
04:58 09:54 10:00
Troponin I 17.100 H* 20.800 H* Cancelled
05/17/24 05/17/24 05/18/24
11:00 16:00 08:18
Troponin I Cancelled 16.600 H* 12.600 H*
Vital Signs and I&O:
Vital Signs
Temp Pulse Resp BP Pulse Ox
97.4 F 80 18 109/53 94
05/18/24 09:07 05/18/24 10:15 05/18/24 03:34 05/18/24 10:15 05/18/24 03:34
Vital Signs
Temp Pulse Resp BP Pulse Ox
97.4 F 80 18 109/53 94
05/18/24 09:07 05/18/24 10:15 05/18/24 03:34 05/18/24 10:15 05/18/24 03:34
Intake & Output
05/16/24 05/17/24 05/18/24 05/19/24
06:59 06:59 06:59 06:59
Intake Total 590 / 590
Output Total 50 / 50
Balance -50 / -50 590 / 590
Physical Exam
Physical Exam
GEN: No distress, awake, Ox3
HEENT: supple, anicteric, mmm
LUNGS: CTA, no wheezes/rales
CV: Reg, S1/S2, 1/6 syst LSB LUSB, LLSB
ABD: soft, BS+, NT/ND
EXT: No edema
NEURO: Gross non-focal
SKIN: No rash
[2024-05-18] MEDS: ProAmatine 10 MG PO ×2 (12:44→17:50)
[2024-05-18 12:54] LABS: Glucose - Point of Care 106 mg/dl (70-99)
[2024-05-18] MEDS: PLAVIX 75 MG PO (14:47)
[2024-05-18] MEDS: ASPIR LOW (ENTERIC COATED) 81 MG PO (14:47)
[2024-05-18] MEDS: JANUVIA 25 MG PO (14:47)
--- NOTE | 2024-05-18 15:02 | CM ---
Reviewed chart. Mr. Byrd was transferred to IVU. Met with Mr. Byrd to review discharge plans. He states prior to admission he resides alone in a spilt level home with two steps to enter. He has seven steps to get to bedroom/ full bathroom. Prior
to admission he was independent with adls and ambulated with a walker. He has a walker, single point cane and wheelchair at home. He states he has been in [facility] in the past and would like to explore SNF/Rehab. there again. Physical
and Occupational therapy evaluations pending. He goes to outpatient dialysis at [facility] in [place] on Tuesday, Tuesday, and Tuesday. He drives himself. Telephone call to [facility] Admission to make the referral. Sent the referral.
Telephone call to [facility] Liaison to make the referral. Faxed him the nephrology consult, flow sheet and Hep B panel to see if they will have a chair available for him. Medical work-up in progress. The discharge plan is to go to
[facility] if approved for admission , bed available and iindicated when medically stable.
--- NOTE | 2024-05-18 15:21 | PTCARENOTE ---
Pt sat up in chair for most of the afternoon after HD, he dewey it well, despite having low BP, he denied lightheadedness/dizziness while sitting.
[2024-05-18 17:43] LABS: Glucose - Point of Care 109 mg/dl (70-99)
[2024-05-18] MEDS: CRESTOR 10 MG PO (17:50)
[2024-05-18 19:36] LABS: Hepatitis B Surface Antigen Negative (Negative)
[2024-05-18] MEDS: HEPARIN 5000 UNITS SC (19:44)
[2024-05-18 19:54] LABS: Hepatitis C Antibody Negative (Negative)
[2024-05-18 20:52] LABS: Hepatitis B Surface Antibody Positive
[2024-05-18] MEDS: XALATAN OPHTHALMIC SOLUTION 1 DROP BOTH EYES (22:15)
[2024-05-18 22:50] LABS: Glucose - Point of Care 153 mg/dl (70-99)
--- NOTE | 2024-05-18 23:31 | PTCARENOTE ---
Received patient at change of shift. SR on the monitor. HR in the 90s. BP 83/49 and then 76/47. DISPATCHER CHIEF COAL SLURRY Danny Winters made aware, order for Midodrine obtained and administered, see MAR. No complaints from pt at this time. Call brown within reach.
[2024-05-19] VITALS (25 sets, daily range): BP systolic 59–128; BP diastolic 17–114; BMI 25.6
[2024-05-19 03:08] LABS: Hematocrit 38.4 % (39.0-52.0); Hemoglobin 12.7 g/dL (13.0-18.0); Mean Corp Hgb Conc. 33.1 g/dL (33.0-37.0); Mean Corpuscular Hgb 26.5 pg (27.0-31.0); Mean Corpuscular Volume 80.2 fL (80.0-94.0); Platelet Count 119 10^3/uL (130-400); Red Blood Cell Count 4.79 10^6/uL (4.70-6.10); White Blood Cell Count 7.2 10^3/uL (4.8-10.8)
[2024-05-19 03:22] LABS: ALT (SGPT) 15 U/L (0-50); AST (SGOT) 34 U/L (17-59); Albumin 3.3 g/dl (3.5-5.0); Alkaline Phosphatase 77 U/L (38-126); Blood Urea Nitrogen 28 mg/dl (9-20); Calcium 9.2 mg/dl (8.4-10.2); Carbon Dioxide 24 mmol/L (22-30); Chloride 96 mmol/L (98-107); Estimated Creatinine Clearance 13 ml/min; Glucose 168 mg/dl (70-99); Potassium 4.2 mmol/L (3.5-5.1); Sodium 137 mmol/L (135-145); Total Bilirubin 1.2 mg/dl (0.2-1.3); Total Protein 6.3 g/dl (6.3-8.2); eGFR 15.44
--- NOTE | 2024-05-19 04:03 | W.PN.ANESINT ---
Anesthesia Intubation Note
- Intubation Note
Intubation Note:
Respiratory distress, Cardiopulmonary arrest, airway protection
Diagnosis:
Blade: videoscope # 3
Tube Size: 8
Depth: 24
Side Taped: Right
Drugs Used: Versed 2 mg and Rocuronium 50 mg
Grade View: I
EtCO2 Present: yes
Atraumatic: yes
Attempts: 1
Insertion Start and Stop Time: 05/19/2024 0358, 05/19/2024 0400
SaO2 Pre: unable to attain
SaO2 Post: unable to attain
Glidescope Used: yes
Other Airway Adjustments: none
Pre-Oxygenated: yes
Portable Chest X-Ray: pending
RSI: yes
Suctioned: no
Bilateral Breath Sounds Confirmed: Yes
Vent Settings:
Settings per _ICU__Attending Physician
--- NOTE | 2024-05-19 04:23 | W.PN.UPDATE ---
Update Note
Progress Note Update
-Mr Byrd was found unresponsive in VT on the toilet. He was urgently taken to bed and CPR started. He was successfully shocked x1, given Epi and intubated. Amio bolus was initiated briefly, but pt became bradycardic and was given Atropine and Epi.
Rosc was achieved. See Code sheet for details
-pt's son was notified. He lives 2 hours away
-Dr. Dent was updated
[2024-05-19 04:38] LABS: B.E. -23.3 mmol/L; O2 Saturation % 44.3 % (94-98); PCO2 36 mmHg (35-48)
[2024-05-19 04:39] LABS: HCO3 7.1 mmol/L (21-28); PO2 23 mmHg (83-108)
[2024-05-19 04:40] LABS: O2 Therapy ROOM AIR
[2024-05-19 04:43] LABS: ALT (SGPT) 16 U/L (0-50); AST (SGOT) 45 U/L (17-59); Albumin 3.9 g/dl (3.5-5.0); Alkaline Phosphatase 67 U/L (38-126); Blood Urea Nitrogen 30 mg/dl (9-20); Calcium 9.3 mg/dl (8.4-10.2); Carbon Dioxide 21 mmol/L (22-30); Chloride 96 mmol/L (98-107); Estimated Creatinine Clearance 13 ml/min; Glucose 171 mg/dl (70-99); Sodium 138 mmol/L (135-145); Total Bilirubin 1.5 mg/dl (0.2-1.3); Total Protein 7.2 g/dl (6.3-8.2); eGFR 15.44
--- NOTE | 2024-05-19 04:53 | W.PN.UPDATE ---
Update Note
Progress Note Update
Called to see patient with ventricular tachycardia arrest
Patient was on the commode and noted to go into monomorphic V. tach.
CPR was started was given epinephrine x 2 and shocked.
He returned to sinus rhythm, was extubated and transferred to ICU. Currently on IV amiodarone
General: Sedate
Neck: Supple, no JVD, HJR, carotids +2 B/L, no bruits bilaterally.
Heart: Non displaced PMI, RRR, no murmurs, No S3, S4, no rubs.
Lungs: Scattered rhonchi
Abdomen: Normal bowel sounds, soft, non-tender, non-distended.
Extremities: No clubbing, cyanosis or edema bilaterally.
Neuro: Sedate
ECG: Unchanged, electrolytes with stable potassium, magnesium pending
Impression:
Status postcardiac arrest with ventricular tachycardia
Hypotension possibly requiring pressor
VDRF
Continue IV amiodarone
Unclear if VT was due to stent closure but favor possibly scar based monomorphic ventricular tachycardia as the cause and not restenosis
Will discuss further with EP but continue amiodarone for now
May need to consider ICD
He is hypotensive at present and may need pressors
Updated son Jacki who lives in [place]. He cannot come to the hospital. He states another family member possibly a nephew who is a cardiology PA will be coming in to see him
Discussed with nursing and ICU PA in detail
Critical care time 33 minutes so far
--- NOTE | 2024-05-19 05:03 | PTCARENOTE ---
Patient received post code, pupils 2 mm equal and reactive. NSR with BBC on monitor, trace pedal edema. # ETT at 24 cm at the center lip, vent settings on AC 14 TV 450 FIO2 100% Peep 5, lungs coarse bilaterally, pulse ox 100%. Abdomen round obese
with hypoactive bowel sounds. Anuric. Foul smelling discharge coming from meatus. Right groin dressing clean dry and intact. Sacral foam placed. CHG bath given. #22 g in RAC with Amiodarone gtt infusing as documented. #22 g in right hand with
Levophed gtt infusing as documented. PCXR completed. Dr. Dent at bedside. [facility] Attendant NIRALI at bedside attempting [place].
[2024-05-19 05:40] LABS: Magnesium 1.9 mg/dl (1.6-2.3)
--- NOTE | 2024-05-19 05:42 | W.PN.UPDATE ---
Update Note
Progress Note Update
Procedure Note: Arterial Line�
� Right Wrist Arrow 20 (09/18)�
Diagnosis:��V tach, cardiac arrest
IV Line Comments: Uneventful Procedure�
David's test completed pre-procedure: Yes�
A-Line Comments: Sterile technique as per standard protocol, Ultrasound guided insertion�
Functioning A-line in situ: Yes�
A-line Insertion Start Time:�0530�
A-line in at:��0535
--- NOTE | 2024-05-19 05:45 | TRANSFER ---
Patient went into [facility] at 0344 and was found siting on the toilet, minimally responsive, by nursing. Patient then became completely unresponsive, was transferred into the bed via wheelchair, and a Code 9 was called. LUCRECIA Sood at the
bedside. Compressions started and code taken over by code team. ROSC eventually achieved post defibrillation, epi, and amiodarone. Patient intubated by anesthesiology and transferred to ICU. Report given at beside to Meg COTTRELL.
[2024-05-19 05:56] LABS: B.E. -5.8 mmol/L; HCO3 21.1 mmol/L (21-28); PCO2 46 mmHg (35-48); PO2 293 mmHg (83-108); pH 7.27 (7.35-7.45)
[2024-05-19 06:37] LABS: INR 1.32; PT 16.2 Sec (11.4-14.6)
--- NOTE | 2024-05-19 07:13 | CON.INTV ---
Consultation
Consultation Request
Date/Time Consultation Requested: 05/19
Date/Time Consultation Performed: 05/19
Reason for Consultation: critical care
Medical History
-
History of Present Illness:
History obtained from the chart as patient is currently intubated. 83-year-old male with complex medical history including cardiomyopathy, EF 40%, coronary disease with bypass surgery in the past, recent drug-eluting stent 05/17/2024. Patient was
apparently on commode evening of 05/19, had an episode of monomorphic VT, transferred to the bed, CPR, shock and epinephrine x 1, with ROSC, intubated. Transferred to ICU for further management 05/19/2024
Presently he is without shortness of breath, chest pain. He is admitting to some nausea
.
PMH: Coronary disease with bypass surgery at [facility] November 2022, underwent medical management of persistent OM stenosis and non-ST elevation NM at [facility] 2023. Now status post non-ST elevation NM, drug-eluting stent placement and
graft 05/17/2024. 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 Chronic anemia, atrial fibrillation not on anticoagulation, hypertension,
hyperlipidemia, aortic stenosis, diabetes, glaucoma, end-stage renal disease on dialysis left upper extremity fistula
Past Medical History
Past Medical History: None (See above)
Past Surgical History: None (See above)
Social History
Tobacco: Non-smoker
Alcohol: None
Drug: None
Living: With Family
Employment: Retired
Family History
Family History: Unable to Obtain
Allergies / Home Medications
Allergies
Allergy/AdvReac Type Severity Reaction Status Date / Time
ephedrine Allergy Unknown - Verified 05/16/24 11:14
years ago
Home Medications
�Medication �Instructions �Recorded �Confirmed �Last Taken �Type
latanoprost 0.005 % eye drops 1 drp BOTH EYES HS Eye condition 12/07/13 05/16/24 2 Days Ago History
(Xalatan) ~05/14/24
tamsulosin 0.4 mg capsule 0.4 mg PO QPM Urinary issue 12/07/13 05/16/24 3 Days Ago History
~05/13/24
ezetimibe 10 mg tablet 10 mg PO DAILY High cholesterol 03/13/21 05/16/24 3 Days Ago History
~05/13/24
pantoprazole 40 mg tablet,delayed 40 mg PO DAILY Gastrointestinal 04/29/23 05/16/24 3 Days Ago History
release Issue ~05/13/24
rosuvastatin 10 mg tablet 10 mg PO QPM High cholesterol 07/20/23 05/16/24 3 Days Ago History
~05/13/24
saxagliptin 5 mg tablet (Onglyza) 5 mg PO DAILY Diabetes 09/12/23 05/16/24 3 Days Ago History
~05/13/24
aspirin 81 mg tablet,delayed 81 mg PO DAILY Blood clot 09/17/23 05/16/24 3 Days Ago Rx
release prevention/tx #30 tabs ~05/13/24
acetaminophen 500 mg tablet 1,000 mg PO QIDPRN PRN mild pain 05/16/24 05/16/24 05/15/24 History
(Tylenol Extra Strength)
isosorbide mononitrate 60 mg 120 mg PO DAILY Heart 05/16/24 05/16/24 3 Days Ago History
tablet,extended release 24 hr Disease/Condition ~05/13/24
nitroglycerin 0.4 mg sublingual 0.4 mg sublingual [id number] PRN 05/16/24 05/16/24 05/16/24 History
tablet (Nitrostat) chest pains 0.12 mg
polyethylene glycol 3350 17 gram 17 g PO DAILYPRN PRN constipation 05/16/24 05/16/24 Unknown History
oral powder packet (HealthyLax)
sevelamer carbonate 800 mg tablet 800 mg PO TID Kidney Disease 05/16/24 05/16/24 Unknown History
Review of Systems
-
Unable to Obtain full review of systems at this time due to: Patient Intubation
All other systems: Negative unless noted
Vitals / Labs / Diagnostic Testing
Vital Signs
Temp Pulse Resp BP Pulse Ox
98.1 F 91 14 97
05/18/24 22:17 05/19/24 06:00 05/19/24 06:00 05/19/24 04:55 05/19/24 06:00
Lab Data
05/19/24 02:35
05/19/24 04:10
Laboratory Results
05/19/24 05/19/24 05/19/24
04:13 04:25 05:45
PT
INR
APTT
pH 6.90 L* Cancelled 7.27 L
pCO2 36 Cancelled 46
pO2 23 L* Cancelled 293 H
HCO3 7.1 L* Cancelled 21.1
O2 Delivery Level Room air Cancelled
05/19/24
06:16
PT 16.2 H
INR 1.32
APTT 37.0 H
pH
pCO2
pO2
HCO3
O2 Delivery Level
Microbiology
05/16/24 18:42 Nose MRSA Screen - Final
No Methicillin Resistant Staphylococcus aureus isolated.
Diagnostic Testing:
Physical Exam
-
HEENT: Normocephalic, Anicteric and Other (Left upper extremity AV fistula, right upper extremity A-line)
Cardiovascular: S1/S2, Regular Rhythm, Murmur (n) and Peripheral Edema (n)
Respiratory: Wheeze (n), Rales (n), Rhonchi (n), Non-Labored Respirations and Other (PT to)
GI: Soft, Non Distended and Non Tender
Neurology: Awake (Moves all extremities, follows commands. Does not move lower extremities but does withdraw)
Skin: Other (No rash)
General: Comfortable
Assessment
-
83-year-old male with complex medical history including coronary disease with bypass surgery, recent drug-eluting stent and graft 05/17/2024, end-stage renal disease on hemodialysis, transitional cell carcinoma the bladder ongoing treatment at [facility], atrial fibrillation not on anticoagulation, diabetes, status post VT arrest, shock/epinephrine/ROSC/intubation 05/19/2024
VDRF, intubated 05/19/2024
Cardiac arrest, monomorphic VT, 05/19/2024
While on the commode
Shock/Epi/intubation/ROSC
S/p DAKSHA graft 05/17/2024
Ongoing chest pain, NSTEMI
S/p CABG [facility] 12/09/2022
s/p NSTEMI August 2023, med managed at [facility]
Cardiomyopathy, EF 40% with
ESRD on HED
Mild oozing of left upper extremity fistula
At this time, patient remains critically ill
Transitional cell carcinoma, bladder
Status post transurethral resection of bladder tumor, most recently 50 tumors removed at [facility] 09/01/2023
Paroxysmal atrial fibrillation
Not on anticoagulation due to anemia
Hypertension/hyperlipidemia
Diabetes
Plan/recommendations
At this time, patient remains critically ill, intubated
Chest exam is clear
Chest x-ray adequate ET tube
ABG 7.27/46/293
Troponin 7.920
Reviewed cardiology correspondence
Moving forward
Continue with mechanical ventilation, volume-cycled ventilation
AC 14/450/5/80%
Peak plateau pressures adequate
Wean FiO2 as able, repeat ABG later today on 40%
Follow electrolytes, potassium, magnesium.
Magnesium repleted this morning
Unclear whether this was due to scar or recent drug-eluting stent/graft
Cardiology following closely
Remains on aspirin/clopidogrel
Patient also started on amiodarone
Presently with hypotension, on norepinephrine
Wean as able
Follow blood sugars
Will place Dobbhoff tube if not extubated as cannot have uninterrupted antiplatelet therapy
Will hopefully make this decision in the next 12 hours
Reviewed with critical care nursing, respiratory care
Updated family at bedside
Reviewed briefly with cardiology
TCCT 40 min
[2024-05-19] MEDS: MAGNESIUM SULFATE 102 GRAMS IV (07:39)
[2024-05-19] MEDS: HEPARIN 5000 UNITS SC ×2 (07:43→19:39)
[2024-05-19 07:50] LABS: Glucose - Point of Care 229 mg/dl (70-99)
[2024-05-19] MEDS: ProAmatine PO (08:00)
[2024-05-19] MEDS: ASPIR LOW (ENTERIC COATED) PO (08:00)
--- NOTE | 2024-05-19 08:00 | PTCARENOTE ---
recd pt, handoff at bedside, ETT to vent, tolerating settings. Levophedd and amio infusing, site checks performed. immed at 0705 with walking rounds, opened eyes to voice, followed commands, able to PIRES weakly. anuric, foul odor. Awaiting PICC.
Family bedside, updated.
[2024-05-19] MEDS: NOVOLOG FLEXPEN-LOW RESISTANCE 2 UNITS SC ×2 (08:22→23:53)
--- NOTE | 2024-05-19 09:18 | W.PN.CARDCBS ---
Today's Communication / Plan
-
Continue IV amiodarone, hopefully transition to oral in a.m.
Hopefully to extubate
Wean norepinephrine as possible
Trend troponin
Likely will need ICD prior to discharge, depending on goals of care
Impression / Plan
-
PCP: Dr. Charlie Marley
Primary Medical Administrator: Dr. Almanza
Assessment:
Non-ST segment elevation IN related to stenosis of saphenous vein graft to PDA, peak troponin 20
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
ESRD on HD
CM EF 40% by echo 09/15/23
CAD
s/p CABG with CABRAL to LAD, SVG to OM, SVG to PDA at [place] 12/09/22
s/p NSTEMI with patent bypass grafts, 70% OM stenosis being medically managed after cath at [facility] 08/2023
s/p NSTEMI with DAKSHA SVG-PDA 05/17/2024
Transitional cell carcinoma of the bladder treated with multiple transurethral resection of bladder tumor, most recently 50 tumors removed at [facility] 09/01/2023
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
Paroxysmal Afib
Not chronically anticoagulated due to anemia, not a candidate for watchman due to inability to tolerate even short-course OAC
mild
Hypertension
Hyperlipidemia
Type 2 diabetes
Glaucoma
Hyponatremia
bleeding from HD fistula site
ECHO 08/2023 at [facility]: EF reportedly preserved
Echo 09/15/23: EF 40-45%, inferior wall akinesis, inferoseptal wall and base to mid inferolateral francisco hypokinetic, stage II diastolic dysfunction, moderate MR, mild with peak/mean 20/11. mild to mod aortic regurg
Echo 05/17/24: EF 45 to 50%, mild concentric LVH, hypokinesis of inferior septal wall and basal to mid lateral wall, mild MR, mild to moderate peak/mean 23/15, mild AI, mild pulmonic regurgitation.
cath 05/17/2024: LM: Calcified, distal tapering, LAD: 100% at origin, LAD Judy fills via patent QUIANA, relatively small LAD with diffuse disease, circumflex heavily calcified, 50% proximal stenosis, 100% OM1 with patent vein graft but OM is very
small, retrograde filling less vibrant than before, RCA 100% at origin, SVG to PDA has 70% proximal stenosis, successful stenting prox SVG-PDA with 2.5 x 15 Pablo DAKSHA
Plan:
He presents after a VT arrest. VT morphology is monomorphic, implying scar based rather than acute ischemic. Therefore, likelihood of recurrence will be high, occurring roughly 48-60 hours after his IN.
Suspect he does not have a technical problem with his SVG stent. Troponin continues to drop. Will repeat troponin at noon and reassess if troponin rises substantially.
No evidence of overt heart failure at present.
Continue IV amiodarone till morning then transition to oral.
Wean norepinephrine as possible.
Discussed with jen, cath video, EKG reviewed with him.
Critical care time 35 minutes.
Progress Note - Medical Administrator
Subjective
Date of Service: May 19, 2024:
Patient underwent PCI to proximal portion of SVG to RCA, on 05/17, had monomorphic VT arrest, successfully resuscitated at 4 AM. Still intubated. Awake, weaning. Jen Peralta is at bedside, who is electrophysiology PA at [facility].
PMH: End-stage renal disease on hemodialysis, ischemic cardiomyopathy, EF 40% August 2023, history of CABG, CABRAL to LAD saphenous vein graft to OM saphenous vein graft to PDA, hematuria related to transitional cell carcinoma of the bladder and
history of TURBT, PAF not anticoagulated, mild , hypertension, hyperlipidemia, diabetes, glaucoma
Allergies reviewed
Outpatient meds reviewed
Current medications: Aspirin 81 mg a day, Xalatan eyedrops, rosuvastatin 10 mg a day, Januvia 25 mg a day, subcu heparin, clopidogrel 75 mg a day, midodrine 10 mg 3 times daily, IV amiodarone, norepinephrine, insulin
93/27, 82/22, resp rate 14, afebrile, intubated, nods appropriately, lungs relatively clear, regular rate and rhythm, occasional extrasystoles, abdomen benign extremities without clubbing cyanosis or edema
EKG today, atrial mechanism unclear, possibly junctional, right bundle branch block, left anterior fascicular block inferolateral IN hard to know if Q waves are significantly different inferolaterally compared to May 17
Hemoglobin 12.7 white count 7.2, pH 7.27, pCO2 46, bicarb 21, potassium 5, CO2 21, BUN and creatinine 30 and 3.7, troponin continues to drop 7.9, elevated left hemidiaphragm, subtle infiltrate bilaterally?
Telemetry strip: Monomorphic VT, not terribly fast around 150 looks like retrograde P waves, currently junctional
Objective
Labs:
05/19/24 02:35
05/19/24 04:10
Labs
Hgb 12.7 g/dL (13.0-18.0) L 05/19/24 02:35
Hct 38.4 % (39.0-52.0) L 05/19/24 02:35
Plt Count 119 10^3/uL (130-400) L 05/19/24 02:35
PT 16.2 Sec (11.4-14.6) H 05/19/24 06:16
INR 1.32 05/19/24 06:16
APTT 37.0 Sec (23.4-35.0) H 05/19/24 06:16
Sodium 138 mmol/L (135-145) 05/19/24 04:10
Potassium 5.0 mmol/L (3.5-5.1) 05/19/24 04:10
BUN 30 mg/dl (9-20) H 05/19/24 04:10
Creatinine 3.7 mg/dL (0.7-1.3) H 05/19/24 04:10
Glucose 171 mg/dl (70-99) H 05/19/24 04:10
Troponins
05/16/24 05/16/24 05/16/24
11:51 14:58 15:49
Troponin I 0.054 H* 1.350 H* D Cancelled
05/16/24 05/17/24 05/17/24
19:00 00:02 01:19
Troponin I 9.540 H* D Cancelled 15.400 H* D
05/17/24 05/17/24 05/17/24
04:58 09:54 10:00
Troponin I 17.100 H* 20.800 H* Cancelled
05/17/24 05/17/24 05/18/24
11:00 16:00 08:18
Troponin I Cancelled 16.600 H* 12.600 H*
05/18/24 05/19/24
12:00 04:10
Troponin I Cancelled 7.920 H*
Vital Signs and I&O:
Vital Signs
Temp Pulse Resp BP Pulse Ox
37.1 C 91 14 96
05/19/24 07:00 05/19/24 06:00 05/19/24 06:00 05/19/24 04:55 05/19/24 08:00
Vital Signs
Temp Pulse Resp BP Pulse Ox
37.1 C 91 14 27 96
05/19/24 07:00 05/19/24 06:00 05/19/24 06:00 05/19/24 04:55 05/19/24 08:00
Intake & Output
05/17/24 05/18/24 05/19/24 05/20/24
07:59 07:59 07:59 06:59
Intake Total 50 / 50 540 / 540 241.6 / 241.6
Output Total 50 / 50
Balance 0 / 0 540 / 540 241.6 / 241.6
Physical Exam
Physical Exam
See above
[2024-05-19] MEDS: SUBLIMAZE 50 MCG IV ×3 (09:21→22:10)
--- NOTE | 2024-05-19 09:31 | W.PN.NEPH.PH ---
Today's Communication / Plan
-
HD tuesday
Assessment/Plan
-
Assessment:
CP
Elevated troponin
Transitional cell carcinoma of the bladder
s/p CABG - CABRAL to LAD, SVG to OM, SVG to PDA 12/09/22 at [place]
CM EF 40% by echo 09/15/23
Type 2 NSTEMI s/p diagnostic cath 08/2023 at [facility] with patent bypass grafts, 70% OM stenosis, medically managed
Post CABG afib
ESRD on HD MWF
mild
Hypertension
Hyperlipidemia
Type 2 diabetes
Glaucoma
Hyponatremia
Plan
Next HD tuesday
continue midodrine. cause of such significant hypotension (new) is uncertain. seems out of proportion to echo, and he was not below EDW on admission
d/w nephew
-
-
Date of Service: May 19, 2024
CC / HPI / ROS
-
Chief Complaint:
ESRD
History of Present Illness:
Tolerated HD yesterday
BP low, on high dose midodrine
VT overnight, intubated in ICU
trop decreasing
Review of Systems:
intubated
spontaneous movements
Labs
-
Labs:
WBC 7.2 10^3/uL (4.8-10.8) 05/19/24 02:35
RBC 4.79 10^6/uL (4.70-6.10) 05/19/24 02:35
Hgb 12.7 g/dL (13.0-18.0) L 05/19/24 02:35
Hct 38.4 % (39.0-52.0) L 05/19/24 02:35
Plt Count 119 10^3/uL (130-400) L 05/19/24 02:35
Sodium 138 mmol/L (135-145) 05/19/24 04:10
Potassium 5.0 mmol/L (3.5-5.1) 05/19/24 04:10
Chloride 96 mmol/L (98-107) L 05/19/24 04:10
Carbon Dioxide 21 mmol/L (22-30) L 05/19/24 04:10
BUN 30 mg/dl (9-20) H 05/19/24 04:10
Creatinine 3.7 mg/dL (0.7-1.3) H 05/19/24 04:10
eGFR 15.44 05/19/24 04:10
Glucose 171 mg/dl (70-99) H 05/19/24 04:10
Calcium 9.3 mg/dl (8.4-10.2) 05/19/24 04:10
Hdp-L-Zlrsvebexwv Pept > 75001 pg/ml 05/16/24 11:51
Albumin 3.9 g/dl (3.5-5.0) 05/19/24 04:10
Physical Exam
-
Vital Signs:
Vital Signs
Temp Pulse Resp BP Pulse Ox
98.8 F 91 14 93/27 96
05/19/24 07:00 05/19/24 06:00 05/19/24 06:00 05/19/24 04:55 05/19/24 08:00
Cardiovascular:: Regular rate and rhythm
Respiratory:: Bilateral: Coarse
Lung Excursion:: Normal
Abdomen:: Nontender and Soft
Bowel Sounds:: Normal
Extremity Edema:: +1: Bilateral:
--- NOTE | 2024-05-19 09:43 | W.PN.HOSP.TC ---
Today's Communication/Plan
-
Continue Levophed and Amio drip
Attempt to wean off FiO2 as able
Sports Activities F[employer] following
Assessment / Plan
Assessment / Plan
# Ventilator dependent respiratory failure, intubated 05-19-2024
Cardiac arrest, monomorphic VT, 05-19-2024
On commode -> monomorphic V. tach -> Shock, CPR, epix2, intubation, ROSC
Transfer to ICU
Levophed and amio gtt
ABG 7.27
Continue mechanical ventilation, wean FiO2 as able
Unknown cause of new onset hypotension
s/p drug-eluting stent for NSTEMI on 05/17/2024
Echo LVEF 40%
Sports Activities F[employer] Judge following
#NSTEMI/CAD
s/p CABG with CABRAL to LAD, SVG to OM, SVG to PDA at [place] 12/09/22
s/p NSTEMI with patent bypass grafts, 70% OM stenosis being medically managed after cath at [facility] 08/2023
Troponin peak 20.8, now downtrending
Echo 09/15/2023 EF 40 to 45%
Repeat Echo no significant changes from prior. LVEF 45-50% .
05/17 cath successful drug-eluting stent of the proximal portion of the SVG-PDA
Midodrine increase 10 TID for continued pressure to stand improvement per cards
Dual antiplatelet therapy for next 6 to 10 months
PT/OT think too hypotensive to send out today will re-evaluate in am -> now in ICU
#End-stage renal disease
Cr. 5.2
Previously hemodialysis Tuesday
Hemodialysis 05/18
Next on 05/21
Concerns for bleeding post HD from AVF after starting dual antiplatelet therapy
Right chest wall HD cath
Nephrology following
# Hypotension
Midodrine 10 mg 3 times daily per cards
Now on Levophed in ICU
Continue Coreg with hold Entex for SBP less than 100
No nitroglycerin
Hold isosorbide dinitrate due to low BP upon cardiology discretion
# Hypomagnesemia
Replete as needed
# Ischemic cardiomyopathy
Coreg with hold index for SBP less than 100
Continue with aspirin statin
Already on Onglyza
Not a candidate for ARB/RAJIV inhibitor due to end-stage renal disease
#Elevated AST
Elevated Bili
likely 2/2 hypotension
Monitor
#Ambulatory dysfunction
PT/OT consult
#Paroxysmal A-fib
Not on Eliquis due to history of hematuria and severe anemia
ASA
On Coreg as above
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
[place]. TURBT 50 lesions were reportedly worked on on 09/01/2023.
developed hematuria and a temporary placement of renal stent followed by continuous bladder irrigation
Eliquis discontinued
# Type 2 diabetes
Hemoglobin A1c 7.1
On Onglyza and glipizide
Sliding-scale insulin as needed
#Dyslipidemia
Continue statin, Zetia
#B12 deficiency�replace
#Chronic vertigo
Anticipated Discharge: > 48 hours
Subjective/Interval History
-
Date of Service: May 19, 2024
Objective Data
-
Labs:
Laboratory Results
05/19/24 05/19/24 05/19/24
02:34 02:35 04:10
WBC 7.2
Hgb 12.7 L
Hct 38.4 L
Plt Count 119 L
PT
INR
APTT
HCO3
Sodium 137 138
Potassium 4.2 5.0
Chloride 96 L 96 L
Carbon Dioxide 24 21 L
BUN 28 H 30 H
Creatinine 3.7 H 3.7 H
Glucose 168 H 171 H
Calcium 9.2 9.3
Total Bilirubin 1.2 1.5 H
AST 34 45
ALT 15 16
Alkaline Phosphatase 77 67
05/19/24 05/19/24 05/19/24
04:13 04:25 05:45
WBC
Hgb
Hct
Plt Count
PT
INR
APTT
HCO3 7.1 L* Cancelled 21.1
Sodium
Potassium
Chloride
Carbon Dioxide
BUN
Creatinine
Glucose
Calcium
Total Bilirubin
AST
ALT
Alkaline Phosphatase
05/19/24
06:16
WBC
Hgb
Hct
Plt Count
PT 16.2 H
INR 1.32
APTT 37.0 H
HCO3
Sodium
Potassium
Chloride
Carbon Dioxide
BUN
Creatinine
Glucose
Calcium
Total Bilirubin
AST
ALT
Alkaline Phosphatase
Vital Signs:
Vital Signs
Temp Pulse Resp BP Pulse Ox
98.8 F 91 14 93/27 96
05/19/24 07:00 05/19/24 06:00 05/19/24 06:00 05/19/24 04:55 05/19/24 08:00
I&O
05/18/24 05/19/24 05/20/24
06:59 06:59 05:59
Intake Total 590 / 590 241.6 / 241.6
Balance 590 / 590 241.6 / 241.6
Review of Systems
-
Unable to obtain full review of systems at this time due to: Patient Intubation
Physical Exam
-
General: Intubated
HEENT: Normocephalic
Respiratory: Clear to Auscultation
Cardiac: Regular Rhythm and S1/S2
GI: Soft, Nondistended and Normal Bowel Sounds
Musculoskeletal: No Edema
Skin: Warm
Neuro: Awake; Negative Alert or Oriented
[2024-05-19] MEDS: LEVOPHED 250 IV ×3 (10:14→22:13)
[2024-05-19 10:28] LABS: B.E. 1.7 mmol/L; HCO3 25.8 mmol/L (21-28); O2 Saturation % 98.7 % (94-98); O2 Therapy ac40/450/5/14; PCO2 38 mmHg (35-48); PO2 101 mmHg (83-108); pH 7.44 (7.35-7.45)
--- NOTE | 2024-05-19 11:10 | PTCARENOTE ---
on SBT wean, initially RR high, shallow, after a few moments, steady. increased levo initially, arouses easily. otherwise no change.
--- NOTE | 2024-05-19 11:40 | PTCARENOTE ---
returned to AC, resp rate high, volumes low, increased vasopressor requirements. Dr. Mahajan here to eval.
[2024-05-19 11:50] LABS: Glucose - Point of Care 182 mg/dl (70-99)
[2024-05-19] MEDS: JANUVIA 25 MG PO (12:47)
[2024-05-19] MEDS: PLAVIX 75 MG PO (12:47)
[2024-05-19] MEDS: NOVOLOG FLEXPEN-LOW RESISTANCE 1 UNITS SC ×2 (12:48→17:45)
[2024-05-19] MEDS: ProAmatine 10 MG PO (12:48)
[2024-05-19] MEDS: LOW STRENGTH ASPIRIN 81 MG TUBE (13:04)
--- NOTE | 2024-05-19 13:18 | PTCARENOTE ---
unhappy and a little resistant to oral care, ETT moved, meds via FT as ordered, call brown in reach. turned, repositioned.
--- NOTE | 2024-05-19 14:19 | PTCARENOTE ---
PICC in good placement per IV team, periph lines dcd, gtts to PICC, flushed easily, pt awake, using call brown appropriately, gesturing re: sore neck, repositioned. denies chest pain. slow titrating levo, see intervention and VS.
--- NOTE | 2024-05-19 15:16 | PTCARENOTE ---
animated, indicating mouth, partial denture removed lower teeth. continues to indicate mouth, bright lights, flashlight used, suction, nothing foreign left in mouth, pt gesturing with words/letters there is 'bread' in his mouth. There is clearly
nothing in oral cavity other than ETT. reassured. offered several times pain med, clearly refused. animated, gesturing and touching tube and feeding tube. restraints placed per order for ETt safety.
[2024-05-19] MEDS: TYLENOL ORAL SOLUTION 650 MG TUBE ×2 (15:21→22:09)
[2024-05-19 17:33] LABS: Glucose - Point of Care 197 mg/dl (70-99)
--- NOTE | 2024-05-19 17:39 | PTCARENOTE ---
writing notes, animated about mouth, 'I have a cracked tooth, I want you to remove it.' Evaluated with flashlight, right upper back tooth with crown and decay visible, pt notes it is not a new problem. Dr. Posadas aware, encouraged patient to agree
to pain meds, pt still is refusing. ETT moved to L side of mouth for comfort.
[2024-05-19] MEDS: CRESTOR 10 MG TUBE (17:43)
[2024-05-19] MEDS: ProAmatine 10 MG TUBE (17:43)
--- NOTE | 2024-05-19 20:00 | PTCARENOTE ---
Received pt intubated, with no sedation. Pt. awake, following commands. Able to write needs known on paper. Restraints to B/L wrist for safety. #8.0 ETT @24cm, moved to center. Tolerating ASV 100%MV, 40%fio2, +5. Spo2 100%. RR 18-20. Accelerated
junctional rhythm, HR 90s. On amio gtt. BP via R radial A line. On levophed titrating for MAP>65- see worklist. B/L DPs by doppler. LEs cool. R groin site c/d/i. Dobhoff tube flushed, placement verified. No tube feeds at this time. Pt. anuric. L AV
fistula + B/T. R PICC with amio gtt at 0.5mg/min and levophed. Call brown in reach, turning q2. Mouth care provided
[2024-05-19] MEDS: XALATAN OPHTHALMIC SOLUTION 1 DROP BOTH EYES (22:09)
[2024-05-19 23:38] LABS: Glucose - Point of Care 241 mg/dl (70-99)
--- NOTE | 2024-05-19 23:55 | PTCARENOTE ---
Pt reassessed. He has not slept much, fidgety in bed, playing with call brown/TV remote. Gave tylenol + fent IVP for pain. Encouraged pt to rest and calm down. Eyes closed at this time. Levo gtt up to 18mcg. Amio continues. Remains in accelerated
junctional rhythm. HR 90s. Monitoring
[2024-05-20] VITALS (9 sets, daily range): BP systolic 89–121; BP diastolic 18; BMI 26.5
[2024-05-20] MEDS: LEVOPHED 258 MG IV ×4 (01:17→18:14)
[2024-05-20] MEDS: CORDARONE 518 MG IV (01:17)
[2024-05-20] MEDS: MORPHINE SULFATE 1 MG IV (01:44)
[2024-05-20 04:04] LABS: B.E. 5.1 mmol/L; HCO3 27.6 mmol/L (21-28); O2 Saturation % 99.1 % (94-98); PCO2 33 mmHg (35-48); PO2 129 mmHg (83-108); pH 7.53 (7.35-7.45)
[2024-05-20 04:06] LABS: O2 Therapy 40%
--- NOTE | 2024-05-20 04:24 | PTCARENOTE ---
Pt been more calm, resting most of the past few hours. No changes in assessment. Levo and amio gtts continue.
[2024-05-20 04:31] LABS: Hematocrit 36.2 % (39.0-52.0); Hemoglobin 12.4 g/dL (13.0-18.0); Mean Corp Hgb Conc. 34.3 g/dL (33.0-37.0); Mean Corpuscular Hgb 25.9 pg (27.0-31.0); Mean Corpuscular Volume 75.7 fL (80.0-94.0); Platelet Count 143 10^3/uL (130-400); Red Blood Cell Count 4.78 10^6/uL (4.70-6.10); Red Cell Dist. Width 20.5 % (11.5-14.5); White Blood Cell Count 11.6 10^3/uL (4.8-10.8)
[2024-05-20 05:13] LABS: Blood Urea Nitrogen 54 mg/dl (9-20); Calcium 9.7 mg/dl (8.4-10.2); Carbon Dioxide 25 mmol/L (22-30); Chloride 91 mmol/L (98-107); Estimated Creatinine Clearance 12 ml/min; Glucose 272 mg/dl (70-99); Sodium 130 mmol/L (135-145); eGFR 12.89
[2024-05-20 05:50] LABS: Glucose - Point of Care 230 mg/dl (70-99)
[2024-05-20] MEDS: NOVOLOG FLEXPEN-LOW RESISTANCE 2 UNITS SC ×2 (06:16→11:49)
--- NOTE | 2024-05-20 06:47 | W.PN.INTV ---
Today's Communication / Plan
Recommendations
SBT today, hope for extubation
Hypotension continues, remains on norepinephrine
Complex cardiac situation with coronary disease, valvular disease, cardiomyopathy. Cardiology following
Insulin, follow blood sugars
May require ICD prior to discharge, per cardiology
Assessment
-
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, atrial fibrillation not on anticoagulation, diabetes, status post VT arrest, shock/epinephrine/ROSC/intubation 05/19/2024
VDRF, intubated 05/19/2024
Cardiac arrest, monomorphic VT, 05/19/2024
While on the commode
Shock/Epi/intubation/ROSC
S/p DAKSHA graft 05/17/2024
Ongoing chest pain, NSTEMI
S/p CABG [place] 12/09/2022
s/p NSTEMI August 2023, med managed at [facility]
Cardiomyopathy, EF 40% with
ESRD on HED
Mild oozing of left upper extremity fistula
At this time, patient remains critically ill
Transitional cell carcinoma, bladder
Status post transurethral resection of bladder tumor, most recently 50 tumors removed at [place] 09/01/2023
Paroxysmal atrial fibrillation
Not on anticoagulation due to anemia
Hypertension/hyperlipidemia
Diabetes
Plan/recommendations
At this time, patient remains critically ill, intubated
Requiring pressors overnight, systolic pressure as low as in the 60s, currently on norepinephrine and amiodarone
Chest exam is clear
Chest x-ray adequate ET tube
Remained on ASV overnight
Troponin seems to have peaked at 14.4, trending down to 11.9
Reviewed cardiology correspondence
Moving forward
Continue with mechanical ventilation, volume-cycled ventilation
Patient became hypotensive with wean yesterday
Remains on ASV 100%/40/5 overnight
Peak plateau pressures adequate
Resume SBT today, hope for extubation later today
Follow electrolytes, potassium, magnesium.
End-stage renal disease, plan for dialysis on Tuesday
Nephrology following
Unclear whether monomorphic VT was due to scar or recent drug-eluting stent/graft
Cardiology following closely
Remains on aspirin/clopidogrel
Dobbhoff tube placed, receiving medications
Patient also remains on IV amiodarone
Presently with hypotension, on norepinephrine
Wean as able
Echocardiogram 05/17/2024: EF 45% with hypokinesis inferoseptal wall, moderate MR, moderate aortic stenosis
Note that patient is receiving midodrine 3 times daily
Follow blood sugars, elevated
continue insulin, Januvia
Reviewed with critical care nursing, respiratory care
TCCT 35 min
Subjective Dataa
Subjective Data
Date of Service:
Date of Service: May 20, 2024
Subjective:
Patient is without complaints. He is complaining of some tooth discomfort but otherwise denies shortness of breath, chest pain. He is moving all extremities. Remains critically ill on pressors and amiodarone.
Objective Data
Data Reviewed
Vital Signs / I&O / Oxygen:
Vital Signs
Temp Pulse Resp BP Pulse Ox
99.5 F 95 18 95/45 99
05/20/24 04:25 05/20/24 06:00 05/20/24 06:00 05/19/24 17:43 05/20/24 06:00
Intake and Output
05/18/24 05/19/24 05/20/24
06:59 06:59 05:59
Intake Total 590 / 590 1657.3 / 1657.3
Output Total 0 / 0
Balance 590 / 590 1657.3 / 1657.3
SaO2 [ASV] 100
SaO2 [A/C] 96
SaO2 99
Physical Exam
General: Comfortable
HEENT: Normocephalic and Other (Left upper extremity AV fistula)
Cardiovascular: S1-S2, Regular Rhythm, Murmur (n) and Rub (n)
Respiratory: Wheeze (n), Crackles (n), Rhonchi (n), Non-Labored Respirations and ET Tube
GI: Soft, Non Distended and Non Tender
Neurology: Awake, Alert and No Motor Deficits (Moves all extremities)
Skin: Cyanosis (n), Jaundice (n) and Rash (n)
Labs/Micro/Reports
Lab Data
05/20/24 03:58
05/20/24 03:58
Laboratory Results
05/19/24 05/20/24
10:19 03:58
pH 7.44 7.53 H
pCO2 38 33 L
pO2 101 129 H
HCO3 25.8 27.6
O2 Delivery Level ac40/450/5/14 40%
Microbiology
05/16/24 18:42 Nose MRSA Screen - Final
No Methicillin Resistant Staphylococcus aureus isolated.
[2024-05-20] MEDS: PLAVIX 75 MG TUBE (07:46)
[2024-05-20] MEDS: LOW STRENGTH ASPIRIN 81 MG TUBE (07:46)
[2024-05-20] MEDS: JANUVIA 25 MG TUBE (07:46)
[2024-05-20] MEDS: ProAmatine 10 MG TUBE ×2 (07:46→12:22)
[2024-05-20] MEDS: HEPARIN 5000 UNITS SC ×2 (07:47→19:52)
[2024-05-20] MEDS: TYLENOL ORAL SOLUTION 650 MG TUBE (08:06)
--- NOTE | 2024-05-20 08:36 | W.PN.CARDCBS ---
Today's Communication / Plan
-
Hopefully to extubate
Switch to amiodarone p.o./tube
Wean norepinephrine as possible
Follow-up echo
ICD prior to discharge
Impression / Plan
-
PCP: Dr. Charlie Marley
Primary Radiological Technologist: Dr. Almanza
Assessment:
Non-ST segment elevation MN related to stenosis of saphenous vein graft to PDA, peak troponin 20
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
ESRD on HD
CM EF 40% by echo 09/15/23
CAD
s/p CABG with CABRAL to LAD, SVG to OM, SVG to PDA at [place] 12/09/22
s/p NSTEMI with patent bypass grafts, 70% OM stenosis being medically managed after cath at [facility] 08/2023
s/p NSTEMI with DAKSHA SVG-PDA 05/17/2024
Transitional cell carcinoma of the bladder treated with multiple transurethral resection of bladder tumor, most recently 50 tumors removed at [facility] 09/01/2023
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
Paroxysmal Afib
Not chronically anticoagulated due to anemia, not a candidate for watchman due to inability to tolerate even short-course OAC
mild
Hypertension
Hyperlipidemia
Type 2 diabetes
Glaucoma
Hyponatremia
bleeding from HD fistula site
ECHO 08/2023 at [facility]: EF reportedly preserved
Echo 09/15/23: EF 40-45%, inferior wall akinesis, inferoseptal wall and base to mid inferolateral francisco hypokinetic, stage II diastolic dysfunction, moderate MR, mild with peak/mean 20/11. mild to mod aortic regurg
Echo 05/17/24: EF 45 to 50%, mild concentric LVH, hypokinesis of inferior septal wall and basal to mid lateral wall, mild MR, mild to moderate peak/mean 23/15, mild AI, mild pulmonic regurgitation.
cath 05/17/2024: LM: Calcified, distal tapering, LAD: 100% at origin, LAD Judy fills via patent QUIANA, relatively small LAD with diffuse disease, circumflex heavily calcified, 50% proximal stenosis, 100% OM1 with patent vein graft but OM is very
small, retrograde filling less vibrant than before, RCA 100% at origin, SVG to PDA has 70% proximal stenosis, successful stenting prox SVG-PDA with 2.5 x 15 [place] DAKSHA
Plan:
Still intubated, but hopefully to wean today and overall he looks better.
Not in overt heart failure. Volume management per nephrology via hemodialysis.
No recurrence of VT on amiodarone. Will switch to amiodarone 400 via tube or by mouth 3 times daily.
Hypotension still a problem, though he requires midodrine for baseline hypotension. Wean norepinephrine as possible.
His troponin has risen. He is low his troponin, 7.9 was at the time of his arrest. Rise in troponin likely related to underlying CAD, CPR, etc. Still doubt technical issue with PCI or failure of other vein graft.
We will check a follow-up echo study in the morning.
.
Progress Note - Radiological Technologist
Subjective
Date of Service: May 20, 2024:
Still intubated, still on norepinephrine, blood pressure 120s systolic in the leg about 100 by a line. Nods appropriately to questions, indicates he is comfortable.
PMH/PSH/SH/FH: Reviewed
Current meds: Xalatan, subcu heparin, amiodarone IV, insulin low resistance, aspirin 81 mg a day, clopidogrel 75 mg a day, rosuvastatin 10 mg via tube, Januvia, midodrine 10 3 times daily, norepinephrine
121/18, pulse 101, respiratory rate 30, afebrile, sats 96%, intubated, no acute distress, few crackles right base, JVD elevated, systolic murmur at apex. Abdomen benign extremities without much edema.
X-ray yesterday morning, possible right basilar infiltrate, minimal vascular congestion
EKG: Junctional rhythm, right bundle branch block, left anterior fascicular block, ST segment changes borderline ST elevation V1 V2, anterior T wave changes are slightly less prominent, persistent ST segment depression lateral leads
White count 11.6, hemoglobin 12.4, platelets 143, 7.5 33/129/28, BUN and creatinine are 54 and 4.3, troponin peak 14.4, Had been 7.9 at the time of his arrest
Objective
Labs:
05/20/24 03:58
05/20/24 03:58
Labs
Hgb 12.4 g/dL (13.0-18.0) L 05/20/24 03:58
Hct 36.2 % (39.0-52.0) L 05/20/24 03:58
Plt Count 143 10^3/uL (130-400) D 05/20/24 03:58
PT 16.2 Sec (11.4-14.6) H 05/19/24 06:16
INR 1.32 05/19/24 06:16
APTT 37.0 Sec (23.4-35.0) H 05/19/24 06:16
Sodium 130 mmol/L (135-145) L D 05/20/24 03:58
Potassium 4.0 mmol/L (3.5-5.1) 05/20/24 03:58
BUN 54 mg/dl (9-20) H 05/20/24 03:58
Creatinine 4.3 mg/dL (0.7-1.3) H* 05/20/24 03:58
Glucose 272 mg/dl (70-99) H 05/20/24 03:58
Troponins
05/17/24 05/17/24 05/17/24
09:54 11:00 16:00
Troponin I 20.800 H* Cancelled 16.600 H*
05/18/24 05/18/24 05/19/24
08:18 12:00 04:10
Troponin I 12.600 H* Cancelled 7.920 H*
05/19/24 05/19/24 05/20/24
12:10 23:18 03:58
Troponin I 11.300 H* D 14.400 H* 11.900 H*
Vital Signs and I&O:
Vital Signs
Temp Pulse Resp BP Pulse Ox
37.8 C 101 30 121/18 96
05/20/24 07:30 05/20/24 08:29 05/20/24 08:29 05/20/24 07:54 05/20/24 08:29
Vital Signs
Temp Pulse Resp BP Pulse Ox
37.8 C 101 30 121/18 96
05/20/24 07:30 05/20/24 08:29 05/20/24 08:29 05/20/24 07:54 05/20/24 08:29
Intake & Output
05/18/24 05/19/24 05/20/24 05/21/24
08:59 08:59 07:59 07:59
Intake Total
Output Total
Balance
Physical Exam
Physical Exam
See above
--- NOTE | 2024-05-20 08:41 | PTCARENOTE ---
recd pt 0715 handoff bedside, awake, restrained, gtts noted. gesturing frequently to write, asking via paper/pencil about his A1C, for his phone so he can text, redirected at present while currently on wean (began 734, to 11/19 at approx 0820),
encouraged to focus on breathing and will write/communicate after decision on resp status, agreeable to plan. rest of assessment as noted.
--- NOTE | 2024-05-20 09:13 | W.PN.HOSP.TC ---
Today's Communication/Plan
-
Continue levophed gtt, wean if possible
f/u echo tmrw
Will need ICD prior to d/c
HD tomorrow
Assessment / Plan
Assessment / Plan
# Ventilator dependent respiratory failure, intubated 05-19-2024
Cardiac arrest, monomorphic VT, 05-19-2024
On commode -> monomorphic V. tach -> Shock, CPR, epix2, intubation, ROSC
Transfer to ICU
Levophed gtt continue as BP remains labile -> switch to PO amio now extubated
Continue midodrine 10 TID as well
Goal systolic BP >90
ABG 7.53
Weaning trial today --> now off intubation
Unknown cause of new onset hypotension
s/p drug-eluting stent for NSTEMI on 05/17/2024
Echo LVEF 40%
Repeat echo in am
Will need ICD prior to discharge per cards
Fiber Analyst following
Full liquid diet - evaluate tolerance
#NSTEMI/CAD/HFrEF
s/p CABG with CABRAL to LAD, SVG to OM, SVG to PDA at [place] 12/09/22
s/p NSTEMI with patent bypass grafts, 70% OM stenosis being medically managed after cath at [facility] 08/2023
Troponins went back up to 14, now down trending to 11.9
Echo 09/15/2023 EF 40 to 45%
Repeat Echo no significant changes from prior. LVEF 45-50% .
05/17 cath successful drug-eluting stent of the proximal portion of the SVG-PDA
Midodrine increase 10 TID for continued pressure to stand improvement per cards
Dual antiplatelet therapy for next 6 to 10 months
PT/OT think too hypotensive to send out today will re-evaluate in am -> now in ICU
f/u echo tomorrow
Will need ICD prior to discharge per cards
#End-stage renal disease
Cr. 5.2
Previously hemodialysis Tuesday
Hemodialysis 05/18
Next on 05/21
Concerns for bleeding post HD from AVF after starting dual antiplatelet therapy
Right chest wall HD cath
Nephrology following
# Hypotension
Midodrine 10 mg 3 times daily per cards
Now on Levophed in ICU
Continue Coreg with hold Entex for SBP less than 100
No nitroglycerin
Hold isosorbide dinitrate due to low BP upon cardiology discretion
# Electrolyte imbalance
Hypomagnesemia - Replete as needed
Hyponatremia - monitor
Keep K>4 and mg >2
Leukocytosis
WBC 11.5, temp 100.2 yesterday - likely secondary to cardiac arrest and intubation stress
Unable to do U/A as oliguric at baseline with ESRD
Chest x-ray no sings of infx
Pt referencing to tooth pain this morning while intubated and took tylenol --> revisited off tube and now he denies tooth pain
Poor dentition on physical exam, unsure if infection present
Monitor WBC, consider antibiotics if uptrend or spikes fever
# Ischemic cardiomyopathy
Coreg with hold index for SBP less than 100
Continue with aspirin statin
Already on Onglyza
Not a candidate for ARB/RAJIV inhibitor due to end-stage renal disease
#Elevated AST
Elevated Bili
likely 2/2 hypotension
Monitor
#Ambulatory dysfunction
PT/OT consult
#Paroxysmal A-fib
Not on Eliquis due to history of hematuria and severe anemia
ASA
On Coreg as above
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
Damion [place]. TURBT 50 lesions were reportedly worked on on 09/01/2023.
developed hematuria and a temporary placement of renal stent followed by continuous bladder irrigation
Eliquis discontinued
# Type 2 diabetes
Hemoglobin A1c 7.1
On Onglyza and glipizide
Sliding-scale insulin as needed
#Dyslipidemia
Continue statin, Zetia
#B12 deficiency�replace
#Chronic vertigo
Anticipated Discharge: > 48 hours
Subjective/Interval History
-
Date of Service: May 20, 2024
Objective Data
-
Labs:
Laboratory Results
05/20/24 05/20/24
03:58 09:04
WBC 11.6 H
Hgb 12.4 L
Hct 36.2 L
Plt Count 143 D
HCO3 27.6 Pending
Sodium 130 L D
Potassium 4.0
Chloride 91 L
Carbon Dioxide 25
BUN 54 H
Creatinine 4.3 H*
Glucose 272 H
Calcium 9.7
Vital Signs:
Vital Signs
Temp Pulse Resp BP Pulse Ox
100.1 F 101 27 121/18 96
05/20/24 07:30 05/20/24 08:54 05/20/24 08:54 05/20/24 07:54 05/20/24 08:54
I&O
05/19/24 05/20/24 05/21/24
07:59 06:59 06:59
Intake Total 48.6 / 48.6
Output Total
Balance 48.6 / 48.6
Review of Systems
-
Unable to obtain full review of systems at this time due to: Patient Intubation
Physical Exam
-
Respiratory: Clear to Auscultation
Cardiac: Regular Rhythm, S1/S2 and Murmur
GI: Soft and Nontender
Musculoskeletal: No Edema
Skin: Warm
Neuro: Awake and Other (Intibated)
[2024-05-20 09:14] LABS: B.E. 2.8 mmol/L; HCO3 27.9 mmol/L (21-28); O2 Saturation % 98.9 % (94-98); PCO2 44 mmHg (35-48); PO2 109 mmHg (83-108); pH 7.41 (7.35-7.45)
--- NOTE | 2024-05-20 09:47 | PTCARENOTE ---
extubated smoothly 0935 with resp therapy, alert, conversant, talking, requested to minimize speaking at present. asking about going home and interacting appropriately about therapies.
--- NOTE | 2024-05-20 10:17 | W.PN.NEPH.PH ---
Today's Communication / Plan
-
HD tomorrow
Assessment/Plan
-
Assessment:
CP
Elevated troponin
Transitional cell carcinoma of the bladder
s/p CABG - CABRAL to LAD, SVG to OM, SVG to PDA 12/09/22 at [place]
CM EF 40% by echo 09/15/23
Type 2 NSTEMI s/p diagnostic cath 08/2023 at [facility] with patent bypass grafts, 70% OM stenosis, medically managed
Post CABG afib
ESRD on HD MWF
mild
Hypertension
Hyperlipidemia
Type 2 diabetes
Glaucoma
Hyponatremia
Plan
Next HD tomorrow
Cause of such significant hypotension (new) is uncertain.
for repeat echo
cortisol level appropriate
-
-
Date of Service: May 20, 2024
CC / HPI / ROS
-
Chief Complaint:
ESRD
History of Present Illness:
Tolerated HD tuesday
BP low, on high dose levophed
extubated this morning
trop decreasing
critically ill in ICU on pressors
Review of Systems:
no CP/SOB
Labs
-
Labs:
WBC 11.6 10^3/uL (4.8-10.8) H 05/20/24 03:58
RBC 4.78 10^6/uL (4.70-6.10) 05/20/24 03:58
Hgb 12.4 g/dL (13.0-18.0) L 05/20/24 03:58
Hct 36.2 % (39.0-52.0) L 05/20/24 03:58
Plt Count 143 10^3/uL (130-400) D 05/20/24 03:58
Sodium 130 mmol/L (135-145) L D 05/20/24 03:58
Potassium 4.0 mmol/L (3.5-5.1) 05/20/24 03:58
Chloride 91 mmol/L (98-107) L 05/20/24 03:58
Carbon Dioxide 25 mmol/L (22-30) 05/20/24 03:58
BUN 54 mg/dl (9-20) H 05/20/24 03:58
Creatinine 4.3 mg/dL (0.7-1.3) H* 05/20/24 03:58
eGFR 12.89 05/20/24 03:58
Glucose 272 mg/dl (70-99) H 05/20/24 03:58
Calcium 9.7 mg/dl (8.4-10.2) 05/20/24 03:58
Avy-H-Ojevasarhng Pept > 07113 pg/ml 05/16/24 11:51
Albumin 3.9 g/dl (3.5-5.0) 05/19/24 04:10
Physical Exam
-
Vital Signs:
Vital Signs
Temp Pulse Resp BP Pulse Ox
100.1 F 101 27 121/18 96
05/20/24 07:30 05/20/24 08:54 05/20/24 08:54 05/20/24 07:54 05/20/24 08:54
Cardiovascular:: Regular rate and rhythm
Respiratory:: Bilateral: Coarse
Lung Excursion:: Normal
Abdomen:: Nontender and Soft
Bowel Sounds:: Normal
Extremity Edema:: None: Bilateral:
--- NOTE | 2024-05-20 11:46 | PTCARENOTE ---
titrating levophed, oxygen at times 88% on 4l, increased to 6 with good effect. encouraged C&DB, IS 500-750. positioned on R side, notes comfortable, notes that this position minimizes GI distress and belching.
[2024-05-20 11:50] LABS: Glucose - Point of Care 229 mg/dl (70-99)
--- NOTE | 2024-05-20 12:05 | PTCARENOTE ---
fed self all whipped yogurt, swallows well thin liquids sitting bolt upright. in good spirits. call brown in reach. no other c/o, resting when undisturbed.
[2024-05-20] MEDS: PACERONE 400 MG TUBE ×2 (15:02→21:42)
--- NOTE | 2024-05-20 15:23 | PTCARENOTE ---
PO amio given, gtt discontinued per Dr Archer, turned and positioned for comfort. Notes some nausea, zofran order obtained, pt does not want it yet. turned, skin care.
[2024-05-20] MEDS: ZOFRAN 4 MG IV ×2 (16:17→22:19)
[2024-05-20] MEDS: NSS 500 IV ×2 (16:30→19:51)
--- NOTE | 2024-05-20 16:40 | PTCARENOTE ---
family here, updated by Dr. Archer. vomited small amount ice tea color emesis, med with oleg, relief after vomiting. fluid bolus infusing, awaiting DC xiang for transition. rest of Vs noted. More family now here. pt talking, voice strong,
refusing dinner at present.
[2024-05-20] MEDS: NOVOLOG FLEXPEN-LOW RESISTANCE 3 UNITS SC (16:56)
[2024-05-20] MEDS: NEO-SYNEPHRINE 1% 260 MG IV (16:56)
[2024-05-20 16:59] LABS: Glucose - Point of Care 264 mg/dl (70-99)
--- NOTE | 2024-05-20 17:06 | PTCARENOTE ---
DC xiang obtained from pharmacy, initiated, levophed titration as noted, see interventions. family bedside. pt without nausea at present, does c/o 'insulin has the opposite effect on me, works paradoxically'. support and reassurance to pt, family
bedside, they will also reinforce. bolus infusing as ordered.
[2024-05-20] MEDS: CRESTOR TUBE (17:49)
--- NOTE | 2024-05-20 18:31 | PTCARENOTE ---
xiang maxed, rhythm questionable sinus, [address] Archer texted, HAND SLITTER Lisa Greenberg on unit, bedside, updated. titrating levophed back up, see block charting. tolerating 8l nc, resting, positioned for comfort, prefers r side.
[2024-05-20] MEDS: ProAmatine TUBE (18:38)
[2024-05-20 21:17] LABS: Glucose - Point of Care 242 mg/dl (70-99)
[2024-05-20] MEDS: NOVOLOG FLEXPEN 2 UNITS SC (21:42)
[2024-05-20] MEDS: XALATAN OPHTHALMIC SOLUTION 1 DROP BOTH EYES (21:42)
--- NOTE | 2024-05-20 21:59 | PTCARENOTE ---
Addendum entered by Oliva Koch RN 05/20/24 22:39:
Zofran administered. CHG cloth bath done and linens changed. Mouth care done. Pt able to take po Amiodarone, is now resting in bed with eyes closed.
Original Note:
Assumed care of pt at 1900. Pt is A/O x3, forgetful at times, drowsy but easily arousable. Able to make needs known, cooperative with care. Accelerated junctional rhythm on monitor, HR in 90s, BBB noted. Received pt on double concentrated
Phenylephrine at 200mcg/min and double concentrated Levophed at 14mcg/min, BP readings from right radial arterial line. Currently on midflow NC at 8LPM, SpO2 89-91%. See nursing shift assessment flowsheet for full physical assessment details. Pt
reports nausea, inability to take po medications. PRN Zofran due around 2214, discussed plan with patient that I will medicate him with Zofran and then he can try to take his po Amiodarone afterwards. Pt has not vomited so far this shift.
[2024-05-21] MEDS: NEO-SYNEPHRINE 1% 260 MG IV ×3 (01:28→23:43)
[2024-05-21] MEDS: COMPAZINE 10 MG IV (01:31)
[2024-05-21 01:38] VITALS: BP_SYST 82
--- NOTE | 2024-05-21 01:39 | PTCARENOTE ---
Midnight assessment unchanged. Remains on Phenylephrine and Levophed infusions. Reports persistent nausea despite being medicated with Zofran. Discussed with Marbin Greenberg, ICU PRODUCTION ENGINEER TRACK. Compazine ordered (PRN if Zofran ineffective). Dose administered at
approx 0130, see EMAR. Remains in accelerated junctional rhythm with HR in 90s. Remains on midflow NC, current SpO2 94-97%.
--- NOTE | 2024-05-21 02:37 | PTCARENOTE ---
Pt unable to sleep, rings call brown and does not have any specific needs but just general complaints. Nausea seems to have subsided after Compazine, pt attempted to have BM on bedpan but unsuccessful but is now c/o 'poop pressure'. Pt is tachypneic
with RR in upper 20s/low 30s, looks generally uncomfortable, kicking off blankets, wanting HOB adjusted up and down. Lungs with crackles in b/l bases, however pt denies feeling SOB. When asked if he is having chest pain he said 'Oh yes. For long
time' but denies that it is a new symptom. Remains in accelerated junctional rhythm with HR in 90s, currently with SpO2 95% on 8L MF, current A line BP 102/48 on Phenylephrine at 200mcg/min and Levophed at 18mcg/min.
[2024-05-21] MEDS: LEVOPHED 258 MG IV ×4 (03:31→18:08)
[2024-05-21 05:05] VITALS: BMI 26.6
--- NOTE | 2024-05-21 05:25 | PTCARENOTE ---
0400 assessment unchanged from previous. Continues with crackles, tachypnea. SpO2 95-96% on 8L MFNC. Pt had a ~10 beat run of VTach at 0517, although QRS complexes have been and continue to be the same formation, this was just at a faster rate.
Monitor has been reading 'vent rhythm' all shift, but rhythm is unchanged and is accelerated junctional with BBB and QRS complex looks wider at baseline. AM labs pending. Pt continues to ask the same repetitive questions and repeatedly asks to get
OOB but he is not hemodynamically stable at this time. Bedpan provided to patient to attempt to have a BM. Pt has been unsuccessful. Pt states someone will be coming to pick him up to go home, believes he will be going home today. Pt is fully
oriented to person/place/time (knew exact date) but does not grasp situation whatsoever.
[2024-05-21 05:29] LABS: Hematocrit 35.3 % (39.0-52.0); Hemoglobin 11.9 g/dL (13.0-18.0); Mean Corp Hgb Conc. 33.7 g/dL (33.0-37.0); Mean Corpuscular Hgb 26.3 pg (27.0-31.0); Mean Corpuscular Volume 77.9 fL (80.0-94.0); Platelet Count 138 10^3/uL (130-400); Red Blood Cell Count 4.53 10^6/uL (4.70-6.10); Red Cell Dist. Width 20.8 % (11.5-14.5); White Blood Cell Count 11.9 10^3/uL (4.8-10.8)
[2024-05-21 05:59] LABS: ALT (SGPT) 18 U/L (0-50); AST (SGOT) 32 U/L (17-59); Alkaline Phosphatase 64 U/L (38-126); Blood Urea Nitrogen 72 mg/dl (9-20); Carbon Dioxide 21 mmol/L (22-30); Chloride 93 mmol/L (98-107); Estimated Creatinine Clearance 10 ml/min; Glucose 181 mg/dl (70-99); Potassium 4.9 mmol/L (3.5-5.1); Sodium 129 mmol/L (135-145); Total Bilirubin 1.6 mg/dl (0.2-1.3); Total Protein 5.8 g/dl (6.3-8.2)
[2024-05-21 06:07] VITALS: BP_SYST 86
--- NOTE | 2024-05-21 06:08 | PTCARENOTE ---
Addendum entered by Oliva Koch RN 05/21/24 06:26:
ABG obtained/sent, neb tx ordered, RT at bedside to administer.
Original Note:
Pts's chest xray from this AM with completely arnol-out right lung. Pt continues with tachypnea and labored breathing, unable to get a sentence out without stopping for a breath, however pt states that he is 'breathing just fine', and his main
complaint is needing to have a BM and having nausea. Marbin Greenberg SCREWHEAD STONER AND POLISHER at bedside, discussing whether or not to reintubate patient. Pt turned to left side and chest clapping done. Attempted to have pt use I.S. but he does not grasp the concept and only
takes very short inhalations despite repeated instruction. Pt wedged towards left side to put 'bad lung up'. Current VS at this time: HR 96, 99% on 8L MF, RR 31, 94/45 arterial line BP (MAP 60) on 30mcg/min Levophed and 200mcg/min Phenylephrine.
--- NOTE | 2024-05-21 06:25 | W.PN.UPDATE ---
Update Note
Progress Note Update
Chest xray right lung is arnol out, turned patient on to left side, manual chest PT, and encouraged cough and deep breathing. Currently on 8 L NC, oxygen saturation >92%. Weak wet cough, encourage incentive spirometry and coughing. Patient
slightly tachypneic but able to talk and communicates needs without much effort or any respiratory distress. Updated Dr. Salcido, psychiatric social worker and agreed with current plan. Called respiratory therapist to administer duoneb to also encourage
coughing. Low threshold to intubate, updated RN of plan of care.
[2024-05-21] MEDS: DUONEB 3 ML INH (06:30)
[2024-05-21 06:31] LABS: B.E. -5.4 mmol/L; HCO3 21.6 mmol/L (21-28); O2 Saturation % 99.1 % (94-98); PCO2 47 mmHg (35-48); PO2 131 mmHg (83-108); pH 7.27 (7.35-7.45)
--- NOTE | 2024-05-21 07:51 | W.PN.NEPH.PH ---
Today's Communication / Plan
-
HD today
Maintain 2 pressor support to keep MAP greater than 60
Assessment/Plan
-
Assessment:
CP
Elevated troponin
Transitional cell carcinoma of the bladder
s/p CABG - CABRAL to LAD, SVG to OM, SVG to PDA 12/09/22 at [place]
CM EF 40% by echo 09/15/23
Type 2 NSTEMI s/p diagnostic cath 08/2023 at [facility] with patent bypass grafts, 70% OM stenosis, medically managed
Post CABG afib
ESRD on HD MWF
mild
Hypertension
Hyperlipidemia
Type 2 diabetes
Glaucoma
Hyponatremia
Plan
HD today
patient remains on two pressor support to keep MAP >60
remains sob with white out of right lung (suspected mucous plug), discussed with ICU attending
reviewed CXR
Cause of such significant hypotension (new) is uncertain.
for repeat echo
cortisol level appropriate
Patient critically ill with hemodynamic instability on 2 pressor support
31 minutes critical care time spent with
-
-
Date of Service: May 21, 2024
CC / HPI / ROS
-
Chief Complaint:
ESRD
History of Present Illness:
Tolerated HD tuesday
BP low, on 2 pressors
extubated but with mild respiratory distress
trop decreasing
critically ill in ICU on pressors
Review of Systems:
no CP
Some shortness of breath
low grade fevers
Labs
-
Labs:
WBC 11.9 10^3/uL (4.8-10.8) H 05/21/24 04:50
RBC 4.53 10^6/uL (4.70-6.10) L 05/21/24 04:50
Hgb 11.9 g/dL (13.0-18.0) L 05/21/24 04:50
Hct 35.3 % (39.0-52.0) L 05/21/24 04:50
Plt Count 138 10^3/uL (130-400) 05/21/24 04:50
Sodium 129 mmol/L (135-145) L 05/21/24 04:50
Potassium 4.9 mmol/L (3.5-5.1) 05/21/24 04:50
Chloride 93 mmol/L (98-107) L 05/21/24 04:50
Carbon Dioxide 21 mmol/L (22-30) L 05/21/24 04:50
BUN 72 mg/dl (9-20) H 05/21/24 04:50
Creatinine 4.8 mg/dL (0.7-1.3) H* 05/21/24 04:50
eGFR 11.30 05/21/24 04:50
Glucose 181 mg/dl (70-99) H 05/21/24 04:50
Calcium 10.0 mg/dl (8.4-10.2) 05/21/24 04:50
Bku-F-Jhodbugcrce Pept > 42991 pg/ml 05/16/24 11:51
Albumin 3.0 g/dl (3.5-5.0) L 05/21/24 04:50
Physical Exam
-
Vital Signs:
Vital Signs
Temp Pulse Resp BP Pulse Ox
97.6 F 96 32 109/50 99
05/21/24 07:49 05/21/24 06:30 05/21/24 06:30 05/20/24 21:42 05/21/24 06:30
Cardiovascular:: Regular rate and rhythm
Respiratory:: Bilateral: Coarse (No breath sounds in right lung field)
Lung Excursion:: Normal
Abdomen:: Nontender and Soft
Bowel Sounds:: Normal
Extremity Edema:: +1: Bilateral:
Echeverria Catheter: No
--- NOTE | 2024-05-21 08:00 | PTCARENOTE ---
Received pt AAOx2 (place), confused think he is in HD center. Attempted to reorient the pt and review the events of his hospitalization. Coughing and deep breathing encouraged due to low saturation 88%. Pt repositions on his left side. Breath sounds
diminished on the right, use of abd muscles, unable to take effective deep breath cough is weak. Discussed events over night with Dr. Salcido and current findings at 0830. RN assisted pt with call his son, son was updated regarding his declining
status, encouraged to come to the bedside. After review of ABG pt intubated as ordered. Pt tolerating AC 16/500/80%/5. #8 ETT placed secured 24 cm, center. Left nare Dobbhoff placed and secured @ 60 cm as ordered. Right radial Fawn, transduced and
calibrated with all ports patent and secured. Left AV fistula + bruit and thrill. Right DL PICC with Bhavin gtt @ 200 mcgs/min, Levo gtt @ 30 mcgs/min. Extremities cold and mottled, doppler pulses only. Pt noted to have purulent drainage and foul
smelling urine from his penis, Dr. Salcido updated, urine culture sent. Safe environment maintained.
--- NOTE | 2024-05-21 08:37 | PHA.VAN.IN ---
Addendum entered and electronically signed by Alayna Ashraf RPH 05/21/24 12:00:
will order random level Tuesday05/22/24 post HD Tuesday to make sure pts vanc level is still therapeutic
Original Note:
Assessment
- Assessment
Renal Function: Patient has ESRD, on chronic Hemodialysis
Hemodialysis Schedule: MWF
Concomitant Antimicrobials: pip/tazo x 1 dose
Plan
- Plan
Initial / Loading Dose: 1500 mg x 1 dose this AM ( 05/21)
Maintenance Regimen: dose by random level HD days ( currently MWF)
Monitoring: random level next HD - AM 05/23
Pharmacokinetics Vancomycin I
- -
Patient Age: 83
Patient Sex: Male
Vancomycin Day #: 1
Indication: Pulmonary/Respiratory
Requesting Provider: Omari
Pertinent Antimicrobial Allergies:
ephedrine
Height / Weight:
Height 5 ft 6 in
Actual Weight 74.7 kg
Pertinent Past Medical History: ESRD on HD, bladder Ca tx at [facility]; S/P Vt arrest
- Vital Signs / Lab Results
Temp Pulse Resp BP Pulse Ox
97.6 F 96 32 109/50 99
05/21/24 07:49 05/21/24 06:30 05/21/24 06:30 05/20/24 21:42 05/21/24 06:30
Lab Results - Hematology
05/19/24 05/20/24 05/21/24
02:35 03:58 04:50
WBC 7.2 11.6 H 11.9 H
Lab Results - Chemistry
05/19/24 05/19/24 05/20/24
02:34 04:10 03:58
BUN 28 H 30 H 54 H
Creatinine 3.7 H 3.7 H 4.3 H*
Estimated Creat Clear 13 13 12
Albumin 3.3 L 3.9
05/21/24
04:50
BUN 72 H
Creatinine 4.8 H*
Estimated Creat Clear 10
Albumin 3.0 L
--- NOTE | 2024-05-21 08:47 | W.PN.ANESINT ---
Anesthesia Intubation Note
- Intubation Note
Intubation Note:
Diagnosis: respiratory disress
Blade: glidescope 4
Tube Size: 8.0
Depth: 22 cm
Side Taped: center
Drugs Used: 80mg etomidate, 50mg rocuronium
Grade View: 1
EtCO2 Present: yes
Atraumatic: yes
Attempts: 1
Insertion Start and Stop Time: 826 start 828 end
SaO2 Pre: 74
SaO2 Post: 85
Glidescope Used: yes
Other Airway Adjustments: n/a
Pre-Oxygenated: yes
Portable Chest X-Ray:
RSI: no
Suctioned: no
Bilateral Breath Sounds Confirmed: b/l breath sounds confirmed, no breath sounds over stomach
Vent Settings:
Settings per ___Attending Physician
Lolis Chan CRNA
[2024-05-21] MEDS: VANCOCIN 530 MG IV (09:18)
[2024-05-21] MEDS: HEPARIN 5000 UNITS SC ×3 (09:19→23:43)
--- NOTE | 2024-05-21 09:23 | PTOTSP ---
Reviewed chart and noted pt coded over weekend, intubated, now in ICU. Pt will need new orders for PT and OT to resume when he is stable to participate in PT activity.
[2024-05-21 09:43] VITALS: BP_SYST 116
[2024-05-21] MEDS: ProAmatine TUBE (09:46)
[2024-05-21] MEDS: SUBLIMAZE 75 MCG IV (09:50)
[2024-05-21] MEDS: SOLU-CORTEF 50 MG IV ×4 (09:51→23:42)
--- NOTE | 2024-05-21 09:52 | CM ---
CM following for discharge needs. Previously he had been living alone independently and driving himself to dialysis.
Patient intubated this AM, confused and believes he is going to go home today.
CM will continue to follow hospitalization to coordinate discharge needs as indicated.
Plan: Anticipate discharge to SNF ([facility] in the past) pending medical stability.
[2024-05-21] MEDS: PACERONE 400 MG TUBE ×2 (10:08→17:36)
[2024-05-21] MEDS: JANUVIA 25 MG TUBE (10:09)
[2024-05-21] MEDS: PLAVIX 75 MG TUBE (10:10)
--- NOTE | 2024-05-21 10:28 | W.PN.INTV ---
Today's Communication / Plan
Recommendations
Continue mechanical ventilation
ABG in 30 minutes
Sedation with fentanyl
Broad-spectrum antibiotics
Follow cultures
Continue to monitor QT
Wean down vasopressors as able
Start IV corticosteroids-stress doses
Insulin drip will be started as well
Holding dialysis
Hold further IV fluids aggressively. At risk for pulmonary edema.
Prognosis is guarded
Assessment
-
83-year-old male with complex medical history including coronary disease with bypass surgery, recent drug-eluting stent and graft 05/17/2024, end-stage renal disease on hemodialysis, transitional cell carcinoma the bladder ongoing treatment at [place]
[facility], atrial fibrillation not on anticoagulation, diabetes, status post VT arrest, shock/epinephrine/ROSC/intubation 05/19/2024
VDRF, intubated 05/19/2024
Extubated 05/20/2024
Reintubated 05/21/2024
Chest x-ray with right whiteout-likely atelectasis 05/21/2024
Cardiac arrest, monomorphic VT, 05/19/2024
While on the commode
Shock/Epi/intubation/ROSC
Shock: Suspect multiple mechanisms cardiogenic/septic
---
S/p DAKSHA graft 05/17/2024
Ongoing chest pain, NSTEMI
S/p CABG [employer] 12/09/2022
s/p NSTEMI August 2023, med managed at [facility]
Cardiomyopathy, EF 40% with
ESRD on HED
Mild oozing of left upper extremity fistula
Conditions present prior admission:
Transitional cell carcinoma, bladder
Status post transurethral resection of bladder tumor, most recently 50 tumors removed at [place] 09/01/2023
Paroxysmal atrial fibrillation
Not on anticoagulation due to anemia
Hypertension/hyperlipidemia
Diabetes
Plan/recommendations:
Remains critically ill, this morning increased work of breathing, worsening vasopressor requirements, chest x-ray with a right whiteout likely mucous plug/atelectasis.
ABG with acute hypercapnic respiratory failure.
Evaluated the patient at the bedside, discussed with cardiology and nephrology-unable to tolerate dialysis at this point.
Given worsening hemodynamics, hypercapnia anesthesia was called immediately-patient intubated 05/21/2024.
-
Mechanical ventilation settings
patient was extubated for less than 24 hours
Reintubating morning of 05/21/2024 due to increased work of breathing/hypercapnic respiratory failure
ABG prior intubation: 7.20 7/47/131
Assist-control 500/16/100/+5.
Repeat ABG in 30 minutes
Chest x-ray postintubation showed ET tube in place, right sided atelectasis has resolved.
Continue with intermittent suctioning
Nebulizers as needed
-
Sedation with fentanyl RASS score 0 (-1)
Sedation break per protocol
-
Shock: Septic/cardiogenic
With abnormal chest x-ray cannot rule out aspiration/pneumonia.
Penis with pus: Straight cath showed purulent urine.
Start broad-spectrum antibiotics/vancomycin/Zosyn
Will narrow down antibiotics depending on cultures
-
Continue norepinephrine/Bhavin-Synephrine/vasopressin will be started
Target mean arterial blood pressure 65 mmHg.
Patient has received significant amount of IV fluids-at this point unable to dialyze
Monitor for volume overload
Will start stress dose of corticosteroids given suspected septic shock with multiple vasopressors.
-
Reviewed cardiology correspondence
ICD prior to discharge if patient improved clinically.
Echocardiogram 05/17/2024: EF 45% with hypokinesis inferoseptal wall, moderate MR, moderate aortic stenosis
Unclear whether monomorphic VT was due to scar or recent drug-eluting stent/graft
Cardiology following closely
Remains on aspirin/clopidogrel
Transition to oral amiodarone
Continue to monitor QT
Dobbhoff tube placed, receiving medications
Chronic kidney disease hemodialysis dependent.
Case discussed with nephrology.
Unable to dialyze at this point.
Hold midodrine for now.
Hyperglycemia blood sugars over 200.
Start insulin drip.
Target 140-180
Insulin sliding scale
Patient does have some degree of toxic metabolic encephalopathy prior intubation.
Will reassess mental status with sedation breaks.
Dobbhoff tube
Tube feedings when able
PPI for GI prophylaxis
DVT prophylaxis with subcu hep
Dr. Salcido discussed with son over the phone. He is traveling down from [place] today. DNR status should be addressed.
Critical care statement: A total of 60 minutes of critical care time was provided for this patient today. This includes management of unstable vital signs, evaluation of the patient at bedside, reviewing the patient's pertinent medical records
including ventilator settings, arterial blood gases, radiographs, microbiology, laboratory evaluations and discussion with primary team, critical care nursing, and respiratory therapy.
Subjective Dataa
Subjective Data
Date of Service:
Date of Service: May 21, 2024
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
Subjective:
Critically ill, increased work of breathing.
Multiple vasopressors.
Required emergent intubation 05/21/2024
Review of Systems
General: Other (Difficult to obtain due to critical illness c)
Objective Data
Data Reviewed
Vital Signs / I&O / Oxygen:
Vital Signs
Temp Pulse Resp BP Pulse Ox
97.6 F 103 32 102/50 95
05/21/24 07:49 05/21/24 10:08 05/21/24 06:30 05/21/24 10:08 05/21/24 09:10
Intake and Output
05/20/24 05/21/24 05/22/24
06:59 06:59 06:59
Intake Total 2784.0 / 2870.3 608.1 / 608.1
Output Total 75 / 75 87 / 87
Balance 2709.0 / 2795.3 521.1 / 521.1
SaO2 [ASV] 100
SaO2 [A/C] 93
SaO2 95
Nasal Cannula flow liters per 8
minute
Physical Exam
General: Respiratory Distress (Moderate/severe)
HEENT: Normocephalic and Other (Left upper extremity AV fistula)
Cardiovascular: S1-S2, Regular Rhythm, Murmur (n) and Rub (n)
Respiratory: Wheeze (n), Crackles (n), Rhonchi (n) and Non-Labored Respirations
GI: Soft, Non Distended and Non Tender
Neurology: Awake, Alert and No Motor Deficits (Moves all extremities)
Skin: Cyanosis (n), Jaundice (n) and Rash (n)
Labs/Micro/Reports
Lab Data
05/21/24 04:50
05/21/24 04:50
Laboratory Results
05/21/24
06:24
pH 7.27 L
pCO2 47
pO2 131 H
HCO3 21.6
O2 Delivery Level
Microbiology
05/16/24 18:42 Nose MRSA Screen - Final
No Methicillin Resistant Staphylococcus aureus isolated.
--- NOTE | 2024-05-21 10:58 | W.PN.CARDCBS ---
Addendum entered and electronically signed by Josh Whatley MD 05/21/24 15:37:
Attending addendum: Patient seen and examined. PA note reviewed and findings confirmed. Briefly, ESRD new to HD. Hospitalized with NSTEMI and coronary angiography with stenting of SVG-PDA. SVG-OM patent but very small caliber vessel that is
diffusely diseased. s/p VT arrest now intubated on pressors.
Recommendations:
-Weaning pressors as tolerated
-Continue dual antiplatelet therapy with aspirin and clopidogrel
-Eventual repeat echocardiogram once vent status improved
-Appears to have aspiriated as right lung arnol out.
-Would lean toward ICD before discharge if he survives this acute event
Original Note:
Today's Communication / Plan
-
Check echo
Restart aspirin
Impression / Plan
-
PCP: Dr. Charlie Marley
Primary Field Mechanic/Site Lead: Dr. Almanza
Assessment:
Admitted with chest pain and acute HF 05/16/24
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
ESRD on HD
CM EF 40% by echo 09/15/23
NSTEMI related to stenosis of saphenous vein graft to PDA, peak troponin 20
CAD
s/p CABG with CABRAL to LAD, SVG to OM, SVG to PDA at [place] 12/09/22
s/p NSTEMI with patent bypass grafts, 70% OM stenosis being medically managed after cath at [facility] 08/2023
s/p NSTEMI with DAKSHA SVG-PDA 05/17/2024
Transitional cell carcinoma of the bladder treated with multiple transurethral resection of bladder tumor, most recently 50 tumors removed at [facility] 09/01/2023
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
Paroxysmal Afib
Not chronically anticoagulated due to anemia, not a candidate for watchman due to inability to tolerate even short-course OAC
mild
Hypertension
Hyperlipidemia
Type 2 diabetes
Glaucoma
Hyponatremia
bleeding from HD fistula site
In-hospital VT arrest 05/19/24
CPR, Epi x2 and shock with ROSC
VDRF
intubated 05/19/24 and then extubated 05/20/24
re-intubated 05/21/24 with right lung whiteout
Vomiting 05/20/24
Cardiogenic and septic shock
ECHO 08/2023 at [facility]: EF reportedly preserved
Echo 09/15/23: EF 40-45%, inferior wall akinesis, inferoseptal wall and base to mid inferolateral francisco hypokinetic, stage II diastolic dysfunction, moderate MR, mild with peak/mean 20/11. mild to mod aortic regurg
Echo 05/17/24: EF 45 to 50%, mild concentric LVH, hypokinesis of inferior septal wall and basal to mid lateral wall, mild MR, mild to moderate peak/mean 23/15, mild AI, mild pulmonic regurgitation.
Echo 05/21/24: Study pending
Cath 05/17/2024: LM: Calcified, distal tapering, LAD: 100% at origin, LAD fills via patent QUIANA, relatively small LAD with diffuse disease, circumflex heavily calcified, 50% proximal stenosis, 100% OM1 with patent vein graft but OM is very small,
retrograde filling less vibrant than before, RCA 100% at origin, SVG to PDA has 70% proximal stenosis, successful stenting prox SVG-PDA with 2.5 x 15 [place] DAKSHA
Plan:
-Patient admitted with chest pain and acute HF 05/16/24. HD with UF performed with improvement in chest pain, but Troponin peaked at 20. Patient taken to slab miller operator 05/17/24 and found to have anew SVG to PDA lesion that was stented. Patient then had
an in-hospital cardiac arrest 05/19/24 early AM with CPR, Epi x2 and shock with ROSC. Patient was intubated and then extubated 05/20/24. Later on 05/20/24 had an episode of vomiting. During the day 05/20/24 patient was on Bhavin and maxed out and Levophed
started plus increasing oxygen demands. CXR with right lung whiteout and ABG sent. Patient re-intubated 05/21/24.
-Patient now re-intubated and repeat ABG pending
-Unclear if VT at time of code on 05/19/24 was due to stent closure but favor possibly scar based monomorphic ventricular tachycardia as the cause and not restenosis. Troponin trended up to 14.4 on 05/19/24, but now trending down. Consider repeat echo
-Amiodarone gtt and then amiodarone 400 mg PO/tube TID for a total of 1.2 grams as of 05/21/24 AM.
-Consider ICD prior to d/c
-Remains on Plavix 75 mg daily.
-Restart aspirin 81 mg daily via tube 05/21/24. Follow HD fistula for bleeding, consider vascular surgery consult if significant bleeding.
-Remains on Levo, vasopressin and Bhavin 05/21/24. Manager Real Estate managing
-Nephrology following with plans for HD 05/21/24 with pressor support
Progress Note - Field Mechanic/Site Lead
Subjective
Date of Service: May 21, 2024
Re-intubated this morning
Objective
Labs:
05/21/24 04:50
05/21/24 04:50
Labs
Hgb 11.9 g/dL (13.0-18.0) L 05/21/24 04:50
Hct 35.3 % (39.0-52.0) L 05/21/24 04:50
Plt Count 138 10^3/uL (130-400) 05/21/24 04:50
PT 16.2 Sec (11.4-14.6) H 05/19/24 06:16
INR 1.32 05/19/24 06:16
APTT 37.0 Sec (23.4-35.0) H 05/19/24 06:16
Sodium 129 mmol/L (135-145) L 05/21/24 04:50
Potassium 4.9 mmol/L (3.5-5.1) 05/21/24 04:50
BUN 72 mg/dl (9-20) H 05/21/24 04:50
Creatinine 4.8 mg/dL (0.7-1.3) H* 05/21/24 04:50
Glucose 181 mg/dl (70-99) H 05/21/24 04:50
Troponins
05/18/24 05/19/24 05/19/24
12:00 04:10 12:10
Troponin I Cancelled 7.920 H* 11.300 H* D
05/19/24 05/20/24 05/20/24
23:18 03:58 19:57
Troponin I 14.400 H* 11.900 H* 7.550 H*
Vital Signs and I&O:
Vital Signs
Temp Pulse Resp BP Pulse Ox
97.6 F 101 16 102/50 95
05/21/24 07:49 05/21/24 10:30 05/21/24 10:30 05/21/24 10:08 05/21/24 09:10
Vital Signs
Temp Pulse Resp BP Pulse Ox
97.6 F 101 16 102/50 95
05/21/24 07:49 05/21/24 10:30 05/21/24 10:30 05/21/24 10:08 05/21/24 09:10
Intake & Output
05/19/24 05/20/24 05/21/24 05/22/24
07:59 06:59 06:59 06:59
Intake Total 2784.0 / 2870.3 866.1 / 866.1
Output Total 75 / 75 87 / 87
Balance 2709.0 / 2795.3 779.1 / 779.1
Physical Exam
Physical Exam
GEN: Intubated
HEENT: MMM
LUNGS: Intubated and on the ventilator
CV: Reg
ABD: ND
EXT: +1 B/L LE hard edema
SKIN: No rash
[2024-05-21] MEDS: ZOSYN 50 IV ×2 (11:02→18:10)
[2024-05-21 11:10] LABS: B.E. -6.6 mmol/L; HCO3 19.1 mmol/L (21-28); O2 Saturation % 99.2 % (94-98); PCO2 38 mmHg (35-48); PO2 228 mmHg (83-108); pH 7.31 (7.35-7.45)
[2024-05-21] MEDS: NOVOLOG FLEXPEN-LOW RESISTANCE SC ×2 (11:10→13:59)
[2024-05-21] MEDS: DULCOLAX 10 MG RECTAL (11:20)
[2024-05-21] MEDS: SUBLIMAZE 50 MCG IV ×4 (11:43→16:52)
[2024-05-21] MEDS: NOVOLIN R 3 UNITS IV (11:54)
[2024-05-21 12:02] LABS: Glucose - Point of Care 197 mg/dl (70-99)
[2024-05-21] MEDS: PITRESSIN 100 IV ×2 (12:06→20:33)
--- NOTE | 2024-05-21 12:16 | PN.DE.MGMTRT ---
Insulin Management
- -
05/21/2024 Diabetes management consult
83-year-old male with complex PMH including CAD s/p CABG, recent DAKSHA/graft 05/17/2024, ESRD on HD, transitional cell carcinoma the bladder ongoing treatment at [facility], A-Fib, T2DM. Pt is s/p VT arrest,
shock/epinephrine/ROSC/intubated 05/19, extubated 05/20 and reintubated today due to Septic shock source. Pt has been started corticosteroid stress doses, contributing to hyperglycemia-->critical care glycemic protocol for optimal glucose control.
Pt is critically ill and hypotensive, requiring multiple pressors, HD canceled today. Pt unable to interview, no family at bedside.
A1C on admission 7.1%, was taking Onglyza 5mg daily. Cr 4.8, eGFR 11.3.
Cont CCGP, will follow and reassess for readiness to transition off drip in AM if medically stable.
Diabetes History
- -
Type of Diabetes: 2
Pre-Admission Diabetes Regimen
05/21/24
04:50
Creatinine 4.8 H*
Lab Results
Hemoglobin A1c 7.1 % (4.0-5.6) H 05/16/24 19:00
Insulin Pump Settings
IP Diabetes Regimen
05/20/24 05/20/24 05/21/24
16:46 21:05 04:50
Glucose 181 H
POC Glucose 264 H 242 H
05/21/24
11:50
Glucose
POC Glucose 197 H
Patient Education
[2024-05-21] MEDS: NOVOLIN R INSULIN INFUSION 100 IV (12:28)
--- NOTE | 2024-05-21 12:30 | PTCARENOTE ---
Repeat ABG ordered and drawn, RT weaning FiO2 (see worklist). Vasopressin gtt initiated @ 0.03 units/min, 9 ml/hr (see MAR). BS 197, 3 units of IV Novolin R given (see MAR). Insulin gtt initiated @ 3 units/hr infusing via DL PICC, per [facility].
--- NOTE | 2024-05-21 12:47 | W.PN.HOSP.TC ---
Addendum entered and electronically signed by Jersey Durand MD 05/21/24 16:24:
Acute hypoxemic respiratory failure secondary to mucous plugging as evident by chest x-ray as there is full right sided whiteout of the right lung. Now intubated. Will require pulmonary toilet with hypertonic saline nebs, precaution bed. If not
improving then likely would benefit from bronchoscopy with suction at bedside. ICU and pulmonary to decide
Daily CXR
Wean vent settings to minimal as tolerated based off of ABG
SAT SBT daily
ESRD on HD continue HD per nephrology recommendations.
VT arrest
Will require ICD prior to discharge
Continue amiodarone
Shock believed to be multifactorial in the setting of cardiogenic/septic.
Continue pressor support along with Solu-Cortef and Zosyn vancomycin
Follow-up blood cultures
Keep maps greater than 65
Wean pressors as tolerated
Original Note:
Today's Communication/Plan
-
Patient reintubated, added vasopressin, started broad-spectrum antibiotics and corticosteroid stress doses, no hemodialysis today as patient is critically ill and hypotensive, patient's son is coming to visit. Downgrade antibiotics as cultures come
back
Assessment / Plan
Assessment / Plan
# Cardiogenic / septic shock
Ventilator dependent respiratory failure, intubated 05-19-2024
Cardiac arrest, monomorphic VT, 05-19-2024
On commode -> monomorphic V. tach -> Shock, CPR, epix2, intubation, ROSC -> weaned off and extubated -> BP continues to drop, RR increased -> repeat chest x-ray reveals complete opacification of right hemithorax consistent with mucous plug-> repeat
intubation this morning
Intermittent suctioning
Levophed, phenylephrin, vasopressin
Midodrine on hold per ICU
Goal systolic MAP >65
Straight cath showed purulent urine�UA sent for cultures
Zosyn and vancomycin started started
IV corticosteroids stress doses
s/p drug-eluting stent for NSTEMI on 05/17/2024
Ticket Sales Agent following
Family was contacted, son coming down
#NSTEMI/CAD/HFrEF
s/p CABG with CABRAL to LAD, SVG to OM, SVG to PDA at [place] 12/09/22
s/p NSTEMI with patent bypass grafts, 70% OM stenosis being medically managed after cath at [facility] 08/2023
Troponins went back up to 14, now down trending to 11.9
Repeat Echo no significant changes from prior. LVEF 45-50% .
05/17 cath successful drug-eluting stent of the proximal portion of the SVG-PDA
Dual antiplatelet therapy for next 6 to 10 months
Will need ICD prior to discharge per cards
f/u echo d/c as pt is critically ill
Will need ICD prior to discharge per cards
#End-stage renal disease
Cr. 4.8
Previously hemodialysis Tuesday
Hemodialysis canceled for today as patient is critically ill and hypotensive
Right chest wall HD cath
Nephrology following
# Hypotension
Midodrine 10 mg 3 times daily per cards -> hold per ICU
Now on multiple pressors in ICU
Continue Coreg with hold Entex for SBP less than 100
No nitroglycerin
Hold isosorbide dinitrate due to low BP upon cardiology discretion
# Electrolyte imbalance
Hypomagnesemia - Replete as needed
Hyponatremia - monitor
Keep K>4 and mg >2
Leukocytosis
WBC 11.5, temp 100.2 yesterday - likely secondary to cardiac arrest and intubation stress -> 11.9
Pip-tazo and vancomycin started by ICU as patient is critically ill, unsure if infectious etiology versus stress
Unable to do U/A as oliguric at baseline with ESRD
Chest x-ray finding more consistent with mucous plug than pneumonia
Straight cath showed purulent urine
UA sent for culture
Monitor WBC, consider antibiotics if uptrend or spikes fever
# Ischemic cardiomyopathy
Coreg with hold index for SBP less than 100
Continue with aspirin statin
Already on Onglyza
Not a candidate for ARB/RAJIV inhibitor due to end-stage renal disease
#Elevated AST
Elevated Bili
likely 2/2 hypotension
Monitor
#Ambulatory dysfunction
PT/OT consult
#Paroxysmal A-fib
Not on Eliquis due to history of hematuria and severe anemia
ASA
On Coreg as above
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
Damion [place]. TURBT 50 lesions were reportedly worked on on 09/01/2023.
developed hematuria and a temporary placement of renal stent followed by continuous bladder irrigation
Eliquis discontinued
# Type 2 diabetes
Hemoglobin A1c 7.1
Insulin gtt
#Dyslipidemia
Continue statin, Zetia
#B12 deficiency�replace
#Chronic vertigo
Anticipated Discharge: > 48 hours
Subjective/Interval History
-
Date of Service: May 21, 2024
Objective Data
-
Labs:
Laboratory Results
05/21/24 05/21/24 05/21/24
04:50 06:24 11:01
WBC 11.9 H
Hgb 11.9 L
Hct 35.3 L
Plt Count 138
HCO3 21.6 19.1 L
Sodium 129 L
Potassium 4.9
Chloride 93 L
Carbon Dioxide 21 L
BUN 72 H
Creatinine 4.8 H*
Glucose 181 H
Calcium 10.0
Total Bilirubin 1.6 H
AST 32
ALT 18
Alkaline Phosphatase 64
Vital Signs:
Vital Signs
Temp Pulse Resp BP Pulse Ox
98.4 F 101 16 102/50 99
05/21/24 11:33 05/21/24 10:30 05/21/24 10:30 05/21/24 10:08 05/21/24 12:00
I&O
05/20/24 05/21/24 05/22/24
06:59 06:59 06:59
Intake Total 2784.0 / 2870.3 1069.2 / 1069.2
Output Total 75 / 75 87 / 87
Balance 2709.0 / 2795.3 982.2 / 982.2
Review of Systems
-
History Source: Patient
Respiratory: Reports Trouble Breathing
Cardiac: Reports No Symptoms
Abdomen/GI: Reports Constipated
Genitourinary: Reports No Symptoms
Neuro: Reports No Symptoms
Physical Exam
-
General: Appears Chronically Ill
Respiratory: Crackles
Cardiac: Regular Rhythm and S1/S2
GI: Soft, Nontender and Distended
Musculoskeletal: No Edema
Skin: Warm
Neuro: Awake and Alert; Negative Oriented
Psych: Confused
--- NOTE | 2024-05-21 13:31 | W.PN.NEPH.HD ---
Assessment
-
Patient seen on dialysis
Systolic blood pressure at 120 on 3 pressor support
UF goal will be limited due to hemodynamic instability in setting of septic illness
aVF with good function
Progress Note - Hemodialysis
-
Date of Service: May 21, 2024
Duration: 30 minutes and 3 hours
Potassium Bath: 2
Calcium Bath: 2.5
Opti-Dialyzer: 160
Ultrafiltration: Other (1.5 kg as tolerated)
Blood Flow: 400
Dialysate Flow: 600
Heparin: None
EPO: None
[2024-05-21 13:47] LABS: Glucose - Point of Care 142 mg/dl (70-99)
[2024-05-21] MEDS: LOW STRENGTH ASPIRIN 81 MG TUBE (14:03)
[2024-05-21 14:45] LABS: Glucose - Point of Care 98 mg/dl (70-99)
[2024-05-21 15:53] LABS: Glucose - Point of Care 81 mg/dl (70-99)
--- NOTE | 2024-05-21 16:45 | PTCARENOTE ---
PT with increase RR, with high PIP in the 40's, not getting volumes on the ventilator. Fentanyl bolus administered x2, then drip started. Propofol drip to be started once access obtained. Py with multiple incompatibilities.
[2024-05-21] MEDS: SUBLIMAZE 100 IV (16:48)
[2024-05-21] MEDS: DEXTROSE 50% SYRINGE 12.5 GRAMS IV (17:17)
[2024-05-21 17:27] LABS: Glucose - Point of Care 69 mg/dl (70-99)
--- NOTE | 2024-05-21 17:41 | PTCARENOTE ---
Per Dr. Barrera pt permitted to have peripheral site in extremity with DL PICC, VAT notified.
[2024-05-21 17:44] LABS: Glucose - Point of Care 123 mg/dl (70-99)
[2024-05-21] MEDS: CRESTOR 10 MG TUBE (18:06)
--- NOTE | 2024-05-21 18:39 | PTCARENOTE ---
NIRALI Brain notified that Patrick IVT was unable to place peripheral IV line for propofol. Patrick communicated pt would need a triple lumen IJ.
[2024-05-21 18:46] LABS: Glucose - Point of Care 117 mg/dl (70-99)
[2024-05-21 18:52] LABS: Triglycerides 129 mg/dl (10-149)
[2024-05-21] MEDS: CORDARONE 103 MG IV (19:10)
--- NOTE | 2024-05-21 19:11 | PTCARENOTE ---
S/P VT arrest, when turned for back board he broke then went pulseless. CPR started see code sheet. Insulin drip was stopped for Code meds.
[2024-05-21 19:26] LABS: B.E. -1.2 mmol/L; HCO3 23.6 mmol/L (21-28); O2 Saturation % 96.4 % (94-98); PCO2 39 mmHg (35-48); PO2 77 mmHg (83-108); pH 7.39 (7.35-7.45)
[2024-05-21] MEDS: CORDARONE 518 MG IV (19:33)
[2024-05-21 19:39] LABS: Hematocrit 35.8 % (39.0-52.0); Hemoglobin 12.3 g/dL (13.0-18.0); Mean Corp Hgb Conc. 34.4 g/dL (33.0-37.0); Mean Corpuscular Hgb 26.3 pg (27.0-31.0); Mean Corpuscular Volume 76.5 fL (80.0-94.0); Platelet Count 107 10^3/uL (130-400); Red Blood Cell Count 4.68 10^6/uL (4.70-6.10); Red Cell Dist. Width 20.9 % (11.5-14.5)
[2024-05-21] MEDS: MAGNESIUM SULFATE 100 IV (19:40)
[2024-05-21 19:42] LABS: ALT (SGPT) 31 U/L (0-50); AST (SGOT) 67 U/L (17-59); Albumin 2.8 g/dl (3.5-5.0); Alkaline Phosphatase 58 U/L (38-126); Blood Urea Nitrogen 39 mg/dl (9-20); Calcium 9.1 mg/dl (8.4-10.2); Carbon Dioxide 23 mmol/L (22-30); Chloride 94 mmol/L (98-107); Estimated Creatinine Clearance 18 ml/min; Glucose 183 mg/dl (70-99); Potassium 4.3 mmol/L (3.5-5.1); Sodium 134 mmol/L (135-145); Total Bilirubin 1.5 mg/dl (0.2-1.3); Total Protein 5.6 g/dl (6.3-8.2); eGFR 21.57
--- NOTE | 2024-05-21 20:40 | W.PN.UPDATE ---
Update Note
Progress Note Update
3760 Code 9 called. �Patient went into V tach arrest that develop into PEA arrest before defibrillator could be attached to patient. (CPR, 2 * epi, 1 * sodium bicarbonate). �Patient regained ROSC was in rapid AFIB with QRS of 500. ��150 mg bolus of
amiodarone given and continuous amiodarone drip started. Patient continuous on 3 pressors. �Six Sigma Project Manager, cardiology, and family updated. ��
[2024-05-21 21:33] LABS: Glucose - Point of Care 170 mg/dl (70-99)
--- NOTE | 2024-05-21 21:57 | PTCARENOTE ---
Please see code sheet. At this time, patient remains maxed on Levo/Vaso/Bhavin along with Amiodarone. Pt woke to nod head yes/no and follow simple commands. Insulin gtt restarted, along with Fentanyl for comfort. Family updated on plan of care. Will
titrate drips to clinical endpoints. Will follow closely.
[2024-05-21] MEDS: XALATAN OPHTHALMIC SOLUTION 1 DROP BOTH EYES (22:00)
[2024-05-21 22:45] LABS: Glucose - Point of Care 104 mg/dl (70-99)
--- NOTE | 2024-05-21 22:52 | PTCARENOTE ---
QTC on monitor steadily climbing. PATTI Davis ordered EKG to verify. QT on EKG 380, QTC 495. Alarm turned off on monitor at this time. Will follow up with 12 lead EKGs as needed. EKG on chart.
[2024-05-22 00:37] LABS: Glucose - Point of Care 84 mg/dl (70-99)
[2024-05-22] MEDS: ZOSYN 50 IV ×2 (02:38→09:12)
[2024-05-22 03:10] LABS: Glucose - Point of Care 102 mg/dl (70-99)
[2024-05-22 03:16] LABS: Hemoglobin 12.7 g/dL (13.0-18.0); Mean Corp Hgb Conc. 34.3 g/dL (33.0-37.0); Mean Corpuscular Hgb 26.7 pg (27.0-31.0); Mean Corpuscular Volume 77.9 fL (80.0-94.0); Platelet Count 121 10^3/uL (130-400); Red Blood Cell Count 4.75 10^6/uL (4.70-6.10); Red Cell Dist. Width 20.5 % (11.5-14.5); White Blood Cell Count 13.9 10^3/uL (4.8-10.8)
[2024-05-22 03:22] LABS: B.E. -1.3 mmol/L; HCO3 22.7 mmol/L (21-28); O2 Saturation % 98.8 % (94-98); PCO2 35 mmHg (35-48); PO2 127 mmHg (83-108); pH 7.42 (7.35-7.45)
[2024-05-22] MEDS: LEVOPHED 258 MG IV ×5 (03:37→22:39)
[2024-05-22 03:44] LABS: ALT (SGPT) 65 U/L (0-50); AST (SGOT) 139 U/L (17-59); Albumin 2.7 g/dl (3.5-5.0); Alkaline Phosphatase 65 U/L (38-126); Blood Urea Nitrogen 47 mg/dl (9-20); Calcium 9.3 mg/dl (8.4-10.2); Carbon Dioxide 21 mmol/L (22-30); Chloride 95 mmol/L (98-107); Estimated Creatinine Clearance 16 ml/min; Glucose 99 mg/dl (70-99); Potassium 4.2 mmol/L (3.5-5.1); Sodium 134 mmol/L (135-145); Total Bilirubin 1.8 mg/dl (0.2-1.3); Total Protein 5.5 g/dl (6.3-8.2); eGFR 18.38
[2024-05-22 03:45] LABS: Vancomycin Random 11.4 ug/ml
[2024-05-22 05:10] LABS: Glucose - Point of Care 82 mg/dl (70-99)
--- NOTE | 2024-05-22 05:31 | PTCARENOTE ---
Pt continues to follow simple commands, nods head appropriately. Fent gtt for comfort. Pressors titrated to clinical endpoints. Son at bedside. Will monitor.
[2024-05-22 05:56] VITALS: BMI 28.0
[2024-05-22] MEDS: SOLU-CORTEF 50 MG IV ×4 (05:56→23:34)
[2024-05-22] MEDS: PITRESSIN 100 IV ×2 (06:34→17:44)
[2024-05-22 07:14] LABS: Glucose - Point of Care 100 mg/dl (70-99)
[2024-05-22] MEDS: MIRALAX 17 GRAMS TUBE (07:37)
[2024-05-22] MEDS: HEPARIN 5000 UNITS SC ×3 (07:37→23:34)
[2024-05-22] MEDS: PLAVIX 75 MG TUBE (07:37)
[2024-05-22] MEDS: LOW STRENGTH ASPIRIN 81 MG TUBE (07:37)
[2024-05-22] MEDS: PROTONIX IV 40 MG IV (07:37)
--- NOTE | 2024-05-22 07:46 | W.PN.CARDCBS ---
Addendum entered and electronically signed by Danny Moore MD 05/22/24 09:53:
I saw and examined the patient.
The Optimization Analyst's note was reviewed and I agree with the note.
Comment: 83M PMHx ICM (EF 30-35%) s/p CABG and recent PCI to SVG on 05/17, ESRD on HD who developed hypoxic resp failure 2/2 aspiration requiring intubation. Has sustained two VT arrests during this hospitalization on 05/19 and again on 05/21. Remains
intubated in the ICU and currently requiring multiple pressors for hemodynamic support also on broad spectrum abx.
#VT arrest (05/19, 05/21)
-Maintaining sinus rhythm with brief salvos of VT on tele today
-Cont amio gtt
-BB when BP allows
-Monitor on tele
-Eventual consideration of ICD
#NSTEMI- s/p PCI to SVG 05/17
-Cont ASA/plavix and high intensity statin
-BP unable to tolerate BB at this time
-Monitor on tele
#ICM (EF 30-35%)
-Unable to tolerate GDMT due to tenuous hemodynamics
-Volume removal via HD
-Eventual repeat TTE
Original Note:
Today's Communication / Plan
-
Recheck ECG, Troponin and echo
Cont amio gtt for now
Impression / Plan
-
PCP: Dr. Charlie Marley
Primary Chief Design Engineer: Dr. Almanza
Assessment:
Admitted with chest pain and acute HF 05/16/24
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
ESRD on HD
CM EF 40% by echo 09/15/23
NSTEMI related to stenosis of saphenous vein graft to PDA, peak troponin 20
CAD
s/p CABG with CABRAL to LAD, SVG to OM, SVG to PDA at [facility] 12/09/22
s/p NSTEMI with patent bypass grafts, 70% OM stenosis being medically managed after cath at [facility] 08/2023
s/p NSTEMI with DAKSHA SVG-PDA 05/17/2024
Transitional cell carcinoma of the bladder treated with multiple transurethral resection of bladder tumor, most recently 50 tumors removed at [facility] 09/01/2023
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
Paroxysmal Afib
Not chronically anticoagulated due to anemia, not a candidate for watchman due to inability to tolerate even short-course OAC
mild
Hypertension
Hyperlipidemia
Type 2 diabetes
Glaucoma
Hyponatremia
bleeding from HD fistula site
In-hospital VT arrest
monomorphic VT, CPR, Epi x2 and shock with ROSC 05/19/24
VT that broke to PEA, CPR, Epi x2 and Bicarb x2 with ROSC 05/21/24
VDRF
intubated 05/19/24 and then extubated 05/20/24
re-intubated 05/21/24 with right lung whiteout
Vomiting 05/20/24
Cardiogenic and septic shock
ECHO 08/2023 at [facility]: EF reportedly preserved
Echo 09/15/23: EF 40-45%, inferior wall akinesis, inferoseptal wall and base to mid inferolateral francisco hypokinetic, stage II diastolic dysfunction, moderate MR, mild with peak/mean 20/11. mild to mod aortic regurg
Echo 05/17/24: EF 45 to 50%, mild concentric LVH, hypokinesis of inferior septal wall and basal to mid lateral wall, mild MR, mild to moderate peak/mean 23/15, mild AI, mild pulmonic regurgitation.
Echo 05/21/24: EF 30-35%, global hypokinesis with inferior akinesis
Cath 05/17/2024: LM: Calcified, distal tapering, LAD: 100% at origin, LAD fills via patent QUIANA, relatively small LAD with diffuse disease, circumflex heavily calcified, 50% proximal stenosis, 100% OM1 with patent vein graft but OM is very small,
retrograde filling less vibrant than before, RCA 100% at origin, SVG to PDA has 70% proximal stenosis, successful stenting prox SVG-PDA with 2.5 x 15 [place] DAKSHA
Plan:
-Overnight events noted. Patient had VT at 1900 on 05/21/24 and when turned for backboard placement VT broke and he went into PEA. CPR, Epi x2 and Bicarb x2 given with ROSC. Amiodarone bolus and then gtt started.
-Remains on Levo at 30, Bhavin at 120 and Vaso at 0.03
-Patient with monomorphic VT at time of code on 05/19/24 suggesting scar based etiology. Now with VT then PEA. Will recheck ECG, echo and trend Troponins again.
-Remains on amiodarone gtt. After initial code on 05/19/24 amiodarone gtt started and then transitioned to amiodarone PO up until time of 2nd code.
-Consideration for ICD prior to d/c pending recovery and clinical course
-Remains on Plavix 75 mg via tubedaily.
-Restarted aspirin 81 mg daily via tube 05/21/24. Follow HD fistula for bleeding, consider vascular surgery consult if significant bleeding.
-Remains intubated with suspected aspiration PNA. Malka and Tommy ordered
-Now also suspected of having UTI
-Nephrology following.
Hospital course thus far: Patient admitted with chest pain and acute HF 05/16/24. HD with UF performed with improvement in chest pain, but Troponin peaked at 20. Patient taken to laboratory director 05/17/24 and found to have anew SVG to PDA lesion that was
stented. Patient then had an in-hospital cardiac arrest 05/19/24 early AM with CPR, Epi x2 and shock with ROSC. Patient was intubated and then extubated 05/20/24. Later on 05/20/24 had an episode of vomiting. During the day 05/20/24 patient was on Bhavin
and maxed out and Levophed started plus increasing oxygen demands. CXR with right lung whiteout and ABG sent. Patient re-intubated 05/21/24. VT code 05/21/24 at 1900 and then broke into PEA. Treated with CPR, Epi x2 and Bicarb x1 with ROSC. Back on
amiodarone gtt.
Progress Note - Chief Design Engineer
Subjective
Date of Service: May 22, 2024
Intubated and sedated
Objective
Labs:
05/22/24 02:50
05/22/24 02:50
Labs
Hgb 12.7 g/dL (13.0-18.0) L 05/22/24 02:50
Hct 37.0 % (39.0-52.0) L 05/22/24 02:50
Plt Count 121 10^3/uL (130-400) L 05/22/24 02:50
PT 16.2 Sec (11.4-14.6) H 05/19/24 06:16
INR 1.32 05/19/24 06:16
APTT 37.0 Sec (23.4-35.0) H 05/19/24 06:16
Sodium 134 mmol/L (135-145) L 05/22/24 02:50
Potassium 4.2 mmol/L (3.5-5.1) 05/22/24 02:50
BUN 47 mg/dl (9-20) H 05/22/24 02:50
Creatinine 3.2 mg/dL (0.7-1.3) H 05/22/24 02:50
Glucose 99 mg/dl (70-99) 05/22/24 02:50
Troponins
05/19/24 05/19/24 05/20/24
12:10 23:18 03:58
Troponin I 11.300 H* D 14.400 H* 11.900 H*
05/20/24 05/21/24 05/21/24
19:57 19:17 19:18
Troponin I 7.550 H* 6.660 H* Cancelled
Vital Signs and I&O:
Vital Signs
Temp Pulse Resp BP Pulse Ox
97.6 F 92 16 117/51 92
05/22/24 03:20 05/22/24 07:00 05/22/24 07:00 05/21/24 17:36 05/22/24 04:31
Vital Signs
Temp Pulse Resp BP Pulse Ox
97.6 F 92 16 117/51 92
05/22/24 03:20 05/22/24 07:00 05/22/24 07:00 05/21/24 17:36 05/22/24 04:31
Intake & Output
05/20/24 05/21/24 05/22/24 05/23/24
06:59 06:59 06:59 06:59
Intake Total 2784.0 / 2870.3 3071.3 / 3190.3 119.0 / 119.0
Output Total 75 / 75 87 / 87
Balance 2709.0 / 2795.3 2984.3 / 3103.3 119.0 / 119.0
Physical Exam
Physical Exam
GEN: Intubated
HEENT: MMM
LUNGS: Intubated and on the ventilator
CV: Reg
ABD: ND
EXT: +1 B/L LE hard edema
SKIN: No rash
--- NOTE | 2024-05-22 07:54 | W.PN.NEPH.PH ---
Today's Communication / Plan
-
HD tomorrow, possibly CRRT if patient remains hemodynamically unstable
no acute HD requirement today
If CRRT to be performed tomorrow he will need a line placed as we cannot use his fistula for CRRT
Assessment/Plan
-
Assessment:
CP
Elevated troponin
Transitional cell carcinoma of the bladder
s/p CABG - CABRAL to LAD, SVG to OM, SVG to PDA 12/09/22 at [place]
CM EF 40% by echo 09/15/23
Type 2 NSTEMI s/p diagnostic cath 08/2023 at [facility] with patent bypass grafts, 70% OM stenosis, medically managed
Post CABG afib
ESRD on HD MWF
mild
Hypertension
Hyperlipidemia
Type 2 diabetes
Glaucoma
Hyponatremia
Plan
Patient coded last night with ventricular tachycardic arrest. Underwent CPR and 2 rounds of epinephrine
Now on 3 pressor support
Lites stable, remains intubated, weights up
HD tomorrow if feasible, patient may require CRRT given hemodynamic instability
patient remains on 3 pressor support to keep MAP >60
remains sob with white out of right lung (suspected mucous plug), discussed with ICU attending
reviewed CXR
Repeat echo notes global hypokinesis and inferior akinesis with LV ejection fraction of 30 to 35% (worse then previous echo)
cortisol level appropriate
Patient critically ill with hemodynamic instability on 3 pressor support and intubation
31 minutes critical care time spent with patient
-
-
Date of Service: May 22, 2024
CC / HPI / ROS
-
Chief Complaint:
ESRD
History of Present Illness:
Tolerated HD tuesday
Status post ventricular tachycardia and PEA last evening on 05/21/2024
Remains on 3 pressor support
Intubated
Review of Systems:
Intubated
no fevers
Labs
-
Labs:
WBC 13.9 10^3/uL (4.8-10.8) H 05/22/24 02:50
RBC 4.75 10^6/uL (4.70-6.10) 05/22/24 02:50
Hgb 12.7 g/dL (13.0-18.0) L 05/22/24 02:50
Hct 37.0 % (39.0-52.0) L 05/22/24 02:50
Plt Count 121 10^3/uL (130-400) L 05/22/24 02:50
Sodium 134 mmol/L (135-145) L 05/22/24 02:50
Potassium 4.2 mmol/L (3.5-5.1) 05/22/24 02:50
Chloride 95 mmol/L (98-107) L 05/22/24 02:50
Carbon Dioxide 21 mmol/L (22-30) L 05/22/24 02:50
BUN 47 mg/dl (9-20) H 05/22/24 02:50
Creatinine 3.2 mg/dL (0.7-1.3) H 05/22/24 02:50
eGFR 18.38 05/22/24 02:50
Glucose 99 mg/dl (70-99) 05/22/24 02:50
Calcium 9.3 mg/dl (8.4-10.2) 05/22/24 02:50
Aaq-A-Poiziqwvwvl Pept > 42056 pg/ml 05/16/24 11:51
Albumin 2.7 g/dl (3.5-5.0) L 05/22/24 02:50
Physical Exam
-
Vital Signs:
Vital Signs
Temp Pulse Resp BP Pulse Ox
97.6 F 92 16 117/51 92
05/22/24 03:20 05/22/24 07:00 05/22/24 07:00 05/21/24 17:36 05/22/24 04:31
Cardiovascular:: Regular rate and rhythm
Respiratory:: Bilateral: Coarse
Lung Excursion:: Normal
Abdomen:: Nontender and Soft
Bowel Sounds:: Decreased
Extremity Edema:: +1: Bilateral:
Echeverria Catheter: No
Other Findings::
gen:intubated, insedated
--- NOTE | 2024-05-22 07:59 | PN.DE.MGMTRT ---
Insulin Management
- -
05/22/2024 Diabetes management consult follow up
83-year-old male with complex PMH including CAD s/p CABG, recent DAKSHA/graft 05/17/2024, ESRD on HD, bladder CA ongoing treatment at [facility], A-Fib, T2DM. Pt is s/p VT arrest, shock/epinephrine/ROSC/intubated 05/19, extubated 05/20 and
reintubated 05/21 due to Septic shock source. A1C on admission 7.1%, was taking Onglyza 5mg daily. Cr 4.8, eGFR 11.3.
Pt has been started corticosteroid stress doses, contributing to hyperglycemia-->critical care glycemic protocol for optimal glucose control.
Pt is critically ill and hypotensive, requiring multiple pressors, unable to interview.
Patient receiving tube feeds @ 50 per hour, goal is 70 per hour. Will continue glycemic protocol insulin infusion, will follow and reassess for readiness to transition off drip in AM if medically stable.
Discussed with patients nurse.
Diabetes History
- -
Type of Diabetes: 2
Pre-Admission Diabetes Regimen
05/21/24 05/21/24 05/22/24
19:17 19:17 02:50
Creatinine 2.8 H Cancelled 3.2 H
Lab Results
Hemoglobin A1c 7.1 % (4.0-5.6) H 05/16/24 19:00
Insulin Pump Settings
IP Diabetes Regimen
05/21/24 05/21/24 05/21/24
11:50 13:35 14:33
Glucose
POC Glucose 197 H 142 H 98
05/21/24 05/21/24 05/21/24
15:42 17:15 17:32
Glucose
POC Glucose 81 69 L 123 H
05/21/24 05/21/24 05/21/24
18:34 19:17 19:17
Glucose 183 H Cancelled
POC Glucose 117 H
05/21/24 05/21/24 05/22/24
21:21 22:34 00:25
Glucose
POC Glucose 170 H 104 H 84
05/22/24 05/22/24 05/22/24
02:50 02:59 04:59
Glucose 99
POC Glucose 102 H 82
05/22/24
07:02
Glucose
POC Glucose 100 H
Patient Education
--- NOTE | 2024-05-22 08:00 | PTCARENOTE ---
Received pt from nightshift RN. Pt responds to yes no questions, nods head, and follows commands. Systems reviewed. Pt unable to tolerate turns, BP and O2 saturation drops, pt needing time to recover. Pt on Fentanyl, Vasopressin, Levo, Bhavin, Amio,
Insulin (see worklist). Son @ bedside updated on plan of care. Safe environment maintained.
[2024-05-22] MEDS: SENOKOT-S 1 TABLET PO (08:26)
--- NOTE | 2024-05-22 08:59 | PHA.VAN.FU ---
Vancomycin Assessment / Plan
- Assessment
Hemodialysis Schedule: MWF
Last Hemodialysis performed: Mon 05/21
WBC's are: Trending Up
In the past 24 hrs, patient has been: Afebrile
Concomitant Antimicrobials: piperacillin/tazobactam
- Assessment - Therapeutic Drug Monitoring
Random Level: 11.4 - drawn ~17.5H after 1500mg initial dose
- Dosing Plan
Dosing by Level: Re-dose today (Vanc 500mg)
Will give additional dosing today as patient's level may become subtherapeutic before HD tomorrow
- Monitoring Plan
Random Level: 11/ prior to HD
- Follow Up
Pharmacy will continue to follow.
Vancomycin Follow UP
- -
Patient Age: 83
Patient Sex: Male
Vancomycin Day #: 2
Indication: Pulmonary/Respiratory
Requesting Provider: Dr. Salcido
Pertinent Antimicrobial Allergies:
no pertinent antibiotic allergies
Height / Weight:
Height 5 ft 6 in
Actual Weight 78.7 kg
Pertinent Past Medical History: ESRD on HD MWF, bladder cancer, s/p Vtach arrest (05/21)
- Vital Signs / Lab Results
Temp Pulse Resp BP Pulse Ox
98.5 F 94 16 117/51 99
05/22/24 08:07 05/22/24 08:30 05/22/24 08:30 05/21/24 17:36 05/22/24 08:54
Lab Results - Hematology
05/20/24 05/21/24 05/21/24
03:58 04:50 19:17
WBC 11.6 H 11.9 H 10.0
05/21/24 05/22/24
19:18 02:50
WBC Cancelled 13.9 H
Lab Results - Chemistry
05/20/24 05/21/24 05/21/24
03:58 04:50 19:17
BUN 54 H 72 H 39 H
Creatinine 4.3 H* 4.8 H*
Estimated Creat Clear 12 10
Albumin 3.0 L
05/21/24 05/21/24 05/21/24
19:17 19:17 19:17
BUN Cancelled
Creatinine 2.8 H Cancelled
Estimated Creat Clear 18 Cancelled
Albumin 2.8 L
05/22/24
02:50
BUN 47 H
Creatinine 3.2 H
Estimated Creat Clear 16
Albumin 2.7 L
Microbiology Results
05/21/24 09:43 Urine Culture - Preliminary
Urine Gram negative bacilli
05/21/24 10:17 Gram Stain - Preliminary
Endotracheal
Therapeutic Drug Monitoring
Random Vancomycin 11.4 ug/ml 05/22/24 02:50
[2024-05-22 09:10] LABS: Glucose - Point of Care 88 mg/dl (70-99)
--- NOTE | 2024-05-22 09:30 | PTCARENOTE ---
IR up to see the pt to place cath for CRRT. Pressor orders discussed with Drs, changed to SBP >90 (see orders). Trop bumped to 7.61, repeat @ 1300.
--- NOTE | 2024-05-22 10:19 | W.PN.INTV ---
Today's Communication / Plan
Recommendations
Discontinue vancomycin
Continue Zosyn
Follow cultures
Continue vasopressors
To start CRRT, dialysis line will be placed
Tube feedings as able
Insulin drip
Amiodarone drip
Continue mechanical ventilation without change
Continue sedation
Not candidate for spontaneous breathing
Assessment
-
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
[facility], atrial fibrillation not on anticoagulation, diabetes, status post VT arrest, shock/epinephrine/ROSC/intubation 05/19/2024
VDRF, intubated 05/19/2024
Extubated 05/20/2024
Reintubated 05/21/2024
Chest x-ray with right whiteout-likely atelectasis 05/21/2024
Cardiac arrest, monomorphic VT, 05/19/2024
While on the commode
Shock/Epi/intubation/ROSC
Shock: Suspect multiple mechanisms cardiogenic/septic
---
S/p DAKSHA graft 05/17/2024
Ongoing chest pain, NSTEMI
S/p CABG Restoration 12/09/2022
s/p NSTEMI August 2023, med managed at [facility]
Cardiomyopathy, EF 40% with
ESRD on HED
Mild oozing of left upper extremity fistula
Conditions present prior admission:
Transitional cell carcinoma, bladder
Status post transurethral resection of bladder tumor, most recently 50 tumors removed at [place] 09/01/2023
Paroxysmal atrial fibrillation
Not on anticoagulation due to anemia
Hypertension/hyperlipidemia
Diabetes
Plan/recommendations:
-
Remains critically ill, this morning increased work of breathing, worsening vasopressor requirements, chest x-ray with a right whiteout likely mucous plug/atelectasis.
Reintubated 05/21/2024.
Developed cardiorespiratory arrest V. tach/PEA status post epi and CPR. Regained ROSC.05/21/2024 around 7 PM.
-
Mechanical ventilation settings
ABG 05/22/2024: 7.40 2/35/127
Continue mechanical ventilation without significant changes.
Decrease FiO2 to maintain pulse ox above 92%
chest x-ray 05/22/2024: Showed layering pleural effusion and possible right lower lobe infiltrate versus atelectasis, improved aeration compared to priors
Continue with intermittent suctioning
Nebulizers as needed
-
Sedation with fentanyl RASS score 0 (-1)
Sedation break per protocol
-
Shock: Multiple mechanism septic/cardiogenic
With abnormal chest x-ray cannot rule out aspiration/pneumonia.
Penis with pus: Straight cath showed purulent urine.
Gram-negative clarence in the urine
Gram-negative clarence in the sputum
Continue Zosyn
Discontinue vancomycin
MRSA screening negative
Will follow identification
-
Continue norepinephrine/Bhavin-Synephrine/vasopressin-titrate for a systolic blood pressure 90 mmHg
Status post dialysis 05/21/2024.
Patient has received significant amount of IV fluids for hemodynamic support.
Continue stress dose of hydrocortisone for now- relative adrenal insufficiency-suspected
-
Reviewed cardiology correspondence
ICD prior to discharge if patient improved clinically.
Echocardiogram 05/17/2024: EF 45% with hypokinesis inferoseptal wall, moderate MR, moderate aortic stenosis.
LVEF 04/20/2024 showed decline 20 to 30%. No significant valvular abnormalities. No pericardial effusion
-
Unclear whether monomorphic VT was due to scar or recent drug-eluting stent/graft
V. tach/PEA arrest again on 05/21/2024.
Continue amiodarone drip-baseline atrial fibrillation rhythm
Cardiology following closely
Remains on aspirin/clopidogrel
Continue to monitor QT
-
Dobbhoff tube placed, receiving medications
Chronic kidney disease hemodialysis dependent.
Case discussed with nephrology.
Unable to tolerate hemodialysis, will be transition to CRRT.
Line will be placed
Hold midodrine for now.
Hyperglycemia blood sugars over 200.
Continue insulin, nurse practitioner has been consulted.
Target 140-180
Insulin sliding scale
Continue sedation break per protocol.
Patient has some delirium prior intubation.
Dobbhoff tube-tube feedings continue low rate.
PPI for GI prophylaxis
DVT prophylaxis with subcu hep
Dr. Salcido updated son at the bedside 05/22/2024, discussed possibility of DNR status. He will think about it. He understands that likely if patient survives he will need long-term care, suspected unlikely will be able to go home independently.
Dr. Salcido discussed with son over the phone and in person 05/21/2024. He is traveling down from [place] today. DNR status should be addressed.
Critical care statement: A total of 50 minutes of critical care time was provided for this patient today. This includes management of unstable vital signs, evaluation of the patient at bedside, reviewing the patient's pertinent medical records
including ventilator settings, arterial blood gases, radiographs, microbiology, laboratory evaluations and discussion with primary team, critical care nursing, and respiratory therapy.
Subjective Dataa
Subjective Data
Date of Service:
Date of Service: May 22, 2024
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
Subjective:
Remains critically ill
Requiring multiple vasopressors
On mechanical ventilation
Sedated
Review of Systems
General: Fever (n) and Unobtainable - Sedation
Objective Data
Data Reviewed
Vital Signs / I&O / Oxygen:
Vital Signs
Temp Pulse Resp BP Pulse Ox
98.5 F 94 18 117/51 95
05/22/24 08:07 05/22/24 09:30 05/22/24 09:30 05/21/24 17:36 05/22/24 09:46
Intake and Output
05/21/24 05/22/24 05/23/24
06:59 06:59 06:59
Intake Total 2784.0 / 2870.3 3071.3 / 3190.3 565.4 / 565.4
Output Total 75 / 75 87 / 87
Balance 2709.0 / 2795.3 2984.3 / 3103.3 565.4 / 565.4
SaO2 [ASV] 100
SaO2 [A/C] 98
SaO2 95
Nasal Cannula flow liters per 95
minute
Physical Exam
General: Respiratory Distress (Moderate/severe)
HEENT: Normocephalic and Other (Left upper extremity AV fistula)
Cardiovascular: S1-S2, Regular Rhythm, Murmur (n) and Rub (n)
Respiratory: Wheeze (n), Crackles (n), Rhonchi (n) and Non-Labored Respirations
GI: Soft, Non Distended and Non Tender
Neurology: Awake, Alert and No Motor Deficits (Moves all extremities)
Skin: Cyanosis (n), Jaundice (n) and Rash (n)
Labs/Micro/Reports
Lab Data
05/22/24 02:50
05/22/24 02:50
Laboratory Results
05/21/24 05/21/24 05/21/24
11:01 19:17 19:17
pH 7.31 L 7.39 Cancelled
pCO2 38 39
pO2 228 H
HCO3 19.1 L
O2 Delivery Level
05/21/24 05/21/24 05/21/24
19:17 19:17 19:17
pH
pCO2 Cancelled
pO2 77 L Cancelled
HCO3 23.6 Cancelled
O2 Delivery Level
05/21/24 05/22/24
19:17 02:50
pH 7.42
pCO2 35
pO2 127 H
HCO3 22.7
O2 Delivery Level Cancelled
Microbiology
05/21/24 10:17 Endotracheal Respiratory Culture - Preliminary
Gram negative bacilli
05/21/24 10:17 Endotracheal Gram Stain - Preliminary
05/21/24 09:43 Urine Urine Culture - Preliminary
Gram negative bacilli
[2024-05-22 11:15] LABS: Glucose - Point of Care 121 mg/dl (70-99)
[2024-05-22] MEDS: SUBLIMAZE 50 MCG IV ×2 (11:17→20:05)
--- NOTE | 2024-05-22 12:00 | PTCARENOTE ---
Systems reviewed. Medications taper per orders (see worklist).
[2024-05-22 12:02] VITALS: BP_SYST 101
[2024-05-22 12:47] VITALS: BP_SYST 109
[2024-05-22] MEDS: DEXTROSE 50% SYRINGE 12.5 GRAMS IV (12:55)
[2024-05-22] MEDS: SUBLIMAZE 100 IV (13:03)
[2024-05-22] MEDS: NEO-SYNEPHRINE 1% 260 MG IV ×2 (13:03→22:38)
[2024-05-22 13:05] LABS: Glucose - Point of Care 66 mg/dl (70-99)
[2024-05-22 13:29] LABS: Glucose - Point of Care 162 mg/dl (70-99)
--- NOTE | 2024-05-22 13:35 | PTCARENOTE ---
Pt hypoglycemic on glycemic protocol with tube feedings not at goal yet. Pt sedated on vent so difficult to notify symptoms. Gisela Francisco aware and glycemic stopped and orders obtained.
--- NOTE | 2024-05-22 13:38 | W.PN.HOSP.TC ---
Addendum entered and electronically signed by Jersey Durand MD 05/22/24 16:30:
VT arrest x2
Will require ICD prior to discharge
Continue amiodarone
Cards following without any further recs at this time
If recurs may need to try Lidocaine gtt/Defibrillation
Keep K >4
Keep Mg >2
Monitor on tele
Shock believed to be multifactorial in the setting of cardiogenic/septic.
Now Ucx and Rcx growing GNR. Recently intubated, cannot exclude VAP therefore which is usually pseudomonas related, agreeing with DCing Vanc and continuing Zosyn for now.
Will check Bcx, but has been on atb, this might affect the yeild of culture data and will consult ID
Continue pressor (maxed on levo/xiang, on vaso-standard dose) support along with Solu-Cortef and Zosyn
-I discussed with ICU about starting Dobutamine/Dopamine, but they are proarrhythmic and has had multiple VT arrest therefore, at this time would like to hold off.
-Unfortunately there is not much more we can provide in terms of pressor support and hopefully clinical course will turn around.
Follow-up blood cultures
Keep maps greater than 65
Wean pressors as tolerated
Acute hypoxemic respiratory failure secondary to mucous plugging as evident by chest x-ray as there is full right sided whiteout of the right lung. Now intubated. Will require pulmonary toilet with hypertonic saline nebs, precaution bed. If not
improving then likely would benefit from bronchoscopy with suction at bedside. ICU and pulmonary to decide
Daily CXR
SAT SBT daily
NSTEMI known CAD s/p CABG and PCI (05/17) to the SVG-PDA and saphenous vein graft/QUIANA angio. Continue Dapt. Cannot tolerate BB due to BP
HFrEF, ICM, EF 25-30%, unable to provide GDMT due to hypotension. Will need ICD prior to DC.
ESRD on HD continue HD per nephrology recommendations. Due to low BP's cannot provide HD any further, IR consulted for Temp HD line to initiate CRRT. CXR confirms placement of line
I spoke with Son in the family waiting area. Will remain full code.
Original Note:
Today's Communication/Plan
-
Discontinue Vanco, continue Zosyn, follow cultures, continue on pressors and amnio drip. Wean as possible. Family aware.
Assessment / Plan
Assessment / Plan
# Cardiogenic / septic shock
Ventilator dependent respiratory failure, intubated 05-19-2024
Cardiac arrest, monomorphic VT, 05-19-2024 Shock, CPR, epix2, intubation, ROSC, -> extubated ->re-intubated with mucous plug
05-21-2024 Cardiac arrest V-tach to PEA before shock possible -> CPRx2, epi 1, soidum bicarb ->ROSC ->rapid afib ->amio push ->amio gtt with 3 pressors still intubated
Levophed, phenylephrine, vasopressin
Goal systolic >90
Urine and endotracheal culture (-) bacilli
Zosyn continue day 2, discontinue vanc
Repeat chest x-ray layering pleural effusion and possible R lower lobe infiltrate vs atelectasis.
Cannot rule out pneumonia
Will continue with intermittent suctioning
IV corticosteroids stress doses
s/p drug-eluting stent for NSTEMI on 05/17/2024
[employer] following
Family was contacted, son coming down
#NSTEMI/CAD/HFrEF
s/p CABG with CABRAL to LAD, SVG to OM, SVG to PDA at [place] 12/09/22
s/p NSTEMI with patent bypass grafts, 70% OM stenosis being medically managed after cath at [facility] 08/2023
Troponins went back up to 14, now down trending to 11.9
Repeat Echo no significant changes from prior. LVEF 45-50% .
05/17 cath successful drug-eluting stent of the proximal portion of the SVG-PDA
Dual antiplatelet therapy for next 6 to 10 months
Echo 05/22 LVEF 25-30%
Fluid volume removal per HD
Will need ICD prior to discharge per cards
#End-stage renal disease
Cr. 4.8
Previously hemodialysis Tuesday
IR consulted for dialysis line placement for CRRT
Right chest wall HD cath
Nephrology following
# Hypotension
Midodrine 10 mg 3 times daily per cards -> hold per ICU
Now on multiple pressors in ICU
Continue Coreg with hold Entex for SBP less than 100
No nitroglycerin
Hold isosorbide dinitrate due to low BP upon cardiology discretion
# Electrolyte imbalance
Hypomagnesemia - Replete as needed
Hyponatremia - monitor
Keep K>4 and mg >2
Leukocytosis
WBC 11.5, temp 100.2 yesterday - likely secondary to cardiac arrest and intubation stress -> 13.9
Urine and endotracheal cultures gram-negative bacilli
Pip-tazo continue, discontinue vancomycin
Repeat chest x-ray unable to rule out pneumonia
Follow-up culture sensitivities
Monitor WBC, consider antibiotics if uptrend or spikes fever
# Ischemic cardiomyopathy
Coreg with hold index for SBP less than 100
Continue with aspirin statin
Already on Onglyza
Not a candidate for ARB/RAJIV inhibitor due to end-stage renal disease
#Elevated AST
Elevated Bili
likely 2/2 hypotension
Monitor
#Ambulatory dysfunction
PT/OT consult
#Paroxysmal A-fib
Not on Eliquis due to history of hematuria and severe anemia
ASA
On Coreg as above
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
Damion [place]. TURBT 50 lesions were reportedly worked on on 09/01/2023.
developed hematuria and a temporary placement of renal stent followed by continuous bladder irrigation
Eliquis discontinued
# Type 2 diabetes
Hemoglobin A1c 7.1
Insulin gtt
#Dyslipidemia
Continue statin, Zetia
#B12 deficiency�replace
#Chronic vertigo
Anticipated Discharge: > 48 hours
Subjective/Interval History
-
Date of Service: May 22, 2024
Objective Data
-
Labs:
Laboratory Results
05/22/24
02:50
WBC 13.9 H
Hgb 12.7 L
Hct 37.0 L
Plt Count 121 L
HCO3 22.7
Sodium 134 L
Potassium 4.2
Chloride 95 L
Carbon Dioxide 21 L
BUN 47 H
Creatinine 3.2 H
Glucose 99
Calcium 9.3
Total Bilirubin 1.8 H
AST 139 H
ALT 65 H
Alkaline Phosphatase 65
Vital Signs:
Vital Signs
Temp Pulse Resp BP Pulse Ox
98.3 F 93 16 117/51 93
05/22/24 11:36 05/22/24 13:30 05/22/24 13:30 05/21/24 17:36 05/22/24 13:30
I&O
05/21/24 05/22/24 05/23/24
06:59 06:59 06:59
Intake Total 2784.0 / 2870.3 3071.3 / 3190.3 958.6 / 958.6
Output Total 75 / 75 87 / 87
Balance 2709.0 / 2795.3 2984.3 / 3103.3 958.6 / 958.6
Review of Systems
-
Unable to obtain full review of systems at this time due to: Patient Intubation
Physical Exam
-
General: Intubated
Respiratory: Crackles
Cardiac: Regular Rhythm and S1/S2
GI: Soft, Normal Bowel Sounds and Distended
Musculoskeletal: No Edema
Skin: Warm
Neuro: Negative AO x 3
[2024-05-22 13:39] VITALS: BP_SYST 99
[2024-05-22] MEDS: LANTUS 0.1 UNITS SC (14:20)
[2024-05-22 14:40] VITALS: BP_SYST 80
--- NOTE | 2024-05-22 14:41 | CM ---
CM following re: discharge planning.
Discussed in Rounds, reviewed pt's chart, met with pt and pt's family at bedside. Per Rounds, pt remain critically ill, remains intubated, CRRT will start tomorrow if pt remains hemodynamically unstable.
D/C plan: uncertain at this time and will depend on pt's progress.
CM will follow with discharge plan updates as hospitalization progresses
[2024-05-22 14:47] VITALS: BP_SYST 79
[2024-05-22 15:22] LABS: Glucose - Point of Care 163 mg/dl (70-99)
--- NOTE | 2024-05-22 15:27 | PTCARENOTE ---
Pt was being weaned on xiang and levo. Pt BP started to drop, maxed out on xiang and levo. Amio and vaso gtt maintained. All physicians aware of above. Dr. Salcido in to update the son.
--- NOTE | 2024-05-22 16:24 | CON.ID ---
Consultation
-
Date/Time Consultation Requested: 05/22/24 16:06
Date/Time Consultation Performed: 05/22/24 16:24
Requesting Provider: Dr Johnson for Dr Durand
Performing Provider: Dr Dong
Reason for Consultation: progressie shock
Chief Complaint / Past History
Chief Complaint
chest pain
History of Present Illness
Mr Byrd is an 84 year old male with history of CAD, CABG 2022, CHF, ESRD on HD, DM2, bladder cancer with yearly resections who presented here 05/16 for chest pain. Chest pain was constant at home for hours with no improvement with SL nitro x3.
Also shortness of breath. He was started on phosphate binders however with diarrhea and then had difficulty removing fluid with HD due to hypotension the week prior to arrival, had increased LE edema but no weight gain. found to have mild volume
overload on arrival and midodrine was added for bp support. He was having bleeding from the fistula post HD and self discontinued aspirin.
Since arrival here he was initially afebrile, bp stable, wbc 6.2, hbg 12.8, plt 98, L shift was noted, K 4.4, bnp <13988, troponins cycled and peaked at 20. echo with EF 45-50% and wall motion abnormalities on 05/17. 05/17 Had recurrent chest pain
and taken for cardiac cath wwith stenting of proximal SVG-PADA. On 05/19 patient found unresponsive in monomorphic VT on the toilet, taken out of bed and CPR started, shocked x1, given epi and intubated, amiodarone started but became bradycardiac
and atropine/epi givne - ROSC achieved. He was started on levophed and pressor requirements have been ongoing and uptitrating since that time. On 05/20 compalined of a tooth ache and was noted to have poor dentition. phenylephrine was added.
Rpeat echo 05/21 with EF dropped to 30-35% and moderately reduced LV systolic function, same day with right lung white out, turned on the L side, duoneb and low threshold to intubate, patient was reintubated same day. ET tube culture GNR and urine
culture also 100K GNR, started on broad spectrum antibiotis and stress dose steroids, vasopressin was added. vancomycin and zosyn were started 05/21/24. Later same day developed respiratory arrest and again required CPR. Then, repeat echo today
05/22 with further decline in EF t o25-30%. Notably increased levophed dose from teens to 30s over about 36 hours and remains on 3x pressors, remains on HD though considering crrt. QTc is 420, there is a 1st degree av block. Labs today notable for
wbc 13.9 (increased from 10) hgb 12.7, plt 121, no diff, CXR today RIJ in place, there is interval reexpansion of the L lung with infiltrates, previous cultures reviewed, no history of resistant gnr
Past History
Additional Past Medical History:
CAD/SD, type II NSTEMI September 05, 2023, CABG November 2022 with postop A-fib placed on Eliquis, HTN, HLD, CHF, GERD, ESRD on dialysis, bladder CA, BPH, DM2, glaucoma, anemia, [place], vertigo
Additional Past Surgical History:
Diagnostic cardiac cath [facility] September 05, 2023 no intervention
Bladder tumor removal 2002 yearly bladder tumor removals recent greater than 5215 2023
Lateral cataract extraction
Dialysis catheter
CABG x 3 vessel November 2022
Left arm fistula 05/06/2023
Right chest wall HD cath
Allergy History:
ephedrine Allergy (Verified 05/16/24 11:14)
Unknown - years ago
Medications Reviewed: Yes
Social History
Tobacco: Non-Smoker
Alcohol: None
Drug: None
Family History
Family History: Not Pertinent
Review of Systems
Review of Systems
General: Negative Fever or Chills
All systems: All other systems were reviewed and were negative
Vital Signs
Temp Pulse Resp BP Pulse Ox
99.1 F 89 16 117/51 95
05/22/24 15:23 05/22/24 16:00 05/22/24 16:00 05/21/24 17:36 05/22/24 16:20
Physical Exam
Physical Exam
Constitutional: Acutely Ill and Chronically Ill
Cardiovascular: Regular Rate and S1/S2; Negative Murmur or Rub
Pulmonary: Symmetric and Other (coarse, thin secretion in ett canister); Negative Wheezes, Rales or Rhonchi
Gastrointestinal: Soft, Non Tender, Non Distended and Normal Bowel Sounds
Skin: Warm and Dry; Negative Rash or Jaundice
Neurological: Negative Awake
Lab / Diagnostic Study Results
05/22/24 02:50
05/22/24 02:50
Abs Immat Gran (auto) 0.0 10^3/uL (0-0.05) 05/16/24 11:51
Absolute Neuts (auto) 5.1 10^3/uL (1.4-6.5) 05/16/24 11:51
Absolute Lymphs (auto) 0.6 10^3/uL (1.2-3.4) L 05/16/24 11:51
Absolute Monos (auto) 0.5 10^3/uL (0.1-0.6) 05/16/24 11:51
Absolute Basos (auto) 0.0 10^3/uL (0-0.2) 05/16/24 11:51
Immature Gran % 0.3 % (0-0.5) 05/16/24 11:51
Neutrophils % 81.3 % (42.2-75.2) H 05/16/24 11:51
Lymphocytes % 10.0 % (20.5-51.1) L 05/16/24 11:51
Monocytes % 8.2 % (1.7-9.3) 05/16/24 11:51
Eosinophils % 0.0 % (0-6) 05/16/24 11:51
Basophils % 0.2 % (0-2) 05/16/24 11:51
PT 16.2 Sec (11.4-14.6) H 05/19/24 06:16
INR 1.32 05/19/24 06:16
Microbiology Results
Micro:
05/21/24 10:17 Respiratory Culture - Preliminary
Endotracheal Gram negative bacilli
Gram Stain - Preliminary
05/21/24 09:43 Urine Culture - Preliminary
Urine Gram negative bacilli
05/16/24 18:42 MRSA Screen - Final
Nose No Methicillin Resistant Staphylococcus aureus isolated.
Assessment / Plan
Shock - likely combined cardiogenic and septic
Likely disseminated Infection
VAP and UTI
NSTEMI, CAD
Transitional cell cancer of the bladder
- ordered blood cultures x2 for shock; would not be surprised if bacteremic
- sputum culture with mod GNR and normal resp michael
- urine culture 100 K GNR
- increasing pressor requirements noted
- start meropenem stop zosyn - dosed for HD - if converts to CRRT will require adjustment
- add ciprofloxacin 500 mg PO q24 hours - if converts to CRRT will require adjustment
- recheck QTc in the AM (ciprofloxacin with less effect on QTc than levofloxacin)
Prognosis guarded
Care Review
Plan reviewed with: Physician (Dr Barrera - blood cultures,)
--- NOTE | 2024-05-22 16:53 | W.PN.UPDATE ---
Update Note
Progress Note Update
Patient remains critically ill.
On 3 vasopressors.
On a stress dose of corticosteroids.
On broad-spectrum antibiotics for gram-negative clarence in the urine as well as sputum.
Final culture identification pending.
Repeat echocardiogram 05/22/2024: Showed moderate to severe reduced left ventricular systolic function. Ejection fraction 25 to 30%. Global hypokinesis. Dilated right ventricle with reduced right ventricular systolic function. Moderate to severe
MR. Moderate to severe TR.
Acid-base status is adequate. No need for bicarbonate drip.
-
Unfortunately, no good options for ongoing hemodynamic support at this point.
Continue with above.
Unlikely to tolerate inotropes.
Next will need to consider epinephrine drip.
Continue to monitor for fevers.
Follow final culture results.
Prognosis guarded.
-
I personally discussed with son at the bedside this afternoon. Suggested DNR status. He is thinking about it.
-
additional CCT 26 min
[2024-05-22] MEDS: NOVOLOG FLEXPEN-LOW RESISTANCE 1 UNITS SC (17:05)
--- NOTE | 2024-05-22 17:06 | PTCARENOTE ---
orders noted for blood cultures. pt dependent on pressors so unable to draw from picc, too edematous to draw peripherally and pt has fistula on Larm. Dr Freedman approved drawing tomorrow with CRRT from HD line, but not until tomorrow. Dr
Letitia made aware.
[2024-05-22] MEDS: CRESTOR 10 MG TUBE (17:08)
[2024-05-22 17:15] LABS: Glucose - Point of Care 169 mg/dl (70-99)
[2024-05-22] MEDS: CIPRO 500 MG TUBE (17:44)
[2024-05-22] MEDS: MERREM 500 MG IV (17:44)
[2024-05-22] MEDS: STERILE WATER FOR INJECTION 10 ML IV (17:44)
--- NOTE | 2024-05-22 18:11 | PTCARENOTE ---
Dr Dong up to see the pt. States the importance about drawling the BC. Jasmina made aware from Letitia, if BC are needed we are able to pull from his HD IJ. Awaiting for heparin flush for BC to be drawn.
[2024-05-22] MEDS: CORDARONE 518 MG IV (18:54)
[2024-05-22] MEDS: XALATAN OPHTHALMIC SOLUTION 1 DROP BOTH EYES (20:56)
[2024-05-22] MEDS: HEPARIN 1200 UNITS INTRACATH (20:56)
--- NOTE | 2024-05-22 22:00 | PTCARENOTE ---
Blood cultures drawn from HD cath as ordered. Pt had BM. Sat maintained, however BP 60-70s with turning. Once settled, pt returned to SBP 90s. Remains maxed on 3 pressors to maintain SBP goal. Otherwise assessment unchanged. Son updated over the
phone. Will monitor.
[2024-05-22 23:35] LABS: Glucose - Point of Care 199 mg/dl (70-99)
[2024-05-23] VITALS (8 sets, daily range): BP systolic 60–130; BMI 29.0
[2024-05-23] MEDS: NOVOLOG FLEXPEN-LOW RESISTANCE 1 UNITS SC (01:00)
--- NOTE | 2024-05-23 01:00 | PTCARENOTE ---
Unable to wean pressors overnight. Assessment remains unchanged. Will monitor.
[2024-05-23 03:41] LABS: B.E. -6.4 mmol/L; HCO3 18.1 mmol/L (21-28); O2 Saturation % 97.8 % (94-98); PCO2 32 mmHg (35-48); PO2 87 mmHg (83-108); pH 7.36 (7.35-7.45)
[2024-05-23 03:50] LABS: O2 Therapy VENT
[2024-05-23 03:52] LABS: Hematocrit 32.6 % (39.0-52.0); Hemoglobin 11.2 g/dL (13.0-18.0); Mean Corp Hgb Conc. 34.4 g/dL (33.0-37.0); Mean Corpuscular Hgb 26.3 pg (27.0-31.0); Mean Corpuscular Volume 76.5 fL (80.0-94.0); Platelet Count 105 10^3/uL (130-400); Red Blood Cell Count 4.26 10^6/uL (4.70-6.10); Red Cell Dist. Width 21.2 % (11.5-14.5); White Blood Cell Count 13.5 10^3/uL (4.8-10.8)
[2024-05-23] MEDS: SUBLIMAZE 100 IV ×2 (03:53→21:53)
--- NOTE | 2024-05-23 04:00 | PTCARENOTE ---
AM care provided. Labs pending. Assessment remains unchanged. Updated son over the phone this am. Will monitor.
[2024-05-23 05:25] LABS: ALT (SGPT) 184 U/L (0-50); AST (SGOT) 444 U/L (17-59); Albumin 2.5 g/dl (3.5-5.0); Alkaline Phosphatase 57 U/L (38-126); Blood Urea Nitrogen 62 mg/dl (9-20); Calcium 9.3 mg/dl (8.4-10.2); Carbon Dioxide 14 mmol/L (22-30); Chloride 97 mmol/L (98-107); Direct Bilirubin 1.8 mg/dl (0.0-0.4); Estimated Creatinine Clearance 12 ml/min; Glucose 225 mg/dl (70-99); Potassium 4.6 mmol/L (3.5-5.1); Sodium 132 mmol/L (135-145); Total Bilirubin 2.1 mg/dl (0.2-1.3); eGFR 13.65
[2024-05-23] MEDS: NEO-SYNEPHRINE 1% 260 MG IV ×3 (05:42→23:46)
[2024-05-23] MEDS: SOLU-CORTEF 50 MG IV ×4 (05:42→23:52)
[2024-05-23] MEDS: NOVOLOG FLEXPEN-LOW RESISTANCE 2 UNITS SC (05:58)
[2024-05-23 06:08] LABS: Glucose - Point of Care 220 mg/dl (70-99)
[2024-05-23] MEDS: LEVOPHED 258 MG IV ×4 (06:08→23:40)
[2024-05-23] MEDS: SODIUM BICARBONATE 50 MEQ IV (06:32)
[2024-05-23] MEDS: PLAVIX 75 MG TUBE (07:20)
[2024-05-23] MEDS: PROTONIX IV 40 MG IV (07:20)
[2024-05-23] MEDS: HEPARIN 5000 UNITS SC ×3 (07:20→23:52)
[2024-05-23] MEDS: LOW STRENGTH ASPIRIN 81 MG TUBE (07:20)
[2024-05-23] MEDS: MIRALAX 17 GRAMS TUBE (07:20)
--- NOTE | 2024-05-23 08:23 | PN.DE.MGMTRT ---
Insulin Management
- -
05/23/2024 Diabetes management consult follow up
83-year-old male with complex PMH including CAD s/p CABG, recent DAKSHA/graft 05/17/2024, ESRD on HD, bladder CA ongoing treatment at [facility], A-Fib, T2DM. Pt is s/p VT arrest, shock/epinephrine/ROSC/intubated 05/19, extubated 05/20 and
reintubated 05/21 due to Septic shock source. A1C on admission 7.1%, was taking Onglyza 5mg daily. Cr 4.8, eGFR 11.3.
Pt has been started corticosteroid stress doses, contributing to hyperglycemia-->critical care glycemic protocol for optimal glucose control.
Pt is critically ill and hypotensive, requiring multiple pressors, unable to interview.
05/22 Patient receiving tube feeds @ 50 per hour, goal is 70 per hour. Glycemic protocol insulin infusion off at 12:00 noon due to glucose 66. Lantus 10 units started at that time with low corrective insulin.
05/23 Glucose this AM 220. Patient remains on steroids and pressors, with tube feeds at goal, 70 per hour. Will increase AM lantus to 16 units and corrective from low to moderate Q 6 hours. 12 noon glucose 295 will add 6 units novolog Q 6 hours.
Discussed with patients nurse.
Diabetes History
- -
Type of Diabetes: 2
Pre-Admission Diabetes Regimen
05/23/24 05/23/24
03:26 04:45
Creatinine Cancelled 4.1 H*
Lab Results
Hemoglobin A1c 7.1 % (4.0-5.6) H 05/16/24 19:00
Insulin Pump Settings
IP Diabetes Regimen
05/22/24 05/22/24 05/22/24
08:58 11:00 12:53
Glucose
POC Glucose 88 121 H 66 L
05/22/24 05/22/24 05/22/24
13:18 15:10 17:03
Glucose
POC Glucose 162 H 163 H 169 H
05/22/24 05/23/24 05/23/24
23:24 03:26 04:45
Glucose Cancelled 225 H
POC Glucose 199 H
05/23/24
05:56
Glucose
POC Glucose 220 H
Patient Education
--- NOTE | 2024-05-23 08:27 | W.PN.NEPH.PH ---
Today's Communication / Plan
-
CRRT
Assessment/Plan
-
Assessment:
CP
Elevated troponin
Transitional cell carcinoma of the bladder
s/p CABG - CABRAL to LAD, SVG to OM, SVG to PDA 12/09/22 at [place]
CM EF 40% by echo 09/15/23
Type 2 NSTEMI s/p diagnostic cath 08/2023 at [facility] with patent bypass grafts, 70% OM stenosis, medically managed
Post CABG afib
ESRD on HD MWF
mild
Hypertension
Hyperlipidemia
Type 2 diabetes
Glaucoma
Hyponatremia
Plan
keep MAP>65
maxed on three pressors. only epi/giapreza left to use if needed
family wishes full support
start CRRT
UF 50ml/hr to keep balance
prognosis poor
critical care time 31 minutes
-
-
Date of Service: May 23, 2024
CC / HPI / ROS
-
Chief Complaint:
ESRD
History of Present Illness:
critically ill in ICU
Status post ventricular tachycardia and PEA/cardiac arrest
Remains on 3 pressor support
Intubated, sedated
Review of Systems:
Intubated
no fevers
Labs
-
Labs:
WBC 13.5 10^3/uL (4.8-10.8) H 05/23/24 03:26
RBC 4.26 10^6/uL (4.70-6.10) L 05/23/24 03:26
Hgb 11.2 g/dL (13.0-18.0) L 05/23/24 03:26
Hct 32.6 % (39.0-52.0) L 05/23/24 03:26
Plt Count 105 10^3/uL (130-400) L 05/23/24 03:26
Sodium 132 mmol/L (135-145) L 05/23/24 04:45
Potassium 4.6 mmol/L (3.5-5.1) 05/23/24 04:45
Chloride 97 mmol/L (98-107) L 05/23/24 04:45
Carbon Dioxide 14 mmol/L (22-30) L* 05/23/24 04:45
BUN 62 mg/dl (9-20) H 05/23/24 04:45
Creatinine 4.1 mg/dL (0.7-1.3) H* 05/23/24 04:45
eGFR 13.65 05/23/24 04:45
Glucose 225 mg/dl (70-99) H 05/23/24 04:45
Calcium 9.3 mg/dl (8.4-10.2) 05/23/24 04:45
Pfs-O-Brxyybdtpeh Pept > 82297 pg/ml 05/16/24 11:51
Albumin 2.5 g/dl (3.5-5.0) L 05/23/24 04:45
Physical Exam
-
Vital Signs:
Vital Signs
Temp Pulse Resp BP Pulse Ox
100.2 F 100 16 117/51 95
05/23/24 07:02 05/23/24 07:00 05/23/24 07:00 05/21/24 17:36 05/23/24 08:00
Cardiovascular:: Regular rate and rhythm
Respiratory:: Bilateral: Coarse
Lung Excursion:: Normal
Abdomen:: Nontender and Soft
Bowel Sounds:: Decreased
Extremity Edema:: +1: Bilateral:
--- NOTE | 2024-05-23 09:14 | W.PN.ID1 ---
Addendum entered and electronically signed by Laquita Dong MD 05/23/24 11:40:
chart checked, isolate is not IDd yet
Original Note:
Date of Service
Date of Service: May 23, 2024
Today's Communication
- c/w meropenem - dosed for HD - when converts to CRRT will require adjustment - pharmacy will assist with ordering when set up
- c/w ciprofloxacin 500 mg PO q24 hours - when converts to CRRT will require adjustment - pharmacy will assist with ordering when set up
- rechecked QTc and acceptable
Patient is critically ill, prognosis appears grim
Assessment / Plan
Shock - likely combined cardiogenic and septic
Likely disseminated Infection
VAP and UTI
NSTEMI, CAD
MSOF
ESRD on HD
Transitional cell cancer of the bladder
- blood cultures x2 in progress
- sputum culture with mod GNR and normal resp michael
- urine culture 100 K GNR
- remains on high doses of three pressors
- c/w meropenem - dosed for HD - when converts to CRRT will require adjustment - pharmacy will assist with ordering when set up
- c/w ciprofloxacin 500 mg PO q24 hours - when converts to CRRT will require adjustment - pharmacy will assist with ordering when set up
- rechecked QTc and acceptable
Patient is critically ill, prognosis appears grim
Chief Complaint
-: Other (shock - septic and cardiogenic)
Subjective / Review of Systems
T curve is trending up
norepi dose overall stable overnight, phenylephrine remains high, vaso on
progression of acidosis
shock liver
Vital Signs / Physical Exam
Vital Signs
Vital Signs
Temp Pulse Resp BP Pulse Ox
100.2 F 100 16 117/51 95
05/23/24 07:02 05/23/24 07:00 05/23/24 07:00 05/21/24 17:36 11/06/24 08:00
Physical Exam
Constitutional: Acutely Ill and Chronically Ill
Cardiovascular: Regular Rate and S1/S2; Negative Murmur or Rub
Pulmonary: Clear and Symmetric; Negative Wheezes or Rales
Gastrointestinal: Soft, Non Tender, Non Distended and Normal Bowel Sounds
Skin: Warm and Dry; Negative Rash or Jaundice
Neurological: Negative Awake
Objective Data
Lab Data
Lab Results
05/23/24 03:26
05/23/24 04:45
PT 16.2 Sec (11.4-14.6) H 05/19/24 06:16
INR 1.32 05/19/24 06:16
APTT 37.0 Sec (23.4-35.0) H 05/19/24 06:16
Estimated Creat Clear 12 ml/min 05/23/24 04:45
Total Bilirubin 2.1 mg/dl (0.2-1.3) H 05/23/24 04:45
AST 444 U/L (17-59) H 05/23/24 04:45
ALT 184 U/L (0-50) H 05/23/24 04:45
Alkaline Phosphatase 57 U/L (38-126) 05/23/24 04:45
Most recent labs reviewed.
Micro Results:
05/21/24 10:17 Respiratory Culture - Preliminary
Endotracheal Gram negative bacilli
Gram Stain - Preliminary
05/22/24 21:38 Blood Culture - Pending
Blood/Venous
05/22/24 20:58 Blood Culture - Pending
Blood/Venous
05/21/24 09:43 Urine Culture - Preliminary
Urine Gram negative bacilli
05/16/24 18:42 MRSA Screen - Final
Nose No Methicillin Resistant Staphylococcus aureus isolated.
[2024-05-23] MEDS: RFP-401 HD Soln (K+ 4 mEq/L) 15000 ML CRRT-IRR ×2 (09:35→19:03)
[2024-05-23] MEDS: LANTUS 0.16 UNITS SC (09:55)
[2024-05-23 10:05] LABS: Glucose - Point of Care 277 mg/dl (70-99)
--- NOTE | 2024-05-23 10:23 | W.PN.INTV ---
Today's Communication / Plan
Recommendations
Continue mechanical ventilation without change
Continue to wean down vasopressors maintain mean arterial blood pressure greater than 65 mmHg
Check lactic acid
Follow acidosis
CRRT today
Continue antibiotic
Right upper quadrant ultrasound today
Follow culture identification
Insulin drip
Stress dose of steroids will continue without change
Continue amiodarone drip
Anticoagulation
Prognosis is poor
Assessment
-
83-year-old male with complex medical history including coronary disease with bypass surgery, recent drug-eluting stent and graft 05/17/2024, end-stage renal disease on hemodialysis, transitional cell carcinoma the bladder ongoing treatment at [place]
[facility], atrial fibrillation not on anticoagulation, diabetes, status post VT arrest, shock/epinephrine/ROSC/intubation 05/19/2024
VDRF, intubated 05/19/2024
Extubated 05/20/2024
Reintubated 05/21/2024
Chest x-ray with right whiteout-likely atelectasis 05/21/2024
Shock: Suspect multiple mechanisms cardiogenic/septic
Gram-negative in the sputum
Gram-negative in the urine
Cardiac arrest, monomorphic VT, 05/19/2024
While on the commode
Shock/Epi/intubation/ROSC
---
S/p DAKSHA graft 05/17/2024
Ongoing chest pain, NSTEMI
S/p CABG [facility] 12/09/2022
s/p NSTEMI August 2023, med managed at [facility]
Cardiomyopathy, EF 40% with
ESRD on HED
Mild oozing of left upper extremity fistula
Conditions present prior admission:
Transitional cell carcinoma, bladder
Status post transurethral resection of bladder tumor, most recently 50 tumors removed at [place] 09/01/2023
Paroxysmal atrial fibrillation
Not on anticoagulation due to anemia
Hypertension/hyperlipidemia
Diabetes
Plan/recommendations:
-
Remains critically ill, this morning increased work of breathing, worsening vasopressor requirements, chest x-ray with a right whiteout likely mucous plug/atelectasis.
Reintubated 05/21/2024.
Developed cardiorespiratory arrest V. tach/PEA status post epi and CPR. Regained ROSC.05/21/2024 around 7 PM.
-
Mechanical ventilation settings
ABG 05/22/2024: 7.42/35/127
ABG 05/23/2024: 7.36/32/87
Continue mechanical ventilation without significant changes.
Decrease FiO2 to maintain pulse ox above 92%
chest x-ray 05/22/2024: Showed layering pleural effusion and possible right lower lobe infiltrate versus atelectasis, improved aeration compared to priors
Continue with intermittent suctioning-minimal secretion
Nebulizers as needed
-
Sedation with fentanyl RASS score 0 (-1)
Sedation break per protocol
-
Shock: Multiple mechanism septic/? cardiogenic (echocardiogram with global hypokinesis decreased LVEF 20 to 30%/RV dysfunction as well)
With abnormal right lower lobe abnormality, layering right pleural chest x-ray cannot rule out aspiration/pneumonia.
Penis with pus: Straight cath showed purulent urine.
Gram-negative clarence in the urine
Gram-negative clarence in the sputum
Blood culture pending
Infectious disease consulted: Antibiotics transition to ertapenem/Cipro. At risk for multidrug-resistant bacteria.
In the past only positive with Enterococcus
Discontinued vancomycin
MRSA screening negative
-
Continue norepinephrine/Bhavin-Synephrine/vasopressin-titrate for a systolic blood pressure 90 mmHg-requirements have not changed.
Doubt dobutamine or dopamine will be of any significant help. Due to history of arrhythmias unlikely to tolerate either.
If additional pressors required epinephrine or Giapreza will be added.
Arterial line
-
Abnormal LFTs: Suspect shock liver.
Rule out cholecystitis-right upper quadrant ultrasound pending. Abdominal exam is benign
-
Acidosis noted: CRRT to be started-unable to tolerate dialysis due to hemodynamic instability.
Did receive 1 dose of bicarb earlier today.
-
Will check a lactate level
Patient has received significant amount of IV fluids for hemodynamic support.
-
Continue stress dose of hydrocortisone for now- relative adrenal insufficiency-suspected
-
Reviewed cardiology correspondence
ICD prior to discharge if patient improved clinically.
Echocardiogram 05/17/2024: EF 45% with hypokinesis inferoseptal wall, moderate MR, moderate aortic stenosis.
LVEF 04/20/2024 showed decline 20 to 30%. No significant valvular abnormalities. No pericardial effusion
Echocardiogram 04/21/2024: Ejection fraction 20 to 30%. Global hypokinesis with inferior and inferior lateral akinesis. Dilated right ventricle with reduced right ventricular systolic function. Moderate to severe MR. Moderate to severe TR.
-
Unclear whether monomorphic VT was due to scar or recent drug-eluting stent/graft
V. tach/PEA arrest again on 05/21/2024.
Continue amiodarone drip-baseline atrial fibrillation rhythm
Cardiology following closely
Remains on aspirin/clopidogrel
Continue to monitor QT
-
Dobbhoff tube placed, receiving medications
Chronic kidney disease hemodialysis dependent.
Case discussed with nephrology.
To be transition to CRRT today 05/23/2024.
Hold midodrine for now.
Hyperglycemia blood sugars over 200.
Continue insulin, nurse practitioner has been consulted.
Target 140-180
Insulin sliding scale
Continue sedation break per protocol.
Patient has some delirium prior intubation.
Dobbhoff tube-tube feedings continue low rate.
PPI for GI prophylaxis
DVT prophylaxis with subcu hep
Dr. Salcido updated son at the bedside 05/22/2024, discussed possibility of DNR status. He will think about it. He understands that likely if patient survives he will need long-term care, suspected unlikely will be able to go home independently.
Dr. Salcido discussed with son over the phone and in person 05/21/2024. He is traveling down from [place] today. DNR status should be addressed.
Critical care statement: A total of 45 minutes of critical care time was provided for this patient today. This includes management of unstable vital signs, evaluation of the patient at bedside, reviewing the patient's pertinent medical records
including ventilator settings, arterial blood gases, radiographs, microbiology, laboratory evaluations and discussion with primary team, critical care nursing, and respiratory therapy.
Subjective Dataa
Subjective Data
Date of Service:
Date of Service: May 23, 2024
Chief Complaint: Internet Marketing Intern Follow Up (Acute hypoxemic/hypercapnic respiratory failure)
Subjective:
Remains critically ill, intubated and on mechanical ventilation.
Remains on 3 vasopressors
Review of Systems
General: Unobtainable - Sedation
Objective Data
Data Reviewed
Vital Signs / I&O / Oxygen:
Vital Signs
Temp Pulse Resp BP Pulse Ox
100.2 F 97 16 117/51 100
05/23/24 07:02 05/23/24 09:00 05/23/24 09:00 05/21/24 17:36 05/23/24 09:23
Intake and Output
05/22/24 05/23/24 05/24/24
06:59 06:59 06:59
Intake Total 3071.3 / 3190.3 3759.3 / 3929.6 604.3 / 604.3
Output Total 87 / 87
Balance 2984.3 / 3103.3 3759.3 / 3929.6 604.3 / 604.3
SaO2 [ASV] 100
SaO2 [A/C] 95
SaO2 100
Nasal Cannula flow liters per 95
minute
Physical Exam
General: Respiratory Distress (none, sedated)
HEENT: Normocephalic and Other (ET tube in place)
Cardiovascular: S1-S2, Regular Rhythm, Murmur (n) and Rub (n)
Respiratory: Wheeze (n), Crackles (n), Rhonchi (n) and Non-Labored Respirations
GI: Soft, Non Distended and Non Tender
Neurology: Awake and Other (Intubated, mechanical ventilation. Sedated)
Skin: Cyanosis (n), Jaundice (n), Rash (n) and Other (Left upper extremity AV fistula)
Labs/Micro/Reports
Lab Data
05/23/24 03:26
05/23/24 04:45
Laboratory Results
05/23/24
03:26
pH 7.36
pCO2 32 L
pO2 87
HCO3 18.1 L
O2 Delivery Level Vent
Microbiology
05/21/24 10:17 Endotracheal Respiratory Culture - Preliminary
Gram negative bacilli
05/21/24 10:17 Endotracheal Gram Stain - Preliminary
05/21/24 09:43 Urine Urine Culture - Preliminary
Gram negative bacilli
--- NOTE | 2024-05-23 11:18 | PTCARENOTE ---
Pt hooked up to CRRT, pt is currently tolerating it.
[2024-05-23] MEDS: STERILE WATER FOR INJECTION 20 ML IV (11:31)
[2024-05-23] MEDS: MERREM 1000 MG IV (11:31)
[2024-05-23] MEDS: NOVOLOG FLEXPEN-MODERATE RESISTANCE 5 UNITS SC (11:51)
--- NOTE | 2024-05-23 11:51 | W.PN.HOSP.TC ---
Addendum entered and electronically signed by Jersey Durand MD 05/23/24 13:00:
VT arrest x2
Will require ICD prior to discharge
Continue amiodarone
Cards following without any further recs at this time
If recurs may need to try Lidocaine gtt/Defibrillation
Keep K >4
Keep Mg >2
Monitor on tele
Shock believed to be multifactorial in the setting of cardiogenic/septic.
Now Ucx and Rcx growing GNR. Recently intubated, cannot exclude VAP therefore which is usually pseudomonas related, agreeing with DCing Vanc/zosyn and continuing bud for now.
Will check Bcx, but has been on atb, this might affect the yeild of culture data and will consulted ID, ID Dc'd zosyn and start meropenem
Continue pressor (maxed on levo/xiang, on vaso-standard dose) support along with Solu-Cortef and bud
-I discussed with ICU about starting Dobutamine/Dopamine, but they are proarrhythmic and has had multiple VT arrest therefore, at this time would like to hold off.
-Unfortunately there is not much more we can provide in terms of pressor support and hopefully clinical course will turn around.
-May be able to provide epi gtt per ICU if needed
Follow-up blood cultures
Keep maps greater than 65
Wean pressors as tolerated
Acute hypoxemic respiratory failure secondary to mucous plugging as evident by chest x-ray as there is full right sided whiteout of the right lung. Now intubated. Will require pulmonary toilet with hypertonic saline nebs, precaution bed. If not
improving then likely would benefit from bronchoscopy with suction at bedside. ICU and pulmonary to decide
Daily CXR
SAT SBT daily
NSTEMI known CAD s/p CABG and PCI (05/17) to the SVG-PDA and saphenous vein graft/QUIANA angio. Continue Dapt. Cannot tolerate BB due to BP
HFrEF, ICM, EF 25-30%, unable to provide GDMT due to hypotension. Will need ICD prior to DC.
ESRD on HD continue HD per nephrology recommendations.
Will start crrt today
total time 46mins
Original Note:
Today's Communication/Plan
-
Continue antibiotics, continue vasopressors and amnio drip, insulin drip, wean O2 if possible, right upper quadrant ultrasound pending, CRRT today
Assessment / Plan
Assessment / Plan
# Cardiogenic / septic shock
Ventilator dependent respiratory failure, intubated 05-19-2024
Cardiac arrest, monomorphic VT, 05-19-2024 Shock, CPR, epix2, intubation, ROSC, -> extubated ->re-intubated with mucous plug
05-21-2024 Cardiac arrest V-tach to PEA before shock possible -> CPRx2, epi 1, soidum bicarb ->ROSC ->rapid afib ->amio push ->amio gtt with 3 pressors still intubated
Levophed, phenylephrine, vasopressin
Goal systolic >90
Urine and endotracheal culture (-) bacilli
Zosyn continue day 2, discontinue vanc -> ID started on meropenem and Cipro day 2
Repeat chest x-ray layering pleural effusion and possible R lower lobe infiltrate vs atelectasis.
Cannot rule out pneumonia
Will continue with intermittent suctioning
IV corticosteroids stress doses
s/p drug-eluting stent for NSTEMI on 05/17/2024
Meat Trimmer following
Family was contacted, son coming down
#NSTEMI/CAD/HFrEF
s/p CABG with CABRAL to LAD, SVG to OM, SVG to PDA at [place] 12/09/22
s/p NSTEMI with patent bypass grafts, 70% OM stenosis being medically managed after cath at [facility] 08/2023
Troponins went back up to 14, now down trending to 7.2
Repeat Echo no significant changes from prior. LVEF 45-50% .
05/17 cath successful drug-eluting stent of the proximal portion of the SVG-PDA
Dual antiplatelet therapy for next 6 to 10 months
Echo 05/22 LVEF 25-30%
Fluid volume removal per CRRT
Will need ICD prior to discharge per cards
#End-stage renal disease
Cr. 4.8
Previously hemodialysis Tuesday
IR consulted for dialysis line placement for CRRT
CCRT today
Right chest wall HD cath
Nephrology following
#Metabolic acidosis
Likely resolve with CRRT
# Hypotension
Now on multiple pressors in ICU
# Electrolyte imbalance
Hypomagnesemia - Replete as needed
Hyponatremia - monitor
Keep K>4 and mg >2
Leukocytosis
WBC uptrending
Endotracheal and urine cultures revealed gram-negative bacilli
Blood cultures x2
ID consulted -> Zosyn discontinued and meropenem and ciprofloxacin started
Follow cultures
# Ischemic cardiomyopathy
Continue with aspirin statin
Already on Onglyza
Not a candidate for ARB/RAJIV inhibitor due to end-stage renal disease
#Elevated LFTs and bilirubin
Uptrending
Likely shock liver
Hepatitis C, hep B negative
Hep A pending
Right upper quadrant ultrasound pending
#Ambulatory dysfunction
PT/OT consult
#Paroxysmal A-fib
Not on Eliquis due to history of hematuria and severe anemia
ASA
On Coreg as above
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
[facility] [place]. TURBT 50 lesions were reportedly worked on on 09/01/2023.
developed hematuria and a temporary placement of renal stent followed by continuous bladder irrigation
Eliquis discontinued
# Type 2 diabetes
Hemoglobin A1c 7.1
Insulin gtt
#Dyslipidemia
Continue statin, Zetia
#B12 deficiency�replace
#Chronic vertigo
Anticipated Discharge: Within 24 hours
Subjective/Interval History
-
Date of Service: May 23, 2024
Objective Data
-
Labs:
Laboratory Results
05/23/24 05/23/24 05/23/24
03:26 04:45 17:00
WBC 13.5 H Pending
Hgb 11.2 L Pending
Hct 32.6 L Pending
Plt Count 105 L Pending
HCO3 18.1 L
Sodium Cancelled 132 L Pending
Potassium Cancelled 4.6 Pending
Chloride Cancelled 97 L Pending
Carbon Dioxide Cancelled 14 L* Pending
BUN Cancelled 62 H Pending
Creatinine Cancelled 4.1 H* Pending
Glucose Cancelled 225 H Pending
Calcium Cancelled 9.3 Pending
Total Bilirubin Cancelled 2.1 H
AST Cancelled 444 H
ALT Cancelled 184 H
Alkaline Phosphatase Cancelled 57
05/23/24
23:00
WBC Pending
Hgb Pending
Hct Pending
Plt Count Pending
HCO3
Sodium Pending
Potassium Pending
Chloride Pending
Carbon Dioxide Pending
BUN Pending
Creatinine Pending
Glucose Pending
Calcium Pending
Total Bilirubin
AST
ALT
Alkaline Phosphatase
Vital Signs:
Vital Signs
Temp Pulse Resp BP Pulse Ox
98.7 F 92 16 117/51 98
05/23/24 11:27 05/23/24 11:00 05/23/24 11:00 05/21/24 17:36 05/23/24 11:46
I&O
05/22/24 05/23/24 05/24/24
06:59 06:59 06:59
Intake Total 3071.3 / 3190.3 3759.3 / 3929.6 974.5 / 974.5
Output Total 87 / 87 0 / 0
Balance 2984.3 / 3103.3 3759.3 / 3929.6 974.5 / 974.5
Review of Systems
-
Unable to obtain full review of systems at this time due to: Patient Intubation
[2024-05-23] MEDS: CIPRO 400 MG 200 IV ×2 (11:54→19:39)
--- NOTE | 2024-05-23 12:00 | PTCARENOTE ---
Pt currently tolerating CRRT. Dr. Trivedi @ beside to check pt. Pt maintained on Fent, vaso, levo, xiang, amio (see worklist). PO Cipro switched to IV, now infusing. Pt opens eyes and follows commands. Pt BP does drop with turns, pt quickly recovers. Abd
US ordered. Safe environment maintained. No new changes.
[2024-05-23 12:03] LABS: Glucose - Point of Care 295 mg/dl (70-99)
[2024-05-23] MEDS: NOVOLOG FLEXPEN 6 UNITS SC ×2 (12:29→17:27)
[2024-05-23] MEDS: SUBLIMAZE 50 MCG IV ×5 (13:40→19:39)
[2024-05-23] MEDS: PITRESSIN 100 IV ×2 (14:01→23:39)
--- NOTE | 2024-05-23 14:07 | W.PN.CARDCBS ---
Addendum entered and electronically signed by Danny Moore MD 05/23/24 17:18:
I saw and examined the patient.
The Drilling Rig Operator's note was reviewed and I agree with the note.
Patient seen and examined on morning rounds
Comment: 83M PMHx ICM (EF 25-30%) s/p CABG and recent PCI to SVG on 05/17, ESRD on HD who developed hypoxic resp failure 2/2 aspiration requiring intubation. Has sustained two VT arrests during this hospitalization on 05/19 and again on 05/21. Remains
intubated in the ICU and currently requiring multiple pressors for hemodynamic support also on broad spectrum abx. CRRT started as he is unable to tolerate iHD.
#VT arrest (05/19, 05/21)
-Maintaining sinus rhythm overnight, ectopy has been quiescent
-Cont amio gtt, eventual transition to PO
-BB when BP allows
-Monitor on tele
-Eventual consideration of ICD
#NSTEMI- s/p PCI to SVG 05/17
-Cont ASA/plavix and high intensity statin
-Eventual BB
#ICM (EF 25-30%)
-Unable to tolerate GDMT due to tenuous hemodynamics
-Volume removal via HD
Prognosis is guarded
Original Note:
Today's Communication / Plan
-
Cont amiodarone gtt
Cont DAPT via tube
Impression / Plan
-
PCP: Dr. Charlie Marley
Primary Payer Specialist: Dr. Almanza
Assessment:
Admitted with chest pain and acute HF 05/16/24
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
ESRD on HD
CM EF 40% by echo 09/15/23
NSTEMI related to stenosis of saphenous vein graft to PDA, peak troponin 20
CAD
s/p CABG with CABRAL to LAD, SVG to OM, SVG to PDA at [place] 12/09/22
s/p NSTEMI with patent bypass grafts, 70% OM stenosis being medically managed after cath at [place] 08/2023
s/p NSTEMI with DAKSHA SVG-PDA 05/17/2024
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
Paroxysmal Afib
Not chronically anticoagulated due to anemia, not a candidate for watchman due to inability to tolerate even short-course OAC
mild
Hypertension
Hyperlipidemia
Type 2 diabetes
Glaucoma
Hyponatremia
bleeding from HD fistula site
In-hospital VT arrest
monomorphic VT, CPR, Epi x2 and shock with ROSC 05/19/24
VT that broke to PEA, CPR, Epi x2 and Bicarb x2 with ROSC 05/21/24
VDRF
intubated 05/19/24 and then extubated 05/20/24
re-intubated 05/21/24 with right lung whiteout
Vomiting 05/20/24
Cardiogenic and septic shock
ECHO 08/2023 at [facility]: EF reportedly preserved
Echo 09/15/23: EF 40-45%, inferior wall akinesis, inferoseptal wall and base to mid inferolateral francisco hypokinetic, stage II diastolic dysfunction, moderate MR, mild with peak/mean 20/11. mild to mod aortic regurg
Echo 05/17/24: EF 45 to 50%, mild concentric LVH, hypokinesis of inferior septal wall and basal to mid lateral wall, mild MR, mild to moderate peak/mean 23/15, mild AI, mild pulmonic regurgitation.
Echo 05/21/24: EF 30-35%, global hypokinesis with inferior akinesis
Echo 05/22/24: EF 25 to 30%, global hypokinesis with inferior and inferolateral akinesis, dilated RV with reduced RV systolic function, moderate to severe MR, moderate to severe TR with PAP 64 mmHg
Cath 05/17/2024: LM: Calcified, distal tapering, LAD: 100% at origin, LAD fills via patent QUIANA, relatively small LAD with diffuse disease, circumflex heavily calcified, 50% proximal stenosis, 100% OM1 with patent vein graft but OM is very small,
retrograde filling less vibrant than before, RCA 100% at origin, SVG to PDA has 70% proximal stenosis, successful stenting prox SVG-PDA with 2.5 x 15 [place] DAKSHA
Plan:
-Remains on 3 pressors and is having CRRT on 05/23/24 due to hemodynamic instability
-Levo at 26 (weaned down a bit from 30 in the AM), Bhavin at 200, Vaso at 0.03
-ID following and blood cultures pending
-Repeat Troponin trend after second code event on 05/21/24, Troponin peaked at 8.33 this time.
-Echo rechecked and noted above, EF now down a bit more to 25%
-Patient with monomorphic VT at time of code on 05/19/24 suggesting scar based etiology. Then with VT breaking to PEA on 05/21/24.
-Remains on amiodarone gtt. After initial code on 05/19/24 amiodarone gtt started and then transitioned to amiodarone PO up until time of 2nd code.
-Consideration for ICD prior to d/c pending recovery and clinical course
-Remains on Plavix 75 mg via tube daily.
-Remains on aspirin 81 mg daily via tube. Follow HD fistula for bleeding, consider vascular surgery consult if significant bleeding.
Hospital course thus far: Patient admitted with chest pain and acute HF 05/16/24. HD with UF performed with improvement in chest pain, but Troponin peaked at 20. Patient taken to [facility] 05/17/24 and found to have anew SVG to PDA lesion that was
stented. Patient then had an in-hospital cardiac arrest 05/19/24 early AM with CPR, Epi x2 and shock with ROSC. Patient was intubated and then extubated 05/20/24. Later on 05/20/24 had an episode of vomiting. During the day 05/20/24 patient was on Bhavin
and maxed out and Levophed started plus increasing oxygen demands. CXR with right lung whiteout and ABG sent. Patient re-intubated 05/21/24. VT code 05/21/24 at 1900 and then broke into PEA. Treated with CPR, Epi x2 and Bicarb x1 with ROSC. Back on
amiodarone gtt.
Progress Note - Payer Specialist
Subjective
Date of Service: May 23, 2024
Remains intubated and sedated
Objective
Labs:
Labs
Hgb 11.2 g/dL (13.0-18.0) L 05/23/24 03:26
Hct 32.6 % (39.0-52.0) L 05/23/24 03:26
Plt Count 105 10^3/uL (130-400) L 05/23/24 03:26
PT 16.2 Sec (11.4-14.6) H 05/19/24 06:16
INR 1.32 05/19/24 06:16
APTT 37.0 Sec (23.4-35.0) H 05/19/24 06:16
Sodium 132 mmol/L (135-145) L 05/23/24 04:45
Potassium 4.6 mmol/L (3.5-5.1) 05/23/24 04:45
BUN 62 mg/dl (9-20) H 05/23/24 04:45
Creatinine 4.1 mg/dL (0.7-1.3) H* 05/23/24 04:45
Glucose 225 mg/dl (70-99) H 05/23/24 04:45
Troponins
05/20/24 05/21/24 05/21/24
19:57 19:17 19:18
Troponin I 7.550 H* 6.660 H* Cancelled
05/22/24 05/22/24 05/22/24
09:23 12:55 17:08
Troponin I 7.610 H* 8.330 H* 7.330 H*
05/23/24
03:26
Troponin I 7.240 H*
Vital Signs and I&O:
Vital Signs
Temp Pulse Resp BP Pulse Ox
98.7 F 87 16 117/51 100
05/23/24 11:27 05/23/24 13:00 05/23/24 13:00 05/21/24 17:36 05/23/24 13:00
Vital Signs
Temp Pulse Resp BP Pulse Ox
98.7 F 87 16 117/51 100
05/23/24 11:27 05/23/24 13:00 05/23/24 13:00 05/21/24 17:36 05/23/24 13:00
Intake & Output
05/21/24 05/22/24 05/23/24 05/24/24
06:59 06:59 06:59 06:59
Intake Total 2784.0 / 2870.3 3071.3 / 3190.3 3759.3 / 3929.6 1697.5 / 1697.5
Output Total 75 / 75 87 / 87 478 / 478
Balance 2709.0 / 2795.3 2984.3 / 3103.3 3759.3 / 3929.6 1219.5 / 1219.5
--- NOTE | 2024-05-23 14:26 | W.PN.UPDATE ---
Update Note
Progress Note Update
Pt seen on CRRT. running without difficulty. BP low, MAP>60 on three pressors, max. UF 50ml/hr
follow q6h labs
--- NOTE | 2024-05-23 16:00 | PTCARENOTE ---
Pt tolerating CRRT (see worklist for documentation). Levo gtt being tapered (see worklist). Fentanyl adjusted for pt comfort. Pt still unable to tolerate big turns, BP drops to 40-50s. Systems reviewed. Son @ bedside, updated about plan of care.
otherwise see flowsheets.
[2024-05-23] MEDS: TYLENOL ORAL SOLUTION 650 MG TUBE (17:08)
[2024-05-23] MEDS: MERREM 500 MG IV ×2 (17:09→23:52)
[2024-05-23] MEDS: CRESTOR 10 MG TUBE (17:09)
[2024-05-23] MEDS: STERILE WATER FOR INJECTION 10 ML IV ×2 (17:09→23:52)
[2024-05-23] MEDS: NOVOLOG FLEXPEN-MODERATE RESISTANCE 7 UNITS SC (17:26)
[2024-05-23 17:37] LABS: Glucose - Point of Care 347 mg/dl (70-99); Ionized Calcium 1.24 mMOL/L (1.15-1.33)
[2024-05-23 17:42] LABS: Hematocrit 31.5 % (39.0-52.0); Mean Corp Hgb Conc. 34.9 g/dL (33.0-37.0); Mean Corpuscular Hgb 26.4 pg (27.0-31.0); Mean Corpuscular Volume 75.7 fL (80.0-94.0); Platelet Count 80 10^3/uL (130-400); Red Blood Cell Count 4.16 10^6/uL (4.70-6.10); Red Cell Dist. Width 21.2 % (11.5-14.5); White Blood Cell Count 18.2 10^3/uL (4.8-10.8)
[2024-05-23 17:48] LABS: Blood Urea Nitrogen 61 mg/dl (9-20); Carbon Dioxide 18 mmol/L (22-30); Chloride 99 mmol/L (98-107); Estimated Creatinine Clearance 15 ml/min; Glucose 355 mg/dl (70-99); Magnesium 1.9 mg/dl (1.6-2.3); Phosphorus 4.1 mg/dl (2.5-4.5); Sodium 134 mmol/L (135-145); eGFR 17.71
[2024-05-23] MEDS: MAGNESIUM SULFATE 100 IV (18:18)
[2024-05-23] MEDS: NOVOLOG FLEXPEN 10 UNITS SC (19:29)
[2024-05-23 19:40] LABS: Glucose - Point of Care 372 mg/dl (70-99)
--- NOTE | 2024-05-23 20:50 | PTCARENOTE ---
pt received from previous rn- ett to vent- see settings as charted. arouses to name, follows simple commands, nods yes and no appropriately. see flowsheet for all iv gtts infusing. right picc line c/d/i, flushes with good blood return. right ij cath
c/d/i, crrt running- see flowsheet. fms inserted for frequent loose stools per thaddeus hennessy. turned and repositioned, pm care provided. tf continue- pt tolerating. remains nsr with first degree and bbb on monitor. right radial jens zeroed and
functioning. lower ext. cool and dusky. doppler pulses. son updated. all care explained as provided to patient, all safety precautions in place.
[2024-05-23] MEDS: NOVOLIN N vial 0.1 UNITS SC (21:00)
[2024-05-23] MEDS: NOVOLOG FLEXPEN-HIGH RESISTANCE 12 UNITS SC (21:00)
[2024-05-23] MEDS: NOVOLOG FLEXPEN 8 UNITS SC (21:03)
[2024-05-23 21:10] LABS: Glucose - Point of Care 387 mg/dl (70-99)
[2024-05-23 21:12] LABS: Hepatitis A IgM Antibody Negative (Negative)
[2024-05-23] MEDS: XALATAN OPHTHALMIC SOLUTION 1 DROP BOTH EYES (21:53)
[2024-05-23 21:56] LABS: Hepatitis A Antibody, Total Positive (Negative)
[2024-05-23] MEDS: CORDARONE 518 MG IV (21:57)
[2024-05-23 23:10] LABS: Ionized Calcium 1.29 mMOL/L (1.15-1.33)
[2024-05-23 23:20] LABS: Hematocrit 32.6 % (39.0-52.0); Hemoglobin 11.3 g/dL (13.0-18.0); Mean Corp Hgb Conc. 34.7 g/dL (33.0-37.0); Mean Corpuscular Hgb 26.2 pg (27.0-31.0); Mean Corpuscular Volume 75.6 fL (80.0-94.0); Platelet Count 71 10^3/uL (130-400); Red Blood Cell Count 4.31 10^6/uL (4.70-6.10); Red Cell Dist. Width 21.5 % (11.5-14.5); White Blood Cell Count 20.9 10^3/uL (4.8-10.8)
[2024-05-23 23:41] LABS: Blood Urea Nitrogen 55 mg/dl (9-20); Calcium 9.1 mg/dl (8.4-10.2); Carbon Dioxide 18 mmol/L (22-30); Chloride 101 mmol/L (98-107); Estimated Creatinine Clearance 18 ml/min; Glucose 345 mg/dl (70-99); Magnesium 2.5 mg/dl (1.6-2.3); Phosphorus 3.4 mg/dl (2.5-4.5); Potassium 3.7 mmol/L (3.5-5.1); Sodium 133 mmol/L (135-145); eGFR 22.53
--- NOTE | 2024-05-24 00:07 | PTCARENOTE ---
assessment unchanged. full bed bath and linen change provided. crrt continues. weaning pressors as tolerated.
[2024-05-24 01:07] VITALS: BP_SYST 105
[2024-05-24] MEDS: NOVOLOG FLEXPEN 8 UNITS SC ×2 (02:00→05:16)
[2024-05-24] MEDS: NOVOLOG FLEXPEN-HIGH RESISTANCE 10 UNITS SC ×2 (02:01→05:16)
[2024-05-24 02:11] LABS: Glucose - Point of Care 313 mg/dl (70-99)
[2024-05-24] MEDS: CIPRO 400 MG 200 IV (04:03)
--- NOTE | 2024-05-24 04:22 | PTCARENOTE ---
assessment unchanged. crrt continues. pt resting comfortably, cpot 0. turned and repositioned, ekg completed.
[2024-05-24] MEDS: RFP-401 HD Soln (K+ 4 mEq/L) 15000 ML CRRT-IRR ×3 (04:30→23:11)
[2024-05-24 04:37] VITALS: BMI 29.3
[2024-05-24 05:03] LABS: B.E. -6.3 mmol/L; O2 Saturation % 99.3 % (94-98); PCO2 36 mmHg (35-48); PO2 184 mmHg (83-108); pH 7.33 (7.35-7.45)
[2024-05-24 05:07] LABS: Glucose - Point of Care 300 mg/dl (70-99)
[2024-05-24 05:11] LABS: Ionized Calcium 1.29 mMOL/L (1.15-1.33)
[2024-05-24] MEDS: NOVOLOG FLEXPEN 10 UNITS SC ×2 (05:16→18:33)
[2024-05-24 05:21] LABS: Hematocrit 31.8 % (39.0-52.0); Hemoglobin 10.9 g/dL (13.0-18.0); Mean Corp Hgb Conc. 34.3 g/dL (33.0-37.0); Mean Corpuscular Hgb 26.1 pg (27.0-31.0); Mean Corpuscular Volume 76.3 fL (80.0-94.0); Platelet Count 61 10^3/uL (130-400); Red Blood Cell Count 4.17 10^6/uL (4.70-6.10); Red Cell Dist. Width 21.5 % (11.5-14.5); White Blood Cell Count 22.9 10^3/uL (4.8-10.8)
--- NOTE | 2024-05-24 05:22 | PTCARENOTE ---
thaddeus hennessy aware of blood sugar- see mar for new orders.
[2024-05-24] MEDS: SOLU-CORTEF 50 MG IV ×3 (05:25→21:04)
[2024-05-24] MEDS: STERILE WATER FOR INJECTION 10 ML IV ×4 (05:26→23:28)
[2024-05-24] MEDS: MERREM 500 MG IV ×4 (05:26→23:28)
[2024-05-24 05:42] LABS: ALT (SGPT) 236 U/L (0-50); AST (SGOT) 347 U/L (17-59); Albumin 2.3 g/dl (3.5-5.0); Alkaline Phosphatase 63 U/L (38-126); Blood Urea Nitrogen 49 mg/dl (9-20); Carbon Dioxide 17 mmol/L (22-30); Chloride 102 mmol/L (98-107); Estimated Creatinine Clearance 20 ml/min; Glucose 313 mg/dl (70-99); Magnesium 2.3 mg/dl (1.6-2.3); Phosphorus 2.9 mg/dl (2.5-4.5); Potassium 3.2 mmol/L (3.5-5.1); Sodium 134 mmol/L (135-145); Total Protein 4.8 g/dl (6.3-8.2); Triglycerides 75 mg/dl (10-149); eGFR 24.72
[2024-05-24] MEDS: KCL 100 IV (06:06)
[2024-05-24 07:00] VITALS: BP_SYST 90
[2024-05-24] MEDS: SUBLIMAZE 100 IV ×2 (07:06→17:37)
--- NOTE | 2024-05-24 08:01 | W.PN.ID1 ---
Date of Service
Date of Service: May 24, 2024
Today's Communication
- c/w meropenem - dosed for CRRT
- stop ciprofloxacin
- rechecked QTc and remains acceptable today
Patient is critically ill, prognosis appears grim
Assessment / Plan
Shock - likely combined cardiogenic and septic
Likely disseminated Infection
VAP and UTI
NSTEMI, CAD
MSOF
ESRD on HD
Transitional cell cancer of the bladder
- blood cultures x2 in progress NGTD
- sputum culture with ESBL E coli
- urine culture 100 K ESBL E coli
- remains on high doses of three pressors, increasing leukocytosis noted
- c/w meropenem - dosed for CRRT
- stop ciprofloxacin
- rechecked QTc and remains acceptable today
Patient is critically ill, prognosis appears grim
Chief Complaint
-: UTI and Other (shock - septic and cardiogenic)
Subjective / Review of Systems
remains afebrile
norepi dose down from peak of 30 to 10 mcg/min; phenylephrine increased back to 200 mcg/min, vaso remains on
ongoing loose stools with recent cathartics - has fms
extr now dusky
qtc 450
tolerating crrt
Vital Signs / Physical Exam
Vital Signs
Vital Signs
Temp Pulse Resp BP Pulse Ox
97.0 F 62 16 117/51 100
05/24/24 04:15 05/24/24 06:00 05/24/24 06:00 05/21/24 17:36 05/24/24 07:34
Physical Exam
Constitutional: Acutely Ill and Chronically Ill
Cardiovascular: Regular Rate and S1/S2; Negative Murmur or Rub
Pulmonary: Clear and Symmetric; Negative Wheezes or Rales
Gastrointestinal: Soft, Non Tender, Non Distended and Normal Bowel Sounds
Skin: Warm and Dry; Negative Rash or Jaundice
Neurological: Awake
Objective Data
Lab Data
PT 16.2 Sec (11.4-14.6) H 05/19/24 06:16
INR 1.32 05/19/24 06:16
APTT 37.0 Sec (23.4-35.0) H 05/19/24 06:16
Estimated Creat Clear 20 ml/min 05/24/24 04:56
Lactic Acid 4.0 mmol/L (0.7-2.0) H* 05/23/24 11:48
Total Bilirubin 2.0 mg/dl (0.2-1.3) H 05/24/24 04:56
AST 347 U/L (17-59) H 05/24/24 04:56
ALT 236 U/L (0-50) H 05/24/24 04:56
Alkaline Phosphatase 63 U/L (38-126) 05/24/24 04:56
Most recent labs reviewed.
Respiratory Culture Final 05/24/24-0850
Moderate Escherichia coli - ESBL
Moderate Usual Respiratory Re
Isolation Precautions Required
[place] [id number] on 05/24/24 at 0848 by [place] [id number]
Resistance due to extended spectrum beta lactamase.
Decreased activity may occur with penicillins,
penicillin/inhibitor combinations, cephalosporins, and
monobactams.
Organism 1 Escherichia coli - ESBL
1. Escherichia coli - ESBL
M.I.C. RX
--------- ---
Amoxicillin/Potas. Clavulanate <=8/4 S
Ampicillin >16 R
Ampicillin/Sulbactam 16/8 I
Aztreonam >16 R
Cefazolin >16 R
Cefepime >16 R
Ceftazidime >16 R
Ceftriaxone >2 R
Ertapenem <=0.5 S
Ciprofloxacin >2 R
Gentamicin <=2 S
Meropenem <=1 S
Piperacillin/Tazobactam <=8 S
Tetracycline <=4 S
Tobramycin <=2 S
Trimethoprim/Sulfamethoxazole <=2/38 S
Micro Results:
05/22/24 21:38 Blood Culture - Preliminary
Blood/Venous No Growth in 24 hours- Final report to follow
05/22/24 20:58 Blood Culture - Preliminary
Blood/Venous No Growth in 24 hours- Final report to follow
05/21/24 09:43 Urine Culture - Preliminary
Urine Gram negative bacilli
05/21/24 10:17 Respiratory Culture - Preliminary
Endotracheal Gram negative bacilli
Gram Stain - Preliminary
05/16/24 18:42 MRSA Screen - Final
Nose No Methicillin Resistant Staphylococcus aureus isolated.
[2024-05-24] MEDS: NEO-SYNEPHRINE 1% 260 MG IV ×3 (08:21→17:44)
[2024-05-24] MEDS: PROTONIX IV 40 MG IV ×2 (08:22→21:04)
[2024-05-24] MEDS: LOW STRENGTH ASPIRIN 81 MG TUBE (08:22)
[2024-05-24] MEDS: PLAVIX 75 MG TUBE (08:22)
[2024-05-24] MEDS: LANTUS 0.16 UNITS SC (08:23)
[2024-05-24] MEDS: HEPARIN 5000 UNITS SC (08:23)
[2024-05-24] MEDS: MIRALAX 17 GRAMS TUBE (08:24)
--- NOTE | 2024-05-24 08:24 | PN.DE.MGMTRT ---
Insulin Management
- -
05/24/2024 Diabetes management consult follow up
83-year-old male with complex PMH including CAD s/p CABG, recent DAKSHA/graft 05/17/2024, ESRD on HD, bladder CA ongoing treatment at [facility], A-Fib, T2DM. Pt is s/p VT arrest, shock/epinephrine/ROSC/intubated 05/19, extubated 05/20 and
reintubated 05/21 due to Septic shock source. A1C on admission 7.1%, was taking Onglyza 5mg daily. Cr 4.8, eGFR 11.3.
Pt has been started corticosteroid stress doses, contributing to hyperglycemia-->critical care glycemic protocol for optimal glucose control.
Pt is critically ill and hypotensive, requiring multiple pressors, unable to interview.
05/22 Patient receiving tube feeds @ 50 per hour, goal is 70 per hour. Glycemic protocol insulin infusion off at 12:00 noon due to glucose 66. Lantus 10 units started at that time with low corrective insulin.
05/23 Glucose this AM 220. Patient remains on steroids and pressors, with tube feeds at goal, 70 per hour. AM lantus increased to 16 units and corrective from low to moderate Q 6 hours. 12 noon glucose 295 will add 6 units novolog Q 6 hours.
05/24 Glucose up to 387, received Q 6 hour novolog plus corrective and additional 10 units NPH. Will increase AM lantus to 22 units and Q 6 novolog to 12 units with moderate corrective. Patient received 16 units lantus this AM additional 6 units
ordered stat. Patient received 28 units of novolog this AM, 10am glucose 178. Overnight novolog was changed from Q6 to Q4, will change to Q6.
Discussed with patients nurse.
Diabetes History
- -
Type of Diabetes: 2
Pre-Admission Diabetes Regimen
05/23/24 05/23/24 05/24/24
17:25 23:04 04:56
Creatinine 3.3 H 2.7 H 2.5 H
Lab Results
Hemoglobin A1c 7.1 % (4.0-5.6) H 05/16/24 19:00
Insulin Pump Settings
IP Diabetes Regimen
05/23/24 05/23/24 05/23/24
09:54 11:48 17:25
Glucose 355 H
POC Glucose 277 H 295 H 347 H
05/23/24 05/23/24 05/23/24
19:28 20:59 23:04
Glucose 345 H
POC Glucose 372 H 387 H
05/24/24 05/24/24 05/24/24
01:59 04:53 04:56
Glucose 313 H
POC Glucose 313 H 300 H
Patient Education
--- NOTE | 2024-05-24 08:37 | W.PN.NEPH.PH ---
Today's Communication / Plan
-
CRRT
Assessment/Plan
-
Assessment:
CP
Elevated troponin
Transitional cell carcinoma of the bladder
s/p CABG - CABRAL to LAD, SVG to OM, SVG to PDA 12/09/22 at [place]
CM EF 40% by echo 09/15/23
Type 2 NSTEMI s/p diagnostic cath 08/2023 at [facility] with patent bypass grafts, 70% OM stenosis, medically managed
Post CABG afib
ESRD on HD MWF
mild
Hypertension
Hyperlipidemia
Type 2 diabetes
Glaucoma
Hyponatremia
Plan
keep MAP>60 or SBP>90
continue CRRT
UF 100ml/hr to try to maintain balance of volume
no FWF in TF
prognosis is poor
critical care time 31 minutes
-
-
Date of Service: May 24, 2024
CC / HPI / ROS
-
Chief Complaint:
ESRD
History of Present Illness:
critically ill in ICU
CRRT running, without issues overnight
Status post ventricular tachycardia and PEA/cardiac arrest
Remains on 3 pressor support
Intubated, sedated
Review of Systems:
Intubated
no fevers
Labs
-
Labs:
eGFR 24.72 05/24/24 04:56
Lyx-P-Tntiixtbmde Pept > 93179 pg/ml 05/16/24 11:51
Albumin 2.3 g/dl (3.5-5.0) L 05/24/24 04:56
Physical Exam
-
Vital Signs:
Vital Signs
Temp Pulse Resp BP Pulse Ox
97.0 F 62 16 117/51 96
05/24/24 04:15 05/24/24 06:00 05/24/24 06:00 05/21/24 17:36 05/24/24 08:00
Cardiovascular:: Regular rate and rhythm
Respiratory:: Bilateral: Coarse
Lung Excursion:: Normal
Abdomen:: Nontender and Soft
Bowel Sounds:: Normal
Extremity Edema:: None: Bilateral:
--- NOTE | 2024-05-24 09:54 | PTCARENOTE ---
pt received from previous rn- ett to vent- see settings as charted. arouses to name, follows simple commands, nods yes and no appropriately. see flowsheet for all iv gtts infusing. right picc line c/d/i, flushes with good blood return. right ij cath
c/d/i, crrt running- see flowsheet. fms in place for frequent loose stools, burgundy leaking noted. Heme +, notified clin nurse. turned and repositioned, Oral care provided. tf continue- pt tolerating. remains nsr with first degree and bbb on
monitor. right radial jens zeroed and functioning. lower ext. cool and dusky. doppler pulses. son updated. all care explained as provided to patient, all safety precautions in place.
[2024-05-24 10:15] LABS: Glucose - Point of Care 178 mg/dl (70-99)
[2024-05-24] MEDS: NSS (PRESERVATIVE FREE) 10 ML IV ×2 (10:15→21:03)
[2024-05-24] MEDS: PITRESSIN 100 IV (10:16)
[2024-05-24] MEDS: LANTUS 0.06 UNITS SC (10:55)
--- NOTE | 2024-05-24 11:01 | W.PN.HOSP.TC ---
Addendum entered and electronically signed by Jersey Durand MD 05/24/24 14:05:
VT arrest x2
Will require ICD prior to discharge
Continue amiodarone
Cards following without any further recs at this time
If recurs may need to try Lidocaine gtt/Defibrillation
Keep K >4
Keep Mg >2
Monitor on tele
Shock believed to be multifactorial in the setting of cardiogenic/septic.
Now Ucx and Rcx growing GNR. Recently intubated, cannot exclude VAP therefore which is usually pseudomonas related, agreeing with DCing Vanc/zosyn and continuing bud for now.
Will check Bcx, but has been on atb, this might affect the yeild of culture data and will consulted ID, ID Dc'd zosyn and start meropenem
Continue pressor (maxed on levo/xiang, on vaso-standard dose) support along with Solu-Cortef and bud
-I discussed with ICU about starting Dobutamine/Dopamine, but they are proarrhythmic and has had multiple VT arrest therefore, at this time would like to hold off.
-Unfortunately there is not much more we can provide in terms of pressor support and hopefully clinical course will turn around.
-May be able to provide epi gtt per ICU if needed
Follow-up blood cultures
Keep maps greater than 65
Wean pressors as tolerated
Acute hypoxemic respiratory failure secondary to mucous plugging as evident by chest x-ray as there is full right sided whiteout of the right lung. Now intubated. Will require pulmonary toilet with hypertonic saline nebs, precaution bed. If not
improving then likely would benefit from bronchoscopy with suction at bedside. ICU and pulmonary to decide
Daily CXR
SAT SBT daily
NSTEMI known CAD s/p CABG and PCI (05/17) to the SVG-PDA and saphenous vein graft/QUIANA angio. Continue Dapt. Cannot tolerate BB due to BP
HFrEF, ICM, EF 25-30%, unable to provide GDMT due to hypotension. Will need ICD prior to DC.
ESRD on HD continue HD per nephrology recommendations.
Continue crrt
Original Note:
Today's Communication/Plan
-
Awaiting cultures to narrow antibiotics
Continue Amio drip and pressors
Continue to wean pressors as possible
CRRT
Assessment / Plan
Assessment / Plan
Patient continues on pressors, awaiting cultures to narrow antibiotics.
# Cardiogenic / septic shock
Ventilator dependent respiratory failure, intubated 05-19-2024
Cardiac arrest, monomorphic VT, 05-19-2024 Shock, CPR, epix2, intubation, ROSC, -> extubated ->re-intubated with mucous plug
05-21-2024 Cardiac arrest V-tach to PEA before shock possible -> CPRx2, epi 1, sodidum bicarb ->ROSC ->rapid afib ->amio push ->amio gtt with 3 pressors still intubated
Levophed, phenylephrine, vasopressin
Goal systolic >90
Urine and endotracheal culture (-) bacilli -> awaiting final results
Zosyn continue day 2, discontinue vanc -> ID started on meropenem and Cipro day 3
Chest x-ray cannot rule out pneumonia
Will continue with intermittent suctioning
IV corticosteroids stress doses
[employer] following
Family updated
#NSTEMI/CAD/HFrEF
s/p CABG with CABRAL to LAD, SVG to OM, SVG to PDA at [facility] 12/09/22
s/p NSTEMI with patent bypass grafts at [facility] 08/2023
Troponins downtrending
05/17 cath successful DAKSHA
Dual antiplatelet therapy for next 6 to 10 months
Echo 05/22 LVEF 25-30%
Fluid volume removal per CRRT
Will need ICD prior to discharge per cards
#End-stage renal disease
Cr. 4.8
Previously hemodialysis Tuesday
IR consulted for dialysis line placement for CRRT
CRRT 05/23 -> balance electrolytes and acidosis per guidelines
Nephrology following
#Heme-occult blood (+)
Repeat CBC for signs of bleed
monitor
#Thrombocytopenia
today 61
On DAPT with recent cath 05/17
Monitor
#Metabolic acidosis
On CRRT
# Hypotension
Now on multiple pressors in ICU
# Electrolyte imbalance
Hypomagnesemia - Replete as needed
Hyponatremia - monitor
Keep K>4 and mg >2
On CRRT ->replace per guidelines
Leukocytosis
WBC uptrending
Endotracheal and urine cultures revealed gram-negative bacilli
Blood cultures x2
ID consulted -> Zosyn discontinued and meropenem and ciprofloxacin started
Follow cultures
# Ischemic cardiomyopathy
Continue with aspirin statin
Already on Onglyza
Not a candidate for ARB/RAJIV inhibitor due to end-stage renal disease
#Elevated LFTs and bilirubin
Uptrending
Likely shock liver
Hepatitis C, hep B negative
Hep A (-)
RUQ US no signs of increased LFTs cause
#Ambulatory dysfunction
PT/OT consult
#Paroxysmal A-fib
Not on Eliquis due to history of hematuria and severe anemia
ASA
On Coreg as above
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
[facility] [place]. TURBT 50 lesions were reportedly worked on on 09/01/2023.
developed hematuria and a temporary placement of renal stent followed by continuous bladder irrigation
Eliquis discontinued
# Type 2 diabetes
Hemoglobin A1c 7.1
Diabetic consulted as increase BG on steroids
16 units Lantus and NovoLog 6 units q6hrs
#Dyslipidemia
Continue statin, Zetia
#B12 deficiency�replace
#Chronic vertigo
Anticipated Discharge: > 48 hours
Subjective/Interval History
-
Date of Service: May 24, 2024
Objective Data
-
Labs:
Laboratory Results
05/23/24 05/24/24 05/24/24
23:04 04:56 06:00
WBC 20.9 H 22.9 H Pending
Hgb 11.3 L 10.9 L Pending
Hct 32.6 L 31.8 L Pending
Plt Count 71 L 61 L Pending
HCO3 19.0 L
Sodium 133 L 134 L
Potassium 3.7 3.2 L
Chloride 101 102
Carbon Dioxide 18 L 17 L
BUN 55 H 49 H
Creatinine 2.7 H 2.5 H
Glucose 345 H 313 H
Calcium 9.1 9.0
Total Bilirubin 2.0 H
AST 347 H
ALT 236 H
Alkaline Phosphatase 63
05/24/24
11:00
WBC Pending
Hgb Pending
Hct Pending
Plt Count Pending
HCO3
Sodium Pending
Potassium Pending
Chloride Pending
Carbon Dioxide Pending
BUN Pending
Creatinine Pending
Glucose Pending
Calcium Pending
Total Bilirubin
AST
ALT
Alkaline Phosphatase
Vital Signs:
Vital Signs
Temp Pulse Resp BP Pulse Ox
97.0 F 63 16 117/51 97
05/24/24 04:15 05/24/24 10:45 05/24/24 10:45 05/21/24 17:36 05/24/24 10:30
I&O
05/23/24 05/24/24 05/25/24
06:59 06:59 06:59
Intake Total 3759.3 / 3929.6 4993.5 / 5190.7 732.3 / 732.3
Output Total 4606 / 4827 1040 / 1040
Balance 3759.3 / 3929.6 387.5 / 365.7 -307.7 / -307.7
Review of Systems
-
Unable to obtain full review of systems at this time due to: Patient Intubation
Physical Exam
-
Respiratory: Clear to Auscultation
Cardiac: Regular Rhythm and S1/S2
GI: Soft and Nondistended
Musculoskeletal: Edema, Right Upper Extrem and Edema, Left Upper Extrem
Skin: Warm
Neuro: Negative AO x 3
--- NOTE | 2024-05-24 11:07 | W.PN.INTV ---
Today's Communication / Plan
Recommendations
Continue to wean down vasopressors
Continue antibiotics
Mechanical ventilation without change
Minimize sedation
CRRT
Follow daily labs
Nutritional support
Prognosis guarded
Assessment
-
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, atrial fibrillation not on anticoagulation, diabetes, status post VT arrest, shock/epinephrine/ROSC/intubation 05/19/2024
VDRF, intubated 05/19/2024
Extubated 05/20/2024
Reintubated 05/21/2024
Chest x-ray with right whiteout-likely atelectasis 05/21/2024
Shock: Suspect multiple mechanisms cardiogenic/septic
Gram-negative in the sputum
Gram-negative in the urine
Cardiac arrest, monomorphic VT, 05/19/2024
While on the commode
Shock/Epi/intubation/ROSC
---
S/p DAKSHA graft 05/17/2024
Ongoing chest pain, NSTEMI
S/p CABG [place] 12/09/2022
s/p NSTEMI August 2023, med managed at [facility]
Cardiomyopathy, EF 40% with
ESRD on HED
Mild oozing of left upper extremity fistula
Conditions present prior admission:
Transitional cell carcinoma, bladder
Status post transurethral resection of bladder tumor, most recently 50 tumors removed at [place] 09/01/2023
Paroxysmal atrial fibrillation
Not on anticoagulation due to anemia
Hypertension/hyperlipidemia
Diabetes
Plan/recommendations:
-
Remains critically ill, this morning increased work of breathing, worsening vasopressor requirements, chest x-ray with a right whiteout likely mucous plug/atelectasis.
Reintubated 05/21/2024.
Developed cardiorespiratory arrest V. tach/PEA status post epi and CPR. Regained ROSC.05/21/2024 around 7 PM.
-
Intubation day #4
Mechanical ventilation settings
ABG 05/24/2024-7.33/36/184
ABG 05/23/2024: 7.36/32/87
Continue mechanical ventilation without significant changes.
Pulmonary mechanics acceptable.
Decrease FiO2 to maintain pulse ox above 92%
chest x-ray 05/22/2024: Showed layering pleural effusion and possible right lower lobe infiltrate versus atelectasis, improved aeration compared to priors
Continue with intermittent suctioning-minimal secretion
Nebulizers as needed
Chest x-ray 05/24/2024:To my view, showed mild interstitial edema, small right pleural effusion with associated atelectasis.
-
Sedation with fentanyl drip, will continue to minimize as able
RASS score 0 (-1)
Sedation break per protocol
-
Shock: Multiple mechanism septic/? cardiogenic (echocardiogram with global hypokinesis decreased LVEF 20 to 30%/RV dysfunction as well)
With abnormal right lower lobe abnormality, layering right pleural chest x-ray cannot rule out aspiration/pneumonia.
Penis with pus: Straight cath showed purulent urine.
ESBL E. coli in the urine
ESBL E. coli in the sputum
Blood culture negative so
Infectious disease consulted: Antibiotics transition to ertapenem/Cipro.
Discontinued vancomycin
MRSA screening negative
-
Continue norepinephrine/Bhavin-Synephrine/vasopressin-titrate for a systolic blood pressure 90 mmHg-today 05/24/2024 requirements improved.
Arterial line
-
Abnormal LFTs: Suspect shock liver.
Abdominal ultrasound unremarkable
Trend LFTs
-
Acidosis noted: CRRT to be started-unable to tolerate dialysis due to hemodynamic instability.
Follow BMP
Lactate level of 4 noted
Continue hemodynamic support as above
-
Continue stress dose of hydrocortisone for now-dose reduced to every 8 hours 05/24/2024. As vasopressor requirements improve we will continue to taper.
-
Reviewed cardiology correspondence
ICD prior to discharge if patient improved clinically.
Echocardiogram 05/17/2024: EF 45% with hypokinesis inferoseptal wall, moderate MR, moderate aortic stenosis.
LVEF 04/20/2024 showed decline 20 to 30%. No significant valvular abnormalities. No pericardial effusion
Echocardiogram 04/21/2024: Ejection fraction 20 to 30%. Global hypokinesis with inferior and inferior lateral akinesis. Dilated right ventricle with reduced right ventricular systolic function. Moderate to severe MR. Moderate to severe TR.
-
Unclear whether monomorphic VT was due to scar or recent drug-eluting stent/graft
V. tach/PEA arrest again on 05/21/2024.
Continue amiodarone drip-baseline atrial fibrillation rhythm
Cardiology following closely
Remains on aspirin/clopidogrel
Continue to monitor QT
-
Chronic kidney disease hemodialysis dependent.
Case discussed with nephrology.
To be transition to CRRT today 05/23/2024.
Hold midodrine for now.
Hyperglycemia blood sugars over 200.
Insulin drip discontinued
Now on subcu insulin
Not optimally controlled
Likely will improve with decreasing steroids
Target 140-180
Insulin sliding scale
Continue sedation break per protocol.
Patient has some delirium prior intubation.
Dobbhoff tube-tube feedings currently at goal.
PPI for GI prophylaxis
DVT prophylaxis with subcu hep
Dr. Salcido updated son at the bedside 05/22/2024, 05/23/2024, 05/24/2024 discussed possibility of DNR status. He will think about it. He understands that likely if patient survives he will need long-term care, suspected unlikely will be able to go
home independently.
Dr. Salcido discussed with son over the phone and in person 05/21/2024. He is traveling down from [place] today. DNR status should be addressed.
Critical care statement: A total of 44minutes of critical care time was provided for this patient today. This includes management of unstable vital signs, evaluation of the patient at bedside, reviewing the patient's pertinent medical records
including ventilator settings, arterial blood gases, radiographs, microbiology, laboratory evaluations and discussion with primary team, critical care nursing, and respiratory therapy.
Subjective Dataa
Subjective Data
Date of Service:
Date of Service: May 24, 2024
Chief Complaint: [employer] Follow Up (Acute hypoxemic/hypercapnic respiratory failure)
Subjective:
Remains critically ill.
On mechanical ventilation
With sedation breaks able to open eyes and squeeze hands.
On multiple vasopressors. However, improved requirements.
Review of Systems
General: Unobtainable - Sedation
Objective Data
Data Reviewed
Vital Signs / I&O / Oxygen:
Vital Signs
Temp Pulse Resp BP Pulse Ox
97.0 F 63 16 117/51 97
05/24/24 04:15 05/24/24 10:45 05/24/24 10:45 05/21/24 17:36 05/24/24 10:30
Intake and Output
05/23/24 05/24/24 05/25/24
06:59 06:59 06:59
Intake Total 3759.3 / 3929.6 4993.5 / 5190.7 843.3 / 843.3
Output Total 4606 / 4825 1040 / 1040
Balance 3759.3 / 3929.6 387.5 / 365.7 -196.7 / -196.7
SaO2 [ASV] 100
SaO2 [A/C] 96
SaO2 97
Nasal Cannula flow liters per 95
minute
Physical Exam
General: Respiratory Distress (none, sedated)
HEENT: Normocephalic and Other (ET tube in place)
Cardiovascular: S1-S2, Regular Rhythm, Murmur (n) and Rub (n)
Respiratory: Wheeze (n), Crackles (n), Rhonchi (n), Non-Labored Respirations and ET Tube (No significant secretions)
GI: Soft, Non Distended and Non Tender
Neurology: Awake (Occasionally following commands) and Other (Intubated, mechanical ventilation. Sedated)
Skin: Cyanosis (n), Jaundice (n), Rash (n) and Other (Left upper extremity AV fistula)
Labs/Micro/Reports
Laboratory Results
05/24/24
04:56
pH 7.33 L
pCO2 36
pO2 184 H
HCO3 19.0 L
O2 Delivery Level
Microbiology
05/21/24 09:43 Urine Urine Culture - Final
Escherichia coli - ESBL
05/21/24 10:17 Endotracheal Respiratory Culture - Final
Escherichia coli - ESBL
05/21/24 10:17 Endotracheal Gram Stain - Final
05/22/24 21:38 Blood/Venous Blood Culture - Preliminary
No Growth in 24 hours- Final report to follow
05/22/24 20:58 Blood/Venous Blood Culture - Preliminary
No Growth in 24 hours- Final report to follow
[2024-05-24] MEDS: LEVOPHED 258 MG IV ×2 (11:10→21:04)
--- NOTE | 2024-05-24 11:33 | W.PN.CARDCBS ---
Addendum entered and electronically signed by Casi Almanza MD 05/24/24 15:33:
I saw and examined the patient.
The Junior Accounting Clerk's note was reviewed and I agree with the note.
Patient seen and examined bedside. Son and nursing at bedside.
Comment: Patient is known to me from outpatient setting. Briefly, Mr. Byrd is a 83 year old male with PMHx of ischemic cardiomyopathy with LVEF 25-30% on most recent echo this admission, CAD s/p CABG in November 2022 and recent cath for NSTEMI with PCI
to SVG on 05/17 on DAPT, ESRD on HD who developed acute hypoxic resp failure 2/2 aspiration requiring intubation. Hospital course complicated by two sustained VT arrests during this hospitalization on 05/19 and again on 05/21. Remains intubated in the
ICU and currently requiring multiple pressors for hemodynamic support also on broad spectrum abx with GNR in UA. CRRT started as he is unable to tolerate iHD.
Vitals and labs reviewed.
#VT arrest (05/19, 05/21)
-Maintaining sinus rhythm overnight,tele overnight with minimal venctricular ectopy
-Transition Amio to PO from IV
-Cont to wean pressors, keep lytes repleted, K > 4, Mg > 2
-BB when BP allows
-Cont to Monitor on tele
-Eventual consideration of ICD
#NSTEMI- s/p PCI to SVG 05/17
-Cont ASA/plavix and high intensity statin
-Eventual BB when hemos will allow.
#ICM (EF 25-30%)
-Unable to tolerate GDMT due to ongoing need for pressor support.
-Volume removal via CRRT. Nephrology following.
-Abx and hypothermia management per primary team. Wean went per ICU.
-Per nursing patient is following commands.
As discussed with son at bedside. Unfortunately, overall prognosis continues to remain quite guarded.
Original Note:
Today's Communication / Plan
-
Cont amiodarone gtt
Cont DAPT via tube
Guarded prognosis
Impression / Plan
-
PCP: Dr. Charlie Marley
Primary Pamphlet Distributor: Dr. Almanza
Assessment:
Admitted with chest pain and acute HF 05/16/24
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
ESRD on HD
CM EF 40% by echo 09/15/23
NSTEMI related to stenosis of saphenous vein graft to PDA, peak troponin 20
CAD
s/p CABG with CABRAL to LAD, SVG to OM, SVG to PDA at [place] 12/09/22
s/p NSTEMI with patent bypass grafts, 70% OM stenosis being medically managed after cath at [facility] 08/2023
s/p NSTEMI with DAKSHA SVG-PDA 05/17/2024
Transitional cell carcinoma of the bladder treated with multiple transurethral resection of bladder tumor, most recently 50 tumors removed at [facility] 09/01/2023
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
Paroxysmal Afib
Not chronically anticoagulated due to anemia, not a candidate for watchman due to inability to tolerate even short-course OAC
mild
Hypertension
Hyperlipidemia
Type 2 diabetes
Glaucoma
Hyponatremia
bleeding from HD fistula site
In-hospital VT arrest
monomorphic VT, CPR, Epi x2 and shock with ROSC 05/19/24
VT that broke to PEA, CPR, Epi x2 and Bicarb x2 with ROSC 05/21/24
VDRF
intubated 05/19/24 and then extubated 05/20/24
re-intubated 05/21/24 with right lung whiteout
Vomiting 05/20/24
Cardiogenic and septic shock
ECHO 08/2023 at [facility]: EF reportedly preserved
Echo 09/15/23: EF 40-45%, inferior wall akinesis, inferoseptal wall and base to mid inferolateral francisco hypokinetic, stage II diastolic dysfunction, moderate MR, mild with peak/mean 20/11. mild to mod aortic regurg
Echo 05/17/24: EF 45 to 50%, mild concentric LVH, hypokinesis of inferior septal wall and basal to mid lateral wall, mild MR, mild to moderate peak/mean 23/15, mild AI, mild pulmonic regurgitation.
Echo 05/21/24: EF 30-35%, global hypokinesis with inferior akinesis
Echo 05/22/24: EF 25 to 30%, global hypokinesis with inferior and inferolateral akinesis, dilated RV with reduced RV systolic function, moderate to severe MR, moderate to severe TR with PAP 64 mmHg
Cath 05/17/2024: LM: Calcified, distal tapering, LAD: 100% at origin, LAD fills via patent QUIANA, relatively small LAD with diffuse disease, circumflex heavily calcified, 50% proximal stenosis, 100% OM1 with patent vein graft but OM is very small,
retrograde filling less vibrant than before, RCA 100% at origin, SVG to PDA has 70% proximal stenosis, successful stenting prox SVG-PDA with 2.5 x 15 Waka DAKSHA
Plan:
-Remains on 3 pressors and is having CRRT on 05/23/24 due to hemodynamic instability
-Levo at 12 (weaned down a bit from 05/23/24), Bhavin at 160, Vaso at 0.03
-Urine culture positive for E coli. Blood cultures without growth at 24 hours. ID following.
-From a cardiac standpoint, Troponin peaked at 20.8 on admission and was managed as a NSTEMI. Troponin peaked again at 14.4 after code #1. Troponin peaked again at 8.33 after code #2. Subsequent Troponin elevations were managed as nonischemic
myocardial injury Troponin elevations.
-EF down to 25% following code #2
-Cannot tolerate CM meds due to pressor dependent hypotension
-CRRT for volume management
-Patient with monomorphic VT at time of code on 05/19/24 suggesting scar based etiology. Then with VT breaking to PEA on 05/21/24.
-Remains on amiodarone gtt. After initial code on 05/19/24 amiodarone gtt started and then transitioned to amiodarone PO up until time of 2nd code.
-Consideration for ICD prior to d/c pending recovery and clinical course
-Remains on Plavix 75 mg via tube daily.
-Remains on aspirin 81 mg daily via tube. Follow HD fistula for bleeding, consider vascular surgery consult if significant bleeding.
Hospital course thus far: Patient admitted with chest pain and acute HF 05/16/24. HD with UF performed with improvement in chest pain, but Troponin peaked at 20. Patient taken to clinical laboratory manager 05/17/24 and found to have anew SVG to PDA lesion that was
stented. Patient then had an in-hospital cardiac arrest 05/19/24 early AM with CPR, Epi x2 and shock with ROSC. Patient was intubated and then extubated 05/20/24. Later on 05/20/24 had an episode of vomiting. During the day 05/20/24 patient was on Bhavin
and maxed out and Levophed started plus increasing oxygen demands. CXR with right lung whiteout and ABG sent. Patient re-intubated 05/21/24. VT code 05/21/24 at 1900 and then broke into PEA. Treated with CPR, Epi x2 and Bicarb x1 with ROSC. Back on
amiodarone gtt.
Progress Note - Pamphlet Distributor
Subjective
Date of Service: May 24, 2024
Intubated and sedated
Objective
Labs:
Labs
Hgb 10.9 g/dL (13.0-18.0) L 05/24/24 04:56
Hct 31.8 % (39.0-52.0) L 05/24/24 04:56
Plt Count 61 10^3/uL (130-400) L 05/24/24 04:56
PT 16.2 Sec (11.4-14.6) H 05/19/24 06:16
INR 1.32 05/19/24 06:16
APTT 37.0 Sec (23.4-35.0) H 05/19/24 06:16
Sodium 134 mmol/L (135-145) L 05/24/24 04:56
Potassium 3.2 mmol/L (3.5-5.1) L 05/24/24 04:56
BUN 49 mg/dl (9-20) H 05/24/24 04:56
Creatinine 2.5 mg/dL (0.7-1.3) H 05/24/24 04:56
Glucose 313 mg/dl (70-99) H 05/24/24 04:56
Troponins
05/21/24 05/21/24 05/22/24
19:17 19:18 09:23
Troponin I 6.660 H* Cancelled 7.610 H*
05/22/24 05/22/24 05/23/24
12:55 17:08 03:26
Troponin I 8.330 H* 7.330 H* 7.240 H*
Vital Signs and I&O:
Vital Signs
Temp Pulse Resp BP Pulse Ox
97.0 F 63 16 117/51 100
05/24/24 04:15 05/24/24 10:45 05/24/24 10:45 05/21/24 17:36 05/24/24 11:11
Vital Signs
Temp Pulse Resp BP Pulse Ox
97.0 F 63 16 117/51 100
05/24/24 04:15 05/24/24 10:45 05/24/24 10:45 05/21/24 17:36 05/24/24 11:11
Intake & Output
05/22/24 05/23/24 05/24/24 05/25/24
06:59 06:59 06:59 06:59
Intake Total 3071.3 / 3190.3 3759.3 / 3929.6 4993.5 / 5190.7 843.3 / 843.3
Output Total 87 / 87 4606 / 4825 1261 / 1261
Balance 2984.3 / 3103.3 3759.3 / 3929.6 387.5 / 365.7 -417.7 / -417.7
Physical Exam
Physical Exam
GEN: Intubated
HEENT: MMM
LUNGS: Intubated and on the ventilator
CV: Reg
ABD: ND
EXT: +1 B/L LE hard edema
SKIN: No rash
[2024-05-24 11:35] LABS: Ionized Calcium 1.36 mMOL/L (1.15-1.33)
[2024-05-24 11:46] LABS: Hematocrit 33.2 % (39.0-52.0); Hemoglobin 11.7 g/dL (13.0-18.0); Mean Corp Hgb Conc. 35.2 g/dL (33.0-37.0); Mean Corpuscular Hgb 26.7 pg (27.0-31.0); Mean Corpuscular Volume 75.8 fL (80.0-94.0); Platelet Count 51 10^3/uL (130-400); Red Blood Cell Count 4.38 10^6/uL (4.70-6.10); Red Cell Dist. Width 21.7 % (11.5-14.5); White Blood Cell Count 27.1 10^3/uL (4.8-10.8)
[2024-05-24 11:48] LABS: Blood Urea Nitrogen 45 mg/dl (9-20); Calcium 9.4 mg/dl (8.4-10.2); Carbon Dioxide 18 mmol/L (22-30); Chloride 103 mmol/L (98-107); Estimated Creatinine Clearance 23 ml/min; Glucose 183 mg/dl (70-99); Magnesium 2.1 mg/dl (1.6-2.3); Phosphorus 2.2 mg/dl (2.5-4.5); Potassium 3.7 mmol/L (3.5-5.1); Sodium 136 mmol/L (135-145); eGFR 28.81
[2024-05-24] MEDS: NOVOLOG FLEXPEN 12 UNITS SC (11:57)
[2024-05-24] MEDS: NOVOLOG FLEXPEN-HIGH RESISTANCE 2 UNITS SC (11:58)
[2024-05-24] MEDS: SODIUM PHOSPHATE 260 MEQ IV ×2 (12:42→23:41)
--- NOTE | 2024-05-24 12:53 | PTCARENOTE ---
Low temp noted. Bare hugger applied. Vasopressors slowly titrating down-see flowsheet. CRRT continues without issue. Sod Phos repleating. Assessment unchanged.
--- NOTE | 2024-05-24 15:21 | CM ---
CM following re: discharge planning.
Discussed in Rounds, reviewed pt's chart, met with pt and pt's family at bedside. Per Rounds, pt remain critically ill, remains intubated, CRRT started yesterday, prognosis guarded, continue supportive care
D/C plan: uncertain at this time and will depend on pt's progress.
CM will follow with discharge plan updates as hospitalization progresses
--- NOTE | 2024-05-24 16:34 | PTCARENOTE ---
Assessment unchanged at this time. Briefly required increase of vasopressor after turn to Left but recovered within 20 min and returned pressors to prior dosage. Bare hugger still applied. Axillary temp equal to esophageal temp.
--- NOTE | 2024-05-24 16:47 | W.PN.UPDATE ---
Update Note
Progress Note Update
Pt seen on CRRT. BP holding, slow wean of pressors. remains on vent. UF 100ml/hr without issue.
CVC ok
[2024-05-24 16:59] LABS: Ionized Calcium 1.33 mMOL/L (1.15-1.33)
[2024-05-24 17:11] LABS: Blood Urea Nitrogen 42 mg/dl (9-20); Calcium 9.2 mg/dl (8.4-10.2); Carbon Dioxide 21 mmol/L (22-30); Chloride 102 mmol/L (98-107); Estimated Creatinine Clearance 25 ml/min; Glucose 131 mg/dl (70-99); Magnesium 1.9 mg/dl (1.6-2.3); Phosphorus 4.2 mg/dl (2.5-4.5); Potassium 3.8 mmol/L (3.5-5.1); Sodium 136 mmol/L (135-145)
[2024-05-24] MEDS: MAGNESIUM SULFATE 100 IV (17:24)
[2024-05-24] MEDS: CRESTOR 10 MG TUBE (17:38)
[2024-05-24 17:59] LABS: Glucose - Point of Care 109 mg/dl (70-99)
[2024-05-24] MEDS: NOVOLOG FLEXPEN-MODERATE RESISTANCE SC ×2 (18:33→23:36)
[2024-05-24] MEDS: NOVOLOG FLEXPEN-HIGH RESISTANCE SC (18:50)
[2024-05-24] MEDS: NOVOLOG FLEXPEN SC ×2 (18:50→23:37)
[2024-05-24 18:57] VITALS: BP_SYST 90
--- NOTE | 2024-05-24 20:15 | PTCARENOTE ---
pt received from previous rn- remains ett to vent- see settings as charted. pt drowsy and arouses to name, follows simple commands. remains on fentanyl, amio, levo, vaso, and xiang gtts. titrating to maintain systolic >90. right radial jens zeroed
and functioning. remains with doppler pulses. pt on olya hugger, skin checks completed. generalized +2 anarsarca. nsr with 1st degree and bbb on monitor. tube feeds continue- pt tolerating. right ij dialysis cath c/d/i. crrt running. right picc
flushes with good blood return. son at bedside and updated. all care explained as provided. all safety precautions in place.
[2024-05-24] MEDS: CORDARONE 518 MG IV (21:04)
[2024-05-24] MEDS: XALATAN OPHTHALMIC SOLUTION 1 DROP BOTH EYES (21:15)
[2024-05-24 22:52] LABS: Ionized Calcium 1.35 mMOL/L (1.15-1.33)
[2024-05-24 23:09] LABS: Blood Urea Nitrogen 39 mg/dl (9-20); Calcium 9.4 mg/dl (8.4-10.2); Carbon Dioxide 22 mmol/L (22-30); Chloride 102 mmol/L (98-107); Estimated Creatinine Clearance 26 ml/min; Glucose 70 mg/dl (70-99); Magnesium 2.6 mg/dl (1.6-2.3); Phosphorus 2.6 mg/dl (2.5-4.5); Potassium 3.8 mmol/L (3.5-5.1); Sodium 136 mmol/L (135-145); eGFR 34.35
--- NOTE | 2024-05-24 23:22 | PTCARENOTE ---
crrt cartridge changed. assessment unchanged. turned and repositioned.
[2024-05-24] MEDS: DEXTROSE 50% SYRINGE 12.5 GRAMS IV (23:28)
[2024-05-24 23:38] LABS: Glucose - Point of Care 62 mg/dl (70-99)
--- NOTE | 2024-05-24 23:51 | PTCARENOTE ---
felecia hennessy aware of blood sugar, hypoglycemia treatment- see mar. repeat sugar 122.
[2024-05-24 23:59] LABS: Glucose - Point of Care 122 mg/dl (70-99)
[2024-05-25] VITALS (9 sets, daily range): BP systolic 50–146; BMI 28.8
--- NOTE | 2024-05-25 01:11 | PTCARENOTE ---
pt with sudden decrease in bp to systolic in 50s- levophed and xiang titrated up- see flowsheet- felecia hennessy at bedside. ordered to decrease UF on crrt and increase as tolerated. bp back in 90s systolic.
--- NOTE | 2024-05-25 01:11 | PTCARENOTE ---
pt with sudden decrease in bp- levophed and xiang titrated up- see flowsheet- felecia hennessy at bedside. ordered to decrease UF on crrt. bp back in 90s systolic.
[2024-05-25] MEDS: SUBLIMAZE 100 IV ×3 (02:59→22:21)
[2024-05-25 03:17] LABS: Glucose - Point of Care 92 mg/dl (70-99)
[2024-05-25] MEDS: NEO-SYNEPHRINE 1% 260 MG IV (03:43)
[2024-05-25] MEDS: LEVOPHED 258 MG IV ×4 (03:43→22:06)
[2024-05-25] MEDS: PITRESSIN 100 IV ×2 (03:53→12:19)
[2024-05-25 05:03] LABS: Ionized Calcium 1.37 mMOL/L (1.15-1.33)
[2024-05-25 05:08] LABS: Glucose - Point of Care 84 mg/dl (70-99)
[2024-05-25] MEDS: NOVOLOG FLEXPEN-MODERATE RESISTANCE SC ×3 (05:13→18:06)
[2024-05-25] MEDS: MERREM 500 MG IV ×4 (05:13→23:27)
[2024-05-25] MEDS: STERILE WATER FOR INJECTION 10 ML IV ×4 (05:13→23:27)
[2024-05-25] MEDS: SOLU-CORTEF 50 MG IV ×3 (05:13→21:09)
[2024-05-25] MEDS: NOVOLOG FLEXPEN SC (05:13)
[2024-05-25 05:20] LABS: Hemoglobin 12.2 g/dL (13.0-18.0); Mean Corp Hgb Conc. 35.9 g/dL (33.0-37.0); Mean Corpuscular Volume 75.2 fL (80.0-94.0); Platelet Count 41 10^3/uL (130-400); Red Blood Cell Count 4.52 10^6/uL (4.70-6.10); Red Cell Dist. Width 21.4 % (11.5-14.5); White Blood Cell Count 33.5 10^3/uL (4.8-10.8)
--- NOTE | 2024-05-25 05:24 | PTCARENOTE ---
felecia hennessy aware of blood sugar- ordered to hold insulin.
[2024-05-25 05:34] LABS: ALT (SGPT) 334 U/L (0-50); AST (SGOT) 558 U/L (17-59); Albumin 2.4 g/dl (3.5-5.0); Alkaline Phosphatase 83 U/L (38-126); Blood Urea Nitrogen 36 mg/dl (9-20); Calcium 9.6 mg/dl (8.4-10.2); Carbon Dioxide 21 mmol/L (22-30); Chloride 104 mmol/L (98-107); Estimated Creatinine Clearance 29 ml/min; Glucose 83 mg/dl (70-99); Magnesium 2.4 mg/dl (1.6-2.3); Phosphorus 3.8 mg/dl (2.5-4.5); Potassium 4.1 mmol/L (3.5-5.1); Sodium 137 mmol/L (135-145); Total Bilirubin 2.3 mg/dl (0.2-1.3); Total Protein 5.3 g/dl (6.3-8.2); eGFR 39.26
[2024-05-25 06:46] LABS: % Basophils 0.4 % (0-2); % Eosinophils 0.3 % (0-6); % Immature Granulocytes 2.1 % (0-0.5); % Neutrophils 89.2 % (42.2-75.2); Absolute Basophils 0.2 10^3/uL (0-0.2); Absolute Eosinophils 0.1 10^3/uL (0-0.7); Absolute Immature Granulocytes 0.7 10^3/uL (0-0.05); Absolute Monocytes 1.7 10^3/uL (0.1-0.6); Absolute Neutrophils 29.9 10^3/uL (1.4-6.5); Nucleated Red Blood Cells % 6.5 % (-)
--- NOTE | 2024-05-25 07:30 | PN.DE.MGMTRT ---
Insulin Management
- -
05/25/2024 Diabetes management F/U:
83-year-old male with complex PMH including CAD s/p CABG, recent DAKSHA/graft 05/17/2024, ESRD on HD, bladder CA ongoing treatment at [facility], A-Fib, T2DM. Pt is s/p VT arrest, shock/epinephrine/ROSC/intubated 05/19, extubated 05/20 and
reintubated 05/21 due to Septic shock source. A1C on admission 7.1%, was taking Onglyza 5mg daily. Pt has been started corticosteroid stress doses, contributing to hyperglycemia-->critical care glycemic protocol for optimal glucose control. Cr
4.8, eGFR 11.3.
Pt remains critically ill, on CRRT, requiring multiple pressors, on steroids and tube at goal, 70cc/hr, unable to interview.
Noted for hypoglycemia overnight as low as 62, improved after txt and has remained low normal. Glucose this AM 83,
Will reduce AM Lantus from 22 units to 10 units . HOLD Q6 hr NovoLog dose. Will reassess and resume q6 hr dose if necessary
Discussed with patients nurse and ICU team.
Diabetes History
- -
Type of Diabetes: 2 requiring insulin
Pre-Admission Diabetes Regimen
05/24/24 05/24/24 05/24/24
11:20 16:48 22:47
Creatinine 2.2 H 2.0 H 1.9 H
05/25/24
04:57
Creatinine 1.7 H
Lab Results
Hemoglobin A1c 7.1 % (4.0-5.6) H 05/16/24 19:00
Insulin Pump Settings
IP Diabetes Regimen
05/24/24 05/24/24 05/24/24
10:03 11:20 16:48
Glucose 183 H 131 H
POC Glucose 178 H
05/24/24 05/24/24 05/24/24
17:47 22:47 23:26
Glucose 70
POC Glucose 109 H 62 L
05/24/24 05/25/24 05/25/24
23:48 03:05 04:56
Glucose
POC Glucose 122 H 92 84
05/25/24
04:57
Glucose 83
POC Glucose
Patient Education
--- NOTE | 2024-05-25 07:47 | W.PN.NEPH.PH ---
Today's Communication / Plan
-
CRRT
maintain negative at 100cc/hr
keep pressors for MAP >60
Assessment/Plan
-
Assessment:
CP
Elevated troponin
Transitional cell carcinoma of the bladder
s/p CABG - CABRAL to LAD, SVG to OM, SVG to PDA 12/09/22 at [place]
CM EF 40% by echo 09/15/23
Type 2 NSTEMI s/p diagnostic cath 08/2023 at [facility] with patent bypass grafts, 70% OM stenosis, medically managed
Post CABG afib
ESRD on HD MWF
mild
Hypertension
Hyperlipidemia
Type 2 diabetes
Glaucoma
Hyponatremia
Plan
keep MAP>60 or SBP>90
Patient still requires 3 pressor requirement of Bhavin-Synephrine vasopressin and Levophed
some notable drops of bp last evening, no arythmias overnight
continue CRRT, orders renewed
UF 100ml/hr to try to maintain balance of volume unless bps drop
no FWF in TF
prognosis is poor
critical care time 31 minutes
-
-
Date of Service: May 25, 2024
CC / HPI / ROS
-
Chief Complaint:
ESRD
History of Present Illness:
critically ill in ICU
CRRT running, with periods of hypotension noted
Status post ventricular tachycardia and PEA/cardiac arrest
Remains on 3 pressor support
Intubated, sedated
Review of Systems:
Intubated
no fevers
Labs
-
Labs:
WBC 33.5 10^3/uL (4.8-10.8) H 05/25/24 04:57
RBC 4.52 10^6/uL (4.70-6.10) L 05/25/24 04:57
Hgb 12.2 g/dL (13.0-18.0) L 05/25/24 04:57
Hct 34.0 % (39.0-52.0) L 05/25/24 04:57
Plt Count 41 10^3/uL (130-400) L 05/25/24 04:57
eGFR 39.26 05/25/24 04:57
Oso-I-Llfhrueizpe Pept > 04320 pg/ml 05/16/24 11:51
Albumin 2.4 g/dl (3.5-5.0) L 05/25/24 04:57
Physical Exam
-
Vital Signs:
Vital Signs
Temp Pulse Resp BP Pulse Ox
97.4 F 79 16 117/51 100
05/25/24 04:26 05/25/24 06:00 05/25/24 06:00 05/21/24 17:36 05/25/24 07:28
Cardiovascular:: Regular rate and rhythm
Respiratory:: Bilateral: Coarse
Lung Excursion:: Normal
Abdomen:: Nontender and Soft
Bowel Sounds:: Normal
Extremity Edema:: None: Bilateral:
[2024-05-25] MEDS: LOW STRENGTH ASPIRIN 81 MG TUBE (07:48)
[2024-05-25] MEDS: MIRALAX 17 GRAMS TUBE (07:48)
[2024-05-25] MEDS: PLAVIX 75 MG TUBE (07:49)
[2024-05-25] MEDS: NSS (PRESERVATIVE FREE) 10 ML IV ×2 (07:50→21:08)
[2024-05-25] MEDS: PROTONIX IV 40 MG IV ×2 (07:51→21:09)
--- NOTE | 2024-05-25 07:56 | W.PN.UPDATE ---
Update Note
Progress Note Update
Patient seen on CRRT
sbp ~100
RR 1.5L/hr
qb 300
4K bath
u/f 100cc/hr
[2024-05-25] MEDS: DEXTROSE 50% SYRINGE 12.5 GRAMS IV ×2 (08:26→13:15)
[2024-05-25 08:28] LABS: Glucose - Point of Care 60 mg/dl (70-99)
--- NOTE | 2024-05-25 08:35 | PTCARENOTE ---
pt received from previous rn- ett to vent- see settings as charted. arouses to name, follows simple commands, nods yes and no appropriately. Twitching noted so BG checked-60. D50 1/2 amp given and repeat 102. Diabetic STONE SANDBLASTER notified. Able to decrease
vasopressors after dextrose bolus. see flowsheet for all iv gtts infusing. right picc line c/d/i, flushes with good blood return. right ij cath c/d/i, crrt running- see flowsheet. fms in place for frequent loose stools, burgundy/brown liquid stool
noted. turned and repositioned, Oral care provided. tf continue- pt tolerating. remains nsr with first degree and bbb on monitor. right radial jens zeroed and functioning. lower ext. cool and dusky. doppler pulses difficult to locate. son updated.
all care explained as provided to patient, all safety precautions in place.
--- NOTE | 2024-05-25 08:44 | W.PN.CARDCBS ---
Today's Communication / Plan
-
Remains critically ill on ventilator and on Levophed, Bhavin-Synephrine, and vasopressin.
Wean pressors as tolerated.
Continue CRRT.
White blood cell count up to 33,000. ID following regarding infection.
Thrombocytopenia has worsened. at 41,000. Okay to continue aspirin. Will stop Plavix and hold for next 24 to 48 hours. Continue to follow platelet count.
Hemoglobin stable at 12.
Long-term prognosis is extremely poor.
Impression / Plan
-
PCP: Dr. Charlie Marley
Primary Truck Bench Mechanic: Dr. Almanza
Assessment:
Admitted with chest pain and acute HF 05/16/24
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
ESRD on HD
CM EF 40% by echo 09/15/23
NSTEMI related to stenosis of saphenous vein graft to PDA, peak troponin 20
CAD
s/p CABG with CABRAL to LAD, SVG to OM, SVG to PDA at [place] 12/09/22
s/p NSTEMI with patent bypass grafts, 70% OM stenosis being medically managed after cath at [facility] 08/2023
s/p NSTEMI with DAKSHA SVG-PDA 05/17/2024
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
Paroxysmal Afib
Not chronically anticoagulated due to anemia, not a candidate for watchman due to inability to tolerate even short-course OAC
mild
Hypertension
Hyperlipidemia
Type 2 diabetes
Glaucoma
Hyponatremia
bleeding from HD fistula site
In-hospital VT arrest
monomorphic VT, CPR, Epi x2 and shock with ROSC 05/19/24
VT that broke to PEA, CPR, Epi x2 and Bicarb x2 with ROSC 05/21/24
VDRF
intubated 05/19/24 and then extubated 05/20/24
re-intubated 05/21/24 with right lung whiteout
Vomiting 05/20/24
Cardiogenic and septic shock
Thrombocytopenia
ECHO 08/2023 at [facility]): EF reportedly preserved
Echo 09/15/23: EF 40-45%, inferior wall akinesis, inferoseptal wall and base to mid inferolateral francisco hypokinetic, stage II diastolic dysfunction, moderate MR, mild with peak/mean 20/11. mild to mod aortic regurg
Echo 05/17/24: EF 45 to 50%, mild concentric LVH, hypokinesis of inferior septal wall and basal to mid lateral wall, mild MR, mild to moderate peak/mean 23/15, mild AI, mild pulmonic regurgitation.
Echo 05/21/24: EF 30-35%, global hypokinesis with inferior akinesis
Echo 05/22/24: EF 25 to 30%, global hypokinesis with inferior and inferolateral akinesis, dilated RV with reduced RV systolic function, moderate to severe MR, moderate to severe TR with PAP 64 mmHg
Cath 05/17/2024: LM: Calcified, distal tapering, LAD: 100% at origin, LAD fills via patent QUIANA, relatively small LAD with diffuse disease, circumflex heavily calcified, 50% proximal stenosis, 100% OM1 with patent vein graft but OM is very small,
retrograde filling less vibrant than before, RCA 100% at origin, SVG to PDA has 70% proximal stenosis, successful stenting prox SVG-PDA with 2.5 x 15 Pablo DAKSHA
Plan:
-Remains on 3 pressors and is having CRRT on 05/23/24 due to hemodynamic instability
-Pressor requirement slightly down on levo, bhavin-, and vasopressin.
-Urine culture positive for E coli. Blood cultures without growth at 48 hours. ID following.
-White blood cell count at 33,000
-From a cardiac standpoint, Troponin peaked at 20.8 on admission and was managed as a NSTEMI. Troponin peaked again at 14.4 after code #1. Troponin peaked again at 8.33 after code #2. Subsequent Troponin elevations were managed as nonischemic
myocardial injury Troponin elevations.
-EF down to 25% following code #2
-Cannot tolerate CM meds due to pressor dependent hypotension
-CRRT for volume management
-Patient with monomorphic VT at time of code on 05/19/24 suggesting scar based etiology. Then with VT breaking to PEA on 05/21/24.
-Remains on amiodarone gtt. After initial code on 05/19/24 amiodarone gtt started and then transitioned to amiodarone PO up until time of 2nd code.
-Consideration for ICD prior to d/c pending recovery and clinical course
-Platelet count continues to slowly decline and is now at 41,000. Will hold Plavix for 24 hours.
-Remains on aspirin 81 mg daily via tube. Follow HD fistula for bleeding, consider vascular surgery consult if significant bleeding.
-Prognosis is very poor.
Critical care time 33 minutes
Hospital course thus far: Patient admitted with chest pain and acute HF 05/16/24. HD with UF performed with improvement in chest pain, but Troponin peaked at 20. Patient taken to cathead worker 05/17/24 and found to have anew SVG to PDA lesion that was
stented. Patient then had an in-hospital cardiac arrest 05/19/24 early AM with CPR, Epi x2 and shock with ROSC. Patient was intubated and then extubated 05/20/24. Later on 05/20/24 had an episode of vomiting. During the day 05/20/24 patient was on Bhavin
and maxed out and Levophed started plus increasing oxygen demands. CXR with right lung whiteout and ABG sent. Patient re-intubated 05/21/24. VT code 05/21/24 at 1900 and then broke into PEA. Treated with CPR, Epi x2 and Bicarb x1 with ROSC. Back on
amiodarone gtt.
Progress Note - Truck Bench Mechanic
Subjective
Date of Service: May 25, 2024
Remains intubated and sedated on CRRT and multiple pressors.
Objective
Labs:
05/25/24 04:57
Labs
Hgb 12.2 g/dL (13.0-18.0) L 05/25/24 04:57
Hct 34.0 % (39.0-52.0) L 05/25/24 04:57
Plt Count 41 10^3/uL (130-400) L 05/25/24 04:57
PT 16.2 Sec (11.4-14.6) H 05/19/24 06:16
INR 1.32 05/19/24 06:16
APTT 37.0 Sec (23.4-35.0) H 05/19/24 06:16
Sodium 137 mmol/L (135-145) 05/25/24 04:57
Potassium 4.1 mmol/L (3.5-5.1) 05/25/24 04:57
BUN 36 mg/dl (9-20) H 05/25/24 04:57
Creatinine 1.7 mg/dL (0.7-1.3) H 05/25/24 04:57
Glucose 83 mg/dl (70-99) 05/25/24 04:57
Troponins
05/22/24 05/22/24 05/22/24
09:23 12:55 17:08
Troponin I 7.610 H* 8.330 H* 7.330 H*
05/23/24
03:26
Troponin I 7.240 H*
Vital Signs and I&O:
Vital Signs
Temp Pulse Resp BP Pulse Ox
96.7 F L 78 16 117/51 100
05/25/24 08:08 05/25/24 08:30 05/25/24 08:30 05/21/24 17:36 05/25/24 08:00
Vital Signs
Temp Pulse Resp BP Pulse Ox
96.7 F L 78 16 117/51 100
05/25/24 08:08 05/25/24 08:30 05/25/24 08:30 05/21/24 17:36 05/25/24 08:00
Intake & Output
05/23/24 05/24/24 05/25/24 05/26/24
06:59 06:59 06:59 06:59
Intake Total 3759.3 / 3929.6 4993.5 / 5190.7 4493.4 / 4660.4 267.1 / 267.1
Output Total 4606 / 4825 5268 / 5533 523 / 523
Balance 3759.3 / 3929.6 387.5 / 365.7 -774.6 / -872.6 -255.9 / -255.9
Physical Exam
Physical Exam
GEN: No distress, intubated/sedated
HEENT: supple, anicteric, mmm, ET tube
LUNGS: CTA, no wheezes/rales
CV: Reg, S1/S2, 1/6 syst LSB, no gallop
ABD: soft, BS+, NT/ND
EXT: No edema
NEURO: Gross non-focal
SKIN: No rash
[2024-05-25 08:50] LABS: Glucose - Point of Care 102 mg/dl (70-99)
--- NOTE | 2024-05-25 08:50 | W.PN.ID1 ---
Date of Service
Date of Service: May 25, 2024
Today's Communication
prognosis appears poor
Assessment / Plan
Shock - likely combined cardiogenic and septic
VAP and UTI
MSOF
NSTEMI, CAD
ESRD
Transitional cell cancer of the bladder
- blood cultures x2 in progress NGTD
- sputum culture with ESBL E coli
- urine culture 100 K ESBL E coli
- remains on high doses of three pressors, increasing leukocytosis noted in setting of steroid use
- c/w meropenem - dosed for CRRT
- stop ciprofloxacin
- rechecked QTc and remains acceptable today
Patient is critically ill, prognosis appears grim
Chief Complaint
-: UTI and Other (shock - septic and cardiogenic)
Subjective / Review of Systems
now persistently hypothermic on core Ts
norepi now at 22 mcg/min, phenylephrine dose down to 120 mcg/min, vaso on
no overnight evetns
Vital Signs / Physical Exam
Vital Signs
Vital Signs
Temp Pulse Resp BP Pulse Ox
96.7 F L 78 16 117/51 100
05/25/24 08:08 05/25/24 08:30 05/25/24 08:30 05/21/24 17:36 05/25/24 08:00
Physical Exam
Constitutional: Acutely Ill and Chronically Ill
Cardiovascular: Regular Rate and S1/S2; Negative Murmur or Rub
Pulmonary: Clear and Symmetric; Negative Wheezes or Rales
Gastrointestinal: Soft, Non Tender, Non Distended and Normal Bowel Sounds
Skin: Warm and Dry; Negative Rash or Jaundice
Neurological: Negative Awake
Objective Data
Lab Data
Lab Results
05/25/24 04:57
PT 16.2 Sec (11.4-14.6) H 05/19/24 06:16
INR 1.32 05/19/24 06:16
APTT 37.0 Sec (23.4-35.0) H 05/19/24 06:16
Estimated Creat Clear 29 ml/min 05/25/24 04:57
Lactic Acid 4.0 mmol/L (0.7-2.0) H* 05/23/24 11:48
Total Bilirubin 2.3 mg/dl (0.2-1.3) H 05/25/24 04:57
AST 558 U/L (17-59) H* 05/25/24 04:57
ALT 334 U/L (0-50) H 05/25/24 04:57
Alkaline Phosphatase 83 U/L (38-126) 05/25/24 04:57
Most recent labs reviewed.
Micro Results:
05/22/24 21:38 Blood Culture - Preliminary
Blood/Venous No Growth in 48 hours- Final report to follow
05/22/24 20:58 Blood Culture - Preliminary
Blood/Venous No Growth in 48 hours- Final report to follow
05/21/24 09:43 Urine Culture - Final
Urine Escherichia coli - ESBL
05/21/24 10:17 Respiratory Culture - Final
Endotracheal Escherichia coli - ESBL
Gram Stain - Final
05/16/24 18:42 MRSA Screen - Final
Nose No Methicillin Resistant Staphylococcus aureus isolated.
Care Review
Plan reviewed with: Nurse (prognosis)
[2024-05-25] MEDS: RFP-401 HD Soln (K+ 4 mEq/L) 15000 ML CRRT-IRR ×2 (09:20→19:06)
[2024-05-25 09:42] LABS: Glucose - Point of Care 92 mg/dl (70-99)
[2024-05-25 09:52] LABS: O2 Saturation % 98.9 % (94-98); PCO2 31 mmHg (35-48); PO2 155 mmHg (83-108); pH 7.46 (7.35-7.45)
[2024-05-25 10:37] LABS: Glucose - Point of Care 85 mg/dl (70-99)
[2024-05-25 11:05] LABS: Ionized Calcium 1.38 mMOL/L (1.15-1.33)
--- NOTE | 2024-05-25 11:13 | W.PN.INTV ---
Today's Communication / Plan
Recommendations
Continue mechanical ventilation, this will be adjusted based on ABG.
Continue antibiotic therapy
Continue vasopressors and will attempt to wean down based on hemodynamics
Nutritional support
Follow platelet count
Follow H&H
Plavix on hold
Subcu heparin for DVT prophylaxis on hold
Poor prognosis
Assessment
-
83-year-old male with complex medical history including coronary disease with bypass surgery, recent drug-eluting stent and graft 05/17/2024, end-stage renal disease on hemodialysis, transitional cell carcinoma the bladder ongoing treatment at [facility], atrial fibrillation not on anticoagulation, diabetes, status post VT arrest, shock/epinephrine/ROSC/intubation 05/19/2024
VDRF, intubated 05/19/2024
Extubated 05/20/2024
Reintubated 05/21/2024
Chest x-ray with right whiteout-likely atelectasis 05/21/2024
Shock: Suspect multiple mechanisms cardiogenic/septic
Gram-negative in the sputum
Gram-negative in the urine
Cardiac arrest, monomorphic VT, 05/19/2024
While on the commode
Shock/Epi/intubation/ROSC
---
S/p DAKSHA graft 05/17/2024
Ongoing chest pain, NSTEMI
S/p CABG [place] 12/09/2022
s/p NSTEMI August 2023, med managed at [facility]
Cardiomyopathy, EF 40% with
ESRD on HED
Mild oozing of left upper extremity fistula
Conditions present prior admission:
Transitional cell carcinoma, bladder
Status post transurethral resection of bladder tumor, most recently 50 tumors removed at [facility] 09/01/2023
Paroxysmal atrial fibrillation
Not on anticoagulation due to anemia
Hypertension/hyperlipidemia
Diabetes
Plan/recommendations:
-
Remains critically ill, this morning increased work of breathing, worsening vasopressor requirements, chest x-ray with a right whiteout likely mucous plug/atelectasis.
Reintubated 05/21/2024.
Developed cardiorespiratory arrest V. tach/PEA status post epi and CPR. Regained ROSC.05/21/2024 around 7 PM.
-
MV day #5
Mechanical ventilation settings
ABG 05/25/2024: 7.46/31/155
ABG 05/24/2024-7.33/36/184
ABG 05/23/2024: 7.36/32/87
Will adjust mechanical ventilation. Slightly alkalotic.
Pulmonary mechanics acceptable. Stable overnight.
FiO2 currently 30%.
Continue with intermittent suctioning-minimal secretion
Nebulizers as needed
Chest x-ray 05/24/2024:To my view, showed mild interstitial edema, small right pleural effusion with associated atelectasis.
-
Sedation with fentanyl drip, will continue to minimize as able
RASS score 0 (-1)
Sedation break per protocol
-
Shock: Multiple mechanism septic/? cardiogenic (echocardiogram with global hypokinesis decreased LVEF 20 to 30%/RV dysfunction as well)
With abnormal right lower lobe abnormality, layering right pleural chest x-ray cannot rule out aspiration/pneumonia.
Penis with pus: Straight cath showed purulent urine.
ESBL E. coli in the urine
ESBL E. coli in the sputum
Blood culture negative so
Infectious disease consulted: Antibiotics transition to ertapenem/Cipro.
Discontinued vancomycin
MRSA screening negative
-
Continue norepinephrine/Bhavin-Synephrine/vasopressin-titrate for a systolic blood pressure 90 mmHg-today 05/24/2024 requirements improved.
Arterial line
-
Abnormal LFTs: Suspect shock liver.
Abdominal ultrasound unremarkable
Trend LFTs
-
Acidosis noted-improving: Continue CRRT -unable to tolerate dialysis due to hemodynamic instability.
Follow BMP
Lactate level of 4 noted
Continue hemodynamic support as above
-
Continue stress dose of hydrocortisone for now-dose reduced to every 8 hours 05/24/2024. As vasopressor requirements improve we will continue to taper.
-
Thrombocytopenia noted: Plavix has been discontinued.
? Due to antibiotics
Will continue to follow for now
-
Reviewed cardiology correspondence
ICD prior to discharge if patient improved clinically.
Echocardiogram 05/17/2024: EF 45% with hypokinesis inferoseptal wall, moderate MR, moderate aortic stenosis.
LVEF 04/20/2024 showed decline 20 to 30%. No significant valvular abnormalities. No pericardial effusion
Echocardiogram 04/21/2024: Ejection fraction 20 to 30%. Global hypokinesis with inferior and inferior lateral akinesis. Dilated right ventricle with reduced right ventricular systolic function. Moderate to severe MR. Moderate to severe TR.
-
Unclear whether monomorphic VT was due to scar or recent drug-eluting stent/graft
V. tach/PEA arrest again on 05/21/2024.
Continue amiodarone drip-baseline atrial fibrillation rhythm
Cardiology following closely
Remains on aspirin
Plavix on hold 05/25/2024 due to thrombocytopenia
-
Chronic kidney disease hemodialysis dependent.
Case discussed with nephrology.
transitioned CRRT since 05/23/2024.
Hold midodrine for now.
Black stools: Heparin subcu on hold
Follow H&H
Plavix also discontinued
No evidence for active bleeding at this point.
Unfortunately noted great candidate for any other intervention at this point.
Patient has developed hypoglycemia
Insulin drip discontinued
Will continue to monitor closely
If there is persistent low blood sugars D5 drip will be started.
Hyperglycemia blood sugars over 200.
Target 140-180
Insulin sliding scale
Continue sedation break per protocol.
Patient has some delirium prior intubation.
Dobbhoff tube-tube feedings currently at goal.
PPI for GI prophylaxis
DVT prophylaxis with subcu hep
Poor prognosis
Dr. Salcido updated son at the bedside 05/22/2024, 05/23/2024, 05/24/2024 discussed possibility of DNR status. He will think about it. He understands that likely if patient survives he will need long-term care, suspected unlikely will be able to go
home independently.
Dr. Salcido discussed with son over the phone and in person 05/21/2024. He is traveling down from [place] today. DNR status should be addressed.
Critical care statement: A total of 43minutes of critical care time was provided for this patient today. This includes management of unstable vital signs, evaluation of the patient at bedside, reviewing the patient's pertinent medical records
including ventilator settings, arterial blood gases, radiographs, microbiology, laboratory evaluations and discussion with primary team, critical care nursing, and respiratory therapy.
Subjective Dataa
Subjective Data
Date of Service:
Date of Service: May 25, 2024
Chief Complaint: Quality Systems Technician Follow Up (Acute hypoxemic/hypercapnic respiratory failure)
Subjective:
Remains critically ill, on mechanical ventilation.
Remains on vasopressors.
Sedated.
Review of Systems
General: Unobtainable - Sedation
Objective Data
Data Reviewed
Vital Signs / I&O / Oxygen:
Vital Signs
Temp Pulse Resp BP Pulse Ox
96.7 F L 75 16 117/51 100
05/25/24 08:08 05/25/24 11:00 05/25/24 11:00 05/21/24 17:36 05/25/24 10:45
Intake and Output
05/24/24 05/25/24 05/26/24
06:59 06:59 06:59
Intake Total 4993.5 / 5190.7 4493.4 / 4660.4 736.0 / 736.0
Output Total 4606 / 4825 5268 / 5533 1265 / 1265
Balance 387.5 / 365.7 -774.6 / -872.6 -529.0 / -529.0
SaO2 [ASV] 100
SaO2 [A/C] 100
SaO2 100
Nasal Cannula flow liters per 95
minute
Physical Exam
General: Respiratory Distress (none, sedated)
HEENT: Normocephalic and Other (ET tube in place)
Cardiovascular: S1-S2, Regular Rhythm, Murmur (n) and Rub (n)
Respiratory: Wheeze (n), Crackles (n), Rhonchi (n), Non-Labored Respirations and ET Tube (No significant secretions)
GI: Soft, Non Distended and Non Tender
Neurology: Awake (Occasionally following commands) and Other (Intubated, mechanical ventilation. Sedated)
Skin: Cyanosis (n), Jaundice (n), Rash (n) and Other (Left upper extremity AV fistula)
Labs/Micro/Reports
Lab Data
05/25/24 04:57
Laboratory Results
05/25/24
09:43
pH 7.46 H
pCO2 31 L
pO2 155 H
HCO3 22.0
O2 Delivery Level
Microbiology
05/22/24 21:38 Blood/Venous Blood Culture - Preliminary
No Growth in 48 hours- Final report to follow
05/22/24 20:58 Blood/Venous Blood Culture - Preliminary
No Growth in 48 hours- Final report to follow
05/21/24 09:43 Urine Urine Culture - Final
Escherichia coli - ESBL
05/21/24 10:17 Endotracheal Respiratory Culture - Final
Escherichia coli - ESBL
05/21/24 10:17 Endotracheal Gram Stain - Final
[2024-05-25 11:37] LABS: Blood Urea Nitrogen 35 mg/dl (9-20); Calcium 9.8 mg/dl (8.4-10.2); Carbon Dioxide 23 mmol/L (22-30); Chloride 104 mmol/L (98-107); Estimated Creatinine Clearance 31 ml/min; Glucose 85 mg/dl (70-99); Magnesium 2.3 mg/dl (1.6-2.3); Phosphorus 3.1 mg/dl (2.5-4.5); Potassium 3.9 mmol/L (3.5-5.1); Sodium 138 mmol/L (135-145); eGFR 42.22
[2024-05-25 12:00] LABS: Glucose - Point of Care 75 mg/dl (70-99)
--- NOTE | 2024-05-25 12:53 | PTCARENOTE ---
BP much more labile than yesterday. Titrating Bhavin/levo up and down seemingly unrelated to position change or mentation. Assessment unchanged. No electrolyte repletion needed from scheduled labs r/t CRRT.
--- NOTE | 2024-05-25 13:10 | W.PN.HOSP.TC ---
Addendum entered and electronically signed by Jersey Durand MD 05/25/24 14:02:
VT arrest x2
Will require ICD prior to discharge
Continue amiodarone
Cards following without any further recs at this time
If recurs may need to try Lidocaine gtt/Defibrillation
Keep K >4
Keep Mg >2
Monitor on tele
Shock believed to be multifactorial in the setting of cardiogenic/septic.
Now Ucx and Rcx growing GNR. Recently intubated, cannot exclude VAP therefore which is usually pseudomonas related, agreeing with DCing Vanc/zosyn and continuing bud for now.
Will check Bcx, but has been on atb, this might affect the yeild of culture data and will consulted ID, ID Dc'd zosyn and start meropenem
Continue pressor (maxed on levo/xiang, on vaso-standard dose) support along with Solu-Cortef and bud
-I discussed with ICU about starting Dobutamine/Dopamine, but they are proarrhythmic and has had multiple VT arrest therefore, at this time would like to hold off.
-Unfortunately there is not much more we can provide in terms of pressor support and hopefully clinical course will turn around.
-May be able to provide epi gtt per ICU if needed
Follow-up blood cultures
Keep maps greater than 65
Wean pressors as tolerated
Acute hypoxemic respiratory failure secondary to mucous plugging as evident by chest x-ray as there is full right sided whiteout of the right lung. Now intubated. Will require pulmonary toilet with hypertonic saline nebs, precaution bed. If not
improving then likely would benefit from bronchoscopy with suction at bedside. ICU and pulmonary to decide
Daily CXR
SAT SBT daily
NSTEMI known CAD s/p CABG and PCI (05/17) to the SVG-PDA and saphenous vein graft/QUIANA angio. Continue Dapt. Cannot tolerate BB due to BP
HFrEF, ICM, EF 25-30%, unable to provide GDMT due to hypotension. Will need ICD prior to DC.
ESRD on HD continue HD per nephrology recommendations.
Continue crrt
Hypoglycia overnight
-Iatrogenic on insulin gtt
-Improved after glucogel
-If persisgtent stop gtt and start dextrose contianing fluids.
Original Note:
Today's Communication/Plan
-
Discontinue Cipro, continue with meropenem
Continue to wean off pressors as possible
Continue on Amio drip
Diabetic nurse consult for blood glucose monitoring
CRRT per guidelines
Assessment / Plan
Assessment / Plan
Patient continues on pressors, awaiting cultures to narrow antibiotics.
# Cardiogenic / septic shock
Ventilator dependent respiratory failure, intubated 05-19-2024
Cardiac arrest, monomorphic VT, 05-19-2024 Shock, CPR, epix2, intubation, ROSC, -> extubated ->re-intubated with mucous plug
05-21-2024 Cardiac arrest V-tach to PEA before shock possible -> CPRx2, epi 1, sodidum bicarb ->ROSC ->rapid afib ->amio push ->amio gtt with 3 pressors still intubated
Levophed, phenylephrine, vasopressin
Goal systolic >90
Urine and endotracheal culture (-) bacilli -> ESBL senstitive to meropenem
Zosyn continue day 2, discontinue vanc -> meropenem day 4 discontinue cipro
Chest x-ray cannot rule out pneumonia
Will continue with intermittent suctioning
IV corticosteroids stress doses
Battery Starter following
Family updated
#NSTEMI/CAD/HFrEF
s/p CABG with CABRAL to LAD, SVG to OM, SVG to PDA at [facility] 12/09/22
s/p NSTEMI with patent bypass grafts at [facility] 08/2023
Troponins downtrending
05/17 cath successful DAKSHA
Dual antiplatelet therapy for next 6 to 10 months
Echo 05/22 LVEF 25-30%
Fluid volume removal per CRRT
Will need ICD prior to discharge per cards
#End-stage renal disease
Cr. 4.8
Previously hemodialysis Tuesday
IR consulted for dialysis line placement for CRRT
CRRT 05/23 -> balance electrolytes and acidosis per guidelines
Nephrology following
#Heme-occult blood (+)
Repeat CBC for signs of bleed -> H&H stable
monitor
#Thrombocytopenia
today 61 -> 41
On DAPT with recent cath 05/17
Monitor
#Metabolic acidosis
On CRRT
# Hypotension
Now on multiple pressors in ICU
# Electrolyte imbalance
Hypomagnesemia - Replete as needed
Hyponatremia - monitor
Keep K>4 and mg >2
On CRRT ->replace per guidelines
Leukocytosis
WBC uptrending
Endotracheal and urine cultures revealed gram-negative bacilli
Blood cultures x2
ID consulted -> meropenem per culture sensitivities
Follow cultures
# Ischemic cardiomyopathy
Continue with aspirin statin
Already on Onglyza
Not a candidate for ARB/RAJIV inhibitor due to end-stage renal disease
#Elevated LFTs and bilirubin
Uptrending
Likely shock liver
Hepatitis C, hep B negative
Hep A (-)
RUQ US no signs of increased LFTs cause
#Ambulatory dysfunction
PT/OT consult
#Paroxysmal A-fib
Not on Eliquis due to history of hematuria and severe anemia
ASA
On Coreg as above
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
[place]. TURBT 50 lesions were reportedly worked on on 09/01/2023.
developed hematuria and a temporary placement of renal stent followed by continuous bladder irrigation
Eliquis discontinued
# Type 2 diabetes
Hemoglobin A1c 7.1
Diabetic consulted as increase BG on steroids
Adjustments per diabetic nurse
#Dyslipidemia
Continue statin, Zetia
#B12 deficiency�replace
#Chronic vertigo
Overall, grim prognosis
DVT subQ hep on hold per counter dish carrier
Full code
Anticipated Discharge: > 48 hours
Subjective/Interval History
-
Date of Service: May 25, 2024
Objective Data
-
Labs:
Laboratory Results
05/25/24 05/25/24 05/25/24
04:57 09:43 10:55
WBC 33.5 H
Hgb 12.2 L
Hct 34.0 L
Plt Count 41 L
HCO3 22.0
Sodium 137 138
Potassium 4.1 3.9
Chloride 104 104
Carbon Dioxide 21 L 23
BUN 36 H 35 H
Creatinine 1.7 H 1.6 H
Glucose 83 85
Calcium 9.6 9.8
Total Bilirubin 2.3 H
AST 558 H*
ALT 334 H
Alkaline Phosphatase 83
05/25/24
17:00
WBC
Hgb
Hct
Plt Count
HCO3
Sodium Pending
Potassium Pending
Chloride Pending
Carbon Dioxide Pending
BUN Pending
Creatinine Pending
Glucose Pending
Calcium Pending
Total Bilirubin
AST
ALT
Alkaline Phosphatase
Vital Signs:
Vital Signs
Temp Pulse Resp BP Pulse Ox
96.6 F L 79 16 117/51 100
05/25/24 11:32 05/25/24 12:00 05/25/24 12:00 05/21/24 17:36 05/25/24 12:00
I&O
1105/25/24 05/26/24
06:59 06:59 06:59
Intake Total 4993.5 / 5190.7 4493.4 / 4660.4 990.5 / 990.5
Output Total 4606 / 4852 5268 / 5533 1731 / 1731
Balance 387.5 / 365.7 -774.6 / -872.6 -740.5 / -740.5
Review of Systems
-
Unable to obtain full review of systems at this time due to: Patient Intubation
Physical Exam
-
General: Appears Chronically Ill
Respiratory: Other (Coarse breath sounds)
Cardiac: Regular Rhythm and S1/S2
GI: Soft, Normal Bowel Sounds and Distended
Rectal: Hem Positive
Musculoskeletal: Edema, Right Upper Extrem and Edema, Left Upper Extrem
Skin: Warm
Neuro: Negative AO x 3
[2024-05-25 13:30] LABS: Glucose - Point of Care 65 mg/dl (70-99)
[2024-05-25 13:42] LABS: Glucose - Point of Care 129 mg/dl (70-99)
--- NOTE | 2024-05-25 14:10 | CM ---
CM following re: discharge planning.
Discussed in Rounds, reviewed pt's chart, met with pt and pt's family at bedside. Per Rounds, pt remain critically ill, remains intubated, continue CRRT, still requires 3 pressor requirement of Bhavin-Synephrine vasopressin and Levophed, prognosis
poor, continue supportive care
D/C plan: uncertain at this time and will depend on pt's progress.
CM will follow with discharge plan updates as hospitalization progresses
[2024-05-25 14:27] LABS: Glucose - Point of Care 99 mg/dl (70-99)
[2024-05-25 15:47] LABS: Glucose - Point of Care 85 mg/dl (70-99)
[2024-05-25] MEDS: D5W 1000 IV (15:55)
--- NOTE | 2024-05-25 16:30 | PTCARENOTE ---
Due to falling blood glucose, D5W ordered. Son visited for several hours and plan of care discussed with Employee Relations Representative. Assessment unchanged. Able to wean off Bhavin-synephrine.
[2024-05-25 17:16] LABS: Ionized Calcium 1.42 mMOL/L (1.15-1.33)
[2024-05-25 17:44] LABS: Blood Urea Nitrogen 34 mg/dl (9-20); Calcium 9.9 mg/dl (8.4-10.2); Carbon Dioxide 24 mmol/L (22-30); Chloride 103 mmol/L (98-107); Estimated Creatinine Clearance 33 ml/min; Glucose 138 mg/dl (70-99); Magnesium 2.1 mg/dl (1.6-2.3); Phosphorus 2.9 mg/dl (2.5-4.5); Potassium 3.8 mmol/L (3.5-5.1); Sodium 137 mmol/L (135-145); eGFR 45.62
[2024-05-25 17:55] LABS: Glucose - Point of Care 136 mg/dl (70-99)
[2024-05-25] MEDS: CRESTOR 10 MG TUBE (18:05)
[2024-05-25] MEDS: SUBLIMAZE 50 MCG IV (20:37)
--- NOTE | 2024-05-25 20:48 | PTCARENOTE ---
Assumed care of pt at 1900. Received pt intubated, #8.0 ETT/24 cm at lip, AC 16/500/30/5. SpO2 100% on current vent settings, not currently overbreathing the vent. SR 70s with BBB on monitor. Pt on double concentrated Levophed (at 20mcg/min at start
of shift), Vasopressin, Amiodarone, Fentanyl, and D5W. Phenylephrine remains off at this time. Pt remains on CRRT, see CRRT flowsheet for full details. See nursing shift assessment flowsheet for full physical assessment details. Son briefly at
bedside, discussed plan of care, stated he will be calling throughout the night but left for the night.
[2024-05-25] MEDS: XALATAN OPHTHALMIC SOLUTION 1 DROP BOTH EYES (21:10)
[2024-05-25 23:17] LABS: Ionized Calcium 1.42 mMOL/L (1.15-1.33)
[2024-05-25 23:21] LABS: Glucose - Point of Care 209 mg/dl (70-99)
[2024-05-25] MEDS: NOVOLOG FLEXPEN-MODERATE RESISTANCE 3 UNITS SC (23:21)
[2024-05-25 23:43] LABS: Blood Urea Nitrogen 34 mg/dl (9-20); Calcium 9.9 mg/dl (8.4-10.2); Carbon Dioxide 22 mmol/L (22-30); Chloride 103 mmol/L (98-107); Estimated Creatinine Clearance 35 ml/min; Glucose 204 mg/dl (70-99); Magnesium 2.1 mg/dl (1.6-2.3); Sodium 136 mmol/L (135-145); eGFR 49.56
[2024-05-26] VITALS (8 sets, daily range): BP systolic 72–122; BMI 28.3
[2024-05-26] MEDS: CORDARONE 518 MG IV (00:55)
[2024-05-26] MEDS: SUBLIMAZE 50 MCG IV ×3 (01:10→12:34)
--- NOTE | 2024-05-26 01:22 | PTCARENOTE ---
Midnight assessment unchanged from previous assessment. Continues on CRRT. Continues on Levophed, Vasopressin, Amiodarone, and Fentanyl drips as well as D5W. Attempting to wean Levo as tolerated to keep MAP >90. BP is labile, especially when turning
patient. When doing CHG bath, BP dropped into the 50s, temporarily maxed Levo and as soon as pt was lying flat his BP increased, able to wean Levo back down to where it was at the time. SR 70s on monitor, SpO2 99% on current vent settings.
[2024-05-26] MEDS: PITRESSIN 100 IV ×3 (01:40→23:35)
[2024-05-26 03:25] LABS: Glucose - Point of Care 213 mg/dl (70-99)
[2024-05-26] MEDS: LEVOPHED 258 MG IV ×3 (05:53→20:04)
[2024-05-26] MEDS: SOLU-CORTEF 50 MG IV ×3 (05:54→22:11)
[2024-05-26] MEDS: STERILE WATER FOR INJECTION 10 ML IV ×4 (05:54→23:17)
[2024-05-26] MEDS: MERREM 500 MG IV ×4 (05:54→23:17)
[2024-05-26 06:00] LABS: Ionized Calcium 1.44 mMOL/L (1.15-1.33)
[2024-05-26 06:23] LABS: Blood Urea Nitrogen 38 mg/dl (9-20); Calcium 10.2 mg/dl (8.4-10.2); Carbon Dioxide 23 mmol/L (22-30); Chloride 103 mmol/L (98-107); Estimated Creatinine Clearance 35 ml/min; Glucose 204 mg/dl (70-99); Magnesium 2.1 mg/dl (1.6-2.3); Phosphorus 3.1 mg/dl (2.5-4.5); Potassium 4.1 mmol/L (3.5-5.1); Sodium 134 mmol/L (135-145); eGFR 49.56
[2024-05-26] MEDS: NOVOLOG FLEXPEN-MODERATE RESISTANCE 3 UNITS SC ×3 (06:41→17:20)
[2024-05-26 06:43] LABS: % Basophils 0.4 % (0-2); % Eosinophils 0.3 % (0-6); % Immature Granulocytes 1.5 % (0-0.5); % Lymphocytes 2.6 % (20.5-51.1); % Monocytes 3.7 % (1.7-9.3); % Neutrophils 91.5 % (42.2-75.2); Absolute Basophils 0.1 10^3/uL (0-0.2); Absolute Eosinophils 0.1 10^3/uL (0-0.7); Absolute Immature Granulocytes 0.5 10^3/uL (0-0.05); Absolute Lymphocytes 0.9 10^3/uL (1.2-3.4); Absolute Monocytes 1.3 10^3/uL (0.1-0.6); Absolute Neutrophils 31.9 10^3/uL (1.4-6.5); Hematocrit 30.1 % (39.0-52.0); Hemoglobin 10.6 g/dL (13.0-18.0); Mean Corp Hgb Conc. 35.2 g/dL (33.0-37.0); Mean Corpuscular Volume 76.6 fL (80.0-94.0); Nucleated Red Blood Cells % 3.2 % (-); Platelet Count 49 10^3/uL (130-400); Red Blood Cell Count 3.93 10^6/uL (4.70-6.10); Red Cell Dist. Width 21.7 % (11.5-14.5); White Blood Cell Count 34.8 10^3/uL (4.8-10.8)
[2024-05-26] MEDS: RFP-401 HD Soln (K+ 4 mEq/L) 15000 ML CRRT-IRR ×2 (07:09→16:08)
[2024-05-26] MEDS: SUBLIMAZE 100 IV ×3 (07:10→22:19)
--- NOTE | 2024-05-26 07:18 | PTCARENOTE ---
Late entry: 0400 assessment unchanged from previous assessments. Remains on same drips at same rates, same vent settings, SpO2 99-100%. Levo ultimately weaned from 20mcg/min to 15mcg/min throughout the shift. At approx 0515 CRRT machine alarmed for
air in the system, attempted to trouble shoot but blood needed to be rinsed back to patient. Attempted to recover the cartridge but clots were present. New cartridge primed, CRRT restarted at 0628.
[2024-05-26] MEDS: MIRALAX TUBE (07:48)
[2024-05-26] MEDS: PROTONIX IV 40 MG IV ×2 (07:52→22:03)
[2024-05-26] MEDS: LOW STRENGTH ASPIRIN 81 MG TUBE (07:52)
[2024-05-26] MEDS: NSS (PRESERVATIVE FREE) 10 ML IV ×2 (07:53→22:03)
--- NOTE | 2024-05-26 07:53 | W.PN.NEPH.PH ---
Today's Communication / Plan
-
Maintain pressors to keep MAP greater than 60
Maintain CRRT
Maintain negative UF at 100/h
Assessment/Plan
-
Assessment:
CP
Elevated troponin
Transitional cell carcinoma of the bladder
s/p CABG - CABRAL to LAD, SVG to OM, SVG to PDA 12/09/22 at [facility]
CM EF 40% by echo 09/15/23
Type 2 NSTEMI s/p diagnostic cath 08/2023 at [facility] with patent bypass grafts, 70% OM stenosis, medically managed
Post CABG afib
ESRD on HD MWF
mild
Hypertension
Hyperlipidemia
Type 2 diabetes
Glaucoma
Hyponatremia
Plan
keep MAP>60 or SBP>90
Patient still requires 2 pressor requirement
bp low but stable overnight
continue CRRT, orders renewed
UF 100ml/hr to try to maintain balance of volume unless bps drop
no FWF in TF
Reviewed chest x-ray this morning continues to appear to have bilateral interstitial edema
Repeat blood cultures were negative from 23 May but white cell count continues to rise on meropenem
prognosis is poor
critical care time 31 minutes
-
-
Date of Service: May 26, 2024
CC / HPI / ROS
-
Chief Complaint:
ESRD
History of Present Illness:
critically ill in ICU
CRRT running, with periods of hypotension noted
Status post ventricular tachycardia and PEA/cardiac arrest
Remains on 2 pressor support
Intubated (Fio2 30%), sedated
Review of Systems:
Intubated
no fevers
Labs
-
Labs:
WBC 34.8 10^3/uL (4.8-10.8) H 05/26/24 05:48
RBC 3.93 10^6/uL (4.70-6.10) L 05/26/24 05:48
Hgb 10.6 g/dL (13.0-18.0) L 05/26/24 05:48
Hct 30.1 % (39.0-52.0) L 05/26/24 05:48
Plt Count 49 10^3/uL (130-400) L 05/26/24 05:48
eGFR 49.56 05/26/24 05:48
Erk-C-Cddpngrcfmk Pept > 04580 pg/ml 05/16/24 11:51
Albumin 2.4 g/dl (3.5-5.0) L 05/25/24 04:57
Physical Exam
-
Vital Signs:
Vital Signs
Temp Pulse Resp BP Pulse Ox
96.7 F L 70 15 117/51 99
05/26/24 07:00 05/26/24 07:15 05/26/24 07:15 05/21/24 17:36 05/26/24 07:48
Cardiovascular:: Regular rate and rhythm
Respiratory:: Bilateral: Coarse
Lung Excursion:: Normal
Abdomen:: Nontender and Soft
Bowel Sounds:: Normal
Extremity Edema:: None: Bilateral:
--- NOTE | 2024-05-26 07:56 | W.PN.UPDATE ---
Update Note
Progress Note Update
CRRT note:
Systolic blood pressure at 100 on 2 pressor support
UF set to 100 cc/h
1.5 L/h replacement right
QB 250 cc per minute
--- NOTE | 2024-05-26 08:29 | W.PN.ID1 ---
Date of Service
Date of Service: May 26, 2024
Today's Communication
- c/w meropenem - dosed for CRRT - day 6 of effective rx
Patient is critically ill, despite interval improvement, prognosis in the medium term still poor
Assessment / Plan
Shock - likely combined cardiogenic and septic
VAP and UTI
MSOF
NSTEMI, CAD
ESRD
Transitional cell cancer of the bladder
- pressors being weaned, remains hypothemic, leukocytosis noted in the context of stress dose steroid use, persistent thrombocytopenia
- blood cultures x2 in progress NGTD
- sputum culture with ESBL E coli
- urine culture 100 K ESBL E coli
- c/w meropenem - dosed for CRRT - day 6 of effective rx
Patient is critically ill, despite interval improvement, prognosis in the medium term still poor
Chief Complaint
-: UTI and Other (shock - septic and cardiogenic)
Subjective / Review of Systems
persistently hypothermic
norepi down to 15 mcg/min, phenylephrine to 20 mcg/min, vaso remains on
remains on CRRT
Vital Signs / Physical Exam
Vital Signs
Vital Signs
Temp Pulse Resp BP Pulse Ox
96.7 F L 70 16 117/51 100
05/26/24 07:00 05/26/24 08:00 05/26/24 08:00 05/21/24 17:36 05/26/24 08:00
Physical Exam
Constitutional: Acutely Ill and Chronically Ill
Cardiovascular: Regular Rate and S1/S2; Negative Murmur or Rub
Pulmonary: Clear and Symmetric; Negative Wheezes or Rales
Gastrointestinal: Soft, Non Tender, Distended, Normal Bowel Sounds, No Rebound and No Guarding
Skin: Warm and Dry; Negative Rash or Jaundice
Neurological: Negative Awake
Objective Data
Lab Data
Lab Results
05/26/24 05:48
PT 16.2 Sec (11.4-14.6) H 05/19/24 06:16
INR 1.32 05/19/24 06:16
APTT 37.0 Sec (23.4-35.0) H 05/19/24 06:16
Estimated Creat Clear 35 ml/min 05/26/24 05:48
Lactic Acid 4.0 mmol/L (0.7-2.0) H* 05/23/24 11:48
Total Bilirubin 2.3 mg/dl (0.2-1.3) H 05/25/24 04:57
AST 558 U/L (17-59) H* 05/25/24 04:57
ALT 334 U/L (0-50) H 05/25/24 04:57
Alkaline Phosphatase 83 U/L (38-126) 05/25/24 04:57
Most recent labs reviewed.
Micro Results:
05/22/24 21:38 Blood Culture - Preliminary
Blood/Venous No Growth in 72 hours- Final report to follow
05/22/24 20:58 Blood Culture - Preliminary
Blood/Venous No Growth in 72 hours- Final report to follow
05/21/24 09:43 Urine Culture - Final
Urine Escherichia coli - ESBL
05/21/24 10:17 Respiratory Culture - Final
Endotracheal Escherichia coli - ESBL
Gram Stain - Final
05/16/24 18:42 MRSA Screen - Final
Nose No Methicillin Resistant Staphylococcus aureus isolated.
--- NOTE | 2024-05-26 09:11 | W.PN.INTV ---
Today's Communication / Plan
Recommendations
Mechanical ventilation will be adjusted based on ABG
Continue antibiotics per infectious disease
Plavix and heparin on hold due to thrombocytopenia and dark stools
Follow hemoglobin
Continue PPI
Not ready for spontaneous breathing trial
Continue CRRT
Wean down vasopressors as able
Continue stress dose of steroids
Poor prognosis
Assessment
-
83-year-old male with complex medical history including coronary disease with bypass surgery, recent drug-eluting stent and graft 05/17/2024, end-stage renal disease on hemodialysis, transitional cell carcinoma the bladder ongoing treatment at [place]
[facility], atrial fibrillation not on anticoagulation, diabetes, status post VT arrest, shock/epinephrine/ROSC/intubation 05/19/2024
VDRF, intubated 05/19/2024
Extubated 05/20/2024
Reintubated 05/21/2024
Chest x-ray with right whiteout-likely atelectasis 05/21/2024
Shock: Suspect multiple mechanisms cardiogenic/septic
Gram-negative in the sputum
Gram-negative in the urine
Cardiac arrest, monomorphic VT, 05/19/2024
While on the commode
Shock/Epi/intubation/ROSC
---
S/p DAKSHA graft 05/17/2024
Ongoing chest pain, NSTEMI
S/p CABG [place] 12/09/2022
s/p NSTEMI August 2023, med managed at [facility]
Cardiomyopathy, EF 40% with
ESRD on HED
Mild oozing of left upper extremity fistula
Conditions present prior admission:
Transitional cell carcinoma, bladder
Status post transurethral resection of bladder tumor, most recently 50 tumors removed at [place] 09/01/2023
Paroxysmal atrial fibrillation
Not on anticoagulation due to anemia
Hypertension/hyperlipidemia
Diabetes
Plan/recommendations:
-
Remains critically ill. Multiple vasopressors, intubated.
Reintubated 05/21/2024.
Developed cardiorespiratory arrest V. tach/PEA status post epi and CPR. Regained ROSC.05/21/2024 around 7 PM.
-
MV day #6
Mechanical ventilation settings
ABG 05/25/2024: 7.46/31/155
ABG 05/24/2024-7.33/36/184
ABG 05/23/2024: 7.36/32/87
Pulmonary supercharger mechanic stable-continue mechanical ventilation without change.
FiO2 is stable-currently 30%.
Continue with intermittent suctioning-minimal secretion
Nebulizers as needed
Chest x-ray 05/24/2024: showed mild interstitial edema, small right pleural effusion with associated atelectasis.
-
Sedation with fentanyl drip, will continue to minimize as able
RASS score 0 (-1)
Sedation break per protocol
-
Shock: Multiple mechanism septic/? cardiogenic (echocardiogram with global hypokinesis decreased LVEF 20 to 30%/RV dysfunction as well)
With abnormal right lower lobe abnormality, layering right pleural chest x-ray cannot rule out aspiration/pneumonia.
Leukocytosis trending higher-remains hypothermic.
Penis with pus: Straight cath showed purulent urine.
ESBL E. coli in the urine
ESBL E. coli in the sputum
Blood culture negative so
Infectious disease following : Meropenem.
MRSA screening negative
-
Check a TSH
-
Continue norepinephrine/Bhavin-Synephrine/vasopressin-titrate for a systolic blood pressure 90 mmHg-today 05/24/2024 requirements improved.
Arterial line in place.
-
Abnormal LFTs: Suspect shock liver.
Abdominal ultrasound unremarkable
Trend LFTs
-
Acidosis noted-improving: Continue CRRT -unable to tolerate dialysis due to hemodynamic instability.
Follow BMP
Lactate level of 4 noted
Continue hemodynamic support as above
-
Continue stress dose of hydrocortisone for now-dose reduced to every 8 hours 05/24/2024. As vasopressor requirements improve we will continue to taper.
-
Thrombocytopenia noted: Plavix has been discontinued.
? Drug-induced
CBC today with improvement
Will continue to follow for now
-
Cardiology following the patient:
ICD prior to discharge if patient improved clinically.
Echocardiogram 05/17/2024: EF 45% with hypokinesis inferoseptal wall, moderate MR, moderate aortic stenosis.
LVEF 04/20/2024 showed decline 20 to 30%. No significant valvular abnormalities. No pericardial effusion
Echocardiogram 04/21/2024: Ejection fraction 20 to 30%. Global hypokinesis with inferior and inferior lateral akinesis. Dilated right ventricle with reduced right ventricular systolic function. Moderate to severe MR. Moderate to severe TR.
-
Unclear whether monomorphic VT was due to scar or recent drug-eluting stent/graft
V. tach/PEA arrest again on 05/21/2024.
Continue amiodarone drip-baseline atrial fibrillation rhythm
Cardiology following closely
Remains on aspirin
Plavix on hold 05/25/2024 due to thrombocytopenia
-
Chronic kidney disease hemodialysis dependent.
Case discussed with nephrology.
transitioned CRRT since 05/23/2024.
Hold midodrine for now.
Black stools: Heparin subcu on hold
Hemoglobin slowly trending lower.
Follow daily CBC
Fecal management system with dark stools
Continue PPI
Plavix also on hold
No evidence for active bleeding at this point.
Unfortunately noted great candidate for any other intervention at this point.
Hypoglycemia: Resolved
Insulin drip discontinued
Will continue to monitor closely
Temporarily was placed on D5. Will discontinue
Hyperglycemia blood sugars over 200.
Target 140-180
Insulin sliding scale
Occasionally following commands with sedation breaks.
Continue sedation break per protocol.
Patient has some delirium prior intubation.
Dobbhoff tube-tube feedings currently at goal.
PPI for GI prophylaxis
DVT prophylaxis SCDs, subcu heparin on hold due to dark stools. Will reconsider restarting depending on clinical situation.
Poor prognosis
Dr. Salcido updated son at the bedside 05/22/2024, 05/23/2024, 05/24/2024, , 05/26/2024 discussed possibility of DNR status. He will think about it. He understands that likely if patient survives he will need long-term care, suspected unlikely
will be able to go home independently.
Critical care statement: A total of 45minutes of critical care time was provided for this patient today. This includes management of unstable vital signs, evaluation of the patient at bedside, reviewing the patient's pertinent medical records
including ventilator settings, arterial blood gases, radiographs, microbiology, laboratory evaluations and discussion with primary team, critical care nursing, and respiratory therapy.
Subjective Dataa
Subjective Data
Date of Service:
Date of Service: May 26, 2024
Chief Complaint: Surgical Garment Fitter Follow Up (Acute hypoxemic/hypercapnic respiratory failure)
Objective Data
Data Reviewed
Vital Signs / I&O / Oxygen:
Vital Signs
Temp Pulse Resp BP Pulse Ox
96.7 F L 70 16 117/51 100
05/26/24 07:00 05/26/24 08:00 05/26/24 08:00 05/21/24 17:36 05/26/24 08:00
Intake and Output
05/25/24 05/26/24 05/27/24
06:59 06:59 06:59
Intake Total 4493.4 / 4660.4 3867.5 / 3923.6 303.6 / 303.6
Output Total 5268 / 5533 5760 / 5865 495 / 495
Balance -774.6 / -872.6 -1892.5 / -1941.4 -191.4 / -191.4
SaO2 [ASV] 100
SaO2 [A/C] 100
SaO2 100
Nasal Cannula flow liters per 95
minute
Physical Exam
General: Respiratory Distress (none, sedated)
HEENT: Normocephalic and Other (ET tube in place)
Cardiovascular: S1-S2, Regular Rhythm, Murmur (n) and Rub (n)
Respiratory: Wheeze (n), Crackles (n), Rhonchi (n), Non-Labored Respirations and ET Tube (No significant secretions)
GI: Soft, Non Distended and Non Tender
Neurology: Awake (Occasionally following commands) and Other (Intubated, mechanical ventilation. Sedated)
Skin: Cyanosis (n), Jaundice (n), Rash (n) and Other (Left upper extremity AV fistula)
Labs/Micro/Reports
Lab Data
05/26/24 05:48
Laboratory Results
05/25/24
09:43
pH 7.46 H
pCO2 31 L
pO2 155 H
HCO3 22.0
O2 Delivery Level
Microbiology
05/22/24 21:38 Blood/Venous Blood Culture - Preliminary
No Growth in 72 hours- Final report to follow
05/22/24 20:58 Blood/Venous Blood Culture - Preliminary
No Growth in 72 hours- Final report to follow
05/21/24 09:43 Urine Urine Culture - Final
Escherichia coli - ESBL
05/21/24 10:17 Endotracheal Respiratory Culture - Final
Escherichia coli - ESBL
05/21/24 10:17 Endotracheal Gram Stain - Final
--- NOTE | 2024-05-26 09:29 | PTCARENOTE ---
Rec'd pt at approx 0700. Pt lightly sedate on Fentanyl gtts on vent. Opens eyes spontaneously, PIRES. Monitor SR, Amio gtts 0.5mg/min. SBP 90-110's via right radial a-line, Levo/Vaso gtts infusing via TORREY DL PICC, to keep SBP >90. CRRT continued at
bedside, see flowsheet. Running via RIJ HD cath. Lungs sct coarse/rales posteriorly. Pox 100% on 30% fio2. +BS, abd round. DHT with Nepro 45ml/hr. FMS with burgundy stool. Son updated via phone.
--- NOTE | 2024-05-26 09:39 | W.PN.CARDCBS ---
Today's Communication / Plan
-
Continue supportive care
Impression / Plan
-
PCP: Dr. Charlie Marley
Primary Agricultural Appraiser: Dr. Almanza
Assessment:
Admitted with chest pain and acute HF 05/16/24
In-hospital VT arrest
monomorphic VT, CPR, Epi x2 and shock with ROSC 05/19/24
VT that broke to PEA, CPR, Epi x2 and Bicarb x2 with ROSC 05/21/24
VDRF
intubated 05/19/24 and then extubated 05/20/24
re-intubated 05/21/24 with right lung whiteout
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
ESRD on HD
CM EF 40% by echo 09/15/23
NSTEMI related to stenosis of saphenous vein graft to PDA, peak troponin 20
CAD
s/p CABG with CABRAL to LAD, SVG to OM, SVG to PDA at [place] 12/09/22
s/p NSTEMI with patent bypass grafts, 70% OM stenosis being medically managed after cath at [facility] 08/2023
s/p NSTEMI with DAKSHA SVG-PDA 05/17/2024
Transitional cell carcinoma of the bladder treated with multiple transurethral resection of bladder tumor, most recently 50 tumors removed at [facility] 09/01/2023
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
Paroxysmal Afib
Not chronically anticoagulated due to anemia, not a candidate for watchman due to inability to tolerate even short-course OAC
mild
Hypertension
Hyperlipidemia
Type 2 diabetes
Glaucoma
Hyponatremia
bleeding from HD fistula site
Vomiting 05/20/24
Cardiogenic and septic shock
Thrombocytopenia
ECHO 08/2023 at [facility]: EF reportedly preserved
Echo 09/15/23: EF 40-45%, inferior wall akinesis, inferoseptal wall and base to mid inferolateral francisco hypokinetic, stage II diastolic dysfunction, moderate MR, mild with peak/mean 20/11. mild to mod aortic regurg
Echo 05/17/24: EF 45 to 50%, mild concentric LVH, hypokinesis of inferior septal wall and basal to mid lateral wall, mild MR, mild to moderate peak/mean 23/15, mild AI, mild pulmonic regurgitation.
Echo 05/21/24: EF 30-35%, global hypokinesis with inferior akinesis
Echo 05/22/24: EF 25 to 30%, global hypokinesis with inferior and inferolateral akinesis, dilated RV with reduced RV systolic function, moderate to severe MR, moderate to severe TR with PAP 64 mmHg
Cath 05/17/2024: LM: Calcified, distal tapering, LAD: 100% at origin, LAD fills via patent QUIANA, relatively small LAD with diffuse disease, circumflex heavily calcified, 50% proximal stenosis, 100% OM1 with patent vein graft but OM is very small,
retrograde filling less vibrant than before, RCA 100% at origin, SVG to PDA has 70% proximal stenosis, successful stenting prox SVG-PDA with 2.5 x 15 [place] DAKSHA
Plan:
Patient admitted with chest pain and acute HF 05/16/24. HD with UF performed with improvement in chest pain, but Troponin peaked at 20. Patient taken to [facility] 05/17/24 and found to have anew SVG to PDA lesion that was stented. Patient then had an
in-hospital cardiac arrest 05/19/24 early AM with CPR, Epi x2 and shock with ROSC. Patient was intubated and then extubated 05/20/24. Later on 05/20/24 had an episode of vomiting. During the day 05/20/24 patient was on Bhavin and maxed out and Levophed
started plus increasing oxygen demands. CXR with right lung whiteout and ABG sent. Patient re-intubated 05/21/24. VT code 05/21/24 at 1900 and then broke into PEA. Treated with CPR, Epi x2 and Bicarb x1 with ROSC.
Septic and cardiogenic shock
Remains on IV pressors, now down to two pressors (Levophed and vasopressin), wean as tollerated
CRRT for volume management
IV Antibiotics
From a cardiac standpoint, Troponin peaked at 20.8 on admission and was managed as a NSTEMI. Troponin peaked again at 14.4 after code #1. Troponin peaked again at 8.33 after code #2. Subsequent Troponin elevations were managed as nonischemic
myocardial injury Troponin elevations.
EF down to 25% following code #2
Plavix on hold as plt count < 50K. Remains on aspirin 81 mg daily via tube
Cannot tolerate CM meds due to pressor dependent hypotension
CRRT for volume management
Monomorphic VT at time of code on 05/19/24 suggesting scar based etiology. Then with VT breaking to PEA on 05/21/24.
Remains on amiodarone gtt. After initial code on 05/19/24 amiodarone gtt started and then transitioned to amiodarone PO up until time of 2nd code, then back to IV amiodarone.
Prognosis remains very poor.
Critical care time 35 minutes
Progress Note - Agricultural Appraiser
Subjective
Date of Service: May 26, 2024
Intubated and sedated
Objective
Labs:
05/26/24 05:48
Labs
Hgb 10.6 g/dL (13.0-18.0) L 05/26/24 05:48
Hct 30.1 % (39.0-52.0) L 05/26/24 05:48
Plt Count 49 10^3/uL (130-400) L 05/26/24 05:48
PT 16.2 Sec (11.4-14.6) H 05/19/24 06:16
INR 1.32 05/19/24 06:16
APTT 37.0 Sec (23.4-35.0) H 05/19/24 06:16
Sodium 134 mmol/L (135-145) L 05/26/24 05:48
Potassium 4.1 mmol/L (3.5-5.1) 05/26/24 05:48
BUN 38 mg/dl (9-20) H 05/26/24 05:48
Creatinine 1.4 mg/dL (0.7-1.3) H 05/26/24 05:48
Glucose 204 mg/dl (70-99) H 05/26/24 05:48
Vital Signs and I&O:
Vital Signs
Temp Pulse Resp BP Pulse Ox
96.7 F L 69 16 117/51 100
05/26/24 07:00 05/26/24 09:15 05/26/24 09:15 05/21/24 17:36 05/26/24 09:15
Vital Signs
Temp Pulse Resp BP Pulse Ox
96.7 F L 69 16 117/51 100
05/26/24 07:00 05/26/24 09:15 05/26/24 09:15 05/21/24 17:36 05/26/24 09:15
Intake & Output
05/24/24 05/25/24 05/26/24 05/27/24
06:59 06:59 06:59 06:59
Intake Total 4993.5 / 5190.7 4493.4 / 4660.4 3867.5 / 3923.6 303.6 / 303.6
Output Total 4606 / 4825 5268 / 5533 5760 / 5865 495 / 495
Balance 387.5 / 365.7 -774.6 / -872.6 -1892.5 / -1941.4 -191.4 / -191.4
Physical Exam
Physical Exam
Frail-appearing, intubated and sedated
Regular and tachycardic normal S1 and S2, no S3 no S4. There is a grade 1/6 apical holosystolic murmur and 1/6 basal systolic murmur
Lungs with coarse breath sounds bilateral
There is trace pretibial edema bilaterally
--- NOTE | 2024-05-26 09:41 | W.PN.UPDATE ---
Update Note
Progress Note Update
Through the course of the morning vasopressor requirement has improved.
Levophed 15 vasopressin and low-dose
Bhavin-Synephrine has been discontinued
Ventilator changes were made
Repeat ABG later to assure adequate ventilation
If Levophed decreases under 10 then will wean down sedation and attempt a spontaneous breathing trial.
[2024-05-26 11:02] LABS: TSH 1.34 uIU/ml (0.47-4.68)
[2024-05-26 11:32] LABS: Glucose - Point of Care 223 mg/dl (70-99)
[2024-05-26 11:36] LABS: Ionized Calcium 1.46 mMOL/L (1.15-1.33)
[2024-05-26 11:48] LABS: Blood Urea Nitrogen 36 mg/dl (9-20); Carbon Dioxide 22 mmol/L (22-30); Chloride 103 mmol/L (98-107); Estimated Creatinine Clearance 38 ml/min; Glucose 232 mg/dl (70-99); Phosphorus 3.3 mg/dl (2.5-4.5); Sodium 136 mmol/L (135-145); eGFR 54.17
--- NOTE | 2024-05-26 12:07 | PTCARENOTE ---
Temp 95.7, Nadine farrar applied to pt. SBP consistently running in mid-high 80's, Levophed titrated up to 18mcg/min at this time. Pt's SBP drops into 70's with repositioning, occas restless movements or when pt is coughing requiring suctioning,
moderate recovery period.
--- NOTE | 2024-05-26 12:09 | W.PN.HOSP.TC ---
Today's Communication/Plan
-
crrt , nephrology following
vasopressor wean as tolerated to maintain map of >65
iv atb on bud, id following
iv amio gtt, monitor on tele, cards following
Assessment / Plan
Assessment / Plan
Physical Exam
intubated and sedated
Scleral anicteric
dry mucous membranes
No JVD, right temp hd line
mechanical vent sounds
distant heart sounds due to mechanical vent
Soft nontender nondistended bowel sounds active
Rectal tube with dark stools
No peripheral pitting edema
Moves extremities spontaneously
VT arrest x2
Will require ICD prior to discharge
Continue amiodarone
Cards following without any further recs at this time
If recurs may need to try Lidocaine gtt/Defibrillation
Keep K >4
Keep Mg >2
Monitor on tele
Shock believed to be multifactorial in the setting of cardiogenic/septic.
Now Ucx and Rcx growing EColi. On IV bud dosed on CRRT. Day 6 of treatment
Bcx NGTD , but has been on atb, this might affect the yeild of culture data and will consulted ID, ID Dc'd [email or web address] and start meropenem
Continue pressor support along with Solu-Cortef and bud
-I discussed with ICU about starting Dobutamine/Dopamine, but they are proarrhythmic and has had multiple VT arrest therefore, at this time would like to hold off.
-Unfortunately there is not much more we can provide in terms of pressor support and hopefully clinical course will turn around.
-May be able to provide epi gtt per ICU if needed
Follow-up blood cultures
Keep maps greater than 65
Wean pressors as tolerated
Acute hypoxemic respiratory failure secondary to mucous plugging as evident by chest x-ray as there is full right sided whiteout of the right lung. Now intubated. Will require pulmonary toilet with hypertonic saline nebs, precaution bed. If not
improving then likely would benefit from bronchoscopy with suction at bedside. ICU and pulmonary to decide
Daily CXR
SAT SBT daily
NSTEMI known CAD s/p CABG and PCI (05/17) to the SVG-PDA and saphenous vein graft/QUIANA angio. Continue Dapt. Cannot tolerate BB due to BP
HFrEF, ICM, EF 25-30%, unable to provide GDMT due to hypotension. Will need ICD prior to DC.
ESRD on HD continue HD per nephrology recommendations.
Continue crrt
Anticipated Discharge: > 48 hours
Subjective/Interval History
-
Date of Service: May 26, 2024
Seen and examined.
Remains intubated on sedation and CRRT
Hypothermic and on Nadine hugger
Objective Data
-
Labs:
Laboratory Results
05/26/24 05/26/24 05/26/24
05:48 11:18 17:00
WBC 34.8 H
Hgb 10.6 L
Hct 30.1 L
Plt Count 49 L
Sodium 134 L 136 Pending
Potassium 4.1 4.0 Pending
Chloride 103 103 Pending
Carbon Dioxide 23 22 Pending
BUN 38 H 36 H Pending
Creatinine 1.4 H 1.3 Pending
Glucose 204 H 232 H Pending
Calcium 10.2 10.0 Pending
05/26/24
23:00
WBC
Hgb
Hct
Plt Count
Sodium Pending
Potassium Pending
Chloride Pending
Carbon Dioxide Pending
BUN Pending
Creatinine Pending
Glucose Pending
Calcium Pending
Vital Signs:
Vital Signs
Temp Pulse Resp BP Pulse Ox
95.7 F L 66 14 117/51 97
05/26/24 12:00 05/26/24 11:45 05/26/24 11:45 05/21/24 17:36 05/26/24 11:32
I&O
05/25/24 05/26/24 05/27/24
06:59 06:59 06:59
Intake Total 4493.4 / 4660.4 3867.5 / 3923.6 732.0 / 732.0
Output Total 5268 / 5533 5760 / 5865 1188 / 1188
Balance -774.6 / -872.6 -1892.5 / -1941.4 -456.0 / -456.0
--- NOTE | 2024-05-26 17:05 | PTCARENOTE ---
Multiple family members in to visit, updated at length and plan of care discussed. Levophed titrated up throughout shift, now infusing at 24mcg/min to keep SBP >90. No further changes in assessment.
[2024-05-26] MEDS: CRESTOR 10 MG TUBE (17:20)
[2024-05-26 17:25] LABS: Ionized Calcium 1.44 mMOL/L (1.15-1.33)
[2024-05-26 17:27] LABS: Glucose - Point of Care 227 mg/dl (70-99)
[2024-05-26 17:41] LABS: Blood Urea Nitrogen 37 mg/dl (9-20); Carbon Dioxide 23 mmol/L (22-30); Chloride 104 mmol/L (98-107); Estimated Creatinine Clearance 38 ml/min; Glucose 230 mg/dl (70-99); Phosphorus 3.4 mg/dl (2.5-4.5); Potassium 4.1 mmol/L (3.5-5.1); Sodium 135 mmol/L (135-145); eGFR 54.17
--- NOTE | 2024-05-26 20:35 | PTCARENOTE ---
Assumed care of pt at 1900. Received pt intubated, sedated on Fentanyl at 150mcg/hr. #8.0/24cm at lip, AC 14/450/30/5. SpO2 100% on current vent settings. SR with BBB on monitor, HR in 70s. Received pt on Levophed at 22mcg/min, Vasopressin at 0.03
units/min and Amiodarone at 0.5mg/min. Attempting to wean Levophed, goal SBP >90. See nursing shift assessment flowsheet or full physical assessment details. CRRT continues.
[2024-05-26] MEDS: XALATAN OPHTHALMIC SOLUTION 1 DROP BOTH EYES (22:04)
[2024-05-26 23:16] LABS: Ionized Calcium 1.41 mMOL/L (1.15-1.33)
[2024-05-26] MEDS: NOVOLOG FLEXPEN-MODERATE RESISTANCE 5 UNITS SC (23:17)
[2024-05-26 23:22] LABS: Glucose - Point of Care 283 mg/dl (70-99)
[2024-05-26 23:35] LABS: Blood Urea Nitrogen 36 mg/dl (9-20); Calcium 9.9 mg/dl (8.4-10.2); Carbon Dioxide 21 mmol/L (22-30); Chloride 106 mmol/L (98-107); Estimated Creatinine Clearance 41 ml/min; Glucose 273 mg/dl (70-99); Magnesium 1.9 mg/dl (1.6-2.3); Phosphorus 3.6 mg/dl (2.5-4.5); Potassium 3.9 mmol/L (3.5-5.1); Sodium 137 mmol/L (135-145); eGFR 59.63
[2024-05-26] MEDS: MAGNESIUM SULFATE 100 IV (23:42)
[2024-05-27] VITALS (9 sets, daily range): BP systolic 83–132; BMI 27.8
--- NOTE | 2024-05-27 01:23 | PTCARENOTE ---
Midnight assessment changed as follows: with mouthcare, pt noted to have tube feed-colored vomit in oral cavity and chin. Tube feeds held. OGT placed (16Fr [place], 65cm at lip), hooked to LIS. Mouth care done, face washed. CHG cloth bath done and all
linens changed including fitted sheet. Pt remains on same vent settings, SpO2 98-100%. SR 60s on monitor. Remains on Levophed, Vasopressin, Fentanyl, and Amiodarone drips. Mag 4gm rider given per protocol for repletion during CRRT, see EMAR. Mccoy
hugger reapplied as pt's temp 95.9.
[2024-05-27] MEDS: RFP-401 HD Soln (K+ 4 mEq/L) 15000 ML CRRT-IRR ×3 (01:40→21:21)
[2024-05-27] MEDS: LEVOPHED 258 MG IV ×3 (03:20→20:04)
--- NOTE | 2024-05-27 04:12 | PTCARENOTE ---
Assessment unchanged. Remains on same infusions, same vent settings. SR 60s on monitor. SpO2 100%.
[2024-05-27] MEDS: CORDARONE 518 MG IV (05:34)
[2024-05-27] MEDS: SOLU-CORTEF 50 MG IV ×2 (05:34→21:21)
[2024-05-27] MEDS: SUBLIMAZE 100 IV ×3 (05:34→18:43)
[2024-05-27] MEDS: STERILE WATER FOR INJECTION 10 ML IV ×4 (05:34→23:27)
[2024-05-27] MEDS: MERREM 500 MG IV ×4 (05:34→23:27)
[2024-05-27 05:38] LABS: Ionized Calcium 1.43 mMOL/L (1.15-1.33)
[2024-05-27 05:41] LABS: B.E. -0.6 mmol/L; HCO3 23.1 mmol/L (21-28); O2 Saturation % 99.4 % (94-98); PCO2 34 mmHg (35-48); PO2 146 mmHg (83-108); pH 7.44 (7.35-7.45)
[2024-05-27] MEDS: SUBLIMAZE 50 MCG IV (05:58)
[2024-05-27 06:07] LABS: Blood Urea Nitrogen 34 mg/dl (9-20); Calcium 10.1 mg/dl (8.4-10.2); Carbon Dioxide 22 mmol/L (22-30); Chloride 105 mmol/L (98-107); Estimated Creatinine Clearance 45 ml/min; Glucose 232 mg/dl (70-99); Magnesium 2.7 mg/dl (1.6-2.3); Phosphorus 3.5 mg/dl (2.5-4.5); Potassium 3.8 mmol/L (3.5-5.1); Sodium 138 mmol/L (135-145); Triglycerides 101 mg/dl (10-149); eGFR > 60.00
[2024-05-27 06:09] LABS: Hematocrit 30.7 % (39.0-52.0); Hemoglobin 10.7 g/dL (13.0-18.0); Mean Corp Hgb Conc. 34.9 g/dL (33.0-37.0); Mean Corpuscular Hgb 27.1 pg (27.0-31.0); Mean Corpuscular Volume 77.7 fL (80.0-94.0); Platelet Count 61 10^3/uL (130-400); Red Blood Cell Count 3.95 10^6/uL (4.70-6.10); Red Cell Dist. Width 23.2 % (11.5-14.5); White Blood Cell Count 39.5 10^3/uL (4.8-10.8)
[2024-05-27] MEDS: NOVOLOG FLEXPEN-MODERATE RESISTANCE 3 UNITS SC ×3 (06:27→17:17)
[2024-05-27] MEDS: MIRALAX TUBE (07:36)
[2024-05-27] MEDS: NSS (PRESERVATIVE FREE) 10 ML IV ×2 (07:36→21:21)
[2024-05-27] MEDS: PROTONIX IV 40 MG IV ×2 (07:36→21:21)
[2024-05-27] MEDS: LOW STRENGTH ASPIRIN 81 MG TUBE (07:36)
--- NOTE | 2024-05-27 07:40 | W.PN.NEPH.PH ---
Today's Communication / Plan
-
Maintain CRRT at 100 cc/h u/f
Maintain dual pressor support to keep MAP at 60 or above
FiO2 stable at 30%
Assessment/Plan
-
Assessment:
CP
Elevated troponin
Transitional cell carcinoma of the bladder
s/p CABG - CABRAL to LAD, SVG to OM, SVG to PDA 12/09/22 at [facility]
CM EF 40% by echo 09/15/23
Type 2 NSTEMI s/p diagnostic cath 08/2023 at [facility] with patent bypass grafts, 70% OM stenosis, medically managed
Post CABG afib
ESRD on HD MWF
mild
Hypertension
Hyperlipidemia
Type 2 diabetes
Glaucoma
Hyponatremia
Plan
keep MAP>60 or SBP>90
Patient still requires 2 pressor requirement , drops in pressures overnight
vomiting this am
continue CRRT, orders renewed
UF 100ml/hr to try to maintain balance of volume unless bps drop
no FWF in TF
Reviewed chest x-ray on 05/1024 continues to appear to have bilateral interstitial edema
weights down
Repeat blood cultures were negative from 23 May but white cell count continues to rise on meropenem
prognosis is poor
critical care time 31 minutes
-
-
Date of Service: May 27, 2024
CC / HPI / ROS
-
Chief Complaint:
ESRD
History of Present Illness:
critically ill in ICU
CRRT running, with periods of hypotension noted
Status post ventricular tachycardia and PEA/cardiac arrest
Remains on 2 pressor support
Intubated (Fio2 30%), sedated
White blood cell count continues to rise
Review of Systems:
Intubated
no fevers
Labs
-
Labs:
WBC 39.5 10^3/uL (4.8-10.8) H 05/27/24 05:29
RBC 3.95 10^6/uL (4.70-6.10) L 05/27/24 05:29
Hgb 10.7 g/dL (13.0-18.0) L 05/27/24 05:29
Hct 30.7 % (39.0-52.0) L 05/27/24 05:29
Plt Count 61 10^3/uL (130-400) L D 05/27/24 05:29
eGFR > 60.00 05/27/24 05:29
Sdo-L-Vfczqeubffz Pept > 01876 pg/ml 05/16/24 11:51
Albumin 2.4 g/dl (3.5-5.0) L 05/25/24 04:57
Physical Exam
-
Vital Signs:
Vital Signs
Temp Pulse Resp BP Pulse Ox
97.5 F 64 15 117/51 100
05/27/24 03:59 05/27/24 07:15 05/27/24 07:15 05/21/24 17:36 05/27/24 07:15
Cardiovascular:: Regular rate and rhythm
Respiratory:: Bilateral: Coarse
Lung Excursion:: Normal
Abdomen:: Nontender and Soft
Bowel Sounds:: Normal
Extremity Edema:: None: Bilateral:
--- NOTE | 2024-05-27 07:48 | W.PN.UPDATE ---
Update Note
Progress Note Update
CRRT note:
Systolic blood pressure 112
UF set to 100 cc/h negative
1.5 L/h replacement rate
QB 250 cc/min
--- NOTE | 2024-05-27 08:59 | W.PN.ID1 ---
Date of Service
Date of Service: May 27, 2024
Today's Communication
- c/w meropenem - dosed for CRRT - day 7 of 14 of effective rx; there are oral options that could eventually be considered
Assessment / Plan
Shock - likely combined cardiogenic and septic - improving
VAP and UTI
MSOF
NSTEMI, CAD
ESRD
Transitional cell cancer of the bladder
- pressors being weaned, remains hypothemic, leukocytosis noted in the context of stress dose steroid use, persistent thrombocytopenia
- blood cultures x2 in progress NGTD
- sputum culture with ESBL E coli
- urine culture 100 K ESBL E coli
- c/w meropenem - dosed for CRRT - day 7 of 14 of effective rx; there are oral options that could eventually be considered
Patient is critically ill, despite interval improvement, prognosis in the medium term still poor
Chief Complaint
-: UTI and Other (shock - septic and cardiogenic)
Subjective / Review of Systems
remains hypothermic
declining pressor requirements
had episode of vomiting overnight
CXR today my read perhaps slight improvement of infiltrates
Vital Signs / Physical Exam
Vital Signs
Vital Signs
Temp Pulse Resp BP Pulse Ox
95.1 F L 64 16 117/51 100
05/27/24 07:47 05/27/24 08:30 05/27/24 08:30 05/21/24 17:36 05/27/24 08:30
Physical Exam
Constitutional: Acutely Ill and Chronically Ill
Cardiovascular: Regular Rate and S1/S2; Negative Murmur or Rub
Pulmonary: Clear, Wheezes and Coarse; Negative Symmetric or Rales
Gastrointestinal: Soft, Non Tender, Non Distended and Normal Bowel Sounds
Skin: Warm and Dry; Negative Rash or Jaundice
Objective Data
Lab Data
Lab Results
05/27/24 05:29
PT 16.2 Sec (11.4-14.6) H 05/19/24 06:16
INR 1.32 05/19/24 06:16
APTT 37.0 Sec (23.4-35.0) H 05/19/24 06:16
Estimated Creat Clear 45 ml/min 05/27/24 05:29
Lactic Acid 4.0 mmol/L (0.7-2.0) H* 05/23/24 11:48
Total Bilirubin 2.3 mg/dl (0.2-1.3) H 05/25/24 04:57
AST 558 U/L (17-59) H* 05/25/24 04:57
ALT 334 U/L (0-50) H 05/25/24 04:57
Alkaline Phosphatase 83 U/L (38-126) 05/25/24 04:57
Most recent labs reviewed.
Micro Results:
05/22/24 21:38 Blood Culture - Preliminary
Blood/Venous No Growth in 4 days- Final report to follow
05/22/24 20:58 Blood Culture - Preliminary
Blood/Venous No Growth in 4 days- Final report to follow
05/21/24 09:43 Urine Culture - Final
Urine Escherichia coli - ESBL
05/21/24 10:17 Respiratory Culture - Final
Endotracheal Escherichia coli - ESBL
Gram Stain - Final
05/16/24 18:42 MRSA Screen - Final
Nose No Methicillin Resistant Staphylococcus aureus isolated.
--- NOTE | 2024-05-27 09:00 | W.PN.CARDCBS ---
Today's Communication / Plan
-
Continue supportive care.
Continue IV amiodarone
Impression / Plan
-
PCP: Dr. Charlie Marley
Primary Toe Former Stitchdowns: Dr. Almanza
Assessment:
Admitted with chest pain and acute HF 05/16/24
In-hospital VT arrest
monomorphic VT, CPR, Epi x2 and shock with ROSC 05/19/24
VT that broke to PEA, CPR, Epi x2 and Bicarb x2 with ROSC 05/21/24
VDRF
intubated 05/19/24 and then extubated 05/20/24
re-intubated 05/21/24 with right lung whiteout
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
ESRD on HD
CM EF 40% by echo 09/15/23
NSTEMI related to stenosis of saphenous vein graft to PDA, peak troponin 20
CAD
s/p CABG with CABRAL to LAD, SVG to OM, SVG to PDA at [facility] 12/09/22
s/p NSTEMI with patent bypass grafts, 70% OM stenosis being medically managed after cath at [facility] 08/2023
s/p NSTEMI with DAKSHA SVG-PDA 05/17/2024
Transitional cell carcinoma of the bladder treated with multiple transurethral resection of bladder tumor, most recently 50 tumors removed at [facility] 09/01/2023
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
Paroxysmal Afib
Not chronically anticoagulated due to anemia, not a candidate for watchman due to inability to tolerate even short-course OAC
mild
Hypertension
Hyperlipidemia
Type 2 diabetes
Glaucoma
Hyponatremia
bleeding from HD fistula site
Vomiting 05/20/24
Cardiogenic and septic shock
Thrombocytopenia
ECHO 08/2023 at [facility]: EF reportedly preserved
Echo 09/15/23: EF 40-45%, inferior wall akinesis, inferoseptal wall and base to mid inferolateral francisco hypokinetic, stage II diastolic dysfunction, moderate MR, mild with peak/mean 20/11. mild to mod aortic regurg
Echo 05/17/24: EF 45 to 50%, mild concentric LVH, hypokinesis of inferior septal wall and basal to mid lateral wall, mild MR, mild to moderate peak/mean 23/15, mild AI, mild pulmonic regurgitation.
Echo 05/21/24: EF 30-35%, global hypokinesis with inferior akinesis
Echo 05/22/24: EF 25 to 30%, global hypokinesis with inferior and inferolateral akinesis, dilated RV with reduced RV systolic function, moderate to severe MR, moderate to severe TR with PAP 64 mmHg
Cath 05/17/2024: LM: Calcified, distal tapering, LAD: 100% at origin, LAD fills via patent QUIANA, relatively small LAD with diffuse disease, circumflex heavily calcified, 50% proximal stenosis, 100% OM1 with patent vein graft but OM is very small,
retrograde filling less vibrant than before, RCA 100% at origin, SVG to PDA has 70% proximal stenosis, successful stenting prox SVG-PDA with 2.5 x 15 Pablo DAKSHA
Plan:
Patient admitted with chest pain and acute HF 05/16/24. HD with UF performed with improvement in chest pain, but Troponin peaked at 20. Patient taken to [facility] 05/17/24 and found to have anew SVG to PDA lesion that was stented. Patient then had an
in-hospital cardiac arrest 05/19/24 early AM with CPR, Epi x2 and shock with ROSC. Patient was intubated and then extubated 05/20/24. Later on 05/20/24 had an episode of vomiting. During the day 05/20/24 patient was on Bhavin and maxed out and Levophed
started plus increasing oxygen demands. CXR with right lung whiteout and ABG sent. Patient re-intubated 05/21/24. VT code 05/21/24 at 1900 and then broke into PEA. Treated with CPR, Epi x2 and Bicarb x1 with ROSC.
Septic and cardiogenic shock
Remains on IV pressors, now down to two pressors (Levophed and vasopressin), wean as tollerated
CRRT for volume management
IV Antibiotics
From a cardiac standpoint, Troponin peaked at 20.8 on admission and was managed as a NSTEMI. Troponin peaked again at 14.4 after code #1. Troponin peaked again at 8.33 after code #2. Subsequent Troponin elevations were managed as nonischemic
myocardial injury Troponin elevations.
EF down to 25% following code #2
Plavix on hold as plt count < 50K. Remains on aspirin 81 mg daily via tube
Cannot tolerate CM meds due to pressor dependent hypotension
CRRT for volume management
Monomorphic VT at time of code on 05/19/24 suggesting scar based etiology. Then with VT breaking to PEA on 05/21/24.
Remains on amiodarone gtt. After initial code on 05/19/24 amiodarone gtt started and then transitioned to amiodarone PO up until time of 2nd code, then back to IV amiodarone.
ESRD
Typically on hemodialysis, receiving CRRT for volume removal at present.
Prognosis remains very poor.
Critical care time 31 minutes
Progress Note - Toe Former Stitchdowns
Subjective
Date of Service: May 27, 2024
Intubated and sedated
Objective
Labs:
05/27/24 05:29
Labs
Hgb 10.7 g/dL (13.0-18.0) L 05/27/24 05:29
Hct 30.7 % (39.0-52.0) L 05/27/24 05:29
Plt Count 61 10^3/uL (130-400) L D 05/27/24 05:29
PT 16.2 Sec (11.4-14.6) H 05/19/24 06:16
INR 1.32 05/19/24 06:16
APTT 37.0 Sec (23.4-35.0) H 05/19/24 06:16
Sodium 138 mmol/L (135-145) 05/27/24 05:29
Potassium 3.8 mmol/L (3.5-5.1) 05/27/24 05:29
BUN 34 mg/dl (9-20) H 05/27/24 05:29
Creatinine 1.1 mg/dL (0.7-1.3) 05/27/24 05:29
Glucose 232 mg/dl (70-99) H 05/27/24 05:29
Vital Signs and I&O:
Vital Signs
Temp Pulse Resp BP Pulse Ox
95.1 F L 64 16 117/51 100
05/27/24 07:47 05/27/24 08:30 05/27/24 08:30 05/21/24 17:36 05/27/24 08:30
Vital Signs
Temp Pulse Resp BP Pulse Ox
95.1 F L 64 16 117/51 100
05/27/24 07:47 05/27/24 08:30 05/27/24 08:30 05/21/24 17:36 05/27/24 08:30
Intake & Output
05/25/24 05/26/24 05/27/24 05/28/24
06:59 06:59 06:59 06:59
Intake Total 4493.4 / 4660.4 3867.5 / 3923.6 2990.0 / 3093.4 215.6 / 215.6
Output Total 5268 / 5533 5760 / 5865 5771 / 5995 433 / 433
Balance -774.6 / -872.6 -1892.5 / -1941.4 -2781.0 / -2901.6 -217.4 / -217.4
Physical Exam
Physical Exam
Frail-appearing, intubated and sedated
Regular and tachycardic normal S1 and S2, no S3 no S4. There is a grade 1/6 apical holosystolic murmur and 1/6 basal systolic murmur
Lungs with coarse breath sounds bilateral
There is trace pretibial edema bilaterally
--- NOTE | 2024-05-27 09:19 | PTCARENOTE ---
Rec'd pt at approx 0700. Pt sedate on Fentanyl gtts on vent. Opens eyes to verbal stimuli, nods head to questions. Follows simple commands. Monitor SR 60's on 0.5mg/min Amio gtts. SBP initially 120's, Levophed titrated down to 14mcg/min, remains on
Vaso gtts. SBP 100's at this time via right radial a-line, zeroed. Lungs sct coarse/rales post, pox 100% on 30% fio2. Murray to LIWS with tube feed colored drainage, tube feeds remain on hold. FMS draining liquid brown/burgundy stool. CRRT continues
via RIJ HD cath, see flowsheet for details.
--- NOTE | 2024-05-27 09:44 | PTCARENOTE ---
Son updated via phone on overnight events and current condition.
[2024-05-27] MEDS: PITRESSIN 100 IV ×2 (09:53→21:32)
--- NOTE | 2024-05-27 10:55 | W.PN.INTV ---
Today's Communication / Plan
Recommendations
Continue mechanical ventilation without change
Continue antibiotics
Follow CBC
Reduce hydrocortisone to every 12
Hold tube feedings for today
Obtain a abdominal film
Continue CRRT
Maintain fecal management system
Consider restarting subcu heparin for DVT prophylaxis in the next 24 hours
Continue amiodarone drip
Wean down vasopressors as able-hemodynamics remain tenuous.
Poor prognosis
Assessment
-
83-year-old male with complex medical history including coronary disease with bypass surgery, recent drug-eluting stent and graft 05/17/2024, end-stage renal disease on hemodialysis, transitional cell carcinoma the bladder ongoing treatment at [place]
[facility], atrial fibrillation not on anticoagulation, diabetes, status post VT arrest, shock/epinephrine/ROSC/intubation 05/19/2024
VDRF, intubated 05/19/2024
Extubated 05/20/2024
Reintubated 05/21/2024
Chest x-ray with right whiteout-likely atelectasis 05/21/2024
Shock: Suspect multiple mechanisms cardiogenic/septic
Gram-negative in the sputum-E. coli ESBL
Gram-negative in the urine-E. coli ESBL
Cardiac arrest, monomorphic VT, 05/19/2024
While on the commode
Shock/Epi/intubation/ROSC
Anemia: Chronic disease and blood loss
---
S/p DAKSHA graft 05/17/2024
Ongoing chest pain, NSTEMI
S/p CABG [facility] 12/09/2022
s/p NSTEMI August 2023, med managed at [facility]
Cardiomyopathy, EF 40% with
ESRD on HED
Mild oozing of left upper extremity fistula
Conditions present prior admission:
Transitional cell carcinoma, bladder
Status post transurethral resection of bladder tumor, most recently 50 tumors removed at [place] 09/01/2023
Paroxysmal atrial fibrillation
Not on anticoagulation due to anemia
Hypertension/hyperlipidemia
Diabetes
Plan/recommendations:
-
Remains critically ill. Multiple vasopressors, intubated.
Reintubated 05/21/2024.
Developed cardiorespiratory arrest V. tach/PEA status post epi and CPR. Regained ROSC.05/21/2024 around 7 PM.
-
MV day #7
Mechanical ventilation settings
Assist-control/450/14/30%/post 5
ABG 05/27/2024: 7.44/30/146
No significant secretions from ET tube
Pulmonary mechanics acceptable-peak pressure in the mid 20s per
Chest x-ray 05/27/2024: Right mild to moderate pleural effusion. No significant infiltrates
Continue mechanical ventilation without change
Continue with intermittent suctioning-minimal secretion
Nebulizers as needed
Not ready for spontaneous breathing trial: Still hemodynamic unstable
-
Sedation with fentanyl drip, will continue to minimize as able
RASS score 0 (-1)
Sedation break per protocol
-
Shock: Multiple mechanism septic/? cardiogenic (echocardiogram with global hypokinesis decreased LVEF 20 to 30%/RV dysfunction as well)
With abnormal right lower lobe abnormality, layering right pleural chest x-ray cannot rule out aspiration/pneumonia.
Leukocytosis trending higher-remains hypothermic-clinical picture not suggestive of worsening sepsis-minute ventilation has decreased, blood cultures negative.
Unclear if steroids playing a role at this point.
Penis with pus: Straight cath showed purulent urine.
ESBL E. coli in the urine
ESBL E. coli in the sputum
Blood culture negative so
Infectious disease following : Meropenem.
MRSA screening negative
-
Continue -Bhavin-Synephrine/vasopressin-titrate for a systolic blood pressure 90 mmHg-norepinephrine has been discontinued for longer than 48 hours.
Arterial line in place.
Stress dose of steroids decreased to every 12 on 05/27/2024.
If increased leukocytosis and hypothermia continues may need to consider CT of the abdomen pelvis and repeat blood culture. Doubt any acute pulmonary process as pulmonary mechanics and oxygenation are improved compared to prior. Also may need to
consider thoracentesis on the right.
Lactate level of 4 noted 05/23/2024. Suspect part of it is due to liver dysfunction. No need to trend.
-
Normal TSH
-
Abnormal LFTs: Suspect shock liver.
Abdominal ultrasound unremarkable
Repeat LFTs tomorrow
-
Acidosis resolved: Continue CRRT -unable to tolerate dialysis due to hemodynamic instability.
Follow BMP
-
Thrombocytopenia noted:-Is slowly improving.
Plavix has been discontinued.
? Drug-induced
Follow daily CBC
Monitor for bleeding
-
Cardiology following the patient:
ICD prior to discharge if patient improved clinically.
Echocardiogram 05/17/2024: EF 45% with hypokinesis inferoseptal wall, moderate MR, moderate aortic stenosis.
LVEF 04/20/2024 showed decline 20 to 30%. No significant valvular abnormalities. No pericardial effusion
Echocardiogram 04/21/2024: Ejection fraction 20 to 30%. Global hypokinesis with inferior and inferior lateral akinesis. Dilated right ventricle with reduced right ventricular systolic function. Moderate to severe MR. Moderate to severe TR.
-
Unclear whether monomorphic VT was due to scar or recent drug-eluting stent/graft
V. tach/PEA arrest again on 05/21/2024.
Continue amiodarone IV drip
Cardiology following closely
Remains on aspirin
Plavix on hold 05/25/2024 due to thrombocytopenia
-
Chronic kidney disease hemodialysis dependent.
Case discussed with nephrology.
transitioned CRRT since 05/23/2024.
Hold midodrine for now.
Black stools: Hemoglobin trending lower but so far has been relatively stable last 48 hours.
Hemoglobin slowly trending lower.
Follow daily CBC
Fecal management system with dark stools
Continue PPI
Plavix also on hold
No evidence for active bleeding at this point.
Unfortunately noted great candidate for any other intervention at this point.
Consider restarting subcu DVT prophylaxis in the next 24 hours if hemoglobin is stable.
Hypoglycemia: Resolved
Insulin drip discontinued
Will continue to monitor closely
Temporarily was placed on D5. Will discontinue
Hyperglycemia blood sugars over 200.
Target 140-180
Insulin sliding scale
Occasionally following commands with sedation breaks.
Continue sedation break per protocol.
Patient has some delirium prior intubation.
Dobbhoff tube-was tolerating tube feedings at goal but developed vomiting overnight 05/27/2024. Tube feedings on hold.
Fecal management system output has reduced. Will obtain a flatplate of abdomen. On exam abdomen is flat, not distended, not tympanitic.
PPI for GI prophylaxis
DVT prophylaxis SCDs, subcu heparin on hold due to dark stools. Will reconsider restarting depending on clinical situation.
Poor prognosis
Dr. Salcido as discussed the case with infectious disease, cardiology nephrology and primary team.
Dr. Salcido as discussed with son multiple times over the course of her hospital stay. Prognosis is poor and he understands. He would like to continue with aggressive support. Likely will need tracheotomy and a feeding tube.
Dr. Salcido updated son at the bedside 05/22/2024, 05/23/2024, 05/24/2024, , 05/26/2024 discussed possibility of DNR status. He will think about it. He understands that likely if patient survives he will need long-term care, suspected unlikely
will be able to go home independently.
Critical care statement: A total of 40 minutes of critical care time was provided for this patient today. This includes management of unstable vital signs, evaluation of the patient at bedside, reviewing the patient's pertinent medical records
including ventilator settings, arterial blood gases, radiographs, microbiology, laboratory evaluations and discussion with primary team, critical care nursing, and respiratory therapy.
Subjective Dataa
Subjective Data
Date of Service:
Date of Service: May 27, 2024
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
Subjective:
Remains critically ill, on mechanical ventilation, vasopressors.
Sedated
Review of Systems
General: Unobtainable - Sedation
Objective Data
Data Reviewed
Vital Signs / I&O / Oxygen:
Vital Signs
Temp Pulse Resp BP Pulse Ox
96.4 F L 64 15 117/51 100
05/27/24 10:00 05/27/24 10:00 05/27/24 10:00 05/21/24 17:36 05/27/24 10:00
Intake and Output
05/26/24 05/27/24 05/28/24
06:59 06:59 06:59
Intake Total 3867.5 / 3923.6 2990.0 / 3093.4 350.7 / 350.7
Output Total 5760 / 5865 5771 / 5995 716 / 716
Balance -1892.5 / -1941.4 -2781.0 / -2901.6 -365.3 / -365.3
SaO2 [ASV] 100
SaO2 [A/C] 100
SaO2 100
Nasal Cannula flow liters per 95
minute
Physical Exam
General: Respiratory Distress (none, sedated)
HEENT: Normocephalic and Other (ET tube in place)
Cardiovascular: S1-S2, Regular Rhythm, Murmur (n) and Rub (n)
Respiratory: Wheeze (n), Crackles (n), Rhonchi (n), Non-Labored Respirations and ET Tube (No significant secretions)
GI: Soft, Non Distended, Non Tender and Other ( fecal management system-dark stool)
Neurology: Awake (Occasionally following commands) and Other (Intubated, mechanical ventilation. Sedated-opening eyes spontaneously)
Skin: Cyanosis (n), Jaundice (n), Rash (n) and Other (Left upper extremity AV fistula)
Labs/Micro/Reports
Lab Data
05/27/24 05:29
Laboratory Results
05/27/24
05:29
pH 7.44
pCO2 34 L
pO2 146 H
HCO3 23.1
O2 Delivery Level
Microbiology
05/22/24 21:38 Blood/Venous Blood Culture - Preliminary
No Growth in 4 days- Final report to follow
05/22/24 20:58 Blood/Venous Blood Culture - Preliminary
No Growth in 4 days- Final report to follow
05/21/24 09:43 Urine Urine Culture - Final
Escherichia coli - ESBL
05/21/24 10:17 Endotracheal Respiratory Culture - Final
Escherichia coli - ESBL
05/21/24 10:17 Endotracheal Gram Stain - Final
[2024-05-27 11:23] LABS: Ionized Calcium 1.45 mMOL/L (1.15-1.33)
[2024-05-27 11:24] LABS: Glucose - Point of Care 213 mg/dl (70-99)
[2024-05-27 11:48] LABS: Blood Urea Nitrogen 33 mg/dl (9-20); Calcium 10.1 mg/dl (8.4-10.2); Carbon Dioxide 22 mmol/L (22-30); Chloride 105 mmol/L (98-107); Estimated Creatinine Clearance 45 ml/min; Glucose 226 mg/dl (70-99); Magnesium 2.4 mg/dl (1.6-2.3); Phosphorus 3.6 mg/dl (2.5-4.5); Potassium 3.9 mmol/L (3.5-5.1); Sodium 136 mmol/L (135-145); eGFR > 60.00
--- NOTE | 2024-05-27 12:34 | W.PN.HOSP.TC ---
Today's Communication/Plan
-
Remains on pressor support and CRRT
Remains intubated and on sedation
Continue to have goals of care discussion
Assessment / Plan
Assessment / Plan
Physical Exam
intubated and sedated
Scleral anicteric
dry mucous membranes
No JVD, right temp hd line
mechanical vent sounds
distant heart sounds due to mechanical vent
Soft nontender nondistended bowel sounds active
Rectal tube with dark stools
Moves extremities spontaneously
VT arrest x2
Will require ICD prior to discharge
Continue amiodarone
Cards following without any further recs at this time
If recurs may need to try Lidocaine gtt/Defibrillation
Keep K >4
Keep Mg >2
Monitor on tele
Shock believed to be multifactorial in the setting of cardiogenic/septic.
Now Ucx and Rcx growing EColi. On IV bud dosed on CRRT. Day 6 of treatment
Bcx NGTD , but has been on atb, this might affect the yeild of culture data and will consulted ID, ID Dc'd [email or web address] and start meropenem
Continue pressor support along with Solu-Cortef and bud
-I discussed with ICU about starting Dobutamine/Dopamine, but they are proarrhythmic and has had multiple VT arrest therefore, at this time would like to hold off.
-Unfortunately there is not much more we can provide in terms of pressor support and hopefully clinical course will turn around.
-May be able to provide epi gtt per ICU if needed
Follow-up blood cultures
Keep maps greater than 65
Wean pressors as tolerated
Acute hypoxemic respiratory failure secondary to mucous plugging as evident by chest x-ray as there is full right sided whiteout of the right lung. Now intubated. Will require pulmonary toilet with hypertonic saline nebs, precaution bed. If not
improving then likely would benefit from bronchoscopy with suction at bedside. ICU and pulmonary to decide
Daily CXR
SAT SBT daily
NSTEMI known CAD s/p CABG and PCI (05/17) to the SVG-PDA and saphenous vein graft/QUIANA angio. Continue Dapt. Cannot tolerate BB due to BP
HFrEF, ICM, EF 25-30%, unable to provide GDMT due to hypotension. Will need ICD prior to DC.
ESRD on HD continue HD per nephrology recommendations.
Continue crrt
Anticipated Discharge: > 48 hours
Subjective/Interval History
-
Date of Service: May 27, 2024
Remains intubated sedated on CRRT and pressor support
Hypothermic again 95 on Nadine hugger
Objective Data
-
Labs:
Laboratory Results
05/27/24 05/27/24
05:29 11:12
WBC 39.5 H
Hgb 10.7 L
Hct 30.7 L
Plt Count 61 L D
HCO3 23.1
Sodium 138 136
Potassium 3.8 3.9
Chloride 105 105
Carbon Dioxide 22 22
BUN 34 H 33 H
Creatinine 1.1 1.1
Glucose 232 H 226 H
Calcium 10.1 10.1
Vital Signs:
Vital Signs
Temp Pulse Resp BP Pulse Ox
96.7 F L 68 14 117/51 100
05/27/24 11:00 05/27/24 12:15 05/27/24 12:15 05/21/24 17:36 05/27/24 11:45
I&O
05/26/24 05/27/24 05/28/24
06:59 06:59 06:59
Intake Total 3867.5 / 3923.6 2990.0 / 3093.4 543.9 / 543.9
Output Total 5760 / 5865 5771 / 5995 998 / 998
Balance -1892.5 / -1941.4 -2781.0 / -2901.6 -454.1 / -454.1
--- NOTE | 2024-05-27 13:43 | PTCARENOTE ---
Family at bedside, updated. No changes in assessment.
--- NOTE | 2024-05-27 16:49 | PTCARENOTE ---
No changes in assessment.
[2024-05-27] MEDS: CRESTOR 10 MG TUBE (17:07)
[2024-05-27 17:23] LABS: Ionized Calcium 1.46 mMOL/L (1.15-1.33)
[2024-05-27 17:26] LABS: Glucose - Point of Care 212 mg/dl (70-99)
[2024-05-27 17:44] LABS: Blood Urea Nitrogen 32 mg/dl (9-20); Calcium 10.3 mg/dl (8.4-10.2); Carbon Dioxide 22 mmol/L (22-30); Chloride 104 mmol/L (98-107); Estimated Creatinine Clearance 50 ml/min; Glucose 211 mg/dl (70-99); Magnesium 2.3 mg/dl (1.6-2.3); Phosphorus 3.7 mg/dl (2.5-4.5); Potassium 3.9 mmol/L (3.5-5.1); Sodium 136 mmol/L (135-145); eGFR > 60.00
--- NOTE | 2024-05-27 21:40 | PTCARENOTE ---
Assumed care of pt at 1900. Pt is intubated, sedated, #8.0/24cm at [facility], AC 14/450/30/5, SpO2 100%. SR 60s on monitor with BBB. Pt continues on CRRT, continues on Levophed, Vasopressin, Amiodarone, and Fentanyl drips. See nursing shift assessment
flowsheet for full physical assessment details.
[2024-05-27 23:19] LABS: Ionized Calcium 1.45 mMOL/L (1.15-1.33)
[2024-05-27 23:22] LABS: Glucose - Point of Care 192 mg/dl (70-99)
[2024-05-27] MEDS: XALATAN OPHTHALMIC SOLUTION 1 DROP BOTH EYES (23:27)
[2024-05-27] MEDS: NOVOLOG FLEXPEN-MODERATE RESISTANCE 1 UNITS SC (23:27)
[2024-05-27 23:33] LABS: Blood Urea Nitrogen 30 mg/dl (9-20); Calcium 10.2 mg/dl (8.4-10.2); Carbon Dioxide 22 mmol/L (22-30); Chloride 106 mmol/L (98-107); Estimated Creatinine Clearance 50 ml/min; Glucose 199 mg/dl (70-99); Magnesium 2.2 mg/dl (1.6-2.3); Phosphorus 3.9 mg/dl (2.5-4.5); Potassium 3.9 mmol/L (3.5-5.1); Sodium 139 mmol/L (135-145); eGFR > 60.00
[2024-05-28] VITALS (13 sets, daily range): BP systolic 78–135; BMI 26.9
[2024-05-28] MEDS: SUBLIMAZE 50 MCG IV ×6 (00:11→21:55)
--- NOTE | 2024-05-28 00:30 | PTCARENOTE ---
No change in assessment, continues on CRRT and same infusions. SpO2 remains 100% on same vent settings. SR 60s.
[2024-05-28] MEDS: SUBLIMAZE 100 IV ×3 (02:10→22:13)
[2024-05-28 05:22] LABS: Ionized Calcium 1.43 mMOL/L (1.15-1.33)
[2024-05-28 05:25] LABS: B.E. -2.1 mmol/L; HCO3 22.3 mmol/L (21-28); O2 Saturation % 99.4 % (94-98); PCO2 36 mmHg (35-48); PO2 150 mmHg (83-108)
[2024-05-28 05:40] LABS: Hematocrit 29.7 % (39.0-52.0); Hemoglobin 10.4 g/dL (13.0-18.0); Mean Corpuscular Hgb 27.4 pg (27.0-31.0); Mean Corpuscular Volume 78.4 fL (80.0-94.0); Platelet Count 46 10^3/uL (130-400); Red Blood Cell Count 3.79 10^6/uL (4.70-6.10); Red Cell Dist. Width 24.4 % (11.5-14.5); White Blood Cell Count 25.7 10^3/uL (4.8-10.8)
[2024-05-28 05:51] LABS: ALT (SGPT) 237 U/L (0-50); AST (SGOT) 174 U/L (17-59); Albumin 2.3 g/dl (3.5-5.0); Alkaline Phosphatase 173 U/L (38-126); Blood Urea Nitrogen 29 mg/dl (9-20); Calcium 10.1 mg/dl (8.4-10.2); Carbon Dioxide 22 mmol/L (22-30); Chloride 105 mmol/L (98-107); Direct Bilirubin 1.5 mg/dl (0.0-0.4); Estimated Creatinine Clearance 50 ml/min; Glucose 217 mg/dl (70-99); Magnesium 2.1 mg/dl (1.6-2.3); Potassium 3.8 mmol/L (3.5-5.1); Sodium 138 mmol/L (135-145); eGFR > 60.00
[2024-05-28] MEDS: MERREM 500 MG IV ×4 (06:04→23:07)
[2024-05-28] MEDS: STERILE WATER FOR INJECTION 10 ML IV ×4 (06:04→23:07)
[2024-05-28] MEDS: NOVOLOG FLEXPEN-MODERATE RESISTANCE 3 UNITS SC (06:04)
[2024-05-28] MEDS: RFP-401 HD Soln (K+ 4 mEq/L) 15000 ML CRRT-IRR ×2 (06:13→16:34)
--- NOTE | 2024-05-28 08:05 | W.PN.INTV ---
Today's Communication / Plan
Recommendations
Continue mechanical ventilation with daily SAT/SBT
Antibiotics per ID
Trend CBC
Continue hydrocortisone to every 12
Resume TF
Continue CRRT
Maintain fecal management system
Start heparin gtt to avoid thrombosis while on CRRT
Change IV amio gtt to PO with holding parameters
Wean down vasopressors as able-hemodynamics remain tenuous.
Poor prognosis
Assessment
-
83-year-old male with complex medical history including coronary disease with bypass surgery, recent drug-eluting stent and graft 05/17/2024, end-stage renal disease on hemodialysis, transitional cell carcinoma the bladder ongoing treatment at [place]
[facility], atrial fibrillation not on anticoagulation, diabetes, status post VT arrest, shock/epinephrine/ROSC/intubation 05/19/2024
Impression:
VDRF, intubated 05/19/2024
Extubated 05/20/2024
Reintubated 05/21/2024
Chest x-ray with right whiteout-likely atelectasis 05/21/2024
Shock: Suspect multiple mechanisms cardiogenic/septic
Gram-negative in the sputum-E. coli ESBL
Gram-negative in the urine-E. coli ESBL (ESBL is likely due to frequent self-medicating as outpatient with cipro)
Cardiac arrest, monomorphic VT, 05/19/2024
While on the commode
Shock/Epi/intubation/ROSC
Anemia: Chronic disease and blood loss
---
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
S/p DAKSHA graft 05/17/2024
Ongoing chest pain, NSTEMI
S/p CABG [place] 12/09/2022
s/p NSTEMI August 2023, med managed at [facility]
Cardiomyopathy, EF 40% with
ESRD on HD
Mild oozing of left upper extremity fistula
Conditions present prior admission:
Transitional cell carcinoma, bladder
Status post transurethral resection of bladder tumor, most recently 50 tumors removed at [place] 09/01/2023
Paroxysmal atrial fibrillation
Not on anticoagulation due to anemia
Hypertension/hyperlipidemia
Diabetes
Plan/recommendations:
-
Remains critically ill. Multiple vasopressors, intubated requiring high doses of sedation
Reintubated 05/21/2024.
Developed cardiorespiratory arrest V. tach/PEA status post epi and CPR. Regained ROSC 05/21/2024 around 7 PM.
-
Intubated since 05/21/2024
Mechanical ventilation settings reviewed
Adjust vent daily based on blood gas
No significant secretions from ET tube - continue to monitor
Keep PIP<30-35
Chest x-ray 05/27/2024: Right mild to moderate pleural effusion. No significant infiltrates
Continue with intermittent suctioning-minimal secretions
Nebulizers as needed
Daily SAT/SBT
Try to lower sedation to lowered required dosing; if having difficulty with this then will add seroquel vs other agent
RASS score 0 to -1
-
Shock: Multiple mechanism septic/? cardiogenic (echocardiogram with global hypokinesis decreased LVEF 20 to 30%/RV dysfunction as well)
With abnormal right lower lobe abnormality, layering right pleural chest x-ray cannot rule out aspiration/pneumonia.
Trend WBC
- Remains hypothermic-clinical picture not suggestive of worsening sepsis-minute ventilation has decreased, blood cultures negative.
Unclear if steroids playing a role at this point.
Penis previously with pus: Straight cath showed purulent urine.
ESBL E. coli in the urine
ESBL E. coli in the sputum
Blood culture negative so
Infectious disease following : Meropenem on since 05/22/2024 s/p vanc/zosyn + cipro
MRSA screening negative
-
Continue levophed + vasopressin with goal SBP>[address]
Stress dose of steroids decreased to every 12 on 05/27/2024.
If increased leukocytosis and hypothermia continues may need to consider CT of the abdomen pelvis and repeat blood culture. Doubt any acute pulmonary process as pulmonary mechanics and oxygenation are improved compared to prior. Also may need to
consider thoracentesis on the right.
Lactate level of 4 noted 05/23/2024. Suspect part of it is due to liver dysfunction
-
Normal TSH (05/26/2024)
-
Abnormal LFTs: Suspect shock liver.
Abdominal ultrasound unremarkable (05/23/2024)
C/t trend
-
Acidosis resolved: Continue CRRT -unable to tolerate dialysis due to hemodynamic instability.
Follow BMP
Start heparin gtt to help reduce risk of thrombosis
-
Thrombocytopenia noted: Low but remains >20k
Plavix has been discontinued --> given recent stent placed on 05/17/2024 to SVG-PDA, will try to resume once clinically able to
Trend platelet count, clemente while on heparin gtt
Monitor for bleeding
-
Cardiology following the patient:
ICD prior to discharge if patient improved clinically - defer to cardiology
Echocardiogram 05/17/2024: EF 45% with hypokinesis inferoseptal wall, moderate MR, moderate aortic stenosis.
LVEF 04/20/2024 showed decline 20 to 30%. No significant valvular abnormalities. No pericardial effusion
Echocardiogram 05/22/2024: Ejection fraction 25-30% with global hypokinesis with inferior and inferior lateral akinesis. Dilated right ventricle with reduced right ventricular systolic function. Moderate to severe MR. Moderate to severe TR with PH
-
Unclear whether monomorphic VT was due to scar or recent drug-eluting stent/graft
V. tach/PEA arrest again on 05/21/2024
Due to bradycardia, stop amiodarone IV drip and change to PO amio with holding parameters
Cardiology following closely
Remains on aspirin
Plavix on hold 05/25/2024 due to thrombocytopenia - see about about restarting
-
Chronic kidney disease hemodialysis dependent.
Case discussed with nephrology.
Transitioned to CRRT since 05/23/2024.
Hold midodrine for now.
Black stools: Stool is now reported as brown as of 05/28/2024
Trend H/H and transfuse if needed to keep >7; keep plt>20k
Continue PPI 40mg BID
Plavix also on hold; resume once clinically able to and plt stable
No evidence for active bleeding at this point.
Unfortunately not a great candidate for any other intervention at this point.
Hypoglycemia: Resolved
Insulin drip discontinued
Will continue to monitor closely
Temporarily was placed on D5 - now discontinued
Hyperglycemia blood sugars over 200.
Target 140-180
Insulin sliding scale
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
Occasionally following commands with sedation breaks.
Continue sedation break per protocol.
Patient had delirium prior intubation.
Dobbhoff tube-was tolerating tube feedings at goal but developed vomiting overnight 05/27/2024. Tube feedings were on hold --> ok to resume now as of 05/28/2024
PPI for GI prophylaxis
DVT prophylaxis heparin gtt
Poor prognosis
Dr. Salcido as discussed the case with infectious disease, cardiology nephrology and primary team.
Dr. Salcido as discussed with son multiple times over the course of her hospital stay. Prognosis is poor and he understands. He would like to continue with aggressive support. Likely will need tracheotomy and a feeding tube.
Dr. Salcido updated son at the bedside 05/22/2024, 05/23/2024, 05/24/2024, , 05/26/2024 discussed possibility of DNR status. He will think about it. He understands that likely if patient survives he will need long-term care, suspected unlikely
will be able to go home independently.
Dr. Benitez discussed the case with patient's son, Devante, and daughter in law, answered all their questions. Pt remains full code despite poor prognosis
Critical care statement: A total of 38 minutes of critical care time was provided for this patient today. This includes management of unstable vital signs, evaluation of the patient at bedside, reviewing the patient's pertinent medical records
including ventilator settings, arterial blood gases, radiographs, microbiology, laboratory evaluations and discussion with primary team, critical care nursing, and respiratory therapy.
Subjective Dataa
Subjective Data
Date of Service:
Date of Service: May 28, 2024
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
Subjective:
Patient seen and evaluated this morning. Son, Devante at bedside along with daughter in law. I also spoke with the patient's brother, Melissa. All family's questions were answered. pt's heart rate is 59, BP 100/36, saturating 100% on vent with
14/450/30%/5, with PIP 28, VTe 450mL and breathing at 14 breaths/min. Sedated on fentanyl 150mcg/hr, levo at 9mcg/min and vaso at 0.03 units/min. Amio gtt at 0.5mg.min.Also on CRRT. Minimal ETT secretions. OGT on low suction with minimal
outpuit. R-radial A line intact. Failed SBT trial this AM due to hypopnea/apnea.
Review of Systems
General: Unobtainable - Pat Unresp
Objective Data
Data Reviewed
Vital Signs / I&O / Oxygen:
Vital Signs
Temp Pulse Resp BP Pulse Ox
97.3 F 56 14 117/51 100
05/28/24 07:38 05/28/24 06:00 05/28/24 06:00 05/21/24 17:36 05/28/24 07:28
Intake and Output
05/27/24 05/28/24 05/29/24
06:59 06:59 06:59
Intake Total 2990.0 / 3093.4 1794.6 / 1859.5 127.0 / 127.0
Output Total 5771 / 5995 4139 / 4302 328 / 328
Balance -2781.0 / -2901.6 -2344.4 / -2442.5 -201.0 / -201.0
SaO2 [ASV] 100
SaO2 [A/C] 100
SaO2 100
Nasal Cannula flow liters per 95
minute
Physical Exam
General: Respiratory Distress (none, sedated), Comfortable, Chills (negative) and Sweats (negative)
HEENT: Normocephalic, Anicteric and Other (ETT in place)
Cardiovascular: S1-S2, Murmur (n), Rub (n) and Peripheral Edema (No lower extremity edema bilaterally)
Respiratory: Wheeze (n), Crackles (n), Rhonchi (n), Non-Labored Respirations and ET Tube (No significant secretions)
GI: Soft, Non Distended, Non Tender, Normal Bowel Sounds and Other (Fecal management system-brown stool)
Neurology: Unresponsive and Other (Intubated, mechanical ventilation. Sedated-opening eyes spontaneously)
Skin: Warm, Dry, Cyanosis (n), Jaundice (n), Rash (n) and Other (Left upper extremity AV fistula)
Labs/Micro/Reports
Lab Data
05/28/24 05:13
Laboratory Results
05/28/24
05:13
pH 7.40
pCO2 36
pO2 150 H
HCO3 22.3
O2 Delivery Level
Microbiology
05/22/24 21:38 Blood/Venous Blood Culture - Final
No Growth - Final Report
05/22/24 20:58 Blood/Venous Blood Culture - Final
No Growth - Final Report
[2024-05-28] MEDS: PROTONIX IV 40 MG IV ×2 (08:24→19:39)
[2024-05-28] MEDS: LOW STRENGTH ASPIRIN 81 MG TUBE (08:24)
[2024-05-28] MEDS: MIRALAX TUBE (08:24)
[2024-05-28] MEDS: PITRESSIN 100 IV ×2 (08:25→22:19)
[2024-05-28] MEDS: SOLU-CORTEF 50 MG IV ×2 (08:25→19:39)
[2024-05-28] MEDS: LEVOPHED 258 MG IV ×3 (08:25→22:13)
[2024-05-28] MEDS: NSS (PRESERVATIVE FREE) 10 ML IV ×2 (08:25→19:39)
--- NOTE | 2024-05-28 08:50 | W.PN.ID1 ---
Date of Service
Date of Service: May 28, 2024
Today's Communication
c/w meropenem
when stable could consider right chest US and possible thoracentesis
Assessment / Plan
Shock - likely combined cardiogenic and septic - improving
VAP and UTI
MSOF
NSTEMI, CAD
ESRD
Transitional cell cancer of the bladder
- pressors being weaned, remains hypothemic
- moderate R pleural effusion noted, when stable could consider right lung US and possible thoracentesis
- blood cultures x2 in progress NGTD
- sputum culture with ESBL E coli
- urine culture 100 K ESBL E coli
- c/w meropenem - dosed for CRRT - day 8 of effective rx; there are oral options that could eventually be considered
Patient is critically ill, despite interval improvement, prognosis in the medium term still poor
Chief Complaint
-: UTI and Other (shock - septic and cardiogenic, MDRO)
Subjective / Review of Systems
remains hypothermic
further declining pressor requirements
declining leukocytosis
declining LFTs
CXR this am: moderat right pleural effusion
Vital Signs / Physical Exam
Vital Signs
Vital Signs
Temp Pulse Resp BP Pulse Ox
97.3 F 56 14 117/51 100
05/28/24 07:38 05/28/24 06:00 05/28/24 06:00 05/21/24 17:36 05/28/24 07:28
Physical Exam
Constitutional: Acutely Ill and Chronically Ill
Cardiovascular: Regular Rate and S1/S2; Negative Murmur or Rub
Pulmonary: Clear and Symmetric; Negative Wheezes or Rales
Gastrointestinal: Soft, Non Tender, Non Distended and Normal Bowel Sounds
Skin: Warm and Dry; Negative Rash or Jaundice
Neurological: Negative Awake
Objective Data
Lab Data
Lab Results
05/28/24 05:13
PT 16.2 Sec (11.4-14.6) H 05/19/24 06:16
INR 1.32 05/19/24 06:16
APTT 37.0 Sec (23.4-35.0) H 05/19/24 06:16
Estimated Creat Clear 50 ml/min 05/28/24 05:13
Lactic Acid 4.0 mmol/L (0.7-2.0) H* 05/23/24 11:48
Total Bilirubin 2.0 mg/dl (0.2-1.3) H 05/28/24 05:13
AST 174 U/L (17-59) H 05/28/24 05:13
ALT 237 U/L (0-50) H 05/28/24 05:13
Alkaline Phosphatase 173 U/L (38-126) H 05/28/24 05:13
Most recent labs reviewed.
Micro Results:
05/22/24 21:38 Blood Culture - Final
Blood/Venous No Growth - Final Report
05/22/24 20:58 Blood Culture - Final
Blood/Venous No Growth - Final Report
05/21/24 09:43 Urine Culture - Final
Urine Escherichia coli - ESBL
05/21/24 10:17 Respiratory Culture - Final
Endotracheal Escherichia coli - ESBL
Gram Stain - Final
05/16/24 18:42 MRSA Screen - Final
Nose No Methicillin Resistant Staphylococcus aureus isolated.
--- NOTE | 2024-05-28 09:37 | W.PN.NEPH.PH ---
Today's Communication / Plan
-
CRRT
Assessment/Plan
-
Assessment:
CP
Elevated troponin
Transitional cell carcinoma of the bladder
s/p CABG - CABRAL to LAD, SVG to OM, SVG to PDA 12/09/22 at [place]
CM EF 40% by echo 09/15/23
Type 2 NSTEMI s/p diagnostic cath 08/2023 at [facility] with patent bypass grafts, 70% OM stenosis, medically managed
Post CABG afib
ESRD on HD MWF
mild
Hypertension
Hyperlipidemia
Type 2 diabetes
Glaucoma
Hyponatremia
Plan
keep SBP>90
CRRT continues
reduce UF rate today
wean pressors, vasopressin first
restart TF, no FWF
not a candidate for IHD
d/w son
critical care time 31 minutes
-
-
Date of Service: May 28, 2024
CC / HPI / ROS
-
Chief Complaint:
ESRD
History of Present Illness:
critically ill in ICU
CRRT running, with periods of hypotension with turning
Status post ventricular tachycardia and PEA/cardiac arrest
Remains on 2 pressor support
Intubated (Fio2 30%), sedated
WBC lower today 25
Review of Systems:
Intubated
no fevers
Labs
-
Labs:
WBC 25.7 10^3/uL (4.8-10.8) H 05/28/24 05:13
RBC 3.79 10^6/uL (4.70-6.10) L 05/28/24 05:13
Hgb 10.4 g/dL (13.0-18.0) L 05/28/24 05:13
Hct 29.7 % (39.0-52.0) L 05/28/24 05:13
Plt Count 46 10^3/uL (130-400) L D 05/28/24 05:13
eGFR > 60.00 05/28/24 05:13
Pzf-D-Agilpoxkbwc Pept > 33310 pg/ml 05/16/24 11:51
Albumin 2.3 g/dl (3.5-5.0) L 05/28/24 05:13
Physical Exam
-
Vital Signs:
Vital Signs
Temp Pulse Resp BP Pulse Ox
97.3 F 61 20 117/51 98
05/28/24 07:38 05/28/24 09:00 05/28/24 09:00 05/21/24 17:36 05/28/24 09:00
Cardiovascular:: Regular rate and rhythm
Respiratory:: Bilateral: Coarse
Lung Excursion:: Normal
Abdomen:: Nontender and Soft
Bowel Sounds:: Normal
Extremity Edema:: None: Bilateral:
--- NOTE | 2024-05-28 09:41 | W.PN.UPDATE ---
Update Note
Progress Note Update
CRRT running. no issues with flow/clotting. UF -100/hr currently, VSS on pressors. remains on vent
CVC ok
--- NOTE | 2024-05-28 10:04 | W.PN.CARDCBS ---
Today's Communication / Plan
-
Remains on pressors
Remains in sinus rhythm on IV amiodarone
Overall prognosis remains poor
Unable to treat cardiomyopathy given hypotension requiring pressors
Volume status being controlled by nephrology
Impression / Plan
-
PCP: Dr. Charlie Marley
Primary Digital Marketing Manager: Dr. Almanza
Assessment:
Admitted with chest pain and acute HF 05/16/24
In-hospital VT arrest
monomorphic VT, CPR, Epi x2 and shock with ROSC 05/19/24
VT that broke to PEA, CPR, Epi x2 and Bicarb x2 with ROSC 05/21/24
VDRF
intubated 05/19/24 and then extubated 05/20/24
re-intubated 05/21/24 with right lung whiteout
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
ESRD on HD
CM EF 40% by echo 09/15/23
NSTEMI related to stenosis of saphenous vein graft to PDA, peak troponin 20
CAD
s/p CABG with CABRAL to LAD, SVG to OM, SVG to PDA at [place] 12/09/22
s/p NSTEMI with patent bypass grafts, 70% OM stenosis being medically managed after cath at [facility] 08/2023
s/p NSTEMI with DAKSHA SVG-PDA 05/17/2024
Transitional cell carcinoma of the bladder treated with multiple transurethral resection of bladder tumor, most recently 50 tumors removed at [facility] 09/01/2023
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
Paroxysmal Afib
Not chronically anticoagulated due to anemia, not a candidate for watchman due to inability to tolerate even short-course OAC
mild
Hypertension
Hyperlipidemia
Type 2 diabetes
Glaucoma
Hyponatremia
bleeding from HD fistula site
Vomiting 05/20/24
Cardiogenic and septic shock
Thrombocytopenia
ECHO 08/2023 at [facility]: EF reportedly preserved
Echo 09/15/23: EF 40-45%, inferior wall akinesis, inferoseptal wall and base to mid inferolateral francisco hypokinetic, stage II diastolic dysfunction, moderate MR, mild with peak/mean 20/11. mild to mod aortic regurg
Echo 05/17/24: EF 45 to 50%, mild concentric LVH, hypokinesis of inferior septal wall and basal to mid lateral wall, mild MR, mild to moderate peak/mean 23/15, mild AI, mild pulmonic regurgitation.
Echo 05/21/24: EF 30-35%, global hypokinesis with inferior akinesis
Echo 05/22/24: EF 25 to 30%, global hypokinesis with inferior and inferolateral akinesis, dilated RV with reduced RV systolic function, moderate to severe MR, moderate to severe TR with PAP 64 mmHg
Cath 05/17/2024: LM: Calcified, distal tapering, LAD: 100% at origin, LAD fills via patent QUIANA, relatively small LAD with diffuse disease, circumflex heavily calcified, 50% proximal stenosis, 100% OM1 with patent vein graft but OM is very small,
retrograde filling less vibrant than before, RCA 100% at origin, SVG to PDA has 70% proximal stenosis, successful stenting prox SVG-PDA with 2.5 x 15 Ragland DAKSHA
Plan:
Patient admitted with chest pain and acute HF 05/16/24. HD with UF performed with improvement in chest pain, but Troponin peaked at 20. Patient taken to director labor standards 05/17/24 and found to have anew SVG to PDA lesion that was stented. Patient then had an
in-hospital cardiac arrest 05/19/24 early AM with CPR, Epi x2 and shock with ROSC. Patient was intubated and then extubated 05/20/24. Later on 05/20/24 had an episode of vomiting. During the day 05/20/24 patient was on Bhavin and maxed out and Levophed
started plus increasing oxygen demands. CXR with right lung whiteout and ABG sent. Patient re-intubated 05/21/24. VT code 05/21/24 at 1900 and then broke into PEA. Treated with CPR, Epi x2 and Bicarb x1 with ROSC.
He remains on 2 pressors (Levophed and vasopressin)
CRRT for volume management
cont IV Antibiotics
Troponin peaked at 20.8 on admission and is being managed managed as a NSTEMI. Troponin peaked again at 14.4 after code #1. Troponin peaked again at 8.33 after code #2. Subsequent Troponin elevations were managed as nonischemic myocardial injury
Troponin elevations.
EF down to 25% following code #2
Plavix on hold as plt count < 50K. Remains on aspirin 81 mg daily via tube
Cannot tolerate CM meds due to pressor dependent hypotension
Monomorphic VT at time of code on 05/19/24 suggesting scar based etiology. Then with VT breaking to PEA on 05/21/24.
Cont Iv amiodarone gtt. After initial code on 05/19/24 amiodarone gtt started and then transitioned to amiodarone PO up until time of 2nd code, then back to IV amiodarone.
Prognosis remains very poor. son wishes everything to be done.
Progress Note - Digital Marketing Manager
Subjective
Date of Service: May 28, 2024
No complaints
Objective
Labs:
05/28/24 05:13
Labs
Hgb 10.4 g/dL (13.0-18.0) L 05/28/24 05:13
Hct 29.7 % (39.0-52.0) L 05/28/24 05:13
Plt Count 46 10^3/uL (130-400) L D 05/28/24 05:13
PT 16.2 Sec (11.4-14.6) H 05/19/24 06:16
INR 1.32 05/19/24 06:16
APTT 37.0 Sec (23.4-35.0) H 05/19/24 06:16
Sodium 138 mmol/L (135-145) 05/28/24 05:13
Potassium 3.8 mmol/L (3.5-5.1) 05/28/24 05:13
BUN 29 mg/dl (9-20) H 05/28/24 05:13
Creatinine 1.0 mg/dL (0.7-1.3) 05/28/24 05:13
Glucose 217 mg/dl (70-99) H 05/28/24 05:13
Vital Signs and I&O:
Vital Signs
Temp Pulse Resp BP Pulse Ox
97.3 F 61 20 117/51 98
05/28/24 07:38 05/28/24 09:00 05/28/24 09:00 05/21/24 17:36 05/28/24 09:00
Vital Signs
Temp Pulse Resp BP Pulse Ox
97.3 F 61 20 117/51 98
05/28/24 07:38 05/28/24 09:00 05/28/24 09:00 05/21/24 17:36 05/28/24 09:00
Intake & Output
05/26/24 05/27/24 05/28/24 05/29/24
06:59 06:59 06:59 06:59
Intake Total 3867.5 / 3923.6 2990.0 / 3093.4 1794.6 / 1859.5 299.8 / 299.8
Output Total 5760 / 5865 5771 / 5995 4139 / 4302 489 / 489
Balance -1892.5 / -1941.4 -2781.0 / -2901.6 -2344.4 / -2442.5 -189.2 / -189.2
Physical Exam
Physical Exam
General: Sedate
Neck: Supple, no JVD, HJR, carotids +2 B/L, no bruits bilaterally.
Heart: Non displaced PMI, RRR, no murmurs, No S3, S4, no rubs.
Lungs: Scattered rhonchi
Extremities: No clubbing, cyanosis or edema bilaterally.
Neuro: Sedate
--- NOTE | 2024-05-28 10:14 | PN.DE.MGMTRT ---
Insulin Management
- -
05/28/2024 Diabetes management F/U:
83-year-old male with complex PMH including CAD s/p CABG, recent DAKSHA/graft 05/17/2024, ESRD on HD, bladder CA ongoing treatment at [facility] [place], A-Fib, T2DM. Pt is s/p VT arrest, shock/epinephrine/ROSC/intubated 05/19, extubated 05/20 and
reintubated 05/21 due to Septic shock source. A1C on admission 7.1%, was taking Onglyza 5mg daily. Pt has been started corticosteroid stress doses, contributing to hyperglycemia-->critical care glycemic protocol for optimal glucose control. Cr
4.8, eGFR 11.3-->Cr 1.0, eGFR >60 today
Pt remains intubated, critically ill, on CRRT, on multiple pressors, on steroids and tube feeds at goal, 45cc/hr, unable to interview.
05/25 Lantus and Q6 hr NovoLog placed on hold due to prolonged hypoglycemia.
05/26 Glucose started trending up, consistently >200, requiring 1-5 units of corrective insulin. FBG 217 this AM
Will resume Lantus 10 units 1st dose now. Resume Q6 hr NovoLog at reduced dose of 5 units, 1st dose now.
Will follow and make further insulin adjustments if needed.
Discussed with patients nurse at bedside and ICU team.
Diabetes History
- -
Type of Diabetes: 2 requiring insulin
Pre-Admission Diabetes Regimen
05/27/24 05/27/24 05/27/24
11:12 17:14 23:11
Creatinine 1.1 1.0 1.0
05/28/24
05:13
Creatinine 1.0
Lab Results
Hemoglobin A1c 7.1 % (4.0-5.6) H 05/16/24 19:00
Insulin Pump Settings
IP Diabetes Regimen
05/27/24 05/27/24 05/27/24
11:12 11:13 17:12
Glucose 226 H
POC Glucose 213 H 212 H
05/27/24 05/27/24 05/27/24
17:14 23:10 23:11
Glucose 211 H 199 H
POC Glucose 192 H
05/28/24
05:13
Glucose 217 H
POC Glucose
Patient Education
[2024-05-28 11:04] LABS: Ionized Calcium 1.46 mMOL/L (1.15-1.33)
[2024-05-28 11:16] LABS: APTT 37.2 Sec (23.4-35.0)
--- NOTE | 2024-05-28 11:17 | PTCARENOTE ---
Pt nodding appropriately. Fentanyl weaned for sedation vacation/SBT. Moving upper extremities more. Wrist restraints applied to protect lines/tubes.
Sinus karla HR 45. Vasopressin off. Titrating Levophed for BP. Remains on Amio gtt. New order to start Heparin gtt. PTT sent.
Failed initial SBT d/t apnea. Will SBT again when pt more awake.
CRRT continues. UF rate changed to -50.
OG tube clamped. Plan to restart TF later today.
All other assessments unchanged.
Family at bedside for rounds.
[2024-05-28 11:20] LABS: Blood Urea Nitrogen 29 mg/dl (9-20); Calcium 10.2 mg/dl (8.4-10.2); Carbon Dioxide 23 mmol/L (22-30); Chloride 105 mmol/L (98-107); Estimated Creatinine Clearance 50 ml/min; Glucose 203 mg/dl (70-99); Magnesium 2.1 mg/dl (1.6-2.3); Phosphorus 3.9 mg/dl (2.5-4.5); Potassium 3.8 mmol/L (3.5-5.1); Sodium 136 mmol/L (135-145); eGFR > 60.00
[2024-05-28] MEDS: NOVOLOG FLEXPEN 5 UNITS SC ×3 (12:21→23:10)
[2024-05-28] MEDS: NOVOLOG FLEXPEN-MODERATE RESISTANCE 1 UNITS SC ×2 (12:21→17:54)
[2024-05-28 12:24] LABS: Glucose - Point of Care 177 mg/dl (70-99)
[2024-05-28] MEDS: LANTUS 0.1 UNITS SC (12:33)
[2024-05-28] MEDS: HEPARIN 25000 UNITS/250 ML IV (12:34)
--- NOTE | 2024-05-28 13:41 | PTCARENOTE ---
Sinus bradycardia with PACs. HR as low as 43. Discussed with Dr Dent and Dr Benitez. Amio gtt d/c'd. HR 51 at this time. Nadine hugger applied for temperature 94.5 F Axillary.
Pt repositioned at noon. BP dropped to 80s/20s. BP did not recover from turn and Levophed titrated up.
SBT for 40min. Pt became increasingly hypotensive. Levophed as high as 28mcg/min. Vasopressin restarted. Dr Benitez notified. New order for Albumin. CHILDREN'S LITERATURE PROFESSOR stopped SBT and BP improved. 103/32 at this time.
--- NOTE | 2024-05-28 14:13 | W.PN.HOSP.TC ---
Addendum entered and electronically signed by Que Green MD 05/28/24 15:40:
seen and examined by me independently in collaboration with the medical imaging tech Flavia.
Lab data and imaging data reviewed.
Addendum as below :
Persistent shock which is a combination of cardiogenic and septic shock. Still on multiple vasopressors. Continue to optimize cardiac situation as able. Continue with atrial fibrillation treatments-today in sinus rhythm. Continue with empirical
antibiotics.
VT cardiac arrest*2 - none since - cw IV Amio. ICD ultimately prior to DC.
CAD s/p prior CABG. Had NSTEMI on adx for which he received a stent to SAG -PDA graft . CW ASA .Plavix on hold due to low plts .
CM with low EF 25-30% - not on GDMT due to hypotension/shock
VDRF - remains on vent. Didnt do well with wean attempts. Discussed with son at bedside briefly about trach if he continues to fail weans. He has not sure what his dad would have wanted. cw current vent support .
ESRD on HD as OP -currently on CRRT
HH stable.
DW Process Control Programmer .
Discussed with son at bedside in ICU.
Total Critical Care Time__35___ minutes. I was immediately available to the patient and staff. I personally examined, reviewed labs, diagnostic images/reports, interpretations, treatment plans, discussed patient care with other providers and
family or caregivers (if patient is unable to make decisions), entered orders as appropriate and documented the medical record.
Original Note:
Today's Communication/Plan
-
Continue antibiotics, continue on mechanical ventilation and is weaning trial failed, continue pressors, continue steroids and Amio drip
Assessment / Plan
Assessment / Plan
Cardiogenic / Septic shock
- VT arrest x2, 05/17 successful DAKSHA, Echo 05/22 25-30%
- Will require ICD prior to discharge
- Continue amiodarone ggt
- Cards following without any further recs at this time
- If recurs may need to try Lidocaine gtt/Defibrillation
- Keep K >4, Keep Mg >2
- Monitor on tele
- Continue pressors
- Continue corticosteroids
- Endotracheal and urine culture ESBL
- X-ray cannot rule out pneumonia, but residual fluid post mucous plug also possible
- Continue meropenem day 02/28 per ID
Acute hypoxemic respiratory failure secondary to mucous plugging
-Chest x-ray full sided white out right lung 05/21
-Continue mechanical intubation
-Failed weaning trial today
-Management per tube cutter
ESRD
- CRRT
Electrolyte imbalance / metabolic acidosis
- CRRT
NSTEMI/CAD
- s/p CABG with CABRAL to LAD, SVG to OM, SVG to PDA at [place] 12/09/22
- s/p NSTEMI with patent bypass grafts at [facility] 08/2023
- 05/17 cath successful DAKSHA
- Dual antiplatelet therapy for next 6 to 10 months
- Clopedigrel held for Plt <50 per cardiology. Restart per cardiology and tube cutter discretion
- Will need ICD prior to discharge per cards
HFrEF
- Echo 05/22 LVEF 25-30%
- Fluid volume removal per CRRT
- Unable to provide GDMT due to hypotension
- Will need ICD prior to discharge
Paroxysmal A-fib
� No Eliquis due to history of hematuria and severe anemia
� On DAPT therapy
� Previously on Coreg, currently on amnio drip
Thrombocytopenia
- today 61 -> 46
- On DAPT with recent cath 05/17
- Monitor
Elevated LFTs
- Likely shock liver
- Hep panel (-) and RUQ unremarkable for acute etiology
- Monitor
Heme-occult blood (+)
- Monitor CBC for signs of bleeding
-
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
- Damion [place]. TURBT 50 lesions were reportedly worked on on 09/01/2023.
- developed hematuria and a temporary placement of renal stent followed by continuous bladder irrigation
- Eliquis discontinued
Type 2 diabetes
- Hemoglobin A1c 7.1
- Management per diabetic nurse
Dyslipidemia
- Continue statin
#B12 deficiency�replace
#Chronic vertigo
Full Code
Anticipated Discharge: > 48 hours
Subjective/Interval History
-
Date of Service: May 28, 2024
Objective Data
-
Labs:
Laboratory Results
05/28/24 05/28/24 05/28/24
05:13 10:33 10:53
WBC 25.7 H Pending
Hgb 10.4 L Pending
Hct 29.7 L Pending
Plt Count 46 L D Pending
APTT 37.2 H
HCO3 22.3
Sodium 138 136
Potassium 3.8 3.8
Chloride 105 105
Carbon Dioxide 22 23
BUN 29 H 29 H
Creatinine 1.0 1.0
Glucose 217 H 203 H
Calcium 10.1 10.2
Total Bilirubin 2.0 H
AST 174 H
ALT 237 H
Alkaline Phosphatase 173 H
05/28/24 05/28/24 05/28/24
17:00 18:30 23:00
WBC Pending
Hgb Pending
Hct Pending
Plt Count Pending
APTT Pending
HCO3
Sodium Pending Pending
Potassium Pending Pending
Chloride Pending Pending
Carbon Dioxide Pending Pending
BUN Pending Pending
Creatinine Pending Pending
Glucose Pending Pending
Calcium Pending Pending
Total Bilirubin
AST
ALT
Alkaline Phosphatase
Vital Signs:
Vital Signs
Temp Pulse Resp BP Pulse Ox
96.3 F L 56 18 117/51 99
05/28/24 14:00 05/28/24 13:40 05/28/24 13:40 05/21/24 17:36 05/28/24 13:40
I&O
05/27/24 05/28/24 05/29/24
06:59 06:59 06:59
Intake Total 2990.0 / 3093.4 1794.6 / 1859.5 542.6 / 542.6
Output Total 5771 / 5995 4139 / 4302 1092 / 1092
Balance -2781.0 / -2901.6 -2344.4 / -2442.5 -549.4 / -549.4
Review of Systems
-
Unable to obtain full review of systems at this time due to: Patient Intubation
Physical Exam
-
General: Intubated
Respiratory: Crackles
Cardiac: Regular Rhythm and S1/S2
GI: Soft, Nondistended and Normal Bowel Sounds
Musculoskeletal: Edema, Right Upper Extrem and Edema, Left Upper Extrem
Skin: Warm
Neuro: Sedated
--- NOTE | 2024-05-28 14:17 | CM ---
CM following re: discharge planning.
Discussed in Rounds, reviewed pt's chart, met with pt and pt's family at bedside. Per Rounds, pt remain critically ill, remains intubated, continue CRRT, prognosis poor, continue supportive care, ongoing goals of care discussion
D/C plan: uncertain at this time and will depend on pt's progress.
CM will follow with discharge plan updates as hospitalization progresses
[2024-05-28] MEDS: FLEXBUMIN 100 IV ×3 (15:29→19:38)
[2024-05-28 17:48] LABS: Glucose - Point of Care 150 mg/dl (70-99)
[2024-05-28] MEDS: CRESTOR 10 MG TUBE (17:49)
[2024-05-28 17:53] LABS: Ionized Calcium 1.43 mMOL/L (1.15-1.33)
[2024-05-28 18:06] LABS: Blood Urea Nitrogen 28 mg/dl (9-20); Calcium 10.3 mg/dl (8.4-10.2); Carbon Dioxide 20 mmol/L (22-30); Chloride 106 mmol/L (98-107); Estimated Creatinine Clearance 50 ml/min; Glucose 154 mg/dl (70-99); Magnesium 2.1 mg/dl (1.6-2.3); Phosphorus 4.2 mg/dl (2.5-4.5); Sodium 138 mmol/L (135-145); eGFR > 60.00
[2024-05-28 18:07] LABS: Hematocrit 29.8 % (39.0-52.0); Hemoglobin 10.2 g/dL (13.0-18.0); Mean Corp Hgb Conc. 34.2 g/dL (33.0-37.0); Mean Corpuscular Hgb 27.4 pg (27.0-31.0); Mean Corpuscular Volume 80.1 fL (80.0-94.0); Platelet Count 39 10^3/uL (130-400); Red Blood Cell Count 3.72 10^6/uL (4.70-6.10); Red Cell Dist. Width 25.1 % (11.5-14.5); White Blood Cell Count 25.3 10^3/uL (4.8-10.8)
--- NOTE | 2024-05-28 18:45 | PTCARENOTE ---
Labile BP. Continues to drop BP with turns and agitation. Levophed adjusted accordingly.
CRRT continues. Filter changed per protocol.
Normothermic. Nadine hugger off.
[2024-05-28 18:56] LABS: APTT 98.8 Sec (23.4-35.0)
[2024-05-28] MEDS: XALATAN OPHTHALMIC SOLUTION 1 DROP BOTH EYES (19:40)
--- NOTE | 2024-05-28 20:28 | PTCARENOTE ---
pt received from previous rn- opens eyes to stimuli, nods yes and no to some questions pt agitated and restless in bed- given fentanyl bolus as per order. fentanyl, levo and vaso gtts continue see flowsheet. right radial jens zeroed and
functioning. pt remains with doppler pulses. lower extremities cool and dusky. nsr with bbb on monitor. see vent settings as charted. pm care provided. fms flushed, minimal output. ogt clamped. left nare dobhoff with trickle tube feeds. turned and
repositioned. all safety precautions in place, son at bedside and updated. crrt continues as per order.
[2024-05-28 23:16] LABS: Glucose - Point of Care 94 mg/dl (70-99)
[2024-05-28 23:17] LABS: Ionized Calcium 1.52 mMOL/L (1.15-1.33)
[2024-05-28] MEDS: NOVOLOG FLEXPEN-MODERATE RESISTANCE SC (23:30)
--- NOTE | 2024-05-28 23:30 | PTCARENOTE ---
felecia hennessy aware of ionized calcium level no new orders
[2024-05-28 23:44] LABS: Blood Urea Nitrogen 27 mg/dl (9-20); Calcium 11.1 mg/dl (8.4-10.2); Carbon Dioxide 20 mmol/L (22-30); Chloride 105 mmol/L (98-107); Estimated Creatinine Clearance 55 ml/min; Glucose 95 mg/dl (70-99); Magnesium 2.1 mg/dl (1.6-2.3); Phosphorus 3.8 mg/dl (2.5-4.5); Potassium 4.4 mmol/L (3.5-5.1); Sodium 138 mmol/L (135-145); eGFR > 60.00
--- NOTE | 2024-05-29 01:18 | PTCARENOTE ---
assessment unchanged. weaning levophed as tolerating to maintain systolic >90. full bed bath provided, linens changed. all safety precautions remain in place. crrt continues.
[2024-05-29 01:35] LABS: APTT 114.3 Sec (23.4-35.0)
[2024-05-29] MEDS: RFP-401 HD Soln (K+ 4 mEq/L) 15000 ML CRRT-IRR ×2 (02:10→21:17)
[2024-05-29] MEDS: LEVOPHED 258 MG IV ×3 (04:08→21:29)
[2024-05-29 04:09] VITALS: BP_SYST 124
--- NOTE | 2024-05-29 04:17 | PTCARENOTE ---
assessment unchanged. turned and repositioned. levophed continues to be weaned as tolerate. fent, levo, vaso and heparin gtts continue. crrt unchanged.
[2024-05-29] MEDS: SUBLIMAZE 100 IV ×2 (05:17→17:41)
[2024-05-29] MEDS: PITRESSIN 100 IV (05:31)
[2024-05-29] MEDS: MERREM 500 MG IV (05:31)
[2024-05-29] MEDS: STERILE WATER FOR INJECTION 10 ML IV (05:31)
[2024-05-29 05:38] VITALS: BMI 26.8
[2024-05-29 05:40] LABS: B.E. 0.6 mmol/L; HCO3 23.8 mmol/L (21-28); O2 Saturation % 99.6 % (94-98); PCO2 32 mmHg (35-48); PO2 215 mmHg (83-108); pH 7.48 (7.35-7.45)
[2024-05-29 05:42] LABS: Ionized Calcium 1.55 mMOL/L (1.15-1.33)
[2024-05-29 05:42] LABS: Glucose - Point of Care 75 mg/dl (70-99)
[2024-05-29 05:43] LABS: Hematocrit 27.1 % (39.0-52.0); Hemoglobin 9.4 g/dL (13.0-18.0); Mean Corp Hgb Conc. 34.7 g/dL (33.0-37.0); Mean Corpuscular Hgb 27.7 pg (27.0-31.0); Mean Corpuscular Volume 79.9 fL (80.0-94.0); Platelet Count 27 10^3/uL (130-400); Red Blood Cell Count 3.39 10^6/uL (4.70-6.10); Red Cell Dist. Width 25.2 % (11.5-14.5); White Blood Cell Count 19.9 10^3/uL (4.8-10.8)
--- NOTE | 2024-05-29 05:43 | PTCARENOTE ---
felecia hennessy aware of critical labs, blood sugar 75- ordered to hold scheduled insulin,
[2024-05-29] MEDS: NOVOLOG FLEXPEN-MODERATE RESISTANCE SC ×2 (05:46→12:42)
[2024-05-29] MEDS: NOVOLOG FLEXPEN SC (05:47)
--- NOTE | 2024-05-29 05:47 | PTCARENOTE ---
felecia hennessy aware of critical labs from am draw, notified of blood sugar of 75- ordered to hold scheduled insulin
[2024-05-29 05:52] LABS: Lactic Acid 0.9 mmol/L (0.7-2.0)
[2024-05-29 06:00] VITALS: BP_SYST 110
[2024-05-29 06:29] LABS: ALT (SGPT) 144 U/L (0-50); AST (SGOT) 83 U/L (17-59); Albumin 3.3 g/dl (3.5-5.0); Alkaline Phosphatase 109 U/L (38-126); Blood Urea Nitrogen 25 mg/dl (9-20); Calcium 11.1 mg/dl (8.4-10.2); Carbon Dioxide 22 mmol/L (22-30); Chloride 107 mmol/L (98-107); Direct Bilirubin 1.4 mg/dl (0.0-0.4); Estimated Creatinine Clearance 55 ml/min; Glucose 76 mg/dl (70-99); Phosphorus 3.3 mg/dl (2.5-4.5); Potassium 3.9 mmol/L (3.5-5.1); Sodium 140 mmol/L (135-145); Total Bilirubin 2.2 mg/dl (0.2-1.3); Total Protein 5.5 g/dl (6.3-8.2); eGFR > 60.00
[2024-05-29 07:00] VITALS: BP_SYST 108
[2024-05-29 08:00] VITALS: BP 108/39
--- NOTE | 2024-05-29 08:00 | PTCARENOTE ---
pt on vent , sedated , on CRRT , on vasopressin and Norepinephrine at 10mcg to keep goal of SBP 90, NSR on monitor, labs noted platelets down to 27 , Dr Trivedi and Emmanuel aware, aspirin held , plan to do repeat labs , check platelet level at 12:00
,pt has been low blood glucose in 70s , his tube feeds are not at goal , long acting insulin held this , am . 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
--- NOTE | 2024-05-29 08:25 | W.PN.INTV ---
Today's Communication / Plan
Recommendations
Continue mechanical ventilation with daily SAT/SBT
Wean down sedation to off if possible; adding seroquel to assist with this
Giving bolus of IVF and may additional IVF depending on clinical response (see update note from today for details)
Antibiotics per ID
Trend CBC
Continue hydrocortisone to every 12h
Continue TF and raise to goal as tolerated
Continue CRRT and aim for net neutral-slightly positive given IVC collapsibility findings today
Maintain fecal management system
Continue heparin gtt to avoid thrombosis while on CRRT
Trend Hb and plt count --> if plt downtrends further towards 20 then will stop heparin gtt + ASA and will consider transfusing; if plt<20k then will give 1 unit plt
PO amio with hold parameters
Wean down vasopressors as able-hemodynamics remain tenuous (IVF bolus as above should help)
Poor prognosis --> family meeting tomorrow to discuss GOC/code status
Assessment
-
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, atrial fibrillation not on anticoagulation, diabetes, status post VT arrest, shock/epinephrine/ROSC/intubation 05/19/2024
Impression:
VDRF, intubated 05/19/2024
Extubated 05/20/2024
Reintubated 05/21/2024
Chest x-ray with right whiteout-likely atelectasis 05/21/2024
Shock: Suspect multiple mechanisms cardiogenic/septic
Gram-negative in the sputum-E. coli ESBL
Gram-negative in the urine-E. coli ESBL (ESBL is likely due to frequent self-medicating as outpatient with cipro)
Cardiac arrest, monomorphic VT, 05/19/2024
While on the commode
Shock/Epi/intubation/ROSC
Anemia: Chronic disease and blood loss
Acute thrombocytopenia: Admission platelet count low at 98; now 27 (4T score: 4 - intermediate risk for KRISTIN)
---
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
S/p DAKSHA graft 05/17/2024
Ongoing chest pain, NSTEMI
S/p CABG [facility] 12/09/2022
s/p NSTEMI August 2023, med managed at [facility]
Cardiomyopathy, EF 40% with
ESRD on HD
Mild oozing of left upper extremity fistula
Conditions present prior admission:
Transitional cell carcinoma, bladder
Status post transurethral resection of bladder tumor, most recently 50 tumors removed at [place] 09/01/2023
Paroxysmal atrial fibrillation
Not on anticoagulation due to anemia
Hypertension/hyperlipidemia
Diabetes
Plan/recommendations:
-
Remains critically ill on vasopressors, intubated requiring high doses of sedation
Re-intubated 05/21/2024.
Developed cardiorespiratory arrest V. tach/PEA status post epi and CPR. Regained ROSC 05/21/2024 around 7 PM.
-
Intubated since 05/21/2024
Mechanical ventilation settings reviewed
Adjust vent daily based on blood gas
No significant secretions from ET tube - continue to monitor
Keep PIP<30-35
Chest x-ray 05/27/2024: Right mild to moderate pleural effusion. No significant infiltrates
Continue with intermittent suctioning-minimal secretions
Nebulizers as needed
Daily SAT/SBT
Try to lower sedation to lowered required dosing; given difficulty with this I will add seroquel; trend QTc
Goal RASS score 0 to -1
-
Shock: Multiple mechanism septic/? cardiogenic (echocardiogram with global hypokinesis decreased LVEF 20 to 30%/RV dysfunction as well)
With abnormal right lower lobe abnormality, layering right pleural chest x-ray cannot rule out aspiration/pneumonia.
Trend WBC
- On 05/28 he was again hypothermic-clinical picture not suggestive of worsening sepsis-minute ventilation has decreased, blood cultures negative.
Unclear if steroids playing a role at this point.
Penis previously with pus: Straight cath showed purulent urine.
ESBL E. coli in the urine
ESBL E. coli in the sputum
Blood culture (05/22/2024 - NGTD)
Infectious disease following : now back on Zosyn s/p meropenem (05/22 - 05/29/2024) s/p vanc/zosyn + cipro
MRSA screening negative
-
Continue levophed with goal SBP>90; hold vasopressin
Arterial line in place.
Stress dose of steroids decreased to every 12 on 05/27/2024.
If increased leukocytosis and hypothermia continues may need to consider CT of the abdomen pelvis and repeat blood culture. Doubt any acute pulmonary process as pulmonary mechanics and oxygenation are improved compared to prior. Also may need to
consider thoracentesis on the right.
Lactate level of 4 noted 05/23/2024. Suspect part of it is due to liver dysfunction
-
Normal TSH (05/26/2024)
-
Abnormal LFTs: Suspect shock liver.
Abdominal ultrasound unremarkable (05/23/2024)
C/t trend
-
Acidosis resolved: Continue CRRT -unable to tolerate dialysis due to hemodynamic instability.
Follow BMP
On 05/28 I started heparin gtt to help reduce risk of thrombosis --> if plt count continues to decrease then will need to stop
-
Thrombocytopenia noted: Low but remains >20k
Plavix has been discontinued --> given recent stent placed on 05/17/2024 to SVG-PDA, will try to resume once clinically able to
Trend platelet count, clemente while on heparin gtt
Monitor for bleeding
Continue ASA
If plt count reduce any further then will hold ASA
4T score is 4 (intermediate risk for KRISTIN) --> follow up heparin associated platelet-Ab
-
Cardiology following the patient:
ICD prior to discharge if patient improved clinically - defer to cardiology
Echocardiogram 05/17/2024: EF 45% with hypokinesis inferoseptal wall, moderate MR, moderate aortic stenosis.
LVEF 04/20/2024 showed decline 20 to 30%. No significant valvular abnormalities. No pericardial effusion
Echocardiogram 05/22/2024: Ejection fraction 25-30% with global hypokinesis with inferior and inferior lateral akinesis. Dilated right ventricle with reduced right ventricular systolic function. Moderate to severe MR. Moderate to severe TR with PH
-
Unclear whether monomorphic VT was due to scar or recent drug-eluting stent/graft
V. tach/PEA arrest again on 05/21/2024
Due to bradycardia with HR in 40s, on 05/28 amiodarone IV drip was changed to PO amio with holding parameters
Cardiology following closely
Remains on aspirin
Plavix on hold 05/25/2024 due to thrombocytopenia - see about about restarting
-
Chronic kidney disease hemodialysis dependent.
Case discussed with nephrology.
Transitioned to CRRT since 05/23/2024 --> given that his IVC is not collapsible indicating he is severely intravascularly depleted, IVF bolus given on 05/29 and nephrology ok to make net neutral-slightly positive now going forward with regards to CRRT
Hold midodrine for now.
Black stools: Stool is now reported as brown as of 05/28/2024
Trend H/H and transfuse if needed to keep >7; keep plt>20k
Continue PPI 40mg BID
Plavix also on hold; resume once clinically able to and plt stable
No evidence for active bleeding at this point.
Unfortunately not a great candidate for any other intervention at this point.
Hypoglycemia: Resolved
Insulin drip discontinued
Will continue to monitor closely
Temporarily was placed on D5 - now discontinued
Hyperglycemia blood sugars over 200.
Target 140-180
Insulin sliding scale
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
Occasionally following commands with sedation breaks.
Continue sedation break per protocol.
Patient had delirium prior intubation.
Dobbhoff tube-was tolerating tube feedings at goal but developed vomiting overnight 05/27/2024. Tube feedings were on hold --> ok to resume now as of 05/28/2024
PPI for GI prophylaxis
DVT prophylaxis heparin gtt
Poor prognosis
Dr. Salcido as discussed the case with infectious disease, cardiology nephrology and primary team.
Dr. Salcido as discussed with son multiple times over the course of her hospital stay. Prognosis is poor and he understands. He would like to continue with aggressive support. Likely will need tracheotomy and a feeding tube.
Dr. Salcido updated son at the bedside 05/22/2024, 05/23/2024, 05/24/2024, , 05/26/2024 discussed possibility of DNR status. He will think about it. He understands that likely if patient survives he will need long-term care, suspected unlikely
will be able to go home independently.
Dr. Benitez discussed the case with patient's son, Devante, and daughter in law, answered all their questions. Pt remains full code despite poor prognosis
Dr. Benitez discussed in detail today (05/29/2024) with son, Devante, and [facility] and code status reviewed. Son wants to set up a family meeting, aiming for tomorrow at around 1230-1PM. For now, continue full medical management, but leaning toeards
terminal extubation/hospice.
Critical care statement: A total of 41 minutes of critical care time was provided for this patient today. This includes management of unstable vital signs, evaluation of the patient at bedside, reviewing the patient's pertinent medical records
including ventilator settings, arterial blood gases, radiographs, microbiology, laboratory evaluations and discussion with primary team, critical care nursing, and respiratory therapy.
Subjective Dataa
Subjective Data
Date of Service:
Date of Service: May 29, 2024
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
Subjective:
Patient seen and evaluated this AM. Patient's son, Devante, also at bedside and all questions were answered. Pt remains intubated on AC/CMV at: 14/450/5/30% with PIP 26, VTe 435 and breathing at 15 breaths/minute. Heart rate 62, and BP 130/35 on
Levophed at 15mcgmin; he is saturating 100%. Also on heparin drip intubated Currently sedated on fentanyl 125 mcg/hr.
Review of Systems
General: Unobtainable - Pat Unresp
Objective Data
Data Reviewed
Vital Signs / I&O / Oxygen:
Vital Signs
Temp Pulse Resp BP Pulse Ox
97.5 F 59 14 102/34 100
05/29/24 06:07 05/29/24 08:52 05/29/24 06:00 05/29/24 08:52 05/29/24 08:21
Intake and Output
05/28/24 05/29/24 05/30/24
06:59 06:59 06:59
Intake Total 1794.6 / 1859.5 2260.7 / 2316.9 100.5 / 100.5
Output Total 4139 / 4302 3374 / 3464 192 / 192
Balance -2344.4 / -2442.5 -1113.3 / -1147.1 -91.5 / -91.5
SaO2 [ASV] 100
SaO2 [A/C] 100
SaO2 100
Nasal Cannula flow liters per 95
minute
Physical Exam
General: Respiratory Distress (none, sedated), Comfortable, Chills (negative) and Sweats (negative)
HEENT: Normocephalic, Anicteric and Other (ETT in place)
Cardiovascular: S1-S2, Murmur (+KRISTEN heard across precordium), Rub (n) and Peripheral Edema (No lower extremity edema bilaterally)
Respiratory: Wheeze (n), Crackles (n), Rhonchi (n), Non-Labored Respirations and ET Tube (No significant secretions)
GI: Soft, Non Distended, Non Tender, Normal Bowel Sounds and Other (Fecal management system-brown stool)
Neurology: Unresponsive and Other (Sedated; pupils +1 mm bilaterally)
Skin: Warm, Dry, Cyanosis (n), Jaundice (n), Rash (n) and Other (Left upper extremity AV fistula)
Labs/Micro/Reports
Lab Data
05/29/24 05:28
Laboratory Results
05/28/24 05/28/24 05/29/24
10:53 18:30 01:08
APTT 37.2 H 98.8 H 114.3 H
pH
pCO2
pO2
HCO3
O2 Delivery Level
05/29/24 05/29/24
05:28 08:36
APTT 98.9 H
pH 7.48 H
pCO2 32 L
pO2 215 H
HCO3 23.8
O2 Delivery Level
Microbiology
05/22/24 21:38 Blood/Venous Blood Culture - Final
No Growth - Final Report
05/22/24 20:58 Blood/Venous Blood Culture - Final
No Growth - Final Report
--- NOTE | 2024-05-29 08:25 | W.PN.NEPH.PH ---
Today's Communication / Plan
-
CRRT
Assessment/Plan
-
Assessment:
CP
Elevated troponin
Transitional cell carcinoma of the bladder
s/p CABG - CABRAL to LAD, SVG to OM, SVG to PDA 12/09/22 at [place]
CM EF 40% by echo 09/15/23
Type 2 NSTEMI s/p diagnostic cath 08/2023 at [facility] with patent bypass grafts, 70% OM stenosis, medically managed
Post CABG afib
PCI 05/17/24
ESRD on HD MWF
mild
Hypertension
Hyperlipidemia
Type 2 diabetes
Glaucoma
Hyponatremia
Plan
keep SBP>90
CRRT continues
UF 100ml/hr
wean pressors, vasopressin first
restarted TF, no FWF
not a candidate for IHD currently
follow calcium level. may require Aredia if it keeps rising
will likely need to stop heparin due to low plts. but then will be without anticoagulation after PCI 05/17/24
could consider sodium citrate for anticoagulation, would help control calcium, but no data in CAD
critical care time 31 minutes
-
-
Date of Service: May 29, 2024
CC / HPI / ROS
-
Chief Complaint:
ESRD
History of Present Illness:
critically ill in ICU
CRRT running, with hypotension with turning
Status post ventricular tachycardia and PEA/cardiac arrest
Remains on 2 pressor support
Intubated (Fio2 30%), sedated, failed SBT 05/28
WBC lower today 19.9
Calcium up to 11.1
Review of Systems:
Intubated
no fevers
Labs
-
Labs:
WBC 19.9 10^3/uL (4.8-10.8) H 05/29/24 05:28
RBC 3.39 10^6/uL (4.70-6.10) L 05/29/24 05:28
Hgb 9.4 g/dL (13.0-18.0) L 05/29/24 05:28
Hct 27.1 % (39.0-52.0) L 05/29/24 05:28
Plt Count 27 10^3/uL (130-400) L* D 05/29/24 05:28
eGFR > 60.00 05/29/24 05:28
Fiv-H-Vijlktridbq Pept > 76161 pg/ml 05/16/24 11:51
Albumin 3.3 g/dl (3.5-5.0) L 05/29/24 05:28
Physical Exam
-
Vital Signs:
Vital Signs
Temp Pulse Resp BP Pulse Ox
97.5 F 61 14 117/51 100
05/29/24 06:07 05/29/24 06:00 05/29/24 06:00 05/21/24 17:36 05/29/24 08:21
Cardiovascular:: Regular rate and rhythm
Respiratory:: Bilateral: Coarse
Lung Excursion:: Normal
Abdomen:: Nontender and Soft
Bowel Sounds:: Normal
Extremity Edema:: +1: Bilateral:
--- NOTE | 2024-05-29 08:44 | W.PN.ID1 ---
Date of Service
Date of Service: May 29, 2024
Today's Communication
- switched to zosyn given progressive thrombocytopenia, most likely thrombocytopenia is multifactorial, in case meropenem contributing - dosed for CRRT - day 9 of effective rx; there are oral options that could eventually be considered if patient
stabilizes
Patient is critically ill, prognosis in the short to medium term remains poor
Discussed with patients adult son my impression of his prognosis
Assessment / Plan
Shock - likely combined cardiogenic and septic - improving
VAP and UTI
MSOF
NSTEMI, CAD
ESRD
Transitional cell cancer of the bladder
- pressors being weaned, remains hypothemic
- moderate R pleural effusion noted, when stable could consider right lung US and possible thoracentesis
- blood cultures x2 in finalized negative
- sputum culture with ESBL E coli
- urine culture 100 K ESBL E coli
- switched to zosyn given progressive thrombocytopenia, most likely thrombocytopenia is multifactorial, in case meropenem contributing - dosed for CRRT - day 9 of effective rx; there are oral options that could eventually be considered if patient
stabilizes
Patient is critically ill, prognosis in the short to medium term remains poor
Discussed with patients adult son my impression of his prognosis
Chief Complaint
-: UTI and Other (shock - septic and cardiogenic, MDRO)
Subjective / Review of Systems
resolved hypothermia
remains on two pressors
continued crrt
no events overnight
Vital Signs / Physical Exam
Vital Signs
Vital Signs
Temp Pulse Resp BP Pulse Ox
97.5 F 61 14 117/51 100
05/29/24 06:07 05/29/24 06:00 05/29/24 06:00 05/21/24 17:36 05/29/24 08:21
Physical Exam
Constitutional: Acutely Ill and Chronically Ill
Cardiovascular: Regular Rate and S1/S2; Negative Murmur or Rub
Pulmonary: Clear and Symmetric; Negative Wheezes or Rales
Gastrointestinal: Soft, Non Tender, Non Distended and Normal Bowel Sounds
Skin: Warm and Dry; Negative Rash or Jaundice
Neurological: Negative Awake
Lines: Other (FMS)
Objective Data
Lab Data
Lab Results
05/29/24 05:28
PT 16.2 Sec (11.4-14.6) H 05/19/24 06:16
INR 1.32 05/19/24 06:16
APTT 114.3 Sec (23.4-35.0) H 05/29/24 01:08
Estimated Creat Clear 55 ml/min 05/29/24 05:28
Lactic Acid 0.9 mmol/L (0.7-2.0) 05/29/24 05:28
Total Bilirubin 2.2 mg/dl (0.2-1.3) H 05/29/24 05:28
AST 83 U/L (17-59) H 05/29/24 05:28
ALT 144 U/L (0-50) H 05/29/24 05:28
Alkaline Phosphatase 109 U/L (38-126) 05/29/24 05:28
Most recent labs reviewed.
Micro Results:
05/22/24 21:38 Blood Culture - Final
Blood/Venous No Growth - Final Report
05/22/24 20:58 Blood Culture - Final
Blood/Venous No Growth - Final Report
05/21/24 09:43 Urine Culture - Final
Urine Escherichia coli - ESBL
05/21/24 10:17 Respiratory Culture - Final
Endotracheal Escherichia coli - ESBL
Gram Stain - Final
05/16/24 18:42 MRSA Screen - Final
Nose No Methicillin Resistant Staphylococcus aureus isolated.
[2024-05-29] MEDS: PROTONIX IV 40 MG IV ×2 (08:49→20:08)
[2024-05-29] MEDS: NSS (PRESERVATIVE FREE) 10 ML IV ×2 (08:50→20:07)
[2024-05-29] MEDS: PACERONE 200 MG PO (08:52)
[2024-05-29] MEDS: LOW STRENGTH ASPIRIN TUBE (08:52)
[2024-05-29] MEDS: MIRALAX 17 GRAMS TUBE (08:53)
--- NOTE | 2024-05-29 08:53 | W.PN.UPDATE ---
Update Note
Progress Note Update
Seen on CRRT
CRRT in progress, no line issues. VSS on pressors
pt intubated/sedated
access temp CVC ok
rising calcium
on heparin gtt systemic
[2024-05-29] MEDS: SOLU-CORTEF 50 MG IV ×2 (08:54→20:08)
[2024-05-29 08:58] LABS: APTT 98.9 Sec (23.4-35.0)
[2024-05-29 08:58] LABS: Glucose - Point of Care 76 mg/dl (70-99)
[2024-05-29 09:00] VITALS: BP_SYST 80
--- NOTE | 2024-05-29 09:10 | W.PN.HOSP.TC ---
Addendum entered and electronically signed by Que Green MD 05/29/24 15:12:
seen and examined by me independently in collaboration with the medical assistant prn Flavia.
Lab data and imaging data reviewed.
Addendum as below :
Remains in Persistent shock which is a combination of cardiogenic and septic shock. Still on vasopressors. This morning was weaned off of Vasopressin but needed to go up on Levophed. Continue to optimize cardiac situation as able ;Unfortunately
cannot use inotropes due to V. tach cardiac arrest.. Continue with atrial fibrillation treatments- in sinus rhythm. Continue with empirical antibiotics.
VT cardiac arrest*2 - none since - cw Amio -switched to PO. ICD ultimately prior to DC.
CAD s/p prior CABG. Had NSTEMI on adx for which he received a stent to SAG -PDA graft . CW ASA .Plavix on hold due to low plts . On IV heparin which i would dc due to dropping Plts. Check HIT panel.
CM with low EF 25-30% - not on GDMT due to hypotension/shock
VDRF - remains on vent. Didn't do well with wean attempts again today .Lasted less than 5 min. CW weans as able. Stable on 30% FiO2 of oxygen.
ESRD on HD as OP -currently on CRRT . Weight improved.
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
Discussed with son at bedside in ICU. Discussed with him guarded prognosis. He is gathering information from all the specialists and trying to make the best choices for the dad. Broached the topic of resuscitation in the event of another cardiac
arrest. Advised him the prognosis is poor with the clinical picture which remains unstable.He is going to think about it.
[employer] PH[employer]ACY ASSOCIATE
Total Critical Care Time__35___ minutes. I was immediately available to the patient and staff. I personally examined, reviewed labs, diagnostic images/reports, interpretations, treatment plans, discussed patient care with other providers and
family or caregivers (if patient is unable to make decisions), entered orders as appropriate and documented the medical record.
Original Note:
Today's Communication/Plan
-
Continue to wean pressors, attempt to wean vent. consider trach tube by tuesday if can't get off vent, CRRT, continue meropenem day 9. Continue heparin ggt at it manager and cardiology discretion
Assessment / Plan
Assessment / Plan
Cardiogenic / Septic shock
- VT arrest x2, 05/17 successful DAKSHA, Echo 05/22 25-30%
- Will require ICD prior to discharge
- Amio gtt -> PO
- Cards following without any further recs at this time
- If recurs may need to try Lidocaine gtt/Defibrillation
- Keep K >4, Keep Mg >2
- Monitor on tele
- Vasopressin, norepinephrine cont. phenylephrine weaned off
- Continue corticosteroids
- Endotracheal and urine culture ESBL
- WBC downtrending
- X-ray cannot rule out pneumonia, but residual fluid post mucous plug also possible
- Continue meropenem day 03/31 per ID
Acute hypoxemic respiratory failure secondary to mucous plugging
- Chest x-ray full sided white out right lung 05/21
- Extubated 05/20/24, reintubated 05/21
- Continue mechanical intubation
- Failed weaning trial
- Consider trach tube placement tuesday
- Management per it manager
ESRD
- CRRT
Electrolyte imbalance / metabolic acidosis
- CRRT
- Today hypercalcemia
- May add sodium citrate per nephrology
NSTEMI/CAD
- s/p CABG with CABRAL to LAD, SVG to OM, SVG to PDA at [place] 12/09/22
- s/p NSTEMI with patent bypass grafts at [facility] 08/2023
- 05/17 cath successful DAKSHA
- Dual antiplatelet therapy for next 6 to 10 months
- Clopedigrel held for Plt <50 per cardiology. Moved to heparin gtt for anticoagulation with low ptl (27 today). discontinue at it manager and cardiology discression
- Continue ASA
- Will need ICD prior to discharge per cards
HFrEF
- Echo 05/22 LVEF 25-30%
- Fluid volume removal per CRRT
- Unable to provide GDMT due to hypotension
- Will need ICD prior to discharge
Paroxysmal A-fib
� No Eliquis due to history of hematuria and severe anemia
� On DAPT therapy -> Heparin gtt
� Previously on Coreg, currently on ammio PO
Thrombocytopenia
- today 46 -> 27
- On DAPT with recent cath 05/17 -> Heparin gtt
- Check HIT antibody
- Monitor
Elevated LFTs
- Likely shock liver
- Hep panel (-) and RUQ unremarkable for acute etiology
- Monitor
Heme-occult blood (+)
- Monitor CBC for signs of bleeding
- H&H stable
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
- [place]. TURBT 50 lesions were reportedly worked on on 09/01/2023.
- developed hematuria and a temporary placement of renal stent followed by continuous bladder irrigation
- Eliquis discontinued
Type 2 diabetes
- Hemoglobin A1c 7.1
- Management per diabetic nurse
Dyslipidemia
- Continue statin
#B12 deficiency�replace
#Chronic vertigo
Full Code
Anticipated Discharge: > 48 hours
Subjective/Interval History
-
Date of Service: May 29, 2024
Objective Data
-
Labs:
Laboratory Results
05/28/24 05/28/24 05/29/24
10:33 23:05 01:08
WBC Cancelled
Hgb Cancelled
Hct Cancelled
Plt Count Cancelled
APTT 114.3 H
HCO3
Sodium 138
Potassium 4.4
Chloride 105
Carbon Dioxide 20 L
BUN 27 H
Creatinine 0.9
Glucose 95
Calcium 11.1 H
Total Bilirubin
AST
ALT
Alkaline Phosphatase
05/29/24 05/29/24 05/29/24
05:28 08:36 11:00
WBC 19.9 H
Hgb 9.4 L
Hct 27.1 L
Plt Count 27 L* D
APTT 98.9 H
HCO3 23.8
Sodium 140 Pending
Potassium 3.9 Pending
Chloride 107 Pending
Carbon Dioxide 22 Pending
BUN 25 H Pending
Creatinine 0.9 Pending
Glucose 76 Pending
Calcium 11.1 H Pending
Total Bilirubin 2.2 H
AST 83 H
ALT 144 H
Alkaline Phosphatase 109
05/29/24
12:00
WBC Pending
Hgb Pending
Hct Pending
Plt Count Pending
APTT
HCO3
Sodium
Potassium
Chloride
Carbon Dioxide
BUN
Creatinine
Glucose
Calcium
Total Bilirubin
AST
ALT
Alkaline Phosphatase
Vital Signs:
Vital Signs
Temp Pulse Resp BP Pulse Ox
97.5 F 59 14 102/34 100
05/29/24 06:07 05/29/24 08:52 05/29/24 06:00 05/29/24 08:52 05/29/24 08:21
I&O
05/28/24 05/29/24 05/30/24
06:59 06:59 06:59
Intake Total 1794.6 / 1859.5 2260.7 / 2316.9 100.5 / 100.5
Output Total 4139 / 4302 3374 / 3464 192 / 192
Balance -2344.4 / -2442.5 -1113.3 / -1147.1 -91.5 / -91.5
Review of Systems
-
Unable to obtain full review of systems at this time due to: Patient Intubation
Physical Exam
-
General: Appears Chronically Ill
Respiratory: Other (Coarse)
Cardiac: Regular Rhythm and S1/S2
GI: Soft, Nondistended and Normal Bowel Sounds
Musculoskeletal: Edema, Right Upper Extrem and Edema, Left Upper Extrem
Skin: Warm
--- NOTE | 2024-05-29 09:40 | W.PN.CARDCBS ---
Today's Communication / Plan
-
Remains critically ill on multiple pressors
Platelets continue to drop and remains on aspirin and Plavix which are needed post stent
No further VT on oral amiodarone
Impression / Plan
-
PCP: Dr. Charlie Marley
Primary Clinical Safety Specialist: Dr. Almanza
Assessment:
Admitted with chest pain and acute HF 05/16/24
In-hospital VT arrest
monomorphic VT, CPR, Epi x2 and shock with ROSC 05/19/24
VT that broke to PEA, CPR, Epi x2 and Bicarb x2 with ROSC 05/21/24
VDRF
intubated 05/19/24 and then extubated 05/20/24
re-intubated 05/21/24 with right lung whiteout
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
ESRD on HD
CM EF 40% by echo 09/15/23, ejection fraction 25% 05/21/2024
NSTEMI related to stenosis of saphenous vein graft to PDA, peak troponin 20
CAD
s/p CABG with CABRAL to LAD, SVG to OM, SVG to PDA at [place] 12/09/22
s/p NSTEMI with patent bypass grafts, 70% OM stenosis being medically managed after cath at [facility] 08/2023
s/p NSTEMI with DAKSHA SVG-PDA 05/17/2024
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
Paroxysmal Afib
Not chronically anticoagulated due to anemia, not a candidate for watchman due to inability to tolerate even short-course OAC
mild
Hypertension
Hyperlipidemia
Type 2 diabetes
Glaucoma
Hyponatremia
bleeding from HD fistula site
Vomiting 05/20/24
Cardiogenic and septic shock
Thrombocytopenia
ECHO 08/2023 at [facility]: EF reportedly preserved
Echo 09/15/23: EF 40-45%, inferior wall akinesis, inferoseptal wall and base to mid inferolateral francisco hypokinetic, stage II diastolic dysfunction, moderate MR, mild with peak/mean 20/11. mild to mod aortic regurg
Echo 05/17/24: EF 45 to 50%, mild concentric LVH, hypokinesis of inferior septal wall and basal to mid lateral wall, mild MR, mild to moderate peak/mean 23/15, mild AI, mild pulmonic regurgitation.
Echo 05/21/24: EF 30-35%, global hypokinesis with inferior akinesis
Echo 05/22/24: EF 25 to 30%, global hypokinesis with inferior and inferolateral akinesis, dilated RV with reduced RV systolic function, moderate to severe MR, moderate to severe TR with PAP 64 mmHg
Cath 05/17/2024: LM: Calcified, distal tapering, LAD: 100% at origin, LAD fills via patent QUIANA, relatively small LAD with diffuse disease, circumflex heavily calcified, 50% proximal stenosis, 100% OM1 with patent vein graft but OM is very small,
retrograde filling less vibrant than before, RCA 100% at origin, SVG to PDA has 70% proximal stenosis, successful stenting prox SVG-PDA with 2.5 x 15 [place] DAKSHA
Plan:
Patient admitted with chest pain and acute HF 05/16/24. HD with UF performed with improvement in chest pain, but Troponin peaked at 20. Patient taken to laboratory coordinator 05/17/24 and found to have anew SVG to PDA lesion that was stented. Patient then had an
in-hospital cardiac arrest 05/19/24 early AM with CPR, Epi x2 and shock with ROSC. Patient was intubated and then extubated 05/20/24. Later on 05/20/24 had an episode of vomiting. During the day 05/20/24 patient was on Bhavin and maxed out and Levophed
started plus increasing oxygen demands. CXR with right lung whiteout and ABG sent. Patient re-intubated 05/21/24. VT code 05/21/24 at 1900 and then broke into PEA. Treated with CPR, Epi x2 and Bicarb x1 with ROSC.
He remains on 2 pressors (Levophed and vasopressin)
CRRT for volume management
cont IV Antibiotics
He is status post stent. Remains on aspirin and Plavix has been resumed on 05/28/2024. Unfortunately has significant thrombocytopenia would prefer to remain on aspirin and Plavix given high risk of stent thrombosis.
Cannot tolerate CM meds due to pressor dependent hypotension
Monomorphic VT at time of code on 05/19/24 suggesting scar based etiology. Then with VT breaking to PEA on 05/21/24.
Cont Iv amiodarone gtt. After initial code on 05/19/24 amiodarone gtt started and then transitioned to amiodarone PO up until time of 2nd code, then back to IV amiodarone.
Prognosis remains very poor. son wishes everything to be done.
Progress Note - Clinical Safety Specialist
Subjective
Date of Service: May 29, 2024
Patient unresponsive at present
Objective
Labs:
Labs
Hgb 9.4 g/dL (13.0-18.0) L 05/29/24 05:28
Hct 27.1 % (39.0-52.0) L 05/29/24 05:28
Plt Count 27 10^3/uL (130-400) L* D 05/29/24 05:28
PT 16.2 Sec (11.4-14.6) H 05/19/24 06:16
INR 1.32 05/19/24 06:16
APTT 98.9 Sec (23.4-35.0) H 05/29/24 08:36
Sodium 140 mmol/L (135-145) 05/29/24 05:28
Potassium 3.9 mmol/L (3.5-5.1) 05/29/24 05:28
BUN 25 mg/dl (9-20) H 05/29/24 05:28
Creatinine 0.9 mg/dL (0.7-1.3) 05/29/24 05:28
Glucose 76 mg/dl (70-99) 05/29/24 05:28
Vital Signs and I&O:
Vital Signs
Temp Pulse Resp BP Pulse Ox
97.6 F 57 16 102/34 100
05/29/24 08:00 05/29/24 09:10 05/29/24 09:10 05/29/24 08:52 05/29/24 09:10
Vital Signs
Temp Pulse Resp BP Pulse Ox
97.6 F 57 16 102/34 100
05/29/24 08:00 05/29/24 09:10 05/29/24 09:10 05/29/24 08:52 05/29/24 09:10
Intake & Output
05/27/24 05/28/24 05/29/24 05/30/24
06:59 06:59 06:59 06:59
Intake Total 2990.0 / 3093.4 1794.6 / 1859.5 2260.7 / 2316.9 361.2 / 361.2
Output Total 5771 / 5995 4139 / 4302 3374 / 3464 192 / 192
Balance -2781.0 / -2901.6 -2344.4 / -2442.5 -1113.3 / -1147.1 169.2 / 169.2
Physical Exam
Physical Exam
General: Unresponsive
Neck: Supple, no JVD, HJR, carotids +2 B/L, no bruits bilaterally.
Heart: Non displaced PMI, RRR, no murmurs, No S3, S4, no rubs.
Lungs: Scattered rhonchi
Extremities: No clubbing, cyanosis or edema bilaterally.
Neuro: Unresponsive
--- NOTE | 2024-05-29 09:40 | PN.DE.MGMTRT ---
Insulin Management
- -
05/29/2024 Diabetes management Follow up:
83-year-old male with complex PMH including CAD s/p CABG, recent DAKSHA/graft 05/17/2024, ESRD on HD, bladder CA ongoing treatment at [facility], A-Fib, T2DM. Pt is s/p VT arrest, shock/epinephrine/ROSC/intubated 05/19, extubated 05/20 and
reintubated 05/21 due to Septic shock source. A1C on admission 7.1%, was taking Onglyza 5mg daily. Pt has been started corticosteroid stress doses, contributing to hyperglycemia-->critical care glycemic protocol for optimal glucose control. Cr
4.8, eGFR 11.3-->Cr 1.0, eGFR >60 today
Pt remains intubated, critically ill, on CRRT, on multiple pressors, on steroids and tube feeds at 20cc/hr, unable to interview.
05/28 glucose trended down to 76.
05/29 Fasting glucose 76. Lantus has been reduced by oven tender bagels to 8 units. Will HOLD Q 6 hour novolog 5 units, continue moderate corrective insulin.
Will follow and make further insulin adjustments if needed.
Discussed with patients nurse and Dr. Green.
Diabetes History
- -
Type of Diabetes: 2
Pre-Admission Diabetes Regimen
05/28/24 05/28/24 05/28/24
10:53 17:33 23:05
Creatinine 1.0 1.0 0.9
05/29/24
05:28
Creatinine 0.9
Lab Results
Hemoglobin A1c 7.1 % (4.0-5.6) H 05/16/24 19:00
Insulin Pump Settings
IP Diabetes Regimen
05/28/24 05/28/24 05/28/24
10:53 12:13 17:33
Glucose 203 H 154 H
POC Glucose 177 H
05/28/24 05/28/24 05/29/24
17:36 23:05 05:27
Glucose 95
POC Glucose 150 H 94 75
05/29/24 05/29/24
05:28 08:47
Glucose 76
POC Glucose 76
Patient Education
--- NOTE | 2024-05-29 11:00 | PTCARENOTE ---
attempted a SBT , at 11:00 he was off of fentanyl gtt for 15 minutes prior and he immediately dropped his blood pressure to 70s , he was using accessory muscles to breath , he was placed back on previous settings after 2 minutes of the wean attempt
, pewter fabricator aware , pt son in room and aware of wean failure
[2024-05-29] MEDS: RFP-401 HD Soln (K+ 4 mEq/L) 5000 ML CRRT-IRR ×3 (12:05→12:08)
[2024-05-29 12:17] LABS: Hematocrit 27.2 % (39.0-52.0); Hemoglobin 9.3 g/dL (13.0-18.0); Mean Corp Hgb Conc. 34.2 g/dL (33.0-37.0); Mean Corpuscular Hgb 27.5 pg (27.0-31.0); Mean Corpuscular Volume 80.5 fL (80.0-94.0); Red Blood Cell Count 3.38 10^6/uL (4.70-6.10); Red Cell Dist. Width 25.3 % (11.5-14.5); White Blood Cell Count 19.6 10^3/uL (4.8-10.8)
[2024-05-29 12:19] LABS: Platelet Count 28 10^3/uL (130-400)
[2024-05-29] MEDS: ZOSYN 100 IV ×2 (12:28→17:17)
[2024-05-29 12:33] LABS: Blood Urea Nitrogen 25 mg/dl (9-20); Calcium 10.7 mg/dl (8.4-10.2); Carbon Dioxide 23 mmol/L (22-30); Chloride 105 mmol/L (98-107); Estimated Creatinine Clearance 55 ml/min; Glucose 129 mg/dl (70-99); Ionized Calcium 1.49 mMOL/L (1.15-1.33); Magnesium 1.9 mg/dl (1.6-2.3); Phosphorus 3.3 mg/dl (2.5-4.5); Potassium 4.1 mmol/L (3.5-5.1); Sodium 139 mmol/L (135-145); eGFR > 60.00
[2024-05-29] MEDS: LOW STRENGTH ASPIRIN 81 MG TUBE (12:44)
[2024-05-29] MEDS: STERILE WATER FOR INJECTION IV (12:45)
--- NOTE | 2024-05-29 13:16 | W.PN.UPDATE ---
Update Note
Progress Note Update
After rounds, I checked bedside PocUS with son at bedside. IVC is completely collapsed with no respiratory variation; LVEF appears severely reduced with reduced RV contractility. Visually, LVEF is approximately 15-20%. No pericardial effusion.
There is a mix between A lines and B lines on bilateral anterior lung trejo, but A line is predominant. Will give 500cc bolus x 2 hrs, and then re-assess BP response and vasopressor needs. Will discuss case with nephrology and see if we can make
hi,m net neutral to net positive for today and tomorrow based on my bedside US findings. I explained this to the son in layman's terms to his satisfaction.
[2024-05-29] MEDS: NSS 500 IV (14:00)
--- NOTE | 2024-05-29 14:00 | PTCARENOTE ---
pt weaned off of vasopressin as per nephrology , pt had a bedside echo done by Dr Benitez and pt found with his IVC collapsed , plan is to given IVF bolus . Dr Trivedi notified and pt is now to have + 50 with CRRT until further assessments , pt
currently on 15mcg of norepinephrine with SBP > 90 , pt tube feeds increase to 20ml this am and tolerating well , will attempt for goal tube feeds as previous , pt son in room with all physicians during the day and having multiple GOC discussions re
code status and pt outcome .
--- NOTE | 2024-05-29 15:14 | CM ---
CM following re: discharge planning.
Discussed in Rounds, reviewed pt's chart, met with pt and pt's son at bedside. Per Rounds, pt remain critically ill, remains intubated, continue CRRT, prognosis poor, continue supportive care, ongoing goals of care discussion.
CM had a long conversation with pt's son who stated he is the only son, lives in [place] with the family, pt's spouse 4 years ago. Emotional support offered and provided. pt's son stated it is very difficult for him to make a decision and
he has been communicating with family members to support making a decision on the next level of care. Pt's son stated that his father would not want living 'like a vegetable' being very independent all his life. Pt's son stated he is aware he will
have a meeting with MD tomorrow to decide between aggressive care vs comfort care and she is looking for support from the family members. Pt's son stated he will decide by tomorrow. pt's son stated he understands that his decision is very ethical
that's why he is looking for s support for his decision from the family. per son, one of the family member is a hospitalist MD in [place] and she explained a lot to him regarding options.
D/C plan: uncertain at this time and will depend on pt's progress.
CM will follow with discharge plan updates as hospitalization progresses
[2024-05-29] MEDS: HEPARIN 25000 UNITS/250 ML IV (15:53)
[2024-05-29] MEDS: SEROQUEL 25 MG TUBE ×2 (16:35→20:08)
[2024-05-29] MEDS: CRESTOR 10 MG TUBE (17:17)
[2024-05-29] MEDS: NOVOLOG FLEXPEN-MODERATE RESISTANCE 1 UNITS SC (17:59)
[2024-05-29 18:02] LABS: Ionized Calcium 1.38 mMOL/L (1.15-1.33)
[2024-05-29 18:08] LABS: Glucose - Point of Care 156 mg/dl (70-99)
--- NOTE | 2024-05-29 18:11 | PTCARENOTE ---
continuing with [facility] discussions with son , plan for a zoom meeting with the son and his family at 1800 tomorrow , multiple family members live in other parts of the country . Dr Benitez aware of plan. no change in assessments , tube feeds up to
40ml hour , residual volume 40ml
[2024-05-29 18:15] LABS: Hematocrit 26.9 % (39.0-52.0); Mean Corp Hgb Conc. 33.5 g/dL (33.0-37.0); Mean Corpuscular Hgb 26.9 pg (27.0-31.0); Mean Corpuscular Volume 80.5 fL (80.0-94.0); Platelet Count 25 10^3/uL (130-400); Red Blood Cell Count 3.34 10^6/uL (4.70-6.10); Red Cell Dist. Width 25.5 % (11.5-14.5); White Blood Cell Count 19.5 10^3/uL (4.8-10.8)
[2024-05-29 18:30] LABS: Blood Urea Nitrogen 25 mg/dl (9-20); Calcium 10.1 mg/dl (8.4-10.2); Carbon Dioxide 21 mmol/L (22-30); Chloride 107 mmol/L (98-107); Estimated Creatinine Clearance 62 ml/min; Glucose 160 mg/dl (70-99); Magnesium 1.8 mg/dl (1.6-2.3); Phosphorus 3.3 mg/dl (2.5-4.5); Potassium 4.1 mmol/L (3.5-5.1); Sodium 136 mmol/L (135-145); eGFR > 60.00
[2024-05-29] MEDS: XALATAN OPHTHALMIC SOLUTION 1 DROP BOTH EYES (20:07)
--- NOTE | 2024-05-29 21:00 | PTCARENOTE ---
assessment as documented. b/l soft wrist restraints in place. SBP goal >90, dbl conc. levo gtt infusing. #8 ETT, adjusted to center of lip @ 24cm. AC 14/450/5/30%. minimal secretions noted, lungs diminished. DHT to L nare with TF infusing. OGT to
LIS. FMS intact. pt anuric. right radial arterial line leveled and zeroed, tubing and dressing replaced. CHG wipes, oral care, pt repositioned and extremities elevated. repeat PTT sent since pt was not yet therapeutic x2. CRRT running, goal 50ml/hr
positive. therapy fluid bags replaced. care ongoing at this time.
[2024-05-29 21:04] LABS: APTT 95.9 Sec (23.4-35.0)
[2024-05-29 21:05] VITALS: BP_SYST 86
[2024-05-29] MEDS: SUBLIMAZE 50 MCG IV ×2 (22:07→23:59)
[2024-05-30] VITALS (10 sets, daily range): BP systolic 84–125; BMI 26.8
[2024-05-30] MEDS: NOVOLOG FLEXPEN-MODERATE RESISTANCE 1 UNITS SC
[2024-05-30 00:10] LABS: Glucose - Point of Care 183 mg/dl (70-99)
--- NOTE | 2024-05-30 00:10 | PTCARENOTE ---
pt reassessed, no changes in assessment noted. oral care provided, pt repositioned. CRRT continues, labs sent. levo gtt titrated to maintain SBP goal. PRN fentanyl given for CPOT, see MAR. care ongoing.
[2024-05-30 00:18] LABS: Ionized Calcium 1.52 mMOL/L (1.15-1.33)
[2024-05-30] MEDS: ZOSYN 100 IV ×3 (01:03→17:41)
[2024-05-30 01:14] LABS: Blood Urea Nitrogen 28 mg/dl (9-20); Calcium 10.6 mg/dl (8.4-10.2); Carbon Dioxide 21 mmol/L (22-30); Chloride 105 mmol/L (98-107); Estimated Creatinine Clearance 55 ml/min; Glucose 195 mg/dl (70-99); Magnesium 1.8 mg/dl (1.6-2.3); Phosphorus 3.7 mg/dl (2.5-4.5); Potassium 4.3 mmol/L (3.5-5.1); Sodium 139 mmol/L (135-145); eGFR > 60.00
[2024-05-30] MEDS: MAGNESIUM SULFATE 100 IV (01:53)
[2024-05-30] MEDS: SUBLIMAZE 50 MCG IV ×2 (04:00→08:55)
[2024-05-30] MEDS: RFP-401 HD Soln (K+ 4 mEq/L) 15000 ML CRRT-IRR ×2 (05:06→16:23)
[2024-05-30] MEDS: LEVOPHED 258 MG IV ×3 (05:12→20:28)
--- NOTE | 2024-05-30 05:23 | PTCARENOTE ---
AM labs sent. ETT adjusted, oral care provided. pt repositioned. therapy fluid bags replaced. levo gtt titrated to maintain SBP goal. otherwise no changes in assessment. care ongoing.
[2024-05-30 05:30] LABS: Ionized Calcium 1.54 mMOL/L (1.15-1.33)
[2024-05-30 05:45] LABS: APTT 108.4 Sec (23.4-35.0)
[2024-05-30 06:05] LABS: ALT (SGPT) 99 U/L (0-50); AST (SGOT) 50 U/L (17-59); Albumin 2.6 g/dl (3.5-5.0); Alkaline Phosphatase 113 U/L (38-126); Blood Urea Nitrogen 29 mg/dl (9-20); Calcium 10.8 mg/dl (8.4-10.2); Carbon Dioxide 22 mmol/L (22-30); Chloride 104 mmol/L (98-107); Estimated Creatinine Clearance 55 ml/min; Glucose 219 mg/dl (70-99); Magnesium 2.7 mg/dl (1.6-2.3); Phosphorus 3.4 mg/dl (2.5-4.5); Sodium 136 mmol/L (135-145); Total Bilirubin 2.5 mg/dl (0.2-1.3); Total Protein 4.9 g/dl (6.3-8.2); Triglycerides 117 mg/dl (10-149); eGFR > 60.00
[2024-05-30] MEDS: NOVOLOG FLEXPEN-MODERATE RESISTANCE 3 UNITS SC (06:09)
[2024-05-30 06:20] LABS: Hematocrit 26.9 % (39.0-52.0); Hemoglobin 9.2 g/dL (13.0-18.0); Mean Corp Hgb Conc. 34.2 g/dL (33.0-37.0); Mean Corpuscular Hgb 27.5 pg (27.0-31.0); Mean Corpuscular Volume 80.5 fL (80.0-94.0); Platelet Count 22 10^3/uL (130-400); Red Blood Cell Count 3.34 10^6/uL (4.70-6.10); Red Cell Dist. Width 25.5 % (11.5-14.5); White Blood Cell Count 19.8 10^3/uL (4.8-10.8)
--- NOTE | 2024-05-30 07:30 | PN.DE.MGMTRT ---
Insulin Management
- -
05/30/2024 Diabetes management Follow up:
83-year-old male with complex PMH including CAD s/p CABG, recent DAKSHA/graft 05/17/2024, ESRD on HD, bladder CA ongoing treatment at [facility], A-Fib, T2DM. Pt is s/p VT arrest, shock/epinephrine/ROSC/intubated 05/19, extubated 05/20 and
reintubated 05/21 due to Septic shock source. A1C on admission 7.1%, was taking Onglyza 5mg daily. Pt has been started corticosteroid stress doses, contributing to hyperglycemia-->critical care glycemic protocol for optimal glucose control. Cr
4.8, eGFR 11.3-->Cr 1.0, eGFR >60 today
Pt remains intubated, critically ill, on CRRT, on pressors, on steroids and tube feeds at 40cc/hr, unable to interview.
05/29 Fasting glucose 76. Lantus has been reduced by academy education director to 8 units, but HELD. Will HOLD Q 6 hour novolog 5 units, continue moderate corrective insulin.
05/30 Fasting glucose 219. Tube feeds at 40 per hour. Glucose has consistently trended up with increased tube feeds. Patient did receive 8 units lantus today. Will restart 5 units novolog Q 6 hours, first dose @ 12 noon, change moderate to low
corrective insulin Q 6 hours.
Will increase AM Lantus to 10 units tomorrow
Will follow and make further insulin adjustments if needed.
Discussed with patients nurse and Dr. Benitez.
Diabetes History
- -
Type of Diabetes: 2
Pre-Admission Diabetes Regimen
05/29/24 05/29/24 05/30/24
11:49 17:52 00:07
Creatinine 0.9 0.8 0.9
05/30/24
05:16
Creatinine 0.9
Lab Results
Hemoglobin A1c 7.1 % (4.0-5.6) H 05/16/24 19:00
Insulin Pump Settings
IP Diabetes Regimen
05/29/24 05/29/24 05/29/24
08:47 11:49 17:52
Glucose 129 H 160 H
POC Glucose 76
05/29/24 05/29/24 05/30/24
17:57 23:58 00:07
Glucose 195 H
POC Glucose 156 H 183 H
05/30/24
05:16
Glucose 219 H
POC Glucose
Patient Education
--- NOTE | 2024-05-30 07:48 | W.PN.NEPH.PH ---
Today's Communication / Plan
-
CRRT orders written
maintain 50plus cc/hr for now as bp responded favorably
Assessment/Plan
-
Assessment:
CP
Elevated troponin
Transitional cell carcinoma of the bladder
s/p CABG - CABRAL to LAD, SVG to OM, SVG to PDA 12/09/22 at [place]
CM EF 40% by echo 09/15/23
Type 2 NSTEMI s/p diagnostic cath 08/2023 at [facility] with patent bypass grafts, 70% OM stenosis, medically managed
Post CABG afib
PCI 05/17/24
ESRD on HD MWF
mild
Hypertension
Hyperlipidemia
Type 2 diabetes
Glaucoma
Hyponatremia
Plan
keep SBP>90
CRRT continues
UF changed to 50 + cc per hr
remains on norepinephrine
restarted TF, no FWF
not a candidate for IHD currently
follow calcium level. may require Aredia if it keeps rising
will likely need to stop heparin due to low plts. but then will be without anticoagulation after PCI 05/17/24
critical care time 31 minutes
-
-
Date of Service: May 30, 2024
CC / HPI / ROS
-
Chief Complaint:
ESRD
History of Present Illness:
critically ill in ICU
CRRT running, with hypotension with turning
Status post ventricular tachycardia and PEA/cardiac arrest
Remains on 1 pressor support
Intubated (Fio2 30%), sedated, failed SBT 05/28
WBC lower today 19.9
Calcium 10.8
Review of Systems:
Intubated
no fevers
Labs
-
Labs:
WBC 19.8 10^3/uL (4.8-10.8) H 05/30/24 05:16
RBC 3.34 10^6/uL (4.70-6.10) L 05/30/24 05:16
Hgb 9.2 g/dL (13.0-18.0) L 05/30/24 05:16
Hct 26.9 % (39.0-52.0) L 05/30/24 05:16
Plt Count 22 10^3/uL (130-400) L* 05/30/24 05:16
eGFR > 60.00 05/30/24 05:16
Rgd-F-Fnvfceeuoum Pept > 59605 pg/ml 05/16/24 11:51
Albumin 2.6 g/dl (3.5-5.0) L 05/30/24 05:16
Physical Exam
-
Vital Signs:
Vital Signs
Temp Pulse Resp BP Pulse Ox
97.4 F 70 15 102/34 100
05/30/24 07:25 05/30/24 07:00 05/30/24 07:00 05/29/24 08:52 05/30/24 07:00
Cardiovascular:: Regular rate and rhythm
Respiratory:: Bilateral: Coarse
Lung Excursion:: Normal
Abdomen:: Nontender and Soft
Bowel Sounds:: Normal
Extremity Edema:: +1: Bilateral:
Echeverria Catheter: No
--- NOTE | 2024-05-30 08:00 | W.PN.UPDATE ---
Update Note
Progress Note Update
Patient seen on CRRT
sbp ~100 on xiang pressor suppot
u/f to be 50cc (+) per hr
1.5L/hr replacement rate
qb 250cc
[2024-05-30] MEDS: LOW STRENGTH ASPIRIN 81 MG TUBE (08:12)
[2024-05-30] MEDS: PACERONE 200 MG PO (08:12)
--- NOTE | 2024-05-30 08:18 | W.PN.INTV ---
Today's Communication / Plan
Recommendations
Continue mechanical ventilation with daily SAT/SBT
Wean down sedation to off if possible; seroquel to assist with this
CRRT to be net (+) fluid balance given bedside US findings on 05/29/2024 (see update note from 05/29 for details)
Antibiotics per ID
Trend CBC
Continue hydrocortisone to every 12h --> lower to 25mg from 50mg
Continue TF and raise to goal as tolerated
Continue CRRT and aim for net neutral-slightly positive given IVC collapsibility findings from 05/29
Maintain fecal management system
Stop heparin gtt and hold ASA given severe TCP
Trend Hb and plt count --> if plt downtrends < 20 then will TRX 1 U plt
PO amio with hold parameters
Wean down vasopressors as able-hemodynamics remain tenuous
Poor prognosis --> family meeting tonight at 6PM to discuss GOC/code status
Assessment
-
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
[facility], atrial fibrillation not on anticoagulation, diabetes, status post VT arrest, shock/epinephrine/ROSC/intubation 05/19/2024
Impression:
VDRF, intubated 05/19/2024
Extubated 05/20/2024
Reintubated 05/21/2024
Chest x-ray with right whiteout-likely atelectasis 05/21/2024
Shock: Suspect multiple mechanisms cardiogenic/septic
Gram-negative in the sputum-E. coli ESBL
Gram-negative in the urine-E. coli ESBL (ESBL is likely due to frequent self-medicating as outpatient with cipro)
Cardiac arrest, monomorphic VT, 05/19/2024
While on the commode
Shock/Epi/intubation/ROSC --> extubated on 05/20/2024
Anemia: Chronic disease and blood loss
Acute thrombocytopenia: Admission platelet count low at 98; now 27 (4T score: 4 - intermediate risk for KRISTIN)
---
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
S/p DAKSHA graft 05/17/2024
Ongoing chest pain, NSTEMI
S/p CABG [place] 12/09/2022
s/p NSTEMI August 2023, med managed at [facility]
Cardiomyopathy, EF 40% with
ESRD on HD
Mild oozing of left upper extremity fistula
Conditions present prior admission:
Transitional cell carcinoma, bladder
Status post transurethral resection of bladder tumor, most recently 50 tumors removed at [place] 09/01/2023
Paroxysmal atrial fibrillation
Not on anticoagulation due to anemia
Hypertension/hyperlipidemia
Diabetes
Plan/recommendations:
-
Remains critically ill on vasopressors, intubated requiring high doses of sedation
Re-intubated 05/21/2024.
Developed cardiorespiratory arrest V. tach/PEA status post epi and CPR. Regained ROSC 05/21/2024 around 7 PM.
-
Intubated since 05/21/2024
Mechanical ventilation settings reviewed
Adjust vent daily based on blood gas
No significant secretions from ET tube - continue to monitor
Keep PIP<30-35
Chest x-ray 05/27/2024: Right mild to moderate pleural effusion. No significant infiltrates
CXR from 05/29/2024 shows patchy bibasilar opacities with mild interstitial prominence
Continue with intermittent suctioning-minimal secretions
Nebulizers as needed
Daily SAT/SBT
Try to lower sedation to lowered required dosing --> today I want the fentanyl drip to be completely stopped; given difficulty with this, I added seroquel on 05/29; trend QTc
Will use prn versed and try to use seroquel prn to help awaken the patient, if possible
Goal RASS score 0 to -1
-
Shock: Multiple mechanism septic/? cardiogenic (echocardiogram with global hypokinesis decreased LVEF 20 to 30%/RV dysfunction as well)
With abnormal right lower lobe abnormality, layering right pleural chest x-ray cannot rule out aspiration/pneumonia.
Trend WBC
- On 05/28 he was again hypothermic-clinical picture not suggestive of worsening sepsis-minute ventilation has decreased, blood cultures negative.
Unclear if steroids playing a role at this point.
Penis previously with pus: Straight cath showed purulent urine.
ESBL E. coli in the urine
ESBL E. coli in the sputum
Blood culture (05/22/2024 - NGTD)
Infectious disease following : now back on Zosyn s/p meropenem (05/22 - 05/29/2024) s/p vanc/zosyn + cipro
Would favor completing 2 weeks worth of Abx from date of first negative blood Cx (05/22/2024)
MRSA screening negative
-
Continue levophed with goal SBP>90; hold vasopressin
Arterial line in place.
Stress dose of steroids decreased to every 12 on 05/27/2024. --> change to 25mg IV q12hr
If increased leukocytosis and hypothermia continues may need to consider CT of the abdomen pelvis and repeat blood culture. Doubt any acute pulmonary process as pulmonary mechanics and oxygenation are improved compared to prior. Also may need to
consider thoracentesis on the right.
Lactate level of 4 noted 05/23/2024. Suspect part of it is due to liver dysfunction
-
Normal TSH (05/26/2024)
-
Abnormal LFTs: Suspect shock liver.
Abdominal ultrasound unremarkable (05/23/2024)
C/t trend
-
Acidosis resolved: Continue CRRT -unable to tolerate dialysis due to hemodynamic instability.
Follow BMP
On 05/28 I started heparin gtt to help reduce risk of thrombosis --> given the drop in plt count, I will stop heparin gtt and hold ASA
He is now getting net positive fluid balance from CRRT given that his IVC was collapsed on bedside ultrasound on 05/29/2024
-
Thrombocytopenia noted: Low but remains >20k
Plavix has been discontinued --> given recent stent placed on 05/17/2024 to SVG-PDA, will try to resume once clinically able to
Trend platelet count - heparin gtt now stopped due to worsening plt count
Monitor for bleeding
Holding ASA given worsening thrombocytopenia
If plt count reduce any further then will hold ASA
4T score is 4 (intermediate risk for KRISTIN) --> follow up heparin associated platelet-Ab
-
Cardiology following the patient:
ICD prior to discharge if patient improved clinically - defer to cardiology
Echocardiogram 05/17/2024: EF 45% with hypokinesis inferoseptal wall, moderate MR, moderate aortic stenosis.
LVEF 04/20/2024 showed decline 20 to 30%. No significant valvular abnormalities. No pericardial effusion
Echocardiogram 05/22/2024: Ejection fraction 25-30% with global hypokinesis with inferior and inferior lateral akinesis. Dilated right ventricle with reduced right ventricular systolic function. Moderate to severe MR. Moderate to severe TR with PH
-
Unclear whether monomorphic VT was due to scar or recent drug-eluting stent/graft
V. tach/PEA arrest again on 05/21/2024
Due to bradycardia with HR in 40s, on 05/28 amiodarone IV drip was changed to PO amio with holding parameters
Cardiology following closely
ASA on hold (see above)
Plavix on hold 05/25/2024 due to thrombocytopenia
-
Chronic kidney disease hemodialysis dependent.
Case discussed with nephrology.
Transitioned to CRRT since 05/23/2024 --> given that his IVC is not collapsible indicating he is severely intravascularly depleted, IVF bolus given on 05/29 and nephrology ok to make net neutral-slightly positive now going forward with regards to CRRT
Hold midodrine for now.
Black stools: Stool is now reported as brown as of 05/28/2024
Trend H/H and transfuse if needed to keep >7; keep plt>20k
Continue PPI 40mg BID
Plavix also on hold; resume once clinically able to and plt stable
No evidence for active bleeding at this point.
Unfortunately not a great candidate for any other intervention at this point.
Hypoglycemia: Resolved
Insulin drip discontinued
Will continue to monitor closely
Temporarily was placed on D5 - now discontinued
Target 140-180
Insulin sliding scale
Diabetic COMPRESS ENGINEER on board
He was occasionally following commands with sedation breaks, now he is minimally opening his eyes but no longer following commands as of 05/30/2024
Will try to turn off all sedation and hold Seroquel and only use prn medications for agitation for vs vent asynchrony
Patient had delirium prior intubation.
Dobbhoff tube-was tolerating tube feedings at goal but developed vomiting overnight 05/27/2024. Tube feedings were on hold --> resumed as of 05/28/2024
PPI for GI prophylaxis
DVT prophylaxis: SCDs for now given severe TCP
Poor prognosis
Dr. Salcido as discussed the case with infectious disease, cardiology nephrology and primary team.
Dr. Salcido as discussed with son multiple times over the course of her hospital stay. Prognosis is poor and he understands. He would like to continue with aggressive support. Likely will need tracheotomy and a feeding tube.
Dr. Salcido updated son at the bedside 05/22/2024, 05/23/2024, 05/24/2024, , 05/26/2024 discussed possibility of DNR status. He will think about it. He understands that likely if patient survives he will need long-term care, suspected unlikely
will be able to go home independently.
Dr. Benitez discussed the case with patient's son, Devante, and daughter in law, answered all their questions. Pt remains full code despite poor prognosis
Dr. Benitez discussed in detail today (05/29/2024) with son, Devante, and [facility] and code status reviewed. Son wants to set up a family meeting, aiming for tomorrow at around 1230-1PM. For now, continue full medical management, but leaning toeards
terminal extubation/hospice.
Dr. Benitez will have a family meeting tonight at 6 PM to discuss goals of care/code status/answer any other additional questions. Patient has extremely guarded prognosis.
Critical care statement: A total of 43 minutes of critical care time was provided for this patient today. This includes management of unstable vital signs, evaluation of the patient at bedside, reviewing the patient's pertinent medical records
including ventilator settings, arterial blood gases, radiographs, microbiology, laboratory evaluations and discussion with primary team, critical care nursing, and respiratory therapy.
Subjective Dataa
Subjective Data
Date of Service:
Date of Service: May 30, 2024
Chief Complaint: Customer Solutions Specialist Follow Up (Acute hypoxemic/hypercapnic respiratory failure)
Subjective:
Patient seen and evaluated this morning. Remains on CRRT and he is net (+) 50 cc/hr. He is on heparin gtt, levophed at 20mcg/min, currently off fentanyl gtt this AM. HR 69. He opens eyes but not following commands. BP 112/42 and SpO2 100%.
Currently on AC 14/450/40%/5. Bloody ETT and oral secretions, minimal.
Review of Systems
General: Unobtainable - Pat Unresp
Objective Data
Data Reviewed
Vital Signs / I&O / Oxygen:
Vital Signs
Temp Pulse Resp BP Pulse Ox
97.4 F 67 15 109/37 99
05/30/24 07:25 05/30/24 08:12 05/30/24 07:00 05/30/24 08:12 05/30/24 07:57
Intake and Output
05/29/24 05/30/24 05/31/24
06:59 06:59 06:59
Intake Total 2260.7 / 2316.9 3313.7 / 3398.8 85.1 / 85.1
Output Total 3374 / 3464 2985 / 3016 95 / 95
Balance -1113.3 / -1147.1 328.7 / 382.8 -9.9 / -9.9
SaO2 [ASV] 100
SaO2 [A/C] 100
SaO2 99
Nasal Cannula flow liters per 95
minute
Physical Exam
General: Respiratory Distress (none, sedated), Comfortable, Chills (negative) and Sweats (negative)
HEENT: Normocephalic, Anicteric and Other (ETT in place)
Cardiovascular: S1-S2, Murmur (+KRISTEN heard across precordium), Rub (n) and Peripheral Edema (No lower extremity edema bilaterally)
Respiratory: Wheeze (n), Crackles (n), Rhonchi (n), Non-Labored Respirations and ET Tube (No significant secretions)
GI: Soft, Non Distended, Non Tender, Normal Bowel Sounds and Other (Fecal management system-brown stool)
Neurology: Unresponsive and Other (Sedated; pupils +1 mm bilaterally)
Skin: Warm, Dry, Cyanosis (n), Jaundice (n), Rash (n) and Other (Left upper extremity AV fistula)
Labs/Micro/Reports
Lab Data
05/30/24 05:16
Laboratory Results
05/29/24 05/30/24
20:33 05:16
APTT 95.9 H 108.4 H
Microbiology
05/22/24 21:38 Blood/Venous Blood Culture - Final
No Growth - Final Report
05/22/24 20:58 Blood/Venous Blood Culture - Final
No Growth - Final Report
[2024-05-30] MEDS: SOLU-CORTEF 50 MG IV (08:19)
[2024-05-30] MEDS: NSS (PRESERVATIVE FREE) 10 ML IV ×2 (08:19→19:51)
[2024-05-30] MEDS: SEROQUEL 25 MG TUBE (08:19)
[2024-05-30] MEDS: MIRALAX 17 GRAMS TUBE (08:21)
[2024-05-30] MEDS: LANTUS 0.08 UNITS SC (08:49)
[2024-05-30] MEDS: PROTONIX IV 40 MG IV ×2 (08:50→19:51)
[2024-05-30 08:58] LABS: Glucose - Point of Care 238 mg/dl (70-99)
--- NOTE | 2024-05-30 08:59 | W.PN.ID1 ---
Date of Service
Date of Service: May 30, 2024
Today's Communication
- c/w zosyn - dosed for CRRT - day 10 of effective rx
Patient is critically ill with poor prognosis, recommend hospice
Assessment / Plan
Shock - likely combined cardiogenic and septic - improving
VAP and UTI
MSOF
NSTEMI, CAD
ESRD
Transitional cell cancer of the bladder
- pressors being weaned
- small/moderate R pleural effusion noted, when stable could consider right lung US and possible thoracentesis
- blood cultures x2 in finalized negative
- sputum culture with ESBL E coli
- urine culture 100 K ESBL E coli
- c/w zosyn - dosed for CRRT - day 10 of effective rx
Patient is critically ill with poor prognosis, recommend hospice
Chief Complaint
-: UTI and Other (shock - septic and cardiogenic, MDRO)
Subjective / Review of Systems
afebrile
norepi increased somewhat now on 14 mcg/min, however vasopressin now off
plt remain in the 20s
failed weaning yesterday
CXR yesterday - patchy bibasilar opacities, small R pleural effusion
POCUS: LVEF 15-20%
for GOC discussions at 6pm today
Vital Signs / Physical Exam
Vital Signs
Vital Signs
Temp Pulse Resp BP Pulse Ox
97.4 F 67 15 109/37 99
05/30/24 07:25 05/30/24 08:12 05/30/24 07:00 05/30/24 08:12 05/30/24 07:57
Physical Exam
Constitutional: Acutely Ill and Chronically Ill
Cardiovascular: Regular Rate and S1/S2; Negative Murmur or Rub
Pulmonary: Symmetric and Coarse; Negative Wheezes or Rales
Gastrointestinal: Soft, Non Tender, Non Distended and Normal Bowel Sounds
Skin: Warm and Dry; Negative Rash or Jaundice
Neurological: Negative Awake
Objective Data
Lab Data
Lab Results
05/30/24 05:16
PT 16.2 Sec (11.4-14.6) H 05/19/24 06:16
INR 1.32 05/19/24 06:16
APTT 108.4 Sec (23.4-35.0) H 05/30/24 05:16
Estimated Creat Clear 55 ml/min 05/30/24 05:16
Lactic Acid 0.9 mmol/L (0.7-2.0) 05/29/24 05:28
Total Bilirubin 2.5 mg/dl (0.2-1.3) H 05/30/24 05:16
AST 50 U/L (17-59) 05/30/24 05:16
ALT 99 U/L (0-50) H 05/30/24 05:16
Alkaline Phosphatase 113 U/L (38-126) 05/30/24 05:16
Most recent labs reviewed.
Micro Results:
05/22/24 21:38 Blood Culture - Final
Blood/Venous No Growth - Final Report
05/22/24 20:58 Blood Culture - Final
Blood/Venous No Growth - Final Report
05/21/24 09:43 Urine Culture - Final
Urine Escherichia coli - ESBL
05/21/24 10:17 Respiratory Culture - Final
Endotracheal Escherichia coli - ESBL
Gram Stain - Final
05/16/24 18:42 MRSA Screen - Final
Nose No Methicillin Resistant Staphylococcus aureus isolated.
Care Review
Plan reviewed with: Physician (Dr Benitez - hospice)
--- NOTE | 2024-05-30 09:00 | PTCARENOTE ---
non responsive , on vent , sats 100% on current settings, continues with CRRT , labs noted platelets down to 22, [place] HR on monitor 60-70s , BP 115.39 with norepinephrine at 15mcg to keep goal of SBP on 90s , tolerating tube feeds at goal rate,
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
--- NOTE | 2024-05-30 09:05 | W.PN.HOSP.TC ---
Addendum entered and electronically signed by Que Green MD 05/30/24 15:18:
Seen and examined by me independently in collaboration with the pesticide use medical coordinator Flavia.
Lab data and imaging data reviewed.
Addendum as below :
Patient off of sedation this morning. Still remains unresponsive. Opens eyes here and there but not follows any commands.
Remains hypotensive requiring pressors. Currently on 1 vasopressor.
Saturations and FiO2 on vent are stable.
No ongoing see AVH noted.
Labs noted.
Patient remains still critically ill albeit some improvement from hemodynamic standpoint-currently on 1 vasopressor.
Continue with antibiotics.
Continue with aspirin but unfortunately with low platelets unable to tolerate Plavix or IV heparin. Follow platelets closely.
Continue with amiodarone for VT. Not a candidate for GDMT at the current time.
Discussed with son at bedside. He is going to have a family today along with strap cutter regarding goals of care.
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
Total time spent on today's encounter was 52 minutes which included time spent in counseling the patient/family regarding diagnosis and treatment plan as listed above, goals of care, and symptom management. Case was discussed with nursing staff,
specialists . All labs and imaging personally reviewed by me. Remainder the time spent in detailed review of previous records, lab data, imaging, and other medical provider documentation.
Original Note:
Today's Communication/Plan
-
Antibiotics switched to Zosyn per antibiotic sensitivities, net (+) fluid CRRT due to collapsed IVC yesterday, stop heparin drip and wean pressors and mechanical vent as possible. Online zoom call with extended family and strap cutter planned tonight
to discuss code status.
Assessment / Plan
Assessment / Plan
Cardiogenic / Septic shock
- VT arrest x2, 05/17 successful DAKSHA, Echo 05/22 25-30%
- Will require ICD prior to discharge
- Amio gtt -> PO
- Cards following without any further recs at this time
- If recurs may need to try Lidocaine gtt/Defibrillation
- Keep K >4, Keep Mg >2
- Monitor on tele
- norepinephrine cont. phenylephrine and vasopressin weaned off
- Continue corticosteroids
- IVC collapsed yesterday on US -> 500cc fluid bolus and 50cc fluid increase daily on CRRT
- Endotracheal and urine culture ESBL - sensitive to Zosyn -> Switch to Zosyn per ID
- WBC plateau
- X-ray cannot rule out pneumonia, but residual fluid post mucous plug also possible
- meropenem (9 days) -> Zosyn. Antibiotics day 04/30
Acute hypoxemic respiratory failure secondary to mucous plugging
- Chest x-ray full sided white out right lung 05/21
- Extubated 05/20/24, reintubated 05/21
- Continue mechanical intubation
- Continues to fail weaning trials
- Consider trach tube placement tuesday
- Management per strap cutter
ESRD
- CRRT
Electrolyte imbalance / metabolic acidosis
- CRRT
- Today hypercalcemia
- May add aredia per nephrology
NSTEMI/CAD
- s/p CABG with CABRAL to LAD, SVG to OM, SVG to PDA at [place] 12/09/22
- s/p NSTEMI with patent bypass grafts at [facility] 08/2023
- 05/17 cath successful DAKSHA
- Dual antiplatelet therapy for next 6 to 10 months
- Clopedigrel held for Plt <50 per cardiology. Moved to heparin gtt for anticoagulation with low ptl -> Discontinued with plt
- ASA discontinued due to low plt
- Will need ICD prior to discharge per cards
HFrEF
- Echo 05/22 LVEF 25-30% ->15-20% visualized by strap cutter on bedside pocus on 05/29
- Fluid volume removal per CRRT -> net (+) fluid replacement 50cc daily to stabilize BP after seeing collapsed IVC
- Unable to provide GDMT due to hypotension
- Will need ICD prior to discharge
Paroxysmal A-fib
� No Eliquis due to history of hematuria and severe anemia
� On DAPT therapy -> Heparin gtt -> d/c with plt 22
� Previously on Coreg, currently on ammio PO
Thrombocytopenia
- today 27 -> 22
- On DAPT with recent cath 05/17 -> Heparin gtt
- HIT antibody pending
- Monitor
Elevated LFTs
- Likely shock liver
- Hep panel (-) and RUQ unremarkable for acute etiology
- Monitor
Heme-occult blood (+)
- Monitor CBC for signs of bleeding
- H&H stable
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
- Damion [place]. TURBT 50 lesions were reportedly worked on on 09/01/2023.
- developed hematuria and a temporary placement of renal stent followed by continuous bladder irrigation
- Eliquis discontinued
Type 2 diabetes
- Hemoglobin A1c 7.1
- Management per diabetic nurse
Dyslipidemia
- Continue statin
#B12 deficiency�replace
#Chronic vertigo
Full Code
Plans for zoom call with all extended family and strap cutter this evening to discuss code status.
Anticipated Discharge: > 48 hours
Subjective/Interval History
-
Date of Service: May 30, 2024
Objective Data
-
Labs:
Laboratory Results
05/29/24 05/30/24 05/30/24
20:33 00:07 05:16
WBC 19.8 H
Hgb 9.2 L
Hct 26.9 L
Plt Count 22 L*
APTT 95.9 H 108.4 H
Sodium 139 136
Potassium 4.3 4.0
Chloride 105 104
Carbon Dioxide 21 L 22
BUN 28 H 29 H
Creatinine 0.9 0.9
Glucose 195 H 219 H
Calcium 10.6 H 10.8 H
Total Bilirubin 2.5 H
AST 50
ALT 99 H
Alkaline Phosphatase 113
05/30/24
12:00
WBC
Hgb
Hct
Plt Count
APTT
Sodium Pending
Potassium Pending
Chloride Pending
Carbon Dioxide Pending
BUN Pending
Creatinine Pending
Glucose Pending
Calcium Pending
Total Bilirubin
AST
ALT
Alkaline Phosphatase
Vital Signs:
Vital Signs
Temp Pulse Resp BP Pulse Ox
97.4 F 67 15 109/37 99
05/30/24 07:25 05/30/24 08:12 05/30/24 07:00 05/30/24 08:12 05/30/24 07:57
I&O
05/29/24 05/30/24 05/31/24
06:59 06:59 06:59
Intake Total 2260.7 / 2316.9 3313.7 / 3398.8 85.1 / 85.1
Output Total 3374 / 3464 2985 / 3016 65 / 65
Balance -1113.3 / -1147.1 328.7 / 382.8 20.1 / 20.1
Review of Systems
-
Unable to obtain full review of systems at this time due to: Patient Intubation
Physical Exam
-
General: Intubated
Respiratory: Other (Coarse breath sounds)
Cardiac: Regular Rhythm and S1/S2
GI: Soft, Nondistended and Normal Bowel Sounds
Musculoskeletal: Edema, Right Upper Extrem and Edema, Left Upper Extrem
Skin: Warm
Neuro: Negative AO x 3
--- NOTE | 2024-05-30 09:21 | W.PN.CARDCBS ---
Today's Communication / Plan
-
Prognosis remains poor
Family meeting is being scheduled
No further VT on amiodarone
Impression / Plan
-
PCP: Dr. Charlie Marley
Primary Want Ad Supervisor: Dr. Almanza
Assessment:
Admitted with chest pain and acute HF 05/16/24
In-hospital VT arrest
monomorphic VT, CPR, Epi x2 and shock with ROSC 05/19/24
VT that broke to PEA, CPR, Epi x2 and Bicarb x2 with ROSC 05/21/24
VDRF
intubated 05/19/24 and then extubated 05/20/24
re-intubated 05/21/24 with right lung whiteout
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
ESRD on HD
CM EF 40% by echo 09/15/23, ejection fraction 25% 05/21/2024
NSTEMI related to stenosis of saphenous vein graft to PDA, peak troponin 20
CAD
s/p CABG with CABRAL to LAD, SVG to OM, SVG to PDA at [place] 12/09/22
s/p NSTEMI with patent bypass grafts, 70% OM stenosis being medically managed after cath at [facility] 08/2023
s/p NSTEMI with DAKSHA SVG-PDA 05/17/2024
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
Paroxysmal Afib
Not chronically anticoagulated due to anemia, not a candidate for watchman due to inability to tolerate even short-course OAC
mild
Hypertension
Hyperlipidemia
Type 2 diabetes
Glaucoma
Hyponatremia
bleeding from HD fistula site
Vomiting 05/20/24
Cardiogenic and septic shock
Thrombocytopenia
ECHO 08/2023 at [facility]: EF reportedly preserved
Echo 09/15/23: EF 40-45%, inferior wall akinesis, inferoseptal wall and base to mid inferolateral francisco hypokinetic, stage II diastolic dysfunction, moderate MR, mild with peak/mean 20/11. mild to mod aortic regurg
Echo 05/17/24: EF 45 to 50%, mild concentric LVH, hypokinesis of inferior septal wall and basal to mid lateral wall, mild MR, mild to moderate peak/mean 23/15, mild AI, mild pulmonic regurgitation.
Echo 05/21/24: EF 30-35%, global hypokinesis with inferior akinesis
Echo 05/22/24: EF 25 to 30%, global hypokinesis with inferior and inferolateral akinesis, dilated RV with reduced RV systolic function, moderate to severe MR, moderate to severe TR with PAP 64 mmHg
Cath 05/17/2024: LM: Calcified, distal tapering, LAD: 100% at origin, LAD fills via patent QUIANA, relatively small LAD with diffuse disease, circumflex heavily calcified, 50% proximal stenosis, 100% OM1 with patent vein graft but OM is very small,
retrograde filling less vibrant than before, RCA 100% at origin, SVG to PDA has 70% proximal stenosis, successful stenting prox SVG-PDA with 2.5 x 15 [place] DAKSHA
Plan:
Patient admitted with chest pain and acute HF 05/16/24. HD with UF performed with improvement in chest pain, but Troponin peaked at 20. Patient taken to calibration laboratory technician 05/17/24 and found to have anew SVG to PDA lesion that was stented. Patient then had an
in-hospital cardiac arrest 05/19/24 early AM with CPR, Epi x2 and shock with ROSC. Patient was intubated and then extubated 05/20/24. Later on 05/20/24 had an episode of vomiting. During the day 05/20/24 patient was on Bhavin and maxed out and Levophed
started plus increasing oxygen demands. CXR with right lung whiteout and ABG sent. Patient re-intubated 05/21/24. VT code 05/21/24 at 1900 and then broke into PEA. Treated with CPR, Epi x2 and Bicarb x1 with ROSC.
Overall prognosis remains very poor with no meaningful neurologic recovery.
Patient's son wishes everything to be done but family meeting is scheduled
He remains on 2 pressors (Levophed and vasopressin)
CRRT for volume management
cont IV Antibiotics
Continue aspirin and Plavix status post stent but has severe thrombocytopenia may be at risk for bleeding. So far no significant bleeding
Ejection fraction is 25% and unable to give meds due to hypotension
Monomorphic VT at time of code on 05/19/24 suggesting scar based etiology. Then with VT breaking to PEA on 05/21/24.
Cont oral amiodarone gtt.
Discussed with nursing at bedside
Progress Note - Want Ad Supervisor
Subjective
Date of Service: May 30, 2024
Unresponsive
Objective
Labs:
05/30/24 05:16
Labs
Hgb 9.2 g/dL (13.0-18.0) L 05/30/24 05:16
Hct 26.9 % (39.0-52.0) L 05/30/24 05:16
Plt Count 22 10^3/uL (130-400) L* 05/30/24 05:16
PT 16.2 Sec (11.4-14.6) H 05/19/24 06:16
INR 1.32 05/19/24 06:16
APTT 108.4 Sec (23.4-35.0) H 05/30/24 05:16
Sodium 136 mmol/L (135-145) 05/30/24 05:16
Potassium 4.0 mmol/L (3.5-5.1) 05/30/24 05:16
BUN 29 mg/dl (9-20) H 05/30/24 05:16
Creatinine 0.9 mg/dL (0.7-1.3) 05/30/24 05:16
Glucose 219 mg/dl (70-99) H 05/30/24 05:16
Vital Signs and I&O:
Vital Signs
Temp Pulse Resp BP Pulse Ox
97.4 F 67 15 109/37 99
05/30/24 07:25 05/30/24 08:12 05/30/24 07:00 05/30/24 08:12 05/30/24 07:57
Vital Signs
Temp Pulse Resp BP Pulse Ox
97.4 F 67 15 109/37 99
05/30/24 07:25 05/30/24 08:12 05/30/24 07:00 05/30/24 08:12 05/30/24 07:57
Intake & Output
05/28/24 05/29/24 05/30/24 05/31/24
06:59 06:59 06:59 06:59
Intake Total 1794.6 / 1859.5 2260.7 / 2316.9 3313.7 / 3398.8 85.1 / 85.1
Output Total 4139 / 4302 3374 / 3464 2985 / 3016 95 / 95
Balance -2344.4 / -2442.5 -1113.3 / -1147.1 328.7 / 382.8 -9.9 / -9.9
Physical Exam
Physical Exam
General: Unresponsive
Neck: Supple, no JVD, HJR, carotids +2 B/L, no bruits bilaterally.
Heart: Non displaced PMI, RRR, no murmurs, No S3, S4, no rubs.
Lungs: Scattered rhonchi
Extremities: No clubbing, cyanosis or edema bilaterally.
Neuro: Unresponsive
[2024-05-30 11:35] LABS: INR 1.14; PT 15.2 Sec (11.4-14.6)
[2024-05-30] MEDS: NOVOLOG FLEXPEN 5 UNITS SC ×2 (12:05→18:01)
[2024-05-30] MEDS: NOVOLOG FLEXPEN-LOW RESISTANCE 3 UNITS SC (12:05)
[2024-05-30 12:14] LABS: Glucose - Point of Care 255 mg/dl (70-99)
[2024-05-30 12:44] LABS: Ionized Calcium 1.49 mMOL/L (1.15-1.33)
--- NOTE | 2024-05-30 13:08 | CM ---
CM following re: discharge planning.
Discussed in Rounds, reviewed pt's chart, met with pt and pt's son at bedside. Per Rounds, pt remain critically ill, remains intubated, prognosis poor, continue supportive care, family meeting today to discuss a goals of care.
D/C plan: uncertain at this time and will depend on pt's progress and outcomes of the family meeting.
CM will follow with discharge plan updates as hospitalization progresses
--- NOTE | 2024-05-30 13:21 | PTCARENOTE ---
pt had spontaneous awaking trial at 1015 he was lethargic and responded to tactile stimuli by withdrawing, He had a SBT at 1045 on a CPAP PS 5/5 30% he tolerated the wean for 1 hour he then became hypotensive in the 70s and had periods of apnea , pt
was placed back on previous settings , he is now off of IV heparin due to his platelet count down to 22, his fentanyl gtt is to remain off due to his neruo status , his pupils are non reactive and pinpoint , he withdraws to painful stimuli , pt is
to have a CT of head later today . pt son has been updated multiple times by all physicians in the care of the patient , multiple GOC discussions have been done . pt son currently wants to continue with full code status , family meeting VIA zoom
this evening at 1800 with pear picker to discuss goals of care
[2024-05-30 15:30] LABS: Blood Urea Nitrogen 32 mg/dl (9-20); Calcium 10.8 mg/dl (8.4-10.2); Carbon Dioxide 24 mmol/L (22-30); Chloride 104 mmol/L (98-107); Estimated Creatinine Clearance 55 ml/min; Glucose 216 mg/dl (70-99); Magnesium 2.3 mg/dl (1.6-2.3); Phosphorus 3.1 mg/dl (2.5-4.5); Potassium 3.9 mmol/L (3.5-5.1); Sodium 136 mmol/L (135-145); eGFR > 60.00
[2024-05-30 16:26] LABS: Intact PTH 295.5 pg/ml (13.6-85.8)
--- NOTE | 2024-05-30 17:01 | PTCARENOTE ---
attempted to send labs at 1200 for Chemistry , pt had x 2 labs send and were hemolyzed , resulted at 15:00 pts , PTH up to 295.5 , Dr Smith notified, pt also sent to CT scan at 15:30 , CCRT off from 1500 to [address] and pt
restarted CRRT as ordered .
[2024-05-30] MEDS: CRESTOR 10 MG TUBE (17:42)
[2024-05-30] MEDS: NOVOLOG FLEXPEN-LOW RESISTANCE 1 UNITS SC (18:01)
[2024-05-30 18:21] LABS: Glucose - Point of Care 193 mg/dl (70-99)
[2024-05-30 18:47] LABS: Ionized Calcium 1.54 mMOL/L (1.15-1.33)
--- NOTE | 2024-05-30 18:55 | W.PN.UPDATE ---
Update Note
Progress Note Update
Family discussion held via Zoom + cellphone with the son, Devante, the patient's , as well as the patient's cousin, Jhonny, who is a cardiac PA at [employer], and an additional family member.
We discussed the patient's clinical status, his hospital course and his critically ill state that he is currently in. We discussed code status, and the fact that his platelet count is so low that if CPR were to occur that he has a very high chance
of internal bleeding, including hemothorax, hemoperitoneum and hemopericardium. We did discuss comfort care and what that would look like.
No decisions made on the patient's code status, but they will continue discussing him tonight amongst themselves. Given that his pupils are +1 mm bilaterally and he remains minimally responsive, they would like to give more time to see if the
fentanyl will washout and hopefully can ask the patient himself what he wants. According to the son/family, the patient is a very independent man and would not want to be cared for, hence him eventually going to a facility likely with a trach,
feeding tube and being bedbound is not something that he would want. Tomorrow they want to speak to social work and see what his options would even be for facilities. If he does not clinically improve despite being off sedation then they will
withdrawal care.
All of the family's questions were answered and discussion was held in layman's terms to their satisfaction.
[2024-05-30 19:02] LABS: Hematocrit 27.4 % (39.0-52.0); Hemoglobin 9.4 g/dL (13.0-18.0); Mean Corp Hgb Conc. 34.3 g/dL (33.0-37.0); Mean Corpuscular Hgb 27.6 pg (27.0-31.0); Mean Corpuscular Volume 80.4 fL (80.0-94.0); Platelet Count 23 10^3/uL (130-400); Red Blood Cell Count 3.41 10^6/uL (4.70-6.10); Red Cell Dist. Width 25.7 % (11.5-14.5); White Blood Cell Count 20.2 10^3/uL (4.8-10.8)
[2024-05-30] MEDS: SOLU-CORTEF 25 MG IV (19:50)
[2024-05-30 19:55] LABS: Blood Urea Nitrogen 33 mg/dl (9-20); Calcium 10.9 mg/dl (8.4-10.2); Carbon Dioxide 25 mmol/L (22-30); Chloride 104 mmol/L (98-107); Estimated Creatinine Clearance 55 ml/min; Glucose 195 mg/dl (70-99); Magnesium 2.2 mg/dl (1.6-2.3); Phosphorus 3.1 mg/dl (2.5-4.5); Potassium 3.8 mmol/L (3.5-5.1); Sodium 136 mmol/L (135-145); eGFR > 60.00
--- NOTE | 2024-05-30 20:00 | PTCARENOTE ---
Resumed care of pt this evening. Received pt on levo gtt infusing at 15 mcg/min via rt PICC. Received pt intubated and vented. Pt is also receiving CRRT per order. Pt is minimally responsive, opens eyes occasionally to tactile stimulation. Pt does
not appear to make purposeful movements. Pt is NSR on tele monitor, has +4 GA, and has B/L DP pulses are present with a doppler. Pt vent settings are as follows, (R 14/TV 450/PEEP +5/FIO2 30%. Pt is tolerating vent settings satting at 100% pulse ox.
On auscultation pt lungs sound diminished TO. Pt's abdomen is round, firm, and has hypoactive BS. Pt has NG tube in place and is receiving tube feeds at goal rate. Pt has FMS in place draining brown liquid stool. Pt is anuric. Pt has skin tears on
rt forearm that are covered w/ foam dressings. Pt also has some scattered scabs on B/L legs that are SUSAN.
[2024-05-30 20:22] LABS: Anisocytosis 2+; Hypochromasia 2+; Macrocytosis 2+; Normal RBC Morphology No; Target Cells 2+; Tear Drop Red Blood Cells 2+
[2024-05-30] MEDS: XALATAN OPHTHALMIC SOLUTION 1 DROP BOTH EYES (21:13)
[2024-05-31] VITALS (10 sets, daily range): BP systolic 70–139; BP diastolic 44–51; BMI 27.4
--- NOTE | 2024-05-31 | PTCARENOTE ---
Pt vomiting large amounts of yellow colored emesis, appearing to be same color as tube feeds. Tube feeds turned off as instructed by TAR PROCESSING TECHNICIAN. TANO gonzales inserted and connected to low intermittent suctioning.
[2024-05-31] MEDS: NOVOLOG FLEXPEN-LOW RESISTANCE SC ×2 (00:47→17:09)
[2024-05-31 00:57] LABS: Glucose - Point of Care 134 mg/dl (70-99)
[2024-05-31] MEDS: NOVOLOG FLEXPEN SC ×2 (00:57→05:43)
[2024-05-31 02:01] LABS: Ionized Calcium 1.59 mMOL/L (1.15-1.33)
[2024-05-31] MEDS: ZOSYN 100 IV ×3 (02:08→17:09)
[2024-05-31] MEDS: RFP-401 HD Soln (K+ 4 mEq/L) 20000 ML CRRT-IRR (02:17)
[2024-05-31 02:29] LABS: Blood Urea Nitrogen 32 mg/dl (9-20); Calcium 10.7 mg/dl (8.4-10.2); Carbon Dioxide 25 mmol/L (22-30); Chloride 106 mmol/L (98-107); Estimated Creatinine Clearance 55 ml/min; Glucose 167 mg/dl (70-99); Magnesium 2.1 mg/dl (1.6-2.3); Phosphorus 3.1 mg/dl (2.5-4.5); Potassium 3.7 mmol/L (3.5-5.1); Sodium 139 mmol/L (135-145); eGFR > 60.00
[2024-05-31] MEDS: SUBLIMAZE 50 MCG IV (04:26)
--- NOTE | 2024-05-31 05:00 | PTCARENOTE ---
At 0400 CRRT had to be stopped due to air in the tube system. Cartridge was replaced and CRRT continued.
[2024-05-31] MEDS: LEVOPHED 258 MG IV ×3 (05:28→21:06)
[2024-05-31 05:29] LABS: % Basophils 0.1 % (0-2); % Immature Granulocytes 1.1 % (0-0.5); % Lymphocytes 2.4 % (20.5-51.1); % Monocytes 4.5 % (1.7-9.3); % Neutrophils 90.9 % (42.2-75.2); APTT 44.6 Sec (23.4-35.0); Absolute Eosinophils 0.2 10^3/uL (0-0.7); Absolute Immature Granulocytes 0.2 10^3/uL (0-0.05); Absolute Lymphocytes 0.5 10^3/uL (1.2-3.4); Absolute Monocytes 0.9 10^3/uL (0.1-0.6); Absolute Neutrophils 18.4 10^3/uL (1.4-6.5); Hemoglobin 9.3 g/dL (13.0-18.0); Mean Corp Hgb Conc. 34.4 g/dL (33.0-37.0); Mean Corpuscular Hgb 27.8 pg (27.0-31.0); Mean Corpuscular Volume 80.8 fL (80.0-94.0); Nucleated Red Blood Cells % 0.3 % (-); Platelet Count 16 10^3/uL (130-400); Red Blood Cell Count 3.34 10^6/uL (4.70-6.10); Red Cell Dist. Width 26.1 % (11.5-14.5); White Blood Cell Count 20.2 10^3/uL (4.8-10.8)
[2024-05-31 05:34] LABS: ALT (SGPT) 73 U/L (0-50); AST (SGOT) 40 U/L (17-59); Albumin 2.2 g/dl (3.5-5.0); Alkaline Phosphatase 103 U/L (38-126); Blood Urea Nitrogen 33 mg/dl (9-20); Calcium 10.7 mg/dl (8.4-10.2); Carbon Dioxide 24 mmol/L (22-30); Chloride 105 mmol/L (98-107); Estimated Creatinine Clearance 55 ml/min; Glucose 185 mg/dl (70-99); Potassium 3.6 mmol/L (3.5-5.1); Sodium 138 mmol/L (135-145); Total Bilirubin 2.4 mg/dl (0.2-1.3); Total Protein 4.4 g/dl (6.3-8.2); eGFR > 60.00
[2024-05-31] MEDS: NOVOLOG FLEXPEN-LOW RESISTANCE 1 UNITS SC ×2 (05:43→12:08)
[2024-05-31] MEDS: MIRALAX TUBE (07:08)
--- NOTE | 2024-05-31 07:45 | W.PN.CARDCBS ---
Today's Communication / Plan
-
No further VT on amiodarone.
Remains on pressors.
Platelet count at 16,000 off antiplatelet therapy
Prognosis extremely poor.
Agree with group burner machine prognosis and recommend comfort care.
Impression / Plan
-
PCP: Dr. Charlie Marley
Primary Citizenship Teacher: Dr. Almanza
Assessment:
Admitted with chest pain and acute HF 05/16/24
In-hospital VT arrest
monomorphic VT, CPR, Epi x2 and shock with ROSC 05/19/24
VT that broke to PEA, CPR, Epi x2 and Bicarb x2 with ROSC 05/21/24
VDRF
intubated 05/19/24 and then extubated 05/20/24
re-intubated 05/21/24 with right lung whiteout
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
ESRD on HD
CM EF 40% by echo 09/15/23, ejection fraction 25% 05/21/2024
NSTEMI related to stenosis of saphenous vein graft to PDA, peak troponin 20
CAD
s/p CABG with CABRAL to LAD, SVG to OM, SVG to PDA at [place] 12/09/22
s/p NSTEMI with patent bypass grafts, 70% OM stenosis being medically managed after cath at [facility] 08/2023
s/p NSTEMI with DAKSHA SVG-PDA 05/17/2024
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
Paroxysmal Afib
Not chronically anticoagulated due to anemia, not a candidate for watchman due to inability to tolerate even short-course OAC
mild
Hypertension
Hyperlipidemia
Type 2 diabetes
Glaucoma
Hyponatremia
bleeding from HD fistula site
Vomiting 05/20/24
Cardiogenic and septic shock
Thrombocytopenia
ECHO 08/2023 at [facility]: EF reportedly preserved
Echo 09/15/23: EF 40-45%, inferior wall akinesis, inferoseptal wall and base to mid inferolateral francisco hypokinetic, stage II diastolic dysfunction, moderate MR, mild with peak/mean 20/11. mild to mod aortic regurg
Echo 05/17/24: EF 45 to 50%, mild concentric LVH, hypokinesis of inferior septal wall and basal to mid lateral wall, mild MR, mild to moderate peak/mean 23/15, mild AI, mild pulmonic regurgitation.
Echo 05/21/24: EF 30-35%, global hypokinesis with inferior akinesis
Echo 05/22/24: EF 25 to 30%, global hypokinesis with inferior and inferolateral akinesis, dilated RV with reduced RV systolic function, moderate to severe MR, moderate to severe TR with PAP 64 mmHg
Cath 05/17/2024: LM: Calcified, distal tapering, LAD: 100% at origin, LAD fills via patent QUIANA, relatively small LAD with diffuse disease, circumflex heavily calcified, 50% proximal stenosis, 100% OM1 with patent vein graft but OM is very small,
retrograde filling less vibrant than before, RCA 100% at origin, SVG to PDA has 70% proximal stenosis, successful stenting prox SVG-PDA with 2.5 x 15 [place] DAKSHA
Plan:
Patient admitted with chest pain and acute HF 05/16/24. HD with UF performed with improvement in chest pain, but Troponin peaked at 20. Patient taken to airport maintenance laborer 05/17/24 and found to have anew SVG to PDA lesion that was stented. Patient then had an
in-hospital cardiac arrest 05/19/24 early AM with CPR, Epi x2 and shock with ROSC. Patient was intubated and then extubated 05/20/24. Later on 05/20/24 had an episode of vomiting. During the day 05/20/24 patient was on Bhavin and maxed out and Levophed
started plus increasing oxygen demands. CXR with right lung whiteout and ABG sent. Patient re-intubated 05/21/24. VT code 05/21/24 at 1900 and then broke into PEA. Treated with CPR, Epi x2 and Bicarb x1 with ROSC.
Overall prognosis remains very poor with no meaningful neurologic recovery.
Family awaiting neuro assessment off Fentanyl
He remains on Levophed
CRRT for volume management
cont IV Antibiotics
Platelet count at 16,000 and continues to fall. Hemoglobin at 9.3. Holding antiplatelets.
Ejection fraction is 25% and unable to give meds due to hypotension
Monomorphic VT at time of code on 05/19/24 suggesting scar based etiology. Then with VT breaking to PEA on 05/21/24.
Cont oral amiodarone. No further ventricular tachycardia.
Agree with recommended plan for comfort care.
Progress Note - Citizenship Teacher
Subjective
Date of Service: May 31, 2024
Remains unresponsive on the ventilator.
Objective
Labs:
05/31/24 04:55
Labs
Hgb 9.3 g/dL (13.0-18.0) L 05/31/24 04:55
Hct 27.0 % (39.0-52.0) L 05/31/24 04:55
Plt Count 16 10^3/uL (130-400) L* D 05/31/24 04:55
PT 15.2 Sec (11.4-14.6) H 05/30/24 05:16
INR 1.14 05/30/24 05:16
APTT 44.6 Sec (23.4-35.0) H 05/31/24 04:55
Sodium 138 mmol/L (135-145) 05/31/24 04:55
Potassium 3.6 mmol/L (3.5-5.1) 05/31/24 04:55
BUN 33 mg/dl (9-20) H 05/31/24 04:55
Creatinine 0.9 mg/dL (0.7-1.3) 05/31/24 04:55
Glucose 185 mg/dl (70-99) H 05/31/24 04:55
Vital Signs and I&O:
Vital Signs
Temp Pulse Resp BP Pulse Ox
97.6 F 72 15 109/37 100
05/31/24 04:36 05/31/24 06:00 05/31/24 06:00 05/30/24 08:12 05/31/24 06:00
Vital Signs
Temp Pulse Resp BP Pulse Ox
97.6 F 72 15 109/37 100
05/31/24 04:36 05/31/24 06:00 05/31/24 06:00 05/30/24 08:12 05/31/24 06:00
Intake & Output
05/29/24 05/30/24 05/31/24 06/01/24
06:59 06:59 06:59 06:59
Intake Total 2260.7 / 2316.9 3313.7 / 3398.8 2283.8 / 2283.8
Output Total 3374 / 3464 2985 / 3016 1124 / 1124 0 / 0
Balance -1113.3 / -1147.1 328.7 / 382.8 1159.8 / 1159.8 0 / 0
Physical Exam
Physical Exam
GEN: No distress, on vent
HEENT: supple, anicteric, mmm, ET tube
LUNGS: CTA, no wheezes/rales
CV: Reg, S1/S2, 1/6 syst LSB, no gallop
ABD: soft, BS+, NT/ND
EXT: No edema
NEURO: unresponsive
SKIN: No rash
--- NOTE | 2024-05-31 07:50 | W.PN.NEPH.PH ---
Today's Communication / Plan
-
continue CRRT
orders provided
pressor support to keep MAP >60
u/f set back to even
Assessment/Plan
-
Assessment:
CP
Elevated troponin
Transitional cell carcinoma of the bladder
s/p CABG - CABRAL to LAD, SVG to OM, SVG to PDA 12/09/22 at [place]
CM EF 40% by echo 09/15/23
Type 2 NSTEMI s/p diagnostic cath 08/2023 at [facility] with patent bypass grafts, 70% OM stenosis, medically managed
Post CABG afib
PCI 05/17/24
ESRD on HD MWF
mild
Hypertension
Hyperlipidemia
Type 2 diabetes
Glaucoma
Hyponatremia
Plan
keep SBP>90 with norepinephrine
CRRT continues
UF changed to even at weight now up to 77kg
unable to tolerate tube feeds due to vomiting
not a candidate for IHD currently
follow calcium level. (10.7) may require Aredia if it keeps rising
PLT count falling to 16
critical care time 31 minutes
-
-
Date of Service: May 31, 2024
CC / HPI / ROS
-
Chief Complaint:
ESRD
History of Present Illness:
critically ill in ICU
CRRT running, with hypotension with turning
tube feeds off due to vomiting
Status post ventricular tachycardia and PEA/cardiac arrest
Remains on 1 pressor support
Intubated (Fio2 30%), sedated, failed SBT 05/28
WBC at ~20
Calcium 10.7
PLT down to 16
Review of Systems:
Intubated
no fevers
vomited tube feeds
Labs
-
Labs:
WBC 20.2 10^3/uL (4.8-10.8) H 05/31/24 04:55
RBC 3.34 10^6/uL (4.70-6.10) L 05/31/24 04:55
Hgb 9.3 g/dL (13.0-18.0) L 05/31/24 04:55
Hct 27.0 % (39.0-52.0) L 05/31/24 04:55
Plt Count 16 10^3/uL (130-400) L* D 05/31/24 04:55
eGFR > 60.00 05/31/24 04:55
Niv-E-Iubzrijvloz Pept > 72688 pg/ml 05/16/24 11:51
Albumin 2.2 g/dl (3.5-5.0) L 05/31/24 04:55
Physical Exam
-
Vital Signs:
Vital Signs
Temp Pulse Resp BP Pulse Ox
97.6 F 72 15 109/37 100
05/31/24 04:36 05/31/24 06:00 05/31/24 06:00 05/30/24 08:12 05/31/24 06:00
Cardiovascular:: Regular rate and rhythm
Respiratory:: Bilateral: Coarse
Lung Excursion:: Normal
Abdomen:: Nontender and Soft
Bowel Sounds:: Normal
Extremity Edema:: +1: Bilateral:
Echeverria Catheter: No
Other Findings::
IJ HD catheter
[2024-05-31] MEDS: PACERONE 200 MG PO (07:53)
[2024-05-31] MEDS: LANTUS 0.1 UNITS SC (07:53)
[2024-05-31] MEDS: NSS (PRESERVATIVE FREE) 10 ML IV ×2 (07:54→20:03)
[2024-05-31] MEDS: PROTONIX IV 40 MG IV ×2 (07:54→20:03)
[2024-05-31] MEDS: SOLU-CORTEF 25 MG IV ×2 (07:54→20:02)
--- NOTE | 2024-05-31 07:58 | W.PN.UPDATE ---
Update Note
Progress Note Update
CRRT note:
sbp ~112
UF set to even
Remains on norepinephrine pressor support
1.5L RR
QB 250
4K bath
--- NOTE | 2024-05-31 08:07 | W.PN.INTV ---
Addendum entered and electronically signed by Mega Benitez MD 05/31/24 16:45:
Correction to subjective: Patient is on 30% FiO2, not 3%
Original Note:
Today's Communication / Plan
Recommendations
Severely poor prognosis/comfort care appropriate ---> now DNR but okay for defibrillation/synchronized cardioversion; GOC is an ongoing discussion
Continue mechanical ventilation with daily SAT/SBT
Keep fully off sedation as long is not agitated or having ventilator asynchrony
CRRT to be net (+) fluid balance given bedside US findings on 05/29/2024 (see update note for details) --> given CT chest/abdomen/pelvis findings (05/30), would now make slightly net negative
Antibiotics per ID
Trend CBC
Continue hydrocortisone to every 12h --> lowered to 25mg on 05/30 from 50mg
Hold TF and keep OGT to LIWS with serial abd exams; no SBO seen on today's flat plate
Maintain fecal management system
Hold heparin gtt and hold ASA given severe TCP
Transfuse 1 U plt andn trend plt count with goal >20k
PO amio with hold parameters
Wean down vasopressors as able-hemodynamics remain tenuous
Assessment
-
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, atrial fibrillation not on anticoagulation, diabetes, status post VT arrest, shock/epinephrine/ROSC/intubation 05/19/2024
Impression:
VDRF, intubated 05/19/2024
Extubated 05/20/2024
Reintubated 05/21/2024
Chest x-ray with right whiteout-likely atelectasis 05/21/2024
Shock: Suspect multiple mechanisms cardiogenic/septic
Gram-negative in the sputum-E. coli ESBL
Gram-negative in the urine-E. coli ESBL (ESBL is likely due to frequent self-medicating as outpatient with cipro)
Volume overload with bilateral pleural effusions, ascites + diffuse severe anasarca
Aspiration pneumonia
Severe acute colitis involving sigmoid colon + rectum - likely due to shock state with prolonged vasopressor requirements
Cardiac arrest, monomorphic VT, 05/19/2024
While on the commode
Shock/Epi/intubation/ROSC --> extubated on 05/20/2024
Anemia: Chronic disease and blood loss
Acute thrombocytopenia: Admission platelet count low at 98; now 27 (4T score: 4 - intermediate risk for KRISTIN)
Acute on chronic severe bilateral hydroureteronephrosis
---
Chronic medical conditions [employer]:
S/p DAKSHA graft 05/17/2024
Ongoing chest pain, NSTEMI
S/p CABG [facility] 12/09/2022
s/p NSTEMI August 2023, med managed at [facility]
Cardiomyopathy, EF 40% with
ESRD on HD
Mild oozing of left upper extremity fistula
Conditions present prior admission:
Transitional cell carcinoma, bladder
Status post transurethral resection of bladder tumor, most recently 50 tumors removed at [facility] 09/01/2023
Paroxysmal atrial fibrillation
Not on anticoagulation due to anemia
Hypertension/hyperlipidemia
Diabetes
Plan/recommendations:
-
Remains critically ill on vasopressors + intubated on CRRT now with severe colitis andn severe thrombocytopenia
Re-intubated 05/21/2024 and has remained intubated since
Developed cardiorespiratory arrest V. tach/PEA status post epi and CPR. Regained ROSC 05/21/2024 around 7 PM.
-
Intubated since 05/21/2024
Mechanical ventilation settings reviewed
Adjust vent daily based on blood gas
No significant secretions from ET tube - continue to monitor
Keep PIP<30-35
Chest x-ray 05/27/2024: Right mild to moderate pleural effusion. No significant infiltrates
CXR from 05/29/2024 shows patchy bibasilar opacities with mild interstitial prominence
CT chest obtained on 05/30/2024 showing multifocal pneumonia mainly in the right hemithorax with bilateral pleural effusions as well as severe acute colitis
Continue with intermittent suctioning-minimal secretions
Nebulizers as needed
Daily SAT/SBT
He is now completely off fentanyl drip since 05/30/2024 and Seroquel also stopped (was initially added on 05/29/2024 to help wean off fentanyl drip)
Will use prn versed and seroquel prn to help awaken the patient, if possible
Goal RASS score 0 to -1
-
Shock: Multiple mechanism septic/cardiogenic (echocardiogram with global hypokinesis decreased LVEF 20 to 30%/RV dysfunction as well)
Has evidence of multifocal right-sided pneumonia on imaging in addition to hypervolemia
Trend WBC
- On 05/28 he was again hypothermic-clinical picture not suggestive of worsening sepsis-minute ventilation has decreased, blood cultures negative.
Unclear if steroids playing a role at this point - no longer hypothermic since 05/28/2024
Penis previously with pus: Straight cath showed purulent urine.
ESBL E. coli in the urine
ESBL E. coli in the sputum
Blood culture (05/22/2024 - NGTD)
Infectious disease following : now back on Zosyn s/p meropenem (05/22 - 05/29/2024) s/p vanc/zosyn + cipro
Would favor completing 2 weeks worth of Abx from date of first negative blood Cx (05/22/2024)
MRSA screening negative
-
Continue levophed with goal SBP>90; holding vasopressin
Arterial line in place.
Stress dose of steroids decreased to every 12 on 05/27/2024 --> on 05/30 I changed to 25mg IV q12hr
Lactate level of 4 noted 05/23/2024. Suspect part of it is due to liver dysfunction Lactate normal as of 05/29/2024
Ammonia level normal (checked 05/31/2024)
-
Normal TSH (05/26/2024)
-
Abnormal LFTs: Suspect shock liver.
Abdominal ultrasound unremarkable (05/23/2024)
C/t trend
Ammonia level normal (05/31/2024)
-
Acidosis resolved: Continue CRRT -unable to tolerate dialysis due to hemodynamic instability.
Follow BMP
On 05/28 I started heparin gtt to help reduce risk of thrombosis --> given the drop in plt count, I stopped heparin gtt and DC'd ASA on 05/30/2024
He is now getting net positive fluid balance from CRRT given that his IVC was collapsed on bedside ultrasound on 05/29/2024 --> given the CT chest/Abd/Pelvis findings on 05/30, would start to cautiously pull fluid again as tolerated to make slightly
net negative fluid balance
-
Thrombocytopenia noted: Low and now is <20k
Transfuse 1 u platelet now and re-check CBC s/p transfusion to reach goal >20k
Plavix has been discontinued --> given recent stent placed on 05/17/2024 to SVG-PDA, will try to resume once clinically able to
Trend platelet count - both heparin gtt + ASA stopped on 05/30 due to worsening plt count
Monitor for bleeding
4T score is 4 (intermediate risk for KRISTIN) --> heparin associated platelet-Ab is negative
-
Cardiology following the patient:
ICD prior to discharge if patient improved clinically - defer to cardiology
Echocardiogram 05/17/2024: EF 45% with hypokinesis inferoseptal wall, moderate MR, moderate aortic stenosis.
LVEF 04/20/2024 showed decline 20 to 30%. No significant valvular abnormalities. No pericardial effusion
Echocardiogram 05/22/2024: Ejection fraction 25-30% with global hypokinesis with inferior and inferior lateral akinesis. Dilated right ventricle with reduced right ventricular systolic function. Moderate to severe MR. Moderate to severe TR with PH
-
Unclear whether monomorphic VT was due to scar or recent drug-eluting stent/graft
V. tach/PEA arrest again on 05/21/2024
Due to bradycardia with HR in 40s, on 05/28 amiodarone IV drip was changed to PO amio with holding parameters
Cardiology following closely
ASA on hold (see above)
Plavix on hold 05/25/2024 due to thrombocytopenia
-
Chronic kidney disease hemodialysis dependent.
Case discussed with nephrology.
Transitioned to CRRT since 05/23/2024
Hold midodrine for now.
Black stools: Stool has been brown as of 05/28/2024
Trend H/H and transfuse if needed to keep >7; keep plt>20k
Continue PPI 40mg BID
Plavix also on hold; resume once clinically able to and plt stable
No evidence for active bleeding at this point.
Unfortunately not a candidate for any other intervention at this point
Hypoglycemia: Resolved
Insulin drip discontinued
Will continue to monitor closely
Temporarily was placed on D5 - now discontinued
Target 140-180
Insulin sliding scale
Diabetic COOK FRY on board
He was occasionally following commands with sedation breaks, now he is minimally opening his eyes but no longer following commands as of 05/30/[address]24
[address] head on 05/30/2024 without any acute intracranial abnormalities
Off fentanyl drip and off Seroquel since 05/30
Continue to monitor
Use prn medications for agitation for vs vent asynchrony
Of note, patient had delirium prior intubation
Dobbhoff tube-was tolerating tube feedings at goal but developed vomiting overnight 05/27/2024. Tube feedings were on hold --> resumed as of 05/28/2024 but vomited again on 05/30
Now OGT on LIWS ---> continue this for now and can trial clamping trial tomorrow if no longer vomiting and abdominal not distended
PPI for GI prophylaxis
DVT prophylaxis: SCDs for now given severe TCP
Poor prognosis
Dr. Salcido as discussed the case with infectious disease, cardiology nephrology and primary team.
Dr. Salcido as discussed with son multiple times over the course of her hospital stay. Prognosis is poor and he understands. He would like to continue with aggressive support. Likely will need tracheotomy and a feeding tube.
Dr. Salcido updated son at the bedside 05/22/2024, 05/23/2024, 05/24/2024, , 05/26/2024 discussed possibility of DNR status. He will think about it. He understands that likely if patient survives he will need long-term care, suspected unlikely
will be able to go home independently.
Dr. Benitez discussed the case with patient's son, Devante, and daughter in law, answered all their questions. Pt remains full code despite poor prognosis
Dr. Benitez discussed in detail today (05/29/2024) with son, Devante, and [facility] and code status reviewed. Son wants to set up a family meeting, aiming for tomorrow at around 1230-1PM. For now, continue full medical management, but leaning toeards
terminal extubation/hospice.
Dr. Benitez had a family meeting on 05/30/2024 to discuss goals of care/code status/answer any other additional questions. Patient has extremely guarded prognosis. he remains full code --> discussed code status again this AM (05/31/2024) with son
and pt now made DNR but ok for defibrillation/synchronized cardioversion and mechanical ventilation/CRRT
Critical care statement: A total of 46 minutes of critical care time was provided for this patient today. This includes management of unstable vital signs, evaluation of the patient at bedside, reviewing the patient's pertinent medical records
including ventilator settings, arterial blood gases, radiographs, microbiology, laboratory evaluations and discussion with primary team, critical care nursing, and respiratory therapy.
Subjective Dataa
Subjective Data
Date of Service:
Date of Service: May 31, 2024
Chief Complaint: [employer] Follow Up (Acute hypoxemic/hypercapnic respiratory failure)
Subjective:
Pt seen and evaluated this AM. Plt count low at 16 this AM. CRRT running and is running net neutral volume status. He is trying to open eyes to command, but otherwise not following commands. Vomited tube feeds overnight, and OGT in place this AM
on LIWS. C diff Ag positive, toxin negative. Brown, loose stool coming out of FMS. No urine output. BP 87/37 and HR 67 and saturating 97% on AC/VC on 14/450/5/3%, PIP 26, VTE 496 and breathing at 14 breaths/min. Pt's son, Devante, at bedside,
and all questions were answered - pt now made DNR (see separate update note for details).
Review of Systems
General: Unobtainable - Pat Unresp
Objective Data
Data Reviewed
Vital Signs / I&O / Oxygen:
Vital Signs
Temp Pulse Resp BP Pulse Ox
97.4 F 90 17 127/48 100
05/31/24 08:06 05/31/24 08:00 05/31/24 08:00 05/31/24 07:53 05/31/24 08:04
Intake and Output
05/30/24 05/31/24 06/01/24
06:59 06:59 06:59
Intake Total 3313.7 / 3398.8 2283.8 / 2312.3 141.9 / 141.9
Output Total 2985 / 3016 1124 / 1124 0 / 0
Balance 328.7 / 382.8 1159.8 / 1188.3 141.9 / 141.9
SaO2 [CPAP/PSV] 99
SaO2 [ASV] 100
SaO2 [A/C] 100
SaO2 100
Nasal Cannula flow liters per 95
minute
Physical Exam
General: Respiratory Distress (negative), Comfortable, Chills (negative) and Sweats (negative)
HEENT: Normocephalic, Anicteric and Other (ETT in place)
Cardiovascular: S1-S2, Murmur (+KRISTEN heard across precordium), Rub (n) and Peripheral Edema (No lower extremity edema bilaterally)
Respiratory: Wheeze (n), Crackles (n), Rhonchi (n), Non-Labored Respirations and ET Tube (No significant secretions)
GI: Soft, Distended, Non Tender, Other (Hypoactive bowel sounds) and Other (Fecal management system-brown stool)
Neurology: Unresponsive and Other (Sedated; pupils +1-2 mm bilaterally)
Skin: Warm, Dry, Cyanosis (n), Jaundice (n), Rash (n) and Other (Left upper extremity AV fistula)
Labs/Micro/Reports
Lab Data
05/31/24 04:55
05/31/24 07:50
Laboratory Results
05/30/24 05/31/24
05:16 04:55
PT 15.2 H
INR 1.14
APTT 44.6 H
Microbiology
05/30/24 21:27 Feces/Stool C. difficile GDH Antigen & Toxins - Final
C. difficile antigen positive, toxin negative.
Clostridium difficile present, but toxin not detected.
Patient may be a carrier, colonized with nontoxinogenic
strain or the level of toxin in sample is below detection
limits. This information should be used in conjunction with
the patient's clinical history.
--- NOTE | 2024-05-31 08:07 | PN.DE.MGMTRT ---
Insulin Management
- -
05/31/2024 Diabetes management Follow up:
83-year-old male with complex PMH including CAD s/p CABG, recent DAKSHA/graft 05/17/2024, ESRD on HD, bladder CA ongoing treatment at [facility], A-Fib, T2DM. Pt is s/p VT arrest, shock/epinephrine/ROSC/intubated 05/19, extubated 05/20 and
reintubated 05/21 due to Septic shock source. A1C on admission 7.1%, was taking Onglyza 5mg daily. Pt has been started corticosteroid stress doses, contributing to hyperglycemia-->critical care glycemic protocol for optimal glucose control. Cr
4.8, eGFR 11.3-->Cr 1.0, eGFR >60 today
Pt remains intubated, critically ill, on CRRT, on pressors, on steroids and tube feeds at 40cc/hr, unable to interview.
05/30 Fasting glucose 219. Tube feeds at 40 per hour. Glucose has consistently trended up with increased tube feeds. Patient did receive 8 units lantus today. Will restart 5 units novolog Q 6 hours, first dose @ 12 noon, change moderate to low
corrective insulin Q 6 hours. Glucose improved to 193, patient vomited, tube feeds stopped overnight.
05/31 Will hold Q 6 hour novolog continue Q 6 hour corrective insulin and lantus 10 units in AM
Will follow and make further insulin adjustments if needed.
Discussed with patients nurse.
Diabetes History
- -
Type of Diabetes: 2
Pre-Admission Diabetes Regimen
05/30/24 05/30/24 05/30/24
12:03 12:59 14:57
Creatinine Cancelled Cancelled 0.9
05/30/24 05/30/24 05/31/24
18:38 19:25 01:53
Creatinine Cancelled 0.9 0.9
05/31/24
04:55
Creatinine 0.9
Lab Results
Hemoglobin A1c 7.1 % (4.0-5.6) H 05/16/24 19:00
Insulin Pump Settings
IP Diabetes Regimen
05/30/24 05/30/24 05/30/24
08:47 12:03 12:59
Glucose Cancelled Cancelled
POC Glucose 238 H 255 H
05/30/24 05/30/24 05/30/24
14:57 18:00 18:38
Glucose 216 H Cancelled
POC Glucose 193 H
05/30/24 05/31/24 05/31/24
19:25 00:46 01:53
Glucose 195 H 167 H
POC Glucose 134 H
05/31/24
04:55
Glucose 185 H
POC Glucose
Patient Education
[2024-05-31 08:09] LABS: Glucose - Point of Care 169 mg/dl (70-99)
[2024-05-31 08:14] LABS: Ionized Calcium 1.57 mMOL/L (1.15-1.33)
--- NOTE | 2024-05-31 08:14 | PTCARENOTE ---
Addendum entered by Jayna Schilling RN 05/31/24 08:20:
right radial jens zeroed and functioning. pt remains with doppler pulses.
Original Note:
pt received from previous rn- ett to vent, does not follow commands, nonpurposeful movements. cpot 3. turned and repositioned. nsr with bbb on monitor. levophed continues to maintain systolic >90. crrt discussed with Dr. Freedman- ordered to run pt
net even. ogt remains to low int. suction. doppler pulses. right picc flushes with good blood return. all safety precautions in place.
[2024-05-31 08:45] LABS: Blood Urea Nitrogen 32 mg/dl (9-20); Calcium 10.8 mg/dl (8.4-10.2); Carbon Dioxide 22 mmol/L (22-30); Chloride 106 mmol/L (98-107); Estimated Creatinine Clearance 62 ml/min; Glucose 168 mg/dl (70-99); Magnesium 2.1 mg/dl (1.6-2.3); Phosphorus 3.3 mg/dl (2.5-4.5); Potassium 3.8 mmol/L (3.5-5.1); Sodium 137 mmol/L (135-145); eGFR > 60.00
--- NOTE | 2024-05-31 08:53 | W.PN.ID1 ---
Date of Service
Date of Service: May 31, 2024
Today's Communication
suspect ischemic colitis - C difficile colonization without active infection at this time
hydronephrosis likely related to adjacent inflamed bowel
at risk of spontaneous hemorrhage and stroke; thrombocytopenia is multifactorial and persistnetly correctable
Patient is critically ill with poor prognosis with interval decline, continue to recommend hospice
Assessment / Plan
Shock - likely combined cardiogenic and septic - improving
VAP and UTI
multisystem organ failure
NSTEMI, CAD
ESRD
Transitional cell cancer of the bladder
- pressors increased overnight
CT c/a/p
- bilateral pneumonia
- colitis - ischemic colitis high on my differential given persistent shock - colonized with C diff but no current active infection, stool culture in progress
- hydronephrosis without distended bladder - likely due to adjacent colitis
- when stable could consider right lung US and possible thoracentesis
- blood cultures x2 in finalized negative
- sputum culture with ESBL E coli
- urine culture 100 K ESBL E coli
- c/w zosyn - dosed for CRRT
Patient is critically ill with poor prognosis with interval decline, continue to recommend hospice
Chief Complaint
-: UTI and Other (shock - septic and cardiogenic, MDRO)
Subjective / Review of Systems
remains afebrile
increased dose of norepi overnight
plt further declined
CT head w/o contrast: no stroke
CT c/a/p: bilateral pneumonia, colitis, bilateral hydronephrosis, multiple inflamed jejunal diverticula. Multiple intraperitoneal abscesses or peritoneal metastatic disease are less likely diagnostic possibilities.
Colonization with C diff - ag positive toxin negative
goals of care conversations ongoing
Vital Signs / Physical Exam
Vital Signs
Vital Signs
Temp Pulse Resp BP Pulse Ox
97.4 F 90 17 127/48 100
05/31/24 08:06 05/31/24 08:00 05/31/24 08:00 05/31/24 07:53 05/31/24 08:04
Physical Exam
Constitutional: No Acute Distress
Cardiovascular: Regular Rate and S1/S2; Negative Murmur or Rub
Pulmonary: Clear and Symmetric; Negative Wheezes or Rales
Gastrointestinal: Soft, Non Tender, Distended and Decreased Bowel Sounds
Skin: Warm and Dry; Negative Rash or Jaundice
Neurological: Negative Awake or Alert
Objective Data
Lab Data
Lab Results
05/31/24 04:55
05/31/24 07:50
PT 15.2 Sec (11.4-14.6) H 05/30/24 05:16
INR 1.14 05/30/24 05:16
APTT 44.6 Sec (23.4-35.0) H 05/31/24 04:55
Estimated Creat Clear 62 ml/min 05/31/24 07:50
Lactic Acid 0.9 mmol/L (0.7-2.0) 05/29/24 05:28
Total Bilirubin 2.4 mg/dl (0.2-1.3) H 05/31/24 04:55
AST 40 U/L (17-59) 05/31/24 04:55
ALT 73 U/L (0-50) H 05/31/24 04:55
Alkaline Phosphatase 103 U/L (38-126) 05/31/24 04:55
Most recent labs reviewed.
Micro Results:
05/30/24 21:27 C. difficile GDH Antigen & Toxins - Final
Feces/Stool C. difficile antigen positive, toxin negative.
Clostridium difficile present, but toxin not detected.
Patient may be a carrier, colonized with nontoxinogenic
strain or the level of toxin in sample is below detection
limits. This information should be used in conjunction with
the patient's clinical history.
05/30/24 21:27 Salmonella/Shigella Culture - Pending
Feces/Stool Campylobacter Culture - Pending
- Pending
Shiga Toxin Test - Pending
Stool Leukocytes - Pending
05/22/24 21:38 Blood Culture - Final
Blood/Venous No Growth - Final Report
05/22/24 20:58 Blood Culture - Final
Blood/Venous No Growth - Final Report
05/21/24 09:43 Urine Culture - Final
Urine Escherichia coli - ESBL
05/21/24 10:17 Respiratory Culture - Final
Endotracheal Escherichia coli - ESBL
Gram Stain - Final
05/16/24 18:42 MRSA Screen - Final
Nose No Methicillin Resistant Staphylococcus aureus isolated.
Care Review
Plan reviewed with: Physician
--- NOTE | 2024-05-31 09:55 | W.PN.UPDATE ---
Update Note
Progress Note Update
I discussion this morning with patient's son, Devante. He has been thinking about the patient all night and has agreed to no CPR.
He still wants full medical management, as well as defibrillation + cardioversion, if needed. Platelet count continues to drop, heparin drip has been off since yesterday and aspirin has also been discontinued since yesterday. He is okay with
blood transfusions and 1 unit platelet is being ordered now with type and screen. I answered all of the son's questions and emotional support was provided.
[2024-05-31 10:30] LABS: Ammonia < 9 umol/L (9-30)
--- NOTE | 2024-05-31 11:32 | PTCARENOTE ---
unable to obtain correct hourly pressures for crrt due to troubleshooting. assessment unchanged. son at bedside, updated by dr. wilson. discussed pt in rounds, continue to hold tube feeds.
[2024-05-31 12:18] LABS: Glucose - Point of Care 154 mg/dl (70-99)
--- NOTE | 2024-05-31 12:43 | W.PN.HOSP.TC ---
Addendum entered and electronically signed by Que Green MD 05/31/24 15:02:
seen and examined by me independently in collaboration with the medical claims processor Flavia.
Lab data and imaging data reviewed.
Addendum as below :
Patient with unresponsiveness. Barely opens eyes but does not follow any commands.
Remains hypotensive requiring vasopressors.
Remains on ventilatory support.
No resp distress; chest CTA anteriorly
BM hypoactive with sligthly distended abdomen which is soft.
UE BL with edema as well LE.
Plts further down at 16;anemic with low stable HH.
Cr 0.8, WT increasing again.
CT abdomen with with acute severe colitis. C. difficile antigen positive but toxin negative. CT also shows severe bilateral hydroureteronephrosis. Creatinine is okay. Will bladder scan for bladder outlet obstruction.Pt with CKD on IHD at home
.Unclear if he makes much urine.
patient remains critically ill with organ dysfunction and persistent shock.
Continue with current treatment and follow goals of care with the family on regular basis.
Discussed with golf shoe spike assembler today-he had a long discussion with the son and the rest of the family and is currently DNR. Will continue the current active and supportive treatment .
Original Note:
Today's Communication/Plan
-
Continue to ventilation and nor-epi as possible. Continue CRRT. Continue Zosyn. Cultures for colitis pending. Heparin drip discontinued with platelet count 16. Patient in critical condition.
Assessment / Plan
Assessment / Plan
Cardiogenic / Septic shock
- VT arrest x2, 05/17 successful DAKSHA, Echo 05/22 25-30%
- Will require ICD prior to discharge
- Amio gtt -> PO
- Cards following without any further recs at this time
- If recurs may need to try Lidocaine gtt/Defibrillation
- Keep K >4, Keep Mg >2
- Monitor on tele
- norepinephrine cont. phenylephrine and vasopressin weaned off
- Continue corticosteroids
- IVC collapsed yesterday on US -> 500cc fluid bolus and 50cc fluid increase daily on CRRT
- Endotracheal and urine culture ESBL - sensitive to Zosyn -> Switch to Zosyn per ID
- WBC plateau
- X-ray cannot rule out pneumonia, but residual fluid post mucous plug also possible
- meropenem (9 days) -> Zosyn. Antibiotics day 05/31
Acute hypoxemic respiratory failure secondary to mucous plugging
- Chest x-ray full sided white out right lung 05/21
- Extubated 05/20/24, reintubated 05/21
- Continue mechanical intubation
- Continues to fail weaning trials
- Consider trach tube placement tuesday
- Management per golf shoe spike assembler
Severe Colitis
-Severe colitis found on abdominal CT
� Cultures pending
� C. difficile antigen positive, toxin negative
� ID following
ESRD
- CRRT
Electrolyte imbalance / metabolic acidosis
- CRRT
- Today hypercalcemia
- May add aredia per nephrology
NSTEMI/CAD
- s/p CABG with CABRAL to LAD, SVG to OM, SVG to PDA at [place] 12/09/22
- s/p NSTEMI with patent bypass grafts at [facility] 08/2023
- 05/17 cath successful DAKSHA
- Dual antiplatelet therapy for next 6 to 10 months
- Clopedigrel held for Plt <50 per cardiology. Moved to heparin gtt for anticoagulation with low ptl -> Discontinued with plt 22 -> today 16
- ASA discontinued due to low plt
- Will need ICD prior to discharge per cards
HFrEF
- Echo 05/22 LVEF 25-30% ->15-20% visualized by golf shoe spike assembler on bedside pocus on 05/29
- Fluid volume removal per CRRT -> net (+) fluid replacement 50cc daily to stabilize BP after seeing collapsed IVC
- Unable to provide GDMT due to hypotension
- Will need ICD prior to discharge
Paroxysmal A-fib
� No Eliquis due to history of hematuria and severe anemia
� On DAPT therapy -> Heparin gtt -> d/c with plt 22
� Previously on Coreg, currently on ammio PO
Thrombocytopenia
- today 22 -> 16
- On DAPT with recent cath 05/17 -> Heparin gtt discontinued with platelets 16
- HIT antibody pending
- Monitor
Elevated LFTs
- Likely shock liver
- Hep panel (-) and RUQ unremarkable for acute etiology
- Monitor
Heme-occult blood (+)
- Monitor CBC for signs of bleeding
- H&H stable
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
- Dam[place]. TURBT 50 lesions were reportedly worked on on 09/01/2023.
- developed hematuria and a temporary placement of renal stent followed by continuous bladder irrigation
- Eliquis discontinued
Type 2 diabetes
- Hemoglobin A1c 7.1
- Management per diabetic nurse
Dyslipidemia
- Continue statin
#B12 deficiency�replace
#Chronic vertigo
Full Code
CODE STATUS changed to limited DNR after long discussion between family and golf shoe spike assembler yesterday.
Anticipated Discharge: > 48 hours
Subjective/Interval History
-
Date of Service: May 31, 2024
Objective Data
-
Labs:
Laboratory Results
05/31/24 05/31/24 05/31/24
01:53 04:55 07:50
WBC 20.2 H
Hgb 9.3 L
Hct 27.0 L
Plt Count 16 L* D
APTT 44.6 H
Sodium 139 138 137
Potassium 3.7 3.6 3.8
Chloride 106 105 106
Carbon Dioxide 25 24 22
BUN 32 H 33 H 32 H
Creatinine 0.9 0.9 0.8
Glucose 167 H 185 H 168 H
Calcium 10.7 H 10.7 H 10.8 H
Total Bilirubin 2.4 H
AST 40
ALT 73 H
Alkaline Phosphatase 103
05/31/24
14:00
WBC
Hgb
Hct
Plt Count
APTT
Sodium Pending
Potassium Pending
Chloride Pending
Carbon Dioxide Pending
BUN Pending
Creatinine Pending
Glucose Pending
Calcium Pending
Total Bilirubin
AST
ALT
Alkaline Phosphatase
Vital Signs:
Vital Signs
Temp Pulse Resp BP Pulse Ox
97.6 F 77 14 133/51 100
05/31/24 12:16 05/31/24 12:16 05/31/24 12:16 05/31/24 12:16 05/31/24 12:00
I&O
05/30/24 05/31/24 06/01/24
06:59 06:59 06:59
Intake Total 3313.7 / 3398.8 2283.8 / 2312.3 355.9 / 355.9
Output Total 2985 / 3016 1124 / 1124 129 / 129
Balance 328.7 / 382.8 1159.8 / 1188.3 226.9 / 226.9
Review of Systems
-
Unable to obtain full review of systems at this time due to: Patient Intubation
Physical Exam
-
Respiratory: Clear to Auscultation
Cardiac: Regular Rhythm and S1/S2
GI: Distended; Negative Normal Bowel Sounds (Increased bowel sounds)
Rectal: Other (Liquid brown stool and rectal trumpet bag)
Musculoskeletal: Edema, Right Upper Extrem and Edema, Left Upper Extrem
Skin: Warm
Neuro: Other (Able to squeeze fingers and open eyes on command. Sluggish.)
[2024-05-31] MEDS: RFP-401 HD Soln (K+ 4 mEq/L) 15000 ML CRRT-IRR (13:58)
--- NOTE | 2024-05-31 14:30 | PTCARENOTE ---
infused one unit of platelets as per order. pt placed on wean at 1310. pt more arousable following intermittent commands.
[2024-05-31 14:32] LABS: Ionized Calcium 1.62 mMOL/L (1.15-1.33)
[2024-05-31 14:34] LABS: Blood Urea Nitrogen 31 mg/dl (9-20); Calcium 10.9 mg/dl (8.4-10.2); Carbon Dioxide 24 mmol/L (22-30); Chloride 105 mmol/L (98-107); Estimated Creatinine Clearance 62 ml/min; Glucose 149 mg/dl (70-99); Phosphorus 3.7 mg/dl (2.5-4.5); Potassium 3.8 mmol/L (3.5-5.1); Sodium 136 mmol/L (135-145); eGFR > 60.00
--- NOTE | 2024-05-31 15:54 | PTCARENOTE ---
new cartridge for crrt started, Dr. Freedman at bedside and aware. ordered to stop crrt if new cartridge were to be needed. assessment unchanged further. levophed continues to maintain systolic >90
[2024-05-31] MEDS: AREDIA 270 MG IV (16:17)
--- NOTE | 2024-05-31 16:39 | PTCARENOTE ---
new cartridge for crrt started, Dr. Freedman at bedside and aware arterial access pulling air- able to troubleshoot correctly. ordered to stop crrt if new cartridge were to be needed. assessment unchanged further. levophed continues to maintain
systolic >90.
[2024-05-31] MEDS: CRESTOR 10 MG TUBE (17:09)
[2024-05-31 17:19] LABS: Glucose - Point of Care 133 mg/dl (70-99)
[2024-05-31 18:06] LABS: Hematocrit 26.6 % (39.0-52.0); Hemoglobin 9.1 g/dL (13.0-18.0); Mean Corp Hgb Conc. 34.2 g/dL (33.0-37.0); Mean Corpuscular Hgb 27.5 pg (27.0-31.0); Mean Corpuscular Volume 80.4 fL (80.0-94.0); Platelet Count 27 10^3/uL (130-400); Red Blood Cell Count 3.31 10^6/uL (4.70-6.10); Red Cell Dist. Width 26.2 % (11.5-14.5); White Blood Cell Count 25.5 10^3/uL (4.8-10.8)
[2024-05-31] MEDS: HEPARIN 1200 UNITS INTRACATH (18:24)
[2024-05-31] MEDS: HEPARIN 1000 UNITS INTRACATH (18:31)
--- NOTE | 2024-05-31 18:56 | PTCARENOTE ---
crrt stopped at 181 due to air in arterial line and per Dr. Freedman's order. ordered to hep lock dialysis ports- completed. son and family at bedside and updated about plan of care. labs discussed with Dr. Talley. pt continues on levophed. pt
off wean at 1830- placed back on AC.
--- NOTE | 2024-05-31 20:00 | PTCARENOTE ---
Resumed care of pt this evening. Received pt intubated and vented. Pt also on levo gtt infusing via right PICC. Pt remains off CRRT. Pt continues to be minimally responsive. Pt is NSR on tele monitor, has +4 GA, and B/L pedal pulses are + via
doppler. Pt tolerating vent settings satting at 100% pulse ox. On auscultation pt lungs sound diminished TO. Pt NPO, has a round distended abdomen w/ hypoactive BS. FMS in place draining brown liquid stool. Pt is anuric. Rt arm skin tear dressings
C/D/I.
[2024-05-31] MEDS: XALATAN OPHTHALMIC SOLUTION 1 DROP BOTH EYES (23:37)
[2024-05-31 23:46] LABS: Glucose - Point of Care 119 mg/dl (70-99)
[2024-06-01] VITALS: BP_SYST 85
--- NOTE | 2024-06-01 | PTCARENOTE ---
Levo gtt titrated up to 20mcg/min per protocol.
[2024-06-01] MEDS: NOVOLOG FLEXPEN-LOW RESISTANCE SC ×3 (00:39→12:38)
[2024-06-01] MEDS: ZOSYN 50 IV ×3 (01:57→17:07)
[2024-06-01 02:07] VITALS: BP_SYST 88
[2024-06-01] MEDS: LEVOPHED 258 MG IV ×3 (03:30→13:27)
[2024-06-01 04:54] LABS: B.E. -3.2 mmol/L; HCO3 21.1 mmol/L (21-28); O2 Saturation % 98.8 % (94-98); PCO2 34 mmHg (35-48); PO2 130 mmHg (83-108)
[2024-06-01 05:00] VITALS: BP_SYST 87
--- NOTE | 2024-06-01 05:00 | PTCARENOTE ---
Levo gtt titrated up to 26 mcg/min per protocol via right PICC.
[2024-06-01 05:07] LABS: Fibrinogen 370 MG/DL (199-459)
[2024-06-01 05:14] LABS: Hematocrit 25.3 % (39.0-52.0); Hemoglobin 8.7 g/dL (13.0-18.0); Mean Corp Hgb Conc. 34.4 g/dL (33.0-37.0); Mean Corpuscular Hgb 27.6 pg (27.0-31.0); Mean Corpuscular Volume 80.3 fL (80.0-94.0); Platelet Count 27 10^3/uL (130-400); Red Blood Cell Count 3.15 10^6/uL (4.70-6.10); Red Cell Dist. Width 26.3 % (11.5-14.5); White Blood Cell Count 25.3 10^3/uL (4.8-10.8)
[2024-06-01 05:19] LABS: ALT (SGPT) 59 U/L (0-50); AST (SGOT) 44 U/L (17-59); Albumin 2.1 g/dl (3.5-5.0); Alkaline Phosphatase 113 U/L (38-126); Blood Urea Nitrogen 35 mg/dl (9-20); Carbon Dioxide 22 mmol/L (22-30); Chloride 106 mmol/L (98-107); Estimated Creatinine Clearance 41 ml/min; Glucose 106 mg/dl (70-99); Magnesium 1.9 mg/dl (1.6-2.3); Phosphorus 3.9 mg/dl (2.5-4.5); Potassium 3.7 mmol/L (3.5-5.1); Sodium 138 mmol/L (135-145); Total Bilirubin 2.7 mg/dl (0.2-1.3); Total Protein 4.3 g/dl (6.3-8.2); eGFR 59.63
[2024-06-01 05:27] LABS: NT-proBNP 25700 pg/ml
[2024-06-01 06:00] VITALS: BMI 28.2
[2024-06-01 07:00] VITALS: BP_SYST 106
[2024-06-01] MEDS: NSS (PRESERVATIVE FREE) 10 ML IV (07:29)
[2024-06-01] MEDS: PROTONIX IV 40 MG IV (07:29)
[2024-06-01] MEDS: SOLU-CORTEF 25 MG IV (07:29)
[2024-06-01] MEDS: PACERONE 200 MG PO (07:30)
[2024-06-01] MEDS: MIRALAX 17 GRAMS TUBE (07:30)
--- NOTE | 2024-06-01 07:46 | PN.DE.MGMTRT ---
Insulin Management
- -
06/01/2024 Diabetes management F/U:
83-year-old male with complex PMH including CAD s/p CABG, recent DAKSHA/graft 05/17/2024, ESRD on HD, bladder CA ongoing treatment at [facility], A-Fib, T2DM. Pt is s/p VT arrest, shock/epinephrine/ROSC/intubated 05/19, extubated 05/20 and
reintubated 05/21 due to Septic shock source. A1C on admission 7.1%, was taking Onglyza 5mg daily. Pt has been started corticosteroid stress doses, contributing to hyperglycemia-->critical care glycemic protocol for optimal glucose control. Cr
4.8, eGFR 11.3-->Cr 1.0, eGFR >60 today
Pt remains intubated, critically ill, on pressors, on steroids, off CRRT, unable to interview.
Q 6 hour NovoLog was held yesterday due to vomiting and TF being on hold. Q 6 hour corrective insulin and Lantus 10 units in AM were continued.
05/21 Glucose stable and in range, 133 to 169, TF remained off overnight.
Will make no changes to current regimen: Lantus 10 units in AM and low corrective Q6 hrs
Will follow and make further insulin adjustments if needed.
Diabetes History
- -
Type of Diabetes: 2 requiring insulin
Pre-Admission Diabetes Regimen
05/31/24 05/31/24 05/31/24
07:50 14:09 20:00
Creatinine 0.8 0.8 Cancelled
06/01/24
04:39
Creatinine 1.2
Lab Results
Hemoglobin A1c 7.1 % (4.0-5.6) H 05/16/24 19:00
Insulin Pump Settings
IP Diabetes Regimen
05/31/24 05/31/24 05/31/24
07:47 07:50 12:04
Glucose 168 H
POC Glucose 169 H 154 H
05/31/24 05/31/24 05/31/24
14:09 17:07 20:00
Glucose 149 H Cancelled
POC Glucose 133 H
05/31/24 06/01/24
23:34 04:39
Glucose 106 H
POC Glucose 119 H
Patient Education
--- NOTE | 2024-06-01 08:23 | W.PN.INTV ---
Today's Communication / Plan
Recommendations
Severely poor prognosis/comfort care appropriate ---> now DNR but okay for defibrillation/synchronized cardioversion; GOC is an ongoing discussion
Continue mechanical ventilation with daily SAT/SBT
Keep fully off sedation as long is not agitated or having ventilator asynchrony
CRRT stopped on 05/31/2024 due to air in HD catheter
Antibiotics per ID
Trend CBC
Continue hydrocortisone to every 12h --> lowered to 25mg on 05/30 from 50mg --> wean down to 25mg IV daily for next 48 hrs then stop
CLamping trial of OGT, and if abd remains stable by tonight then will resume TF at trickle rate
Maintain fecal management system
Hold heparin gtt and hold ASA given severe TCP
Keep pltl >20k, Hb>7
PO amio with hold parameters
Wean down vasopressors as able-hemodynamics remain tenuous
Assessment
-
83-year-old male with complex medical history including coronary disease with bypass surgery, recent drug-eluting stent and graft 05/17/2024, end-stage renal disease on hemodialysis, transitional cell carcinoma the bladder ongoing treatment at [place], atrial fibrillation not on anticoagulation, diabetes, status post VT arrest, shock/epinephrine/ROSC/intubation 05/19/2024
Impression:
VDRF, intubated 05/19/2024
Extubated 05/20/2024
Reintubated 05/21/2024
Chest x-ray with right whiteout-likely atelectasis 05/21/2024
Shock: Suspect multiple mechanisms cardiogenic/septic
Gram-negative in the sputum-E. coli ESBL
Gram-negative in the urine-E. coli ESBL (ESBL is likely due to frequent self-medicating as outpatient with cipro)
Volume overload with bilateral pleural effusions, ascites + diffuse severe anasarca
Aspiration pneumonia
Severe acute colitis involving sigmoid colon + rectum - likely due to shock state with prolonged vasopressor requirements
Cardiac arrest, monomorphic VT, 05/19/2024
While on the commode
Shock/Epi/intubation/ROSC --> extubated on 05/20/2024
Anemia: Chronic disease and blood loss
Acute thrombocytopenia: Admission platelet count low at 98; now 27 (4T score: 4 - intermediate risk for KRISTIN)
Acute on chronic severe bilateral hydroureteronephrosis
---
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
S/p DAKSHA graft 05/17/2024
Ongoing chest pain, NSTEMI
S/p CABG [facility] 12/09/2022
s/p NSTEMI August 2023, med managed at [facility]
Cardiomyopathy, EF 40% with
ESRD on HD
Mild oozing of left upper extremity fistula
Conditions present prior admission:
Transitional cell carcinoma, bladder
Status post transurethral resection of bladder tumor, most recently 50 tumors removed at [place] 09/01/2023
Paroxysmal atrial fibrillation
Not on anticoagulation due to anemia
Hypertension/hyperlipidemia
Diabetes
Plan/recommendations:
-
Remains critically ill on vasopressors + intubated; now off CRRT given air in the line on 05/31/2024; also with severe colitis and severe thrombocytopenia
Re-intubated 05/21/2024 and has remained intubated since
Developed cardiorespiratory arrest V. tach/PEA status post epi and CPR. Regained ROSC 05/21/2024 around 7 PM.
-
Intubated since 05/21/2024
Mechanical ventilation settings reviewed
Adjust vent daily based on blood gas
No significant secretions from ET tube - continue to monitor
Keep PIP<30-35
Chest x-ray 05/27/2024: Right mild to moderate pleural effusion. No significant infiltrates
CXR from 05/29/2024 shows patchy bibasilar opacities with mild interstitial prominence
CT chest obtained on 05/30/2024 showed multifocal pneumonia mainly in the right hemithorax with bilateral pleural effusions as well as severe acute colitis
Continue with intermittent suctioning-minimal secretions
Nebulizers as needed
Daily SAT/SBT
He is now completely off fentanyl drip since 05/30/2024 and Seroquel also stopped (was initially added on 05/29/2024 to help wean off fentanyl drip)
Will use prn versed and seroquel prn in addition to prn ativan, fentanyl and dilaudid
Goal RASS score 0 to -1
-
Shock: Worsening
Multiple mechanism septic/cardiogenic (echocardiogram with global hypokinesis decreased LVEF 20 to 30%/RV dysfunction as well)
Has evidence of multifocal right-sided pneumonia on imaging in addition to hypervolemia
Trend WBC
- On 05/28 he was again hypothermic-clinical picture not suggestive of worsening sepsis-minute ventilation has decreased, blood cultures negative.
Unclear if steroids had played a role - no longer hypothermic since 05/28/2024
Penis previously with pus: Straight cath showed purulent urine.
ESBL E. coli in the urine
ESBL E. coli in the sputum
Blood culture (05/22/2024 - NGTD)
Infectious disease following : now back on Zosyn s/p meropenem (05/22 - 05/29/2024) s/p vanc/zosyn + cipro
Would favor completing 2 weeks worth of Abx from date of first negative blood Cx (05/22/2024)
MRSA screening negative
-
Continue levophed with goal SBP>90; holding vasopressin --> son as of 06/01/2024 does not want to escalate care so we will not add any additional vasopressors if his BP continues to decline
Arterial line in place.
Stress dose of steroids decreased to every 12 on 05/27/2024 --> on 05/30 I changed to 25mg IV q12hr
Lactate level of 4 noted 05/23/2024. Suspect part of it is due to liver dysfunction Lactate normal as of 05/29/2024
Ammonia level normal (checked 05/31/2024)
-
Normal TSH (05/26/2024)
-
Abnormal LFTs: Suspect shock liver.
Abdominal ultrasound unremarkable (05/23/2024)
C/t trend
Ammonia level normal (05/31/2024)
-
Acidosis resolved: Continue CRRT -unable to tolerate dialysis due to hemodynamic instability.
Follow BMP
On 05/28 I started heparin gtt to help reduce risk of thrombosis --> given the drop in plt count, I stopped heparin gtt and DC'd ASA on 05/30/2024
He had been getting net positive fluid balance from CRRT given that his IVC was collapsed on bedside ultrasound on 05/29/2024 --> given the CT chest/Abd/Pelvis findings on 05/30, would start to cautiously pull fluid again as tolerated to make
slightly net negative fluid balance --> CRRT stopped on 05/31/2024 due to air in HD catheter
-
Thrombocytopenia noted: Low and now is <20k
Transfused 1 u platelet on 05/31/2024; keep plt>20k
Plavix has been discontinued --> given recent stent placed on 05/17/2024 to SVG-PDA, will try to resume once clinically able to
Trend platelet count - both heparin gtt + ASA stopped on 05/30 due to worsening plt count
Monitor for bleeding
4T score is 4 (intermediate risk for KRISTIN) --> heparin associated platelet-Ab is negative
-
Cardiology following the patient:
ICD was going to be consider prior to discharge --> pt clinicallyl worsening; c/t to monitor his clinical status and we can re-visit this if he improves, which is low probability
Echocardiogram 05/17/2024: EF 45% with hypokinesis inferoseptal wall, moderate MR, moderate aortic stenosis.
LVEF 04/20/2024 showed decline 20 to 30%. No significant valvular abnormalities. No pericardial effusion
Echocardiogram 05/22/2024: Ejection fraction 25-30% with global hypokinesis with inferior and inferior lateral akinesis. Dilated right ventricle with reduced right ventricular systolic function. Moderate to severe MR. Moderate to severe TR with PH
-
Unclear whether monomorphic VT was due to scar or recent drug-eluting stent/graft
V. tach/PEA arrest again on 05/21/2024
Due to bradycardia with HR in 40s, on 05/28 amiodarone IV drip was changed to PO amio with holding parameters
Cardiology following closely
ASA on hold (see above)
Plavix on hold 05/25/2024 due to thrombocytopenia
-
Chronic kidney disease hemodialysis dependent.
Case discussed with nephrology.
Transitioned to CRRT since 05/23/2024 --> stopped on 05/31/2024 due to air in HD catheter
Hold midodrine for now.
Black stools: Stool has been brown as of 05/28/2024
Trend H/H and transfuse if needed to keep >7; keep plt>20k
Continue PPI 40mg BID
Plavix also on hold; resume once clinically able to and plt stable
No evidence for active bleeding at this point.
Unfortunately not a candidate for any other intervention at this point
Hypoglycemia: Resolved
Insulin drip discontinued
Will continue to monitor closely
Temporarily was placed on D5 - now discontinued
Target 140-180
Insulin sliding scale
Diabetic OCCASIONAL BABYSITTER on board
He was occasionally following commands with sedation breaks, now he is minimally opening his eyes but no longer following commands as of 05/30/2024
CT head on 05/30/2024 without any acute intracranial abnormalities
Off fentanyl drip and off scheduled Seroquel since 05/30
Continue to monitor
Use prn medications for agitation for vs vent asynchrony
Of note, patient had delirium prior intubation
Dobbhoff tube-was tolerating tube feedings at goal but developed vomiting overnight 05/27/2024. Tube feedings were on hold --> resumed as of 05/28/2024 but vomited again on 05/30
Now OGT on LIWS ---> clamp now and if no vomiting and no worsening abdominal distension then will resume tube feeds at trickel rate tonight
PPI for GI prophylaxis
DVT prophylaxis: SCDs for now given severe TCP
Poor prognosis
Dr. Salcido as discussed the case with infectious disease, cardiology nephrology and primary team.
Dr. Salcido as discussed with son multiple times over the course of her hospital stay. Prognosis is poor and he understands. He would like to continue with aggressive support. Likely will need tracheotomy and a feeding tube.
Dr. Salcido updated son at the bedside 05/22/2024, 05/23/2024, 05/24/2024, , 05/26/2024 discussed possibility of DNR status. He will think about it. He understands that likely if patient survives he will need long-term care, suspected unlikely
will be able to go home independently.
Dr. Benitez discussed the case with patient's son, Devante, and daughter in law, answered all their questions. Pt remains full code despite poor prognosis
Dr. Benitez discussed in detail today (05/29/2024) with son, Devante, and [facility] and code status reviewed. Son wants to set up a family meeting, aiming for tomorrow at around 1230-1PM. For now, continue full medical management, but leaning toeards
terminal extubation/hospice.
Dr. Benitez had a family meeting on 05/30/2024 to discuss goals of care/code status/answer any other additional questions. Patient has extremely guarded prognosis. he remains full code --> discussed code status again on AM of 05/31/2024 with son
and pt now made DNR but ok for defibrillation/synchronized cardioversion and mechanical ventilation/CRRT
Hospice met with son and cousin today (06/01/2024), and they are ok with treating with prn dilaudid, fentanyl or ativan but do not want to withdraw care at this time
Critical care statement: A total of 41 minutes of critical care time was provided for this patient today. This includes management of unstable vital signs, evaluation of the patient at bedside, reviewing the patient's pertinent medical records
including ventilator settings, arterial blood gases, radiographs, microbiology, laboratory evaluations and discussion with primary team, critical care nursing, and respiratory therapy.
Subjective Dataa
Subjective Data
Date of Service:
Date of Service: June 01, 2024
Chief Complaint: Roller Skate Assembler Follow Up (Acute hypoxemic/hypercapnic respiratory failure)
Subjective:
Seen and evaluated this morning. Worsening Levophed requirements currently at 28mcg/min. Remains minimally responsive. Afebrile overnight. Was placed onto a vent wean this morning and then flipped back to AC/CMV later in the morning hours.
Currently on AC/CMV at 450/14/30%/5, with VTe 446mL, breathing at 17 breaths/min and PIP: 24 cmH2O. CRRT stopped yesterday as the central line developed air in the tubing. Son at bedside - all questions were answered.
Review of Systems
General: Unobtainable - Pat Unresp
Objective Data
Data Reviewed
Vital Signs / I&O / Oxygen:
Vital Signs
Temp Pulse Resp BP Pulse Ox
99.5 F 90 34 110/46 100
06/01/24 08:11 06/01/24 09:00 06/01/24 09:00 06/01/24 07:30 06/01/24 09:25
Intake and Output
05/31/24 06/01/24 06/02/24
06:59 06:59 06:59
Intake Total 2333.8 / 2362.3 2036.9 / 2085.7 333.8 / 333.8
Output Total 1124 / 1124 555 / 555
Balance 1209.8 / 1238.3 1481.9 / 1530.7 333.8 / 333.8
SaO2 [CPAP/PSV] 100
SaO2 [ASV] 100
SaO2 [A/C] 100
SaO2 100
Nasal Cannula flow liters per 95
minute
Physical Exam
General: Respiratory Distress (negative), Chills (negative) and Sweats (negative)
HEENT: Normocephalic, Anicteric and Other (ETT in place)
Cardiovascular: S1-S2, Murmur (+KRISTEN heard across precordium), Rub (n) and Peripheral Edema (No lower extremity edema bilaterally)
Respiratory: Wheeze (n), Crackles (n), Rhonchi (n), Non-Labored Respirations and ET Tube (No significant secretions)
GI: Soft, Distended, Non Tender, Other (Hypoactive bowel sounds) and Other (Fecal management system-brown stool)
Neurology: Other (Minimally responsive; tries to open eyes to tactile/verbal stimuli, but not following commands; pupils +1-2 mm bilaterally)
Skin: Warm, Dry, Cyanosis (n), Jaundice (n), Rash (n) and Other (Left upper extremity AV fistula)
Labs/Micro/Reports
Lab Data
06/01/24 04:39
06/01/24 04:39
Laboratory Results
06/01/24
04:39
pH 7.40
pCO2 34 L
pO2 130 H
HCO3 21.1
O2 Delivery Level
Microbiology
05/30/24 21:27 Feces/Stool Stool Leukocytes - Final
05/30/24 21:27 Feces/Stool C. difficile GDH Antigen & Toxins - Final
C. difficile antigen positive, toxin negative.
Clostridium difficile present, but toxin not detected.
Patient may be a carrier, colonized with nontoxinogenic
strain or the level of toxin in sample is below detection
limits. This information should be used in conjunction with
the patient's clinical history.
--- NOTE | 2024-06-01 08:23 | W.PN.NEPH.PH ---
Addendum entered and electronically signed by Darrell Trivedi MD 06/01/24 08:28:
cannot crush sensipar
Original Note:
Today's Communication / Plan
-
exchange CVC
Assessment/Plan
-
Assessment:
CP
Elevated troponin
Transitional cell carcinoma of the bladder
s/p CABG - CABRAL to LAD, SVG to OM, SVG to PDA 12/09/22 at [place]
CM EF 40% by echo 09/15/23
Type 2 NSTEMI s/p diagnostic cath 08/2023 at [facility] with patent bypass grafts, 70% OM stenosis, medically managed
Post CABG afib
PCI 05/17/24
ESRD on HD MWF
mild
Hypertension
Hyperlipidemia
Type 2 diabetes
Glaucoma
Hyponatremia
Plan
keep SBP>90 with norepinephrine, restart vasopressin if needed
exchange CVC today, may need to restart CRRT
He will not tolerate IHD with increasing pressor requirements
also would not stick AVF with plt 27 and moving patient
He is net positive 2.5L+ and BP is worse. Will need RHC if we are to believe he is intravascularly depleted
He is also third spacing
unable to tolerate tube feeds due to vomiting
s/p aredia. 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 start sensipar tube
prognosis is poor
critical care time 35 minutes
-
-
Date of Service: June 01, 2024
CC / HPI / ROS
-
Chief Complaint:
ESRD
History of Present Illness:
critically ill in ICU
CRRT off due to air in arterial line on more than one occasion
tube feeds off due to vomiting
Status post ventricular tachycardia and PEA/cardiac arrest
Remains on 1 pressor support but increasing requirements
Intubated (Fio2 30%), sedated, failed SBT 05/28
WBC at ~25
Calcium 11, s/o aredia 05/31
platelets low 27
Review of Systems:
Intubated
no fevers
vomited tube feeds
Labs
-
Labs:
WBC 25.3 10^3/uL (4.8-10.8) H 06/01/24 04:39
RBC 3.15 10^6/uL (4.70-6.10) L 06/01/24 04:39
Hgb 8.7 g/dL (13.0-18.0) L 06/01/24 04:39
Hct 25.3 % (39.0-52.0) L 06/01/24 04:39
Plt Count 27 10^3/uL (130-400) L* 06/01/24 04:39
Sodium 138 mmol/L (135-145) 06/01/24 04:39
Potassium 3.7 mmol/L (3.5-5.1) 06/01/24 04:39
Chloride 106 mmol/L (98-107) 06/01/24 04:39
Carbon Dioxide 22 mmol/L (22-30) 06/01/24 04:39
BUN 35 mg/dl (9-20) H 06/01/24 04:39
Creatinine 1.2 mg/dL (0.7-1.3) 06/01/24 04:39
eGFR 59.63 06/01/24 04:39
Glucose 106 mg/dl (70-99) H 06/01/24 04:39
Calcium 11.0 mg/dl (8.4-10.2) H 06/01/24 04:39
Phosphorus 3.9 mg/dl (2.5-4.5) 06/01/24 04:39
Wio-T-Izxkdjeswnb Pept 74198 pg/ml 06/01/24 04:39
Albumin 2.1 g/dl (3.5-5.0) L 06/01/24 04:39
Physical Exam
-
Vital Signs:
Vital Signs
Temp Pulse Resp BP Pulse Ox
99.5 F 97 14 110/46 99
06/01/24 08:11 06/01/24 07:30 06/01/24 06:00 06/01/24 07:30 06/01/24 07:30
Cardiovascular:: Regular rate and rhythm
Respiratory:: Bilateral: Coarse
Lung Excursion:: Normal
Abdomen:: Nontender and Soft
Bowel Sounds:: Normal
Extremity Edema:: +3: Bilateral:
[2024-06-01 08:30] VITALS: BP_SYST 90
[2024-06-01] MEDS: LANTUS SC (08:54)
--- NOTE | 2024-06-01 09:30 | PTCARENOTE ---
pt NSR-ST on monitor , BP 104/46 on Norepinephrine at [facility] to keep SBP > 90 , pt has been off of sedation since 05/30 10:00 , pt is not responding to commands , he withdrawals to painful stimuli, pupils are pinpoint , he does not tract in room ,
he has a positive cornea, heart tones murmur , lungs are diminished and course , he has not tolerated tube feeds , he was vomiting yesterday , his abdomen is distended , firm and tympanic , very hypoactive bowel sounds. hes been off tube feeds
since yesterday , Lantus was held this am , his BS was 109 this am , hes been off CRRT since yesterday , he has gained 2.1 kg since yesterday . pt son and daughter in law at bedside , discussion GOC with director case , they want a hospice consult ,
Dr Green notified . will hold off on the new HD cath placement until a decision is made .
--- NOTE | 2024-06-01 10:22 | W.PN.ID1 ---
Date of Service
Date of Service: June 01, 2024
Today's Communication
Continue Zosyn for now.
Assessment / Plan
Shock - likely combined cardiogenic and septic remains on pressors
ESBL-E.coli VAP and UTI
multisystem organ failure
Severe colitis- ischemic
NSTEMI, CAD
ESRD
Transitional cell cancer of the bladder
CT c/a/p
- bilateral pneumonia
- colitis - ischemic colitis high on differential given persistent shock - colonized with C diff but no current active infection, stool culture in progress
- hydronephrosis without distended bladder - likely due to adjacent colitis
- when stable could consider right lung US and possible thoracentesis
- blood cultures x2 in finalized negative
- c/w zosyn - dosed for CRRT
Patient is critically ill with poor prognosis.
Chief Complaint
-: UTI and Other (shock - septic and cardiogenic, MDRO)
Subjective / Review of Systems
Son and [id number]-[id number] at bedside.
Yesterday, pt was more alert and recognized family members. Today, pt is minimally responsive.
Vital Signs / Physical Exam
Vital Signs
Vital Signs
Temp Pulse Resp BP Pulse Ox
99.5 F 90 34 110/46 97
06/01/24 08:11 06/01/24 09:00 06/01/24 09:00 06/01/24 07:30 06/01/24 09:30
Physical Exam
Constitutional: Acutely Ill
Cardiovascular: Regular Rate and S1/S2
Pulmonary: Other (decreased BS)
Gastrointestinal: Soft, Distended (mild), Decreased Bowel Sounds and Other
Extremities: Edema
Objective Data
Lab Data
Lab Results
06/01/24 04:39
06/01/24 04:39
PT 15.2 Sec (11.4-14.6) H 05/30/24 05:16
INR 1.14 05/30/24 05:16
APTT 44.6 Sec (23.4-35.0) H 05/31/24 04:55
Estimated Creat Clear 41 ml/min 06/01/24 04:39
Lactic Acid 0.9 mmol/L (0.7-2.0) 05/29/24 05:28
Total Bilirubin 2.7 mg/dl (0.2-1.3) H 06/01/24 04:39
AST 44 U/L (17-59) 06/01/24 04:39
ALT 59 U/L (0-50) H 06/01/24 04:39
Alkaline Phosphatase 113 U/L (38-126) 06/01/24 04:39
Most recent labs reviewed.
Micro Results:
05/30/24 21:27 Salmonella/Shigella Culture - Pending
Feces/Stool Campylobacter Culture - Pending
- Pending
Shiga Toxin Test - Pending
Stool Leukocytes - Final
05/30/24 21:27 C. difficile GDH Antigen & Toxins - Final
Feces/Stool C. difficile antigen positive, toxin negative.
Clostridium difficile present, but toxin not detected.
Patient may be a carrier, colonized with nontoxinogenic
strain or the level of toxin in sample is below detection
limits. This information should be used in conjunction with
the patient's clinical history.
05/22/24 21:38 Blood Culture - Final
Blood/Venous No Growth - Final Report
05/22/24 20:58 Blood Culture - Final
Blood/Venous No Growth - Final Report
05/21/24 09:43 Urine Culture - Final
Urine Escherichia coli - ESBL
05/21/24 10:17 Respiratory Culture - Final
Endotracheal Escherichia coli - ESBL
Gram Stain - Final
05/16/24 18:42 MRSA Screen - Final
Nose No Methicillin Resistant Staphylococcus aureus isolated.
--- NOTE | 2024-06-01 10:59 | W.PN.CARDCBS ---
Today's Communication / Plan
-
No change in cardiac status
No VT on amiodarone
Prognosis remains poor with no meaningful neurologic recovery
Impression / Plan
-
PCP: Dr. Charlie Marley
Primary Cattle Dealer: Dr. Almanza
Assessment:
Admitted with chest pain and acute HF 05/16/24
In-hospital VT arrest
monomorphic VT, CPR, Epi x2 and shock with ROSC 05/19/24
VT that broke to PEA, CPR, Epi x2 and Bicarb x2 with ROSC 05/21/24
VDRF
intubated 05/19/24 and then extubated 05/20/24
re-intubated 05/21/24 with right lung whiteout
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
ESRD on HD
CM EF 40% by echo 09/15/23, ejection fraction 25% 05/21/2024
NSTEMI related to stenosis of saphenous vein graft to PDA, peak troponin 20
CAD
s/p CABG with CABRAL to LAD, SVG to OM, SVG to PDA at [facility] 12/09/22
s/p NSTEMI with patent bypass grafts, 70% OM stenosis being medically managed after cath at [facility] 08/2023
s/p NSTEMI with DAKSHA SVG-PDA 05/17/2024
Transitional cell carcinoma of the bladder treated with multiple transurethral resection of bladder tumor, most recently 50 tumors removed at [facility] 09/01/2023
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
Paroxysmal Afib
Not chronically anticoagulated due to anemia, not a candidate for watchman due to inability to tolerate even short-course OAC
mild
Hypertension
Hyperlipidemia
Type 2 diabetes
Glaucoma
Hyponatremia
bleeding from HD fistula site
Vomiting 05/20/24
Cardiogenic and septic shock
Thrombocytopenia
ECHO 08/2023 at [facility]: EF reportedly preserved
Echo 09/15/23: EF 40-45%, inferior wall akinesis, inferoseptal wall and base to mid inferolateral francisco hypokinetic, stage II diastolic dysfunction, moderate MR, mild with peak/mean 20/11. mild to mod aortic regurg
Echo 05/17/24: EF 45 to 50%, mild concentric LVH, hypokinesis of inferior septal wall and basal to mid lateral wall, mild MR, mild to moderate peak/mean 23/15, mild AI, mild pulmonic regurgitation.
Echo 05/21/24: EF 30-35%, global hypokinesis with inferior akinesis
Echo 05/22/24: EF 25 to 30%, global hypokinesis with inferior and inferolateral akinesis, dilated RV with reduced RV systolic function, moderate to severe MR, moderate to severe TR with PAP 64 mmHg
Cath 05/17/2024: LM: Calcified, distal tapering, LAD: 100% at origin, LAD fills via patent QUIANA, relatively small LAD with diffuse disease, circumflex heavily calcified, 50% proximal stenosis, 100% OM1 with patent vein graft but OM is very small,
retrograde filling less vibrant than before, RCA 100% at origin, SVG to PDA has 70% proximal stenosis, successful stenting prox SVG-PDA with 2.5 x 15 [place] DAKSHA
Plan:
Patient admitted with chest pain and acute HF 05/16/24. HD with UF performed with improvement in chest pain, but Troponin peaked at 20. Patient taken to cath lab radiological technologist 05/17/24 and found to have anew SVG to PDA lesion that was stented. Patient then had an
in-hospital cardiac arrest 05/19/24 early AM with CPR, Epi x2 and shock with ROSC. Patient was intubated and then extubated 05/20/24. Later on 05/20/24 had an episode of vomiting. During the day 05/20/24 patient was on Bhavin and maxed out and Levophed
started plus increasing oxygen demands. CXR with right lung whiteout and ABG sent. Patient re-intubated 05/21/24. VT code 05/21/24 at 1900 and then broke into PEA. Treated with CPR, Epi x2 and Bicarb x1 with ROSC.
Overall prognosis remains poor. Has not had meaningful neurologic recovery
No further VT on amiodarone
He remains on Levophed
CRRT for volume management
cont IV Antibiotics
Aspirin and Plavix on hold with severe thrombocytopenia
Ejection fraction is 25% and unable to give meds due to hypotension
Progress Note - Cattle Dealer
Subjective
Date of Service: June 01, 2024
No complaints
Objective
Labs:
06/01/24 04:39
06/01/24 04:39
Labs
Hgb 8.7 g/dL (13.0-18.0) L 06/01/24 04:39
Hct 25.3 % (39.0-52.0) L 06/01/24 04:39
Plt Count 27 10^3/uL (130-400) L* 06/01/24 04:39
PT 15.2 Sec (11.4-14.6) H 05/30/24 05:16
INR 1.14 05/30/24 05:16
APTT 44.6 Sec (23.4-35.0) H 05/31/24 04:55
Sodium 138 mmol/L (135-145) 06/01/24 04:39
Potassium 3.7 mmol/L (3.5-5.1) 06/01/24 04:39
BUN 35 mg/dl (9-20) H 06/01/24 04:39
Creatinine 1.2 mg/dL (0.7-1.3) 06/01/24 04:39
Glucose 106 mg/dl (70-99) H 06/01/24 04:39
Vital Signs and I&O:
Vital Signs
Temp Pulse Resp BP Pulse Ox
99.5 F 90 34 110/46 97
06/01/24 08:11 06/01/24 09:00 06/01/24 09:00 06/01/24 07:30 06/01/24 09:30
Vital Signs
Temp Pulse Resp BP Pulse Ox
99.5 F 90 34 110/46 97
06/01/24 08:11 06/01/24 09:00 06/01/24 09:00 06/01/24 07:30 06/01/24 09:30
Intake & Output
05/30/24 05/31/24 06/01/24 06/02/24
06:59 06:59 06:59 06:59
Intake Total 3313.7 / 3398.8 2333.8 / 2362.3 2036.9 / 2085.7 333.8 / 333.8
Output Total 2985 / 3016 1124 / 1124 555 / 555
Balance 328.7 / 382.8 1209.8 / 1238.3 1481.9 / 1530.7 333.8 / 333.8
Physical Exam
Physical Exam
General: Unresponsive
Neck: Supple, no JVD, HJR, carotids +2 B/L, no bruits bilaterally.
Heart: Non displaced PMI, RRR, no murmurs, No S3, S4, no rubs.
Lungs: Scattered rhonchi
Extremities: No clubbing, cyanosis or edema bilaterally.
Neuro: Unresponsive
--- NOTE | 2024-06-01 11:13 | CM ---
Met with patient's son and [id number]-eyn at the bedside
Hospice offered; Son agreeable to having a Consult; Attending notified
Referral sent to crm dynamics developer on-call
[2024-06-01 12:47] LABS: Glucose - Point of Care 98 mg/dl (70-99)
--- NOTE | 2024-06-01 13:22 | HOSPNOTE ---
Met with family and had a lengthy discussion about comfort care. The patient is actively dying and needs to be extubated and made comfortable. After a very long discussion the son is agreeable to some pain medications and ativan. The son is calling
family and having them come say goodbye. Will continue to follow for support.
[2024-06-01] MEDS: DILAUDID 0.5 MG IV ×2 (13:47→17:49)
--- NOTE | 2024-06-01 14:11 | PTCARENOTE ---
Dr Green spoke with son re goals of care , pt is going to eventually transition to comfort measures. pt son is concerned that his father is in pain is in pain , he would like to have the patient get pain Meds and antianxiety medications , pt has
facial frowning , his HR up to 100s , he is twitching bilateral arms , pt was given Dilaudid as ordered , as per son we will not add anymore vasopressors , he is currently on max dose of norepinephrine at 30mcg his current BP 90/38 , pt son wants to
speak to nephrology regarding his chronic kidney disease
[2024-06-01] MEDS: ATIVAN 0.5 MG IV (14:23)
--- NOTE | 2024-06-01 15:22 | W.PN.UPDATE ---
Update Note
Progress Note Update
Return to see patient. Spoke with son and [id number] at bedside. He expressed concerns regarding the acute change between yesterday and today and his father. He wondered if this was due to not having dialysis for 16 hours. I told him that
this was not from CRRT being discontinued yesterday afternoon. We also discussed the benefits of restarting CRRT. I told him that this would not improve his blood pressures nor would improve his ventilator status. His oxygen requirements are
already very good and his volume status does not reflect an overloaded state. We did discuss that he has been on dialysis for some time as an outpatient. Continuing dialysis at this point would have no material impact on his overall prognosis.
His overall prognosis is still driven by his cardiac and pulmonary issues overall. The son did note that his father certainly did not want a tracheostomy and did not want to live in a facility where he would lose independence and quality of life.
The son does not have a timeline that he is looking at to make decisions regarding his father as he also noted that his father's comfort and pain control are more important. For now he wishes to leave his father off CRRT. We will continue to
follow his blood work daily. This may at least give us a sense of timeline for how much time he has left without dialysis. We did discuss that any dialysis would require a catheter given his low platelet count (I would not access his fistula).
His current catheter is certainly dysfunctional given the air in line issue on CRRT and will need to be exchanged if we are to institute further dialysis. He would like to avoid additional procedures if possible as well as additional 'machines'.
He did express his preference to try and hold intravenous medications as is without adding additional ones.
Total critical care time spent today 80 minutes.
[2024-06-01] MEDS: SUBLIMAZE 50 MCG IV (15:36)
[2024-06-01 16:19] VITALS: BP 88/56
--- NOTE | 2024-06-01 16:42 | W.PN.UPDATE ---
Update Note
Progress Note Update
Seen and examined by me independently in collaboration with the biomedical scientist Flavia.
Lab data and imaging data reviewed.
Addendum as below :
Patient on vent unresponsive. Not on any sedative hypnotics. Does not follow commands. Does not open eyes. According to son his was done yesterday. Yesterday apparently was squeezing his hands but no meaningful interactions.
On max levophed again.
Abdo with distended abdomen and no BS.
Pt remains critically ill with MODS.
Prognosis for meaningful recovery is very poor.
Son at bedside with family -finds his to be uncomfortable and cant see him like this.
Requesting meds for comfort.
He had discussion with multiple specialist and family members trying to make a decision on goals of care. He met with hospice team as well today. His goal is to make sure he is comfortable. He understands medications including Ativan and
morphine will make him comfortable but my depression is hemodynamics worse. He understands that and if it is the case he does not want to go up on vasopressors. He wants to continue with Levophed for now and not add any more new vasopressors. We
discussed about comfort measures and let the nature takes its course. He wants to think about it.
DW BOILERMAKER LOFTSMAN
DW property preservation specialist
DW Snuff Box Finisher.
Total time spent on today's encounter was 52 minutes which included time spent in counseling the patient/family regarding diagnosis and treatment plan as listed above, goals of care, and symptom management. Case was discussed with nursing staff,
specialists, and care coordinators/case management. All labs and imaging personally reviewed by me. Remainder the time spent in detailed review of previous records, lab data, imaging, and other medical provider documentation.
--- NOTE | 2024-06-01 16:44 | PTCARENOTE ---
pt son spoke to Dr Trivedi re HD cath replacement , pt son does not want the HD cath replaced , he wants to make his father comfortable , he also does not want any tube feeds resumed since the patient has not been able to tolerate tube feeds , pt was
given Dilaudid , Lorazepam and Fentanyl for pain and discomfort he now is not twitching and has not facial grimacing , his blood pressure is 90s , he is still on max of Levophed . his son and daughter in law are at bedside
[2024-06-01] MEDS: CRESTOR 10 MG TUBE (17:07)
--- NOTE | 2024-06-01 17:43 | W.PN.UPDATE ---
Update Note
Progress Note Update
Went to speak to the son and BP is lowering with SBP in the 60s. The son had already decided not to escalate care. The son and think that the patient is suffering and would like to transition to comfort care measures now with terminal
extubation. Emotional support was provided. Orders will now be placed into [facility]. All questions were answered. AUTO BODY REPAIRER at bedside as well.
--- NOTE | 2024-06-01 17:53 | W.PN.HOSP.TC ---
Today's Communication/Plan
-
Continue mechanical ventilation, pressors, antibiotics. Patient discussing with auto body man whether CRRT line will be replaced. Hospice consulted. Ativan and Dilaudid as needed for discomfort added.
Assessment / Plan
Assessment / Plan
Cardiogenic / Septic shock
- VT arrest x2, 05/17 successful DAKSHA, Echo 05/22 25-30%
- Will require ICD prior to discharge
- Amio gtt -> PO
- Cards following without any further recs at this time
- If recurs may need to try Lidocaine gtt/Defibrillation
- Keep K >4, Keep Mg >2
- Monitor on tele
- norepinephrine cont. phenylephrine and vasopressin weaned off
- Continue corticosteroids
- Endotracheal and urine culture ESBL - sensitive to Zosyn -> Switch to Zosyn per ID
- WBC uptrending
- X-ray cannot rule out pneumonia, but residual fluid post mucous plug also possible
- meropenem (9 days) -> Zosyn. Antibiotics day 06/30
- adding dilaudid and ativan PRN for discomfort
- Hospice consulted and ongoing discussion with son
Acute hypoxemic respiratory failure secondary to mucous plugging
- Chest x-ray full sided white out right lung 05/21
- Extubated 05/20/24, reintubated 05/21
- Continue mechanical intubation
- Continues to fail weaning trials
- Consider trach tube. Tuesday is day 14 on vent. Son deciding with extended family
- Management per track dresser
Severe Colitis
-Severe colitis found on abdominal CT
� Cultures pending
� C. difficile antigen positive, toxin negative
� ID believes ischemic in nature
- Tube feedings haulted as pt has thrown up
Severe hydronephrosis
-Likely secondary to ESRD
-Bladder scan to evaluate post-obstructive etiologies
ESRD
- CRRT line developed clot after plt infusion
- Removed. Plans to replace pending sons decision
Electrolyte imbalance / metabolic acidosis
- hypercalcemia
- May add aredia per nephrology if CRRT line is replaced
NSTEMI/CAD
- s/p CABG with CABRAL to LAD, SVG to OM, SVG to PDA at [facility] 12/09/22
- s/p NSTEMI with patent bypass grafts at [facility] 08/2023
- 05/17 cath successful DAKSHA
- Dual antiplatelet therapy for next 6 to 10 months
- Clopedigrel held for Plt <50 per cardiology. Moved to heparin gtt for anticoagulation with low ptl -> Discontinued with plt 22 -> today 27
- ASA discontinued due to low plt
- Will need ICD prior to discharge per cards
HFrEF
- Echo 05/22 LVEF 25-30% ->15-20% visualized by track dresser on bedside pocus on 05/29
- Fluid volume removal per CRRT -> clot formed. Son deciding for CRRT line replacement.
- Unable to provide GDMT due to hypotension
- Will need ICD prior to discharge
Paroxysmal A-fib
� No Eliquis due to history of hematuria and severe anemia
� On DAPT therapy -> Heparin gtt -> d/c with plt 22.
� Previously on Coreg, currently on ammio PO
Thrombocytopenia
- today 22 -> 16 ->27
- On DAPT with recent cath 05/17 -> Heparin gtt discontinued with platelets 16
- HIT antibody pending
- Monitor
Elevated LFTs
- Likely shock liver
- Hep panel (-) and RUQ unremarkable for acute etiology
- Monitor
Heme-occult blood (+)
- Monitor CBC for signs of bleeding
- H&H stable
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
- [place]. TURBT 50 lesions were reportedly worked on on 09/01/2023.
- developed hematuria and a temporary placement of renal stent followed by continuous bladder irrigation
- Eliquis discontinued
Type 2 diabetes
- Hemoglobin A1c 7.1
- Management per diabetic nurse
Dyslipidemia
- Continue statin
#B12 deficiency�replace
#Chronic vertigo
CODE STATUS changed to limited DNR after long discussion between family and track dresser yesterday.
Anticipated Discharge: > 48 hours
Subjective/Interval History
-
Date of Service: June 01, 2024
Objective Data
-
Vital Signs:
Vital Signs
Temp Pulse Resp BP Pulse Ox
98.9 F 94 17 88/56 100
06/01/24 15:31 06/01/24 17:30 06/01/24 17:30 06/01/24 16:19 06/01/24 17:30
I&O
05/31/24 06/01/24 06/02/24
06:59 06:59 06:59
Intake Total 2333.8 / 2362.3 2036.9 / 2085.7 753.8 / 753.8
Output Total 1124 / 1124 555 / 555
Balance 1209.8 / 1238.3 1481.9 / 1530.7 753.8 / 753.8
Review of Systems
-
Unable to obtain full review of systems at this time due to: Patient Intubation
Physical Exam
-
HEENT: Normocephalic
Respiratory: Other (Coarse breath sounds)
Cardiac: Regular Rhythm and S1/S2
GI: Normal Bowel Sounds and Distended
Musculoskeletal: Edema, Right Upper Extrem and Edema, Left Upper Extrem
Skin: Warm
[2024-06-01] MEDS: ATIVAN 1 MG IV (17:54)
--- NOTE | 2024-06-01 18:00 | RESPNOTE ---
Patient extubated per MD order and family wishes for comfort care. Patient placed on nasal oxygen for comfort.
--- NOTE | 2024-06-01 18:14 | PTCARENOTE ---
pt son requesting for full DNR and for comfort care , pt was given IV Dilaudid and lorazepam then extubated at 1800 , and off of vasopressor support , pt family at bedside , emotional support given , current SBP 49 , HR 70s junctional rhythm
--- NOTE | 2024-06-01 19:23 | PTCARENOTE ---
Assumed care of pt at 1900. Pt on 2LNC, no drips, surrounded by family, introduced myself to family but did not yet do assessment to tell pt's LOC but pt lying in bed with eyes closed, no s/s distress, shallow breaths noted, pt still on monitor with
arterial line but screen turned off in room, BP noted to be in 30/10s, HR in 40s. Left room briefly, pt's HR dropped to 20s and then he went asystolic, DEMOLITION EXPERT in room to pronounce, time of 1911. Family performing cultural ritual at bedside
involving leaves.
--- NOTE | 2024-06-01 19:27 | W.PN.DEATH ---
Pronouncement of
-
Called to see patient to pronounce.
No spontaneous heart tones or respirations noted.
Patient not responsive to verbal stimuli.
Patient is pronounced .
Time of : 19:12
Date of : 06/01/24
Cause of : acute hypoxemic respiratory failure, pneumonia
Family Notified: Yes (family at bedside at time of )
--- NOTE | 2024-06-02 16:06 | W.DCSUMMARY ---
Discharge Summary
Discharge Data
Date of Admission: 05/16/24
Date of Discharge: 06/02/24
-
Pending Results: Yes
Additional Pending Results:
HIT antibodies
Shiga toxin test
Hospital Course
Primary diagnosis:
Cardiogenic shock
Septic shock
NSTEMI
HFrEF
Acute hypoxemic respiratory failure requiring mechanical ventilation
Severe colitis
Severe hydronephrosis
End-stage renal disease
Metabolic acidosis
Hypercalcemia
Hypokalemia
Thrombocytopenia
Paroxysmal A-fib
Shock liver
Type 2 diabetes
Dyslipidemia
Secondary diagnosis gnosis:
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
B12 deficiency
Hospital course:
83-year-old male with past medical history of end-stage renal disease, CAD status post multiple stents, atrial fibrillation, HFrEF presented to ED with chest pain. Nephrology and cardiology consulted with past medical history. Diagnosed with
NSTEMI with elevated troponins and had a successful drug-eluting stent placed on 05/17. Repeat echo showed left ejection fraction 45 to 50%. Dialysis as needed per nephrology. On 05/19, patient went into cardiac arrest with V. tach. Regained
ROSC. Intubated and transferred to ICU for further care. Patient placed on IV amiodarone drip and pressors. Patient was extubated on 05/20. Reintubated on 05/21 due to increased shortness of breath. Chest x-ray revealed mucous plug. Later that
day, patient had another V. tach arrest developed into PEA arrest before defibrillator could be attached. Regained ROSC. Patient maxed out on 3 pressors. WBC slightly elevated. Broad-spectrum antibiotics were started as straight cath show
purulent urine. Endotracheal cultures also sent. Repeat echo on 05/22 revealed ejection fraction 25 to 30%. Infectious disease consulted. Urine and endotracheal cultures revealed gram-negative bacilli. ID initially discontinued vancomycin and
continue with Zosyn, then switched him to meropenem and ciprofloxacin. Stress dose steroids were also started. IR was consulted for dialysis line placement for CRR as pt too critially ill for dialysis. LFTs also started to rise. Hepatitis panel
ordered and ruled out hepatitis. Right upper quadrant ultrasound also ruled out acute etiologies. Likely shock liver. Amio drip later transitioned to p.o. On 05/24, antibiotic switched to per ESBL sensitivities. White count continue to uptrend,
thrombocytopenia began to worsen. Plavix was held per cardiology. Adjustments to insulin was made by diabetic nurse due to increase in blood sugars due to steroids. Pressor requirements were able to be weaned. However, stools noted to be black.
Hemoccult blood positive. H&H was stable. Platelets continue to drop towards the 20s. Heparin drip was started for anticoagulation with aspirin for better control in case of large bleed. On 05/29, repeat POCUS was performed and noted IVC
collapse with no respiratory variation. Noted LVEF 15 to 20%. Fluid bolus given. Net positive CRRT for next few days per [employer] and nephrology. On 05/30, platelet level 22. Heparin drip discontinued along with aspirin. Patient's family
was continuously updated through changes. White blood cell count started to downtrend and then plateaued on meropenem. Abdominal and head CT was performed at request of the family to evaluate for any other causes of unresponsiveness when not on
sedation while mechanically ventilated. Head CT did not reveal any intracranial bleeding. Abdominal CT did reveal severe colitis and severe hydronephrosis. Cultures were sent for stool. C. difficile antigen positive toxin negative. ID suspected
colitis secondary to ischemia rather than infectious etiology. On 05/31, CRRT developed clot and patient taken off. Family was deciding whether or not to restart CRRT. On 06/01, hospice was consulted. After long discussion of family, patient
placed on low-dose Dilaudid and Ativan as needed. Eventually decided to move to comfort measures and mechanical intubation removed. Patient passed peacefully on the evening of 06/01.
Discharge Plan
-
Patient Disposition:
Date/Time
Date/Time: 06/01/24 19:12
Discharge Date and Time
Discharge Date/Time: 06/01/24 19:12
Print Language: TURKISH
== END 2024-06-01 19:12 | disposition expired | DRG 321 ==
LOC: ICU 14:09
PROVIDERS: Family Medicine; Hospitalist; Internal Medicine Cardiovascular Disease; Internal Medicine Critical Care Medicine; Internal Medicine Interventional Cardiology; Nurse Practitioner Family; Nurse Practitioner Primary Care; Physician Assistant Medical; Radiology Vascular & Interventional Radiology; Specialist; ADMITTING PHYSICIAN Internal Medicine; ATTENDING PHYSICIAN Internal Medicine; CONSULT PHYSICIAN Internal Medicine; CONSULT PHYSICIAN Internal Medicine Cardiovascular Disease; CONSULT PHYSICIAN Internal Medicine Critical Care Medicine; CONSULT PHYSICIAN Student in an Organized Health Care Education/Training Program; EMERGENCY PHYSICIAN Emergency Medicine; FAMILY PHYSICIAN Internal Medicine Interventional Cardiology
PROC: 5A1D70Z Performance of Urinary Filtration, Intermittent, Less than 6 Hours Per Day (ICD-10-PCS; 2024-05-16)
PROC: B2111ZZ Fluoroscopy of Multiple Coronary Arteries using Low Osmolar Contrast (ICD-10-PCS; 2024-05-17)
PROC: 4A023N7 Measurement of Cardiac Sampling and Pressure, Left Heart, Percutaneous Approach (ICD-10-PCS; 2024-05-17)
PROC: B2151ZZ Fluoroscopy of Left Heart using Low Osmolar Contrast (ICD-10-PCS; 2024-05-17)
PROC: 027034Z Dilation of Coronary Artery, One Artery with Drug-eluting Intraluminal Device, Percutaneous Approach (ICD-10-PCS; 2024-05-17)
PROC: B2121ZZ Fluoroscopy of Single Coronary Artery Bypass Graft using Low Osmolar Contrast (ICD-10-PCS; 2024-05-17)
PROC: B2181ZZ Fluoroscopy of Left Internal Mammary Bypass Graft using Low Osmolar Contrast (ICD-10-PCS; 2024-05-17)
PROC: 0BH17EZ Insertion of Endotracheal Airway into Trachea, Via Natural or Artificial Opening (ICD-10-PCS; 2024-05-19)
PROC: 03HY32Z Insertion of Monitoring Device into Upper Artery, Percutaneous Approach (ICD-10-PCS; 2024-05-19)
PROC: 02HV33Z Insertion of Infusion Device into Superior Vena Cava, Percutaneous Approach (ICD-10-PCS; 2024-05-19)
PROC: 5A1935Z Respiratory Ventilation, Less than 24 Consecutive Hours (ICD-10-PCS; 2024-05-19)
PROC: 5A12012 Performance of Cardiac Output, Single, Manual (ICD-10-PCS; 2024-05-19)
PROC: 5A2204Z Restoration of Cardiac Rhythm, Single (ICD-10-PCS; 2024-05-19)
PROC: 5A1955Z Respiratory Ventilation, Greater than 96 Consecutive Hours (ICD-10-PCS; 2024-05-21)
PROC: 5A1D90Z Performance of Urinary Filtration, Continuous, Greater than 18 hours Per Day (ICD-10-PCS; 2024-05-23)
PROC: 30233R1 Transfusion of Nonautologous Platelets into Peripheral Vein, Percutaneous Approach (ICD-10-PCS; 2024-05-31)
DX: I21.4 Non-ST elevation (NSTEMI) myocardial infarction (principal); A41.9 Sepsis, unspecified organism; I50.23 Acute on chronic systolic (congestive) heart failure; N18.6 End stage renal disease; R65.21 Severe sepsis with septic shock; J96.01 Acute respiratory failure with hypoxia; K72.00 Acute and subacute hepatic failure without coma; J69.0 Pneumonitis due to inhalation of food and vomit; I13.2 Hypertensive heart and chronic kidney disease with heart failure and with stage 5 chronic kidney disease, or end stage renal disease; E87.1 Hypo-osmolality and hyponatremia; I47.20 Ventricular tachycardia, unspecified; N13.30 Unspecified hydronephrosis; E87.20 Acidosis, unspecified; I25.810 Atherosclerosis of coronary artery bypass graft(s) without angina pectoris; J95.851 Ventilator associated pneumonia; N39.0 Urinary tract infection, site not specified; Z51.5 Encounter for palliative care; Z66 Do not resuscitate; Y84.8 Other medical procedures as the cause of abnormal reaction of the patient, or of later complication, without mention of misadventure at the time of the procedure; C67.9 Malignant neoplasm of bladder, unspecified; I25.10 Atherosclerotic heart disease of native coronary artery without angina pectoris; I45.10 Unspecified right bundle-branch block; I46.2 Cardiac arrest due to underlying cardiac condition; R57.0 Cardiogenic shock; K52.9 Noninfective gastroenteritis and colitis, unspecified; E78.00 Pure hypercholesterolemia, unspecified; E83.52 Hypercalcemia; E87.6 Hypokalemia; D69.6 Thrombocytopenia, unspecified; T17.990A Other foreign object in respiratory tract, part unspecified in causing asphyxiation, initial encounter; W44.F9XA Other object of natural or organic material, entering into or through a natural orifice, initial encounter; I48.0 Paroxysmal atrial fibrillation; E11.22 Type 2 diabetes mellitus with diabetic chronic kidney disease; D63.1 Anemia in chronic kidney disease; E53.8 Deficiency of other specified B group vitamins; I25.5 Ischemic cardiomyopathy; H40.9 Unspecified glaucoma; D50.0 Iron deficiency anemia secondary to blood loss (chronic); K21.9 Gastro-esophageal reflux disease without esophagitis; I35.0 Nonrheumatic aortic (valve) stenosis; N40.0 Benign prostatic hyperplasia without lower urinary tract symptoms; I25.2 Old myocardial infarction; Z79.4 Long term (current) use of insulin; Z79.82 Long term (current) use of aspirin; Z79.899 Other long term (current) drug therapy; Z82.49 Family history of ischemic heart disease and other diseases of the circulatory system; Z99.2 Dependence on renal dialysis; Z95.1 Presence of aortocoronary bypass graft
CPT/HCPCS: 93308; 36556; 36600; 70450; 71045; 71250; 74018; 74176; 76700; 76937; 80048; 80053; 80076; 80202; 82140; 82248; 82330; 82533; 82805; 82962; 83036; 83605; 83735; 83880; 83970; 84100; 84132; 84302; 84443; 84478; 84484; 85025; 85027; 85347; 85384; 85610; 85730; 86022; 86706; 86708; 86709; 86803; 86850; 86900; 86901; 87040; 87045; 87046; 87070; 87077; 87086; 87186; 87205; 87324; 87340; 87427; 87449; 89055; 93005; 93306; 93459; 93970; 94002; 94003; 94640; 97163; 97167; 99285; C1725; C1752; C1760; C1769; C1874; C1887; C1894; C9604; G0257; J2185; J2430; P9047; P9073; Q9967